=== PATIENT | female | born 1965 | race Caucasian/White ===

== ENCOUNTER → 2018-01-31 10:41 | Outpatient (CLI) | payer MEDICARE, BC, SELFPAY ==
[2018-01-31 11:55] LABS: Alanine Aminotransferase 34 U/L (12-78); Albumin Level 3.6 gm/dL (3.4-5.0); Alkaline Phosphatase 125 U/L (46-116); Anion Gap 13.2 mEq/L (5-15); Aspartate Amino Transferase 25 U/L (15-37); Bilirubin,Total 0.4 mg/dL (0.2-1.0); Blood Urea Nitrogen 27 mg/dL (7-18); Calcium 9.9 mg/dL (8.5-10.1); Carbon Dioxide 33 mmol/L (21.0-32.0); Chloride 101 mmol/L (98-107); Creatinine,Serum 1.38 mg/dL (0.55-1.02); Estimated Glomerular Filt Rate 40 ml/min (>60); GFR (African American) 49 ML/MIN (>60); Globulin 3.7 gm/dl (1.3-3.2); Glucose 111 mg/dL (74-106); Magnesium 2.1 mg/dL (1.4-2.2); Potassium 3.2 mmoL/L (3.5-5.1); Sodium 144 mmol/L (136-145); Total Protein,Serum 7.3 gm/dL (6.4-8.2)
== END ==
PROVIDERS: Visit Provider Internal Medicine Adolescent Medicine
DX: R00.2 Palpitations (principal)
CPT/HCPCS: 36415; 80053; 83735

== ENCOUNTER → 2018-03-12 16:46 | Outpatient (CLI) | payer MEDICARE, BC, SELFPAY ==
[2018-03-12 18:41] LABS: Free Thyroxine Index 2.3 ug/dL (5.93-13.13); Thyroid Stimulating Hormone 2.56 uIU/ml (0.358-3.740); Triiodothryronine (T3) Uptake 29 % (31-39)
== END ==
PROVIDERS: Visit Provider Internal Medicine Adolescent Medicine
DX: R53.83 Other fatigue (principal); R53.81 Other malaise
CPT/HCPCS: 36415; 84436; 84443; 84479

== ENCOUNTER → 2018-04-26 13:49 | Outpatient (POV) | payer MEDICARE, BC, SELFPAY | PROVIDERS: Family Provider Nurse Practitioner Family; PCP Nurse Practitioner Family; Visit Provider Dermatology | DX: Z00.00 Encounter for general adult medical examination without abnormal findings (principal) ==

== ENCOUNTER → 2018-05-15 09:22 | Outpatient (CLI) | payer MEDICARE, BC, SELFPAY ==
[2018-05-15 10:01] LABS: Hemoglobin A1C 6.4 % (0.0-7.0)
[2018-05-15 10:32] LABS: Basophils # 0.1 K/mm3 (0-0.2); Basophils % 0.5 % (0.1-2.0); Eosinophils # 0.3 K/mm3 (0.0-0.4); Eosinophils % 2.5 % (0.1-12.0); Hematocrit 43.9 % (37.0-47.0); Hemoglobin 14.2 g/dL (12.2-16.2); Lymphocytes # 2.3 K/mm3 (0.7-4.5); Lymphocytes % 23.1 K/mm3 (10-50); Mean Corpuscular HGB Conc 32.3 g/dL (31.8-35.4); Mean Corpuscular Hemoglobin 29.7 pg (27.0-31.2); Mean Corpuscular Volume 91.8 fl (81-99); Mean Platelet Volume 7.5 fl (7.4-10.4); Monocytes # 0.4 K/mm3 (0.1-1.0); Monocytes % 3.8 % (1.7-9.3); Neutrophils # 7.1 K/mm3 (1.8-7.8); Neutrophils % 70.1 % (37.0-80.0); Platelet Count 326 K/mm3 (142-424); Red Blood Count 4.78 M/mm3 (4.20-5.40); Red Cell Distribution Width 15.8 % (11.5-17.5); White Blood Count 10.1 K/mm3 (4.8-10.8)
[2018-05-15 10:33] LABS: Alanine Aminotransferase 39 U/L (12-78); Albumin Level 3.4 gm/dL (3.4-5.0); Albumin/Globulin Ratio 0.9 (1.1-1.8); Alkaline Phosphatase 123 U/L (46-116); Anion Gap 11.3 mEq/L (5-15); Aspartate Amino Transferase 22 U/L (15-37); Bilirubin,Direct 0.1 mg/dL (0.0-0.2); Bilirubin,Indirect 0.2 mg/dL (0.0-0.9); Bilirubin,Total 0.3 mg/dL (0.2-1.0); Blood Urea Nitrogen 23 mg/dL (7-18); Calcium 9.7 mg/dL (8.5-10.1); Carbon Dioxide 33 mmol/L (21.0-32.0); Chloride 100 mmol/L (98-107); Chol/HDL Ratio 2.7 (1-3.5); Cholesterol 246 mg/dL (140-200); Creatinine,Serum 1.45 mg/dL (0.55-1.02); Estimated Glomerular Filt Rate 38 ml/min (>60); Free T4 (Free Thyroxine) 0.76 ng/dl (0.76-1.46); GFR (African American) 46 ML/MIN (>60); Globulin 3.8 gm/dl (1.3-3.2); Glucose 147 mg/dL (74-106); HDL Cholesterol 92 mg/dL (29-89); LDL Cholesterol 99 mg/dL (0-130); Potassium 3.3 mmoL/L (3.5-5.1); Sodium 141 mmol/L (136-145); Thyroid Stimulating Hormone 3.39 uIU/ml (0.358-3.740); Total Protein,Serum 7.2 gm/dL (6.4-8.2); Triglycerides 274 mg/dL (30-200); VLDL Cholesterol 55 mg/dL (0-40)
[2018-05-16 11:00] LABS: Triiodothyronine (T3) Free 3.2 pg/mL (2.0-4.4); Vitamin B12 981 pg/mL (232-1245); Vitamin D 25 Hydroxy 62.7 ng/mL (30.0-100.0)
== END ==
PROVIDERS: Visit Provider Nurse Practitioner Psychiatric/Mental Health
DX: F33.1 Major depressive disorder, recurrent, moderate (principal); F41.9 Anxiety disorder, unspecified; Z79.899 Other long term (current) drug therapy
CPT/HCPCS: 36415; 80053; 80061; 80076; 82607; 82652; 83036; 84439; 84443; 84481; 85025

== ENCOUNTER → 2018-07-23 11:39 | Outpatient (POV) | payer OTHER, MEDICARE, BC, SELFPAY ==
[2018-07-23 11:51] VITALS: BP 142/86; PULSE 98; RESP 18; O2SAT 97; BMI 38.7
--- NOTE | 2018-07-23 12:59 | HMH.PAINSOAP ---
[facility] Pain Management SOAP Note Subjective:: Patient is a pleasant 53-year-old white female who presents today for follow-up. Patient has a Medtronic stimulator. Patient is coming to the end of her life of her generator. Patient has done well with her stimulator for pain control. Patient is having issues far as recharging. Patient would like to start moving forward with getting her generator changed. Patient rates her pain today a 3 out of 10. Mostly in her right upper extremity ROS General: no recent weight change, no fever, no sleep disturbances Respiratory: no cough, no shortness of air, no recurring pulmonary infections Cardiovascular/Peripheral Vascular: No chest pain, No palpitations, no edema, no shortness of breath. Gastrointestinal: no incontinence, normal bowel movements reported Genitourinary: no incontinence Musculoskeletal: Right upper extremity pain Psychiatric: normal mood/ affect Neurological: [denies weakness in extremities], [denies balance issues] Objective:: Physical Exam General: Alert and oriented x3, no acute distress, pleasant and cooperative, [on room air] Lungs: Resps E/U, Symmetrical chest expansion, Eyes: PERRL Musculoskeletal: Flexion and extension of cervical spine somewhat guarded secondary to pain, deep tendon reflexes normal, strength in upper and lower extremities [5/5], normal gait noted Neurological: speech clear, permanent mold supervisor equal, no gross sensory deficits Assessment:: CRPS type I right upper extremity Plan:: We will order x-rays to determine lead placement. We will switch out her Medtronic battery for a nuvectrA battery. Patient is interested in this. I answered all of the patient's questions we will move forward with a change out as soon as possible. We will have her scheduled with Dr. murry to be consulted. This note was dictated using voice recognition software and may contain errors or omissions
--- NOTE | 2018-07-23 13:02 | P.CONS_ITS ---
[facility] Pain Management SOAP Note Subjective:: Patient is a pleasant 53-year-old white female who presents today for follow-up. Patient has a Medtronic stimulator. Patient is coming to the end of her life of her generator. Patient has done well with her stimulator for pain control. Patient is having issues far as recharging. Patient would like to start moving forward with getting her generator changed. Patient rates her pain today a 3 out of 10. Mostly in her right upper extremity ROS General: no recent weight change, no fever, no sleep disturbances Respiratory: no cough, no shortness of air, no recurring pulmonary infections Cardiovascular/Peripheral Vascular: No chest pain, No palpitations, no edema, no shortness of breath. Gastrointestinal: no incontinence, normal bowel movements reported Genitourinary: no incontinence Musculoskeletal: Right upper extremity pain Psychiatric: normal mood/ affect Neurological: [denies weakness in extremities], [denies balance issues] Objective:: Physical Exam General: Alert and oriented x3, no acute distress, pleasant and cooperative, [on room air] Lungs: Resps E/U, Symmetrical chest expansion, Eyes: PERRL Musculoskeletal: Flexion and extension of cervical spine somewhat guarded secondary to pain, deep tendon reflexes normal, strength in upper and lower extremities [5/5], normal gait noted Neurological: speech clear, servicing manager equal, no gross sensory deficits Assessment:: CRPS type I right upper extremity Plan:: We will order x-rays to determine lead placement. We will switch out her Medtronic battery for a nuvectrA battery. Patient is interested in this. I answered all of the patient's questions we will move forward with a change out as soon as possible. We will have her scheduled with Dr. murry to be consulted. This note was dictated using voice recognition software and may contain errors or omissions
== END ==
PROVIDERS: PCP Internal Medicine Adolescent Medicine; Visit Provider Clinical Nurse Specialist Family Health
DX: G90.511 Complex regional pain syndrome I of right upper limb (principal)
CPT/HCPCS: 99213

== ENCOUNTER → 2018-08-03 14:41 | Outpatient (CLI) | payer MEDICARE, BC, SELFPAY ==
--- NOTE | 2018-08-03 14:49 | XR_ITS ---
EXAM: XR thoracic spine 3V HISTORY: ITS.REASON: BACK/NECK PAIN Comparison: None FINDINGS: There is normal alignment. No fracture or dislocation is evident. There are 2 epidural stimulator device is present which enter at the L2-L3 level. There are mild degenerative changes in the mid and upper thoracic spine with some decrease in the disc space with minimal osteophytes noted. No lytic or blastic change. IMPRESSION: Mild degenerative changes, no acute finding. Epidural stimulator device present
--- NOTE | 2018-08-03 14:49 | XR_ITS ---
EXAM: XR cervical spine 5V HISTORY: ITS.REASON: BACK/NECK PAIN ORDERING PHYSICIAN: Amalia Batista PATIENT AGE: 53 years COMPARISON: None FINDINGS: There is slight reversal of the cervical lordosis. This can be due to patient positioning or muscle spasm. Epidural stimulator device is noted with 2 leads along the posterior aspect of the spinal canal with the cephalad component of one of the catheters at the 4 region. There are 2 metallic markers along the posterior aspect of the T2 level. The remaining metallic markers are at the inferior aspect of the C3 level. This raises the suspicion of separation of this catheter. If this is considered clinically significant, then CT with reformats can confirm this finding. No fracture or dislocation. The disc spaces are well-preserved. No lytic or blastic change. IMPRESSION: 1. Reversal of cervical lordosis which may be due to patient positioning or muscle spasm. 2. Suspect a fracture of the distal aspect of one of the epidural catheters which is on the left which may be confirmed with CT
== END ==
PROVIDERS: PCP Clinical Nurse Specialist Family Health; Visit Provider Clinical Nurse Specialist Family Health
DX: M54.2 Cervicalgia (principal); M54.6 Pain in thoracic spine
CPT/HCPCS: 72050; 72072

== ENCOUNTER 2018-09-11 10:49 | Inpatient (IN) ==
[2018-09-11 11:12] LABS: Basophils # 0.1 K/mm3 (0-0.2); Basophils % 0.6 % (0.1-2.0); Eosinophils # 0.4 K/mm3 (0.0-0.4); Hematocrit 40.7 % (37.0-47.0); Hemoglobin 13.2 g/dL (12.2-16.2); Lymphocytes # 1.8 K/mm3 (0.7-4.5); Lymphocytes % 23.4 % (10-50); Mean Corpuscular HGB Conc 32.5 g/dL (31.8-35.4); Mean Corpuscular Hemoglobin 28.5 pg (27.0-31.2); Mean Corpuscular Volume 87.6 fl (81-99); Monocytes # 0.4 K/mm3 (0.1-1.0); Monocytes % 5.1 % (1.7-9.3); Neutrophils # 5.2 K/mm3 (1.8-7.8); Neutrophils % 65.9 % (37.0-80.0); Platelet Count 268 K/mm3 (142-424); Red Blood Count 4.64 M/mm3 (4.20-5.40); White Blood Count 7.8 K/mm3 (4.8-10.8)
[2018-09-11 12:20] LABS: Alanine Aminotransferase 34 U/L (12-78); Albumin Level 3.7 gm/dL (3.4-5.0); Alkaline Phosphatase 116 U/L (46-116); Amylase 122 U/L (25-115); Anion Gap 15.3 mEq/L (5-15); Aspartate Amino Transferase 25 U/L (15-37); Bilirubin,Total 0.3 mg/dL (0.2-1.0); Blood Urea Nitrogen 43 mg/dL (7-18); Calcium 9.3 mg/dL (8.5-10.1); Carbon Dioxide 31 mmol/L (21.0-32.0); Chloride 98 mmol/L (98-107); Free Thyroxine Index 2.1 ug/dL (5.93-13.13); Globulin 3.8 gm/dl (1.3-3.2); Glucose 109 mg/dL (74-106); Lipase 220 u/L (73-393); Potassium 3.3 mmoL/L (3.5-5.1); Sodium 141 mmol/L (136-145); T4 (Thyroxine) 7.1 ug/dl (4.7-13.3); Thyroid Stimulating Hormone 1.55 uIU/ml (0.358-3.740); Total Protein,Serum 7.5 gm/dL (6.4-8.2); Triiodothryronine (T3) Uptake 29 % (31-39)
[2018-09-11 16:49] LABS: Microscopic, Urine URINE MICROSCOPIC (MICROSCOPIC)
[2018-09-11 16:52] LABS: Appearance,Urine CLEAR (Clear); Bilirubin,Urine Negative (Negative); Blood, Urine 1+ (Negative); Color,Urine YELLOW (Yellow); Glucose,Urine (UA) Negative (Negative); Ketones,Urine Negative (Negative); Leukocyte Esterase,Urine TRACE (Negative); Protein,Urine 1+ (Negative); Specific Gravity, Urine 1.015 (1.005-1.030); Urobilinogen,Urine 0.2 EU/dl (0.2)
[2018-09-11 17:10] LABS: Bacteria,Urine Trace /lpf; Hyaline Casts,Urine Occasional #/lpf (0); RBC,Urine Occasional #/hpf (0-3)
[2018-09-12 06:31] LABS: Anion Gap 12.7 mEq/L (5-15)
[2018-09-12 06:46] LABS: Basophils % 0.3 % (0.1-2.0); Eosinophils # 0.3 K/mm3 (0.0-0.4); Eosinophils % 3.7 % (0.1-12.0); Lymphocytes # 1.6 K/mm3 (0.7-4.5); Lymphocytes % 20.5 % (10-50); Mean Corpuscular HGB Conc 32.3 g/dL (31.8-35.4); Mean Corpuscular Volume 86.8 fl (81-99); Mean Platelet Volume 7.2 fl (7.4-10.4); Monocytes # 0.5 K/mm3 (0.1-1.0); Monocytes % 6.7 % (1.7-9.3); Neutrophils # 5.3 K/mm3 (1.8-7.8); Neutrophils % 68.8 % (37.0-80.0); Platelet Count 197 K/mm3 (142-424); Red Blood Count 4.06 M/mm3 (4.20-5.40); Red Cell Distribution Width 14.9 % (11.5-17.5); White Blood Count 7.7 K/mm3 (4.8-10.8)
[2018-09-12 06:57] LABS: Potassium 2.7 mmoL/L (3.5-5.1)
[2018-09-12 07:41] LABS: Hematocrit 35.1 % (37.0-47.0); Hemoglobin 11.5 g/dL (12.2-16.2)
--- NOTE | 2018-09-12 07:45 | Pharmacy Consult Notes ---
[facility] Pharmacy VTE Monitoring - Patient Demographics Admission date: 09/11/18 Report Date: 09/12/18 Time: 07:45 Allergies/Adverse Reactions: Patient Allergies meperidine [From DEMEROL] Allergy (Mild, Verified 08/21/18 14:55) oxytetracycline [From TERRAMYCIN] Allergy (Mild, Verified 08/21/18 14:55) penicillin G [PENICILLIN G] Allergy (Mild, Verified 08/21/18 14:55) lorazepam [From ATIVAN] Allergy (Unknown, Verified 08/21/18 14:55) HALLUCINATIONS Height: 1.52 m Weight: 88.054 kg - VTE Risk Labs: VTE Related Lab Results Hgb 11.5 g/dL (12.2-16.2) L D 09/12/18 05:42 Hct 35.1 % (37.0-47.0) L 09/12/18 05:42 Plt Count 197 K/mm3 (142-424) D 09/12/18 05:42 BUN 36 mg/dL (7-18) H 09/12/18 05:42 Creatinine 3.18 mg/dL (0.55-1.02) H 09/12/18 05:42 Estimated Creat Clear 28 mL/min (50-200) 09/12/18 05:42 Was VTE Risk Assessment Performed: Yes VTE Score: 4 VTE Risk Level: Low Risk Clinical Trial Participant: No - Prophylaxis VTE Prophylaxis Ordered?: Yes Types of VTE Prophylaxis: TEDS Knee High
--- NOTE | 2018-09-12 07:48 | History & Physical Report ---
*Admission Date: 09/11/18 *Chief complaint: Weakness and nausea *History of present illness: 53-year-old white female with multiple medical problems who is fairly functional in spite of this, who came to my office the day before admission with a chief complaint of nausea and weakness. She relates this to the implantation of a spinal stimulator and change in battery that had occurred about a week and a half ago, with a new incision site. She reports that during the procedure she was told her might of been some tetracycline type powder implanted in the area and she was concerned about this because she is extremely sensitive to tetracycline antibiotics and becomes very nauseated. She has been nauseated over the past week and a half and has not been feeling well. I obtained blood work which she got the next morning, the day of admission, which showed significant elevation in creatinine at 3.65, markedly abnormal compared to her baseline around 1.2 and her preoperative creatinine obtained by pain clinic which was 1.6. She was admitted for IV fluids, holding nephrotoxic medications and further diagnostic testing. [facility] History I have reviewed the patient's past medical history: Yes Medical History: Reports:: Anxiety, Diabetes Mellitus Type 2, Heart Murmur (MVP), Hyperlipidemia, Hypertension, Lung Disease Denies:: Diabetes Mellitus Type 1, Internal Pacemaker, Seizures Other Medical History: Reports: Hypothyroidism, Other (Electrocution injury 10 years ago). Denies: Blood Transfusion Reaction Comment: Influenza requiring long-term stay at [facility] with ECMO and ventilator support for several weeks in 2013 Other Surgeries: Yes: Cholecystectomy, Colonoscopy, Hysterectomy-Total. No: Pacemaker Amputation: No Fractures: No - *Social History Smoking Status: Never smoker Alcohol Intake: never Alcohol Intake Frequency:: other Substance Use Type: denies use Occupational Status: disabled - Psychiatric History Expresses thoughts of harming self/others: None Suicide Plan Description: No Plan Pschychiatric History:: Reports:: Anxiety *Family Hx:: Unable to obtain Review of Systems - Review of Systems Review of systems:: pertinent systems reviewed and negative unless documented below - Constitutional Reports anorexia, Reports body ache(s), Reports chills, Denies fever(s), Denies headache(s) - Eyes Denies blind spots, Denies blurry vision, Denies change in vision - ENT Denies abnormal hearing, Denies bleeding gums - *Cardiovascular Denies chest pain, Denies chest pain at rest, Denies chest pain with activity, Denies shortness of breath - *Respiratory Denies change in phlegm color, Denies chest congestion, Denies cough - *Gastrointestinal Reports coffee ground vomit, Denies constipation, Denies difficulty swallowing - *Genitourinary Denies abnormal periods, Denies abnormal vaginal bleeding - Integumentary/Breasts Denies acne, Denies hair loss, Denies bleeding lesions - *Neurologic Denies abnormal walking - Psychiatric Denies abnormal sleep pattern, Denies lack of enjoyment - Endocrine Denies cold intolerance, Denies excessive sweating, Denies rapid, pounding, or irregular heartbeat - Hematologic/Lymphatic Denies easy bleeding - Allergic/Immunologic Reports GI upset with certain foods Meds Home Medications Medication Instructions Recorded Confirmed Type lansoprazole 30 mg capsule,delayed 30 mg PO DAILY 12/25/17 09/11/18 History release carvedilol 3.125 mg tablet 3.125 mg PO ONCE tab 02/23/18 09/11/18 History cholecalciferol (vitamin D3) 5,000 10,000 unit PO DAILY 02/23/18 09/11/18 History unit capsule coenzyme Q10 100 mg capsule 100 mg PO BID 02/23/18 09/11/18 History cyclobenzaprine 10 mg tablet 10 mg PO TIDP PRN 02/23/18 09/11/18 History hydrochlorothiazide 25 mg tablet 12.5 mg PO DAILY tab 02/23/18 09/11/18 History ibuprofen 800 mg-famotidine 26.6 1 tab PO NEEDED PRN 02/23/18 09/11/18 History mg tablet potassium chloride 20 mEq oral 20 meq PO DAILY each 02/23/18 09/11/18 History packet rosuvastatin 20 mg tablet 20 mg PO DAILY 02/23/18 09/11/18 History Brexpiprazole [Rexulti] 0.5 mg PO HS 08/21/18 09/11/18 History Bupropion HBr [Aplenzin] 348 mg PO DAILY 08/21/18 09/11/18 History Magnesium Oxide 400 mg PO DAILY 08/21/18 09/11/18 History Metformin HCl 500 mg PO BID 08/21/18 09/11/18 History Ondansetron HCl [Ondansetron 4mg 4 mg PO NEEDED PRN 08/21/18 09/11/18 History Tablet] Thyroid,Pork [[place] Thyroid] 30 mg PO DAILY 08/21/18 09/11/18 History Fluticasone Propionate [Flonase 1 spr NS BID 09/11/18 09/11/18 History 50mcg nasal spray 16gm] Linaclotide [Linzess] 290 mcg PO DAILY 09/11/18 09/11/18 History Loratadine [Claritin] 10 mg PO DAILY 09/11/18 09/11/18 History Allergies Allergy/AdvReac Type Severity Reaction Status Date / Time meperidine [From DEMEROL] Allergy Mild Verified 08/21/18 14:55 oxytetracycline Allergy Mild Verified 08/21/18 14:55 [From TERRAMYCIN] penicillin G [PENICILLIN G] Allergy Mild Verified 08/21/18 14:55 lorazepam [From ATIVAN] Allergy Unknown HALLUCINATI Verified 08/21/18 14:55 ONS Exam Vital signs and Labs for Last 24 Hours: Temp Pulse Resp BP Pulse Ox 98.6 F 85 18 120/85 97 09/12/18 07:15 09/12/18 07:15 09/12/18 07:15 09/12/18 07:15 09/12/18 07:15 Laboratory Results - last 24 hr 09/11/18 10:51: Sodium 141, Potassium 3.3 L, Chloride 98, Carbon Dioxide 31, Anion Gap 15.3 H, BUN 43 H, Creatinine 3.65 H, Estimated GFR 13 L*, Est GFR ( Amer) 16 L*, Glucose 109 H, Calcium 9.3, Total Bilirubin 0.3, AST 25, ALT 34, Alkaline Phosphatase 116, Total Protein 7.5, Albumin 3.7, Globulin 3.8 H , Albumin/Globulin Ratio 1.0 L, Amylase 122 H, Lipase 220, TSH 1.55 D, Free T4 Index 2.1 L, Thyroxine (T4) 7.1, T3 Uptake 29 L 09/11/18 10:51: WBC 7.8, RBC 4.64, Hgb 13.2, Hct 40.7, MCV 87.6, MCH 28.5, MCHC 32.5, RDW 15.0, Plt Count 268, MPV 7.0 L, Neut % (Auto) 65.9, Lymph % (Auto) 23.4, [place] % (Auto) 5.1, Eos % (Auto) 5.0, Baso % (Auto) 0.6, Neut # (Auto) 5.2, Lymph # (Auto) 1.8, [place] # (Auto) 0.4, Eos # (Auto) 0.4, Baso # (Auto) 0.1 09/11/18 10:51: Hemoglobin A1c 6.1 09/11/18 16:35: Urine Color Yellow, Urine Appearance Clear, Urine pH 6.0, Ur Specific [place] 1.015, Urine Protein 1+, Urine Glucose (UA) Negative, Urine Ketones Negative, Urine Blood 1+, Urine Nitrate Negative, Urine Bilirubin Negative, Urine Urobilinogen 0.2, Ur Leukocyte Esterase Trace, Urine RBC Occasional, Urine WBC 3-5, Ur Squamous Epith Cells 3-5, Urine Bacteria Trace, Hyaline Casts Occasional 09/11/18 16:35: Urine Eosinophils Absent 09/11/18 17:06: POC Glucose 102 09/11/18 20:37: POC Glucose 81 09/12/18 05:42: WBC 7.7, RBC 4.06 L, Hgb 11.5 L D, Hct 35.1 L, MCV 86.8, MCH 28.0, MCHC 32.3, RDW 14.9, Plt Count 197 D, MPV 7.2 L, Neut % (Auto) 68.8, Lymph % (Auto) 20.5, [place] % (Auto) 6.7, Eos % (Auto) 3.7, Baso % (Auto) 0.3, Neut # (Auto) 5.3, Lymph # (Auto) 1.6, [place] # (Auto) 0.5, Eos # (Auto) 0.3, Baso # (Auto) 0.0 09/12/18 05:42: Sodium 142, Potassium 2.7 L*, Chloride 105, Carbon Dioxide 27, Anion Gap 12.7, BUN 36 H, Creatinine 3.18 H, Estimated Creat Clear 28, Estimated GFR 15 L*, Est GFR ( Amer) 18 L*, Glucose 103, Calcium 9.0 09/12/18 06:19: POC Glucose 99 I & O for Last 24 hours: Intake & Output 12/16/18 12/17/18 12/18/18 12/19/18 11:59 11:59 11:59 11:59 Intake Total 300 / 300 Output Total 1900 / 1900 Balance -1600 / -1600 Weight 194 lb 2 oz Narrative: On the day of admission patient was pleasant, talkative, no jaundice, no scleral icterus. Lungs are clear and well-expanded. Heart rate regular without murmurs. Abdomen soft, her obesity limits the accuracy of her exam, however. Spinal cord stimulator incision site was fairly lengthy at about 10 cm, sutures in place, well apposition, good healing, no evidence of local reaction, erythema, drainage or fluctuance. This incision is located just to the left of her gluteal cleft. No edema or clubbing in the extremities. Assessment and Plan (1) Acute kidney injury Current visit: Yes Status: Acute Category: Medical Code(s): N17.9 - Acute kidney failure, unspecified Significant creatinine elevation. Admit to hospital for IV fluids, hold nephrotoxic medications, renal ultrasound. Urine for eosinophils.
--- NOTE | 2018-09-12 08:24 | Progress Note ---
Internal Medicine - PN: Subj *Date: 09/12/18 *Time: 08:23 Interval history: Patient feels better. Able to take some breakfast this morning after a Zofran tablet. Is alert. Pleasant. Exam Vital signs and Labs for Last 24 Hours: Temp Pulse Resp BP Pulse Ox 98.6 F 85 18 120/85 97 09/12/18 07:15 09/12/18 07:15 09/12/18 07:15 09/12/18 07:15 09/12/18 07:15 Laboratory Results - last 24 hr 09/11/18 10:51: Sodium 141, Potassium 3.3 L, Chloride 98, Carbon Dioxide 31, Anion Gap 15.3 H, BUN 43 H, Creatinine 3.65 H, Estimated GFR 13 L*, Est GFR ( Amer) 16 L*, Glucose 109 H, Calcium 9.3, Total Bilirubin 0.3, AST 25, ALT 34, Alkaline Phosphatase 116, Total Protein 7.5, Albumin 3.7, Globulin 3.8 H , Albumin/Globulin Ratio 1.0 L, Amylase 122 H, Lipase 220, TSH 1.55 D, Free T4 Index 2.1 L, Thyroxine (T4) 7.1, T3 Uptake 29 L 09/11/18 10:51: WBC 7.8, RBC 4.64, Hgb 13.2, Hct 40.7, MCV 87.6, MCH 28.5, MCHC 32.5, RDW 15.0, Plt Count 268, MPV 7.0 L, Neut % (Auto) 65.9, Lymph % (Auto) 23.4, [place] % (Auto) 5.1, Eos % (Auto) 5.0, Baso % (Auto) 0.6, Neut # (Auto) 5.2, Lymph # (Auto) 1.8, [place] # (Auto) 0.4, Eos # (Auto) 0.4, Baso # (Auto) 0.1 09/11/18 10:51: Hemoglobin A1c 6.1 09/11/18 16:35: Urine Color Yellow, Urine Appearance Clear, Urine pH 6.0, Ur Specific [place] 1.015, Urine Protein 1+, Urine Glucose (UA) Negative, Urine Ketones Negative, Urine Blood 1+, Urine Nitrate Negative, Urine Bilirubin Negative, Urine Urobilinogen 0.2, Ur Leukocyte Esterase Trace, Urine RBC Occasional, Urine WBC 3-5, Ur Squamous Epith Cells 3-5, Urine Bacteria Trace, Hyaline Casts Occasional 09/11/18 16:35: Urine Eosinophils Absent 09/11/18 17:06: POC Glucose 102 09/11/18 20:37: POC Glucose 81 09/12/18 05:42: WBC 7.7, RBC 4.06 L, Hgb 11.5 L D, Hct 35.1 L, MCV 86.8, MCH 28.0, MCHC 32.3, RDW 14.9, Plt Count 197 D, MPV 7.2 L, Neut % (Auto) 68.8, Lymph % (Auto) 20.5, [place] % (Auto) 6.7, Eos % (Auto) 3.7, Baso % (Auto) 0.3, Neut # (Auto) 5.3, Lymph # (Auto) 1.6, [place] # (Auto) 0.5, Eos # (Auto) 0.3, Baso # (Auto) 0.0 09/12/18 05:42: Sodium 142, Potassium 2.7 L*, Chloride 105, Carbon Dioxide 27, Anion Gap 12.7, BUN 36 H, Creatinine 3.18 H, Estimated Creat Clear 28, Estimated GFR 15 L*, Est GFR ( Amer) 18 L*, Glucose 103, Calcium 9.0 09/12/18 06:19: POC Glucose 99 I & O for Last 24 hours: Intake & Output 09/09/18 09/10/18 09/11/18 09/12/18 11:59 11:59 11:59 11:59 Intake Total 300 / 300 Output Total 1900 / 1900 Balance -1600 / -1600 Weight 194 lb 2 oz Narrative: Patient is alert. Heart rate regular. Lungs clear. Abdomen soft and nontender. No edema. Assessment and Plan (1) Acute kidney injury Current visit: Yes Status: Acute Category: Medical Code(s): N17.9 - Acute kidney failure, unspecified - Assessment and plan all Dx Assessment and Plan for all problems:: Overall improving. Creatinine improved. Replace potassium today. Hold nephrotoxic medications.
[2018-09-12 17:24] LABS: Anion Gap 14.2 mEq/L (5-15); Calcium 9.2 mg/dL (8.5-10.1); Potassium 3.2 mmoL/L (3.5-5.1)
[2018-09-13 06:03] LABS: Albumin Level 2.6 gm/dL (3.4-5.0); Albumin/Globulin Ratio 0.8 (1.1-1.8); Anion Gap 12.3 mEq/L (5-15); Bilirubin,Total 0.2 mg/dL (0.2-1.0); Globulin 3.3 gm/dl (1.3-3.2); Potassium 3.3 mmoL/L (3.5-5.1); Total Protein,Serum 5.9 gm/dL (6.4-8.2)
[2018-09-13 06:48] LABS: Calcium 8.2 mg/dL (8.5-10.1)
--- NOTE | 2018-09-13 09:24 | Discharge Summary ---
General - General Admission date:: 09/11/18 Discharge date: 09/13/18 HPI HPI: 53-year-old white female with multiple medical problems who is fairly functional in spite of this, who came to my office the day before admission with a chief complaint of nausea and weakness. She relates this to the implantation of a spinal stimulator and change in battery that had occurred about a week and a half ago, with a new incision site. She reports that during the procedure she was told her might of been some tetracycline type powder implanted in the area and she was concerned about this because she is extremely sensitive to tetracycline antibiotics and becomes very nauseated. She has been nauseated over the past week and a half and has not been feeling well. I obtained blood work which she got the next morning, the day of admission, which showed significant elevation in creatinine at 3.65, markedly abnormal compared to her baseline around 1.2 and her preoperative creatinine obtained by pain clinic which was 1.6. She was admitted for IV fluids, holding nephrotoxic medications and further diagnostic testing. Hospital Course Hospital Course: Patient was admitted to the hospital. Nephrotoxic medications were held and she was placed on IV fluid infusions. Renal ultrasound showed no evidence of obstructive uropathy or significant kidney abnormalities on imaging studies. Patient's creatinine improved in a very slow but stepwise fashion, and this morning had declined to down to 2.6. Patient feels much improved, has no nausea, keeping fluids down. Patient is a reliable person to come back for lab work and I will plan to discharge her home today with significant medication changes, advised to push p.o. fluids, and she will follow-up with me in 2 days with labs that morning to monitor her kidney function and potassium. Objective Vital signs: Temp Pulse Resp BP Pulse Ox 97.9 F 77 18 144/91 H 97 09/13/18 08:00 09/13/18 08:00 09/13/18 08:00 09/13/18 08:00 09/13/18 08:00 Narrative: Patient is alert, pleasant, has eaten a good breakfast. No JVD, ENT exam clear. Lungs clear. Heart rate regular without murmurs. Abdomen obese but nondistended. No clubbing, edema or cyanosis. No visible rash. Results Labs on day of discharge: Labs from last 24 hours 09/13/18 09/13/18 09/12/18 05:47 05:34 21:42 Sodium 146 H Potassium 3.3 L Chloride 112 H Carbon Dioxide 25 Anion Gap 12.3 BUN 28 H Creatinine 2.66 H Estimated Creat Clear 17 Estimated GFR 19 L* Est GFR ( Amer) 23 L Glucose 91 POC Glucose 68 L 92 Calcium 8.2 L D Total Bilirubin 0.2 AST 16 D ALT 24 D Alkaline Phosphatase 80 Total Protein 5.9 L Albumin 2.6 L Globulin 3.3 H Albumin/Globulin Ratio 0.8 L 09/12/18 09/12/18 09/12/18 16:55 16:40 11:46 Sodium 142 Potassium 3.2 L Chloride 103 Carbon Dioxide 28 Anion Gap 14.2 BUN 32 H Creatinine 2.99 H Estimated Creat Clear 30 Estimated GFR 16 L* Est GFR ( Amer) 20 L Glucose 111 H POC Glucose 66 L 125 H Calcium 9.2 Total Bilirubin AST ALT Alkaline Phosphatase Total Protein Albumin Globulin Albumin/Globulin Ratio DS: Diagnosis - Discharge Diagnosis (1) Acute kidney injury Status: Acute Discharge Plan - Patient Discharge Instructions ACTIVITY: Continue current activity Patient Instructions: Acute Renal Failure - Follow up Plan Follow up with: Jerry Hill MD [Primary Care Provider] - 09/15/18 9:30 am Disposition: Home, Self-Snf Medications: Home Medications Medication Instructions Recorded Confirmed Type lansoprazole 30 mg capsule,delayed 30 mg PO DAILY 12/25/17 09/11/18 History release carvedilol 3.125 mg tablet 3.125 mg PO BID tab 02/23/18 09/12/18 History cholecalciferol (vitamin D3) 5,000 10,000 unit PO DAILY 02/23/18 09/11/18 History unit capsule coenzyme Q10 100 mg capsule 100 mg PO BID 02/23/18 09/11/18 History cyclobenzaprine 10 mg tablet 10 mg PO BIDP PRN 02/23/18 09/12/18 History hydrochlorothiazide 25 mg tablet 25 mg PO DAILY tab 02/23/18 09/12/18 History ibuprofen 800 mg-famotidine 26.6 1 tab PO TIDP PRN 02/23/18 09/12/18 History mg tablet Brexpiprazole [Rexulti] 0.5 mg PO HS 08/21/18 09/11/18 History Bupropion HBr [Aplenzin] 348 mg PO DAILY 08/21/18 09/11/18 History Magnesium Oxide 400 mg PO DAILY 08/21/18 09/11/18 History Metformin HCl 500 mg PO BID 08/21/18 09/11/18 History Ondansetron HCl [Ondansetron 4mg 4 mg PO Q6HP PRN 08/21/18 09/12/18 History Tablet] Thyroid,Pork [[place] Thyroid] 30 mg PO DAILY 08/21/18 09/11/18 History Fluticasone Propionate [Flonase 1 spr NS BID 09/11/18 09/11/18 History 50mcg nasal spray 16gm] Linaclotide [Linzess] 290 mcg PO DAILY 09/11/18 09/11/18 History Potassium Chloride [Klor-con 20 20 meq PO DAILY 09/12/18 09/12/18 History mEq tablet] Rosuvastatin Calcium 20 mg PO HS 09/12/18 09/12/18 History Prescriptions/Medication Reconciliation: Continue lansoprazole 30 mg capsule,delayed release 30 mg PO DAILY coenzyme Q10 100 mg capsule 100 mg PO BID cholecalciferol (vitamin D3) 5,000 unit capsule 10,000 unit PO DAILY cyclobenzaprine 10 mg tablet 10 mg PO BIDP PRN PRN Reason: muscle spasms carvedilol 3.125 mg tablet 3.125 mg PO BID tab Bupropion HBr [Aplenzin] 348 mg PO DAILY Magnesium Oxide 400 mg PO DAILY Thyroid,Pork [[place] Thyroid] 30 mg PO DAILY Brexpiprazole [Rexulti] 0.5 mg PO HS Ondansetron HCl [Ondansetron 4mg Tablet] 4 mg PO Q6HP PRN PRN Reason: nausea/vomiting Potassium Chloride [Klor-con 20 mEq tablet] 20 meq PO DAILY Fluticasone Propionate [Flonase 50mcg nasal spray 16gm] 1 spr NS BID Discontinued hydrochlorothiazide 25 mg tablet 25 mg PO DAILY tab ibuprofen 800 mg-famotidine 26.6 mg tablet 1 tab PO TIDP PRN PRN Reason: pain Linaclotide [Linzess] 290 mcg PO DAILY Rosuvastatin Calcium 20 mg PO HS Metformin HCl 500 mg PO BID Other Amb Orders: Basic Metabolic Panel Time Frame: 09/15/18, Facility: [facility], Location: Laboratory
== END 2018-09-13 11:38 | disposition home or self-care (01) ==
LOC: LAB 10:49 → 2ND 13:01
PROVIDERS: ADMIT Internal Medicine Adolescent Medicine; ATTEND Internal Medicine Adolescent Medicine
CPT/HCPCS: 36415; 76770; 80048; 80053; 81001; 82150; 82962; 83036; 83690; 84436; 84443; 84479; 85025; 87205; 93005; J2405

== ENCOUNTER → 2018-09-11 11:01 | Outpatient (POV) | payer OTHER, MEDICARE, BC, SELFPAY ==
[2018-09-11 11:41] VITALS: BP 132/93; PULSE 89; RESP 18; O2SAT 99; BMI 35.6
--- NOTE | 2018-09-11 11:59 | HMH.PAINSOAP ---
[facility] [place] Pain Management SOAP Note Subjective:: Is a pleasant 53-year-old white female who presents today for follow-up after stimulator battery replacement. Patient is doing well. Patient will be seen by the Med[employer] product sales representative today for any kind of education needed. Patient rates her pain a 4 out of 10. Stitches were removed there is no sign symptoms of infection. ROS General: no recent weight change, no fever, no sleep disturbances Respiratory: no cough, no shortness of air, no recurring pulmonary infections Cardiovascular/Peripheral Vascular: No chest pain, No palpitations, no edema, no shortness of breath. Gastrointestinal: no incontinence, normal bowel movements reported Genitourinary: no incontinence Musculoskeletal: Right upper arm pain at times Psychiatric: normal mood/ affect Neurological: [denies weakness in extremities], [denies balance issues] Objective:: Physical Exam General: Alert and oriented x3, no acute distress, pleasant and cooperative, on room air Lungs: Resps E/U, Symmetrical chest expansion Eyes: PERRL Musculoskeletal: Flexion and extension of lumbar spine somewhat guarded secondary to pain, deep tendon reflexes normal, strength in upper and lower extremities [5/5], normal gait noted Neurological: speech clear, entry level staff accountant equal, no gross sensory deficits Assessment:: CRPS type I right upper extremity Plan:: We will follow-up with the patient in 1 month and reassess her to ensure that her healing process is complete. Patient's been instructed to call the office if she has any issues prior to her next appointment. This note was dictated using voice recognition software and may contain errors or omissions
== END ==
PROVIDERS: PCP Internal Medicine Adolescent Medicine; Visit Provider Clinical Nurse Specialist Family Health
DX: G90.511 Complex regional pain syndrome I of right upper limb (principal); Z96.89 Presence of other specified functional implants
CPT/HCPCS: 99213

== ENCOUNTER → 2018-09-15 08:29 | Outpatient (CLI) | payer MEDICARE, BC, SELFPAY ==
[2018-09-15 09:50] LABS: Anion Gap 14.4 mEq/L (5-15); Blood Urea Nitrogen 22 mg/dL (7-18); Calcium 8.8 mg/dL (8.5-10.1); Carbon Dioxide 27 mmol/L (21.0-32.0); Chloride 108 mmol/L (98-107); Creatinine,Serum 2.74 mg/dL (0.55-1.02); Estimated Glomerular Filt Rate 18 ml/min (>60); GFR (African American) 22 ML/MIN (>60); Glucose 104 mg/dL (74-106); Potassium 3.4 mmoL/L (3.5-5.1); Sodium 146 mmol/L (136-145)
== END ==
PROVIDERS: Visit Provider Internal Medicine Adolescent Medicine
DX: N17.9 Acute kidney failure, unspecified (principal)
CPT/HCPCS: 36415; 80048

== ENCOUNTER → 2018-09-19 14:49 | Outpatient (CLI) | payer MEDICARE, BC, SELFPAY ==
[2018-09-19 15:50] LABS: Anion Gap 13.2 mEq/L (5-15); Blood Urea Nitrogen 28 mg/dL (7-18); Calcium 9.7 mg/dL (8.5-10.1); Carbon Dioxide 29 mmol/L (21.0-32.0); Chloride 106 mmol/L (98-107); Creatinine,Serum 2.11 mg/dL (0.55-1.02); Estimated Glomerular Filt Rate 25 ml/min (>60); GFR (African American) 30 ML/MIN (>60); Glucose 85 mg/dL (74-106); Potassium 3.2 mmoL/L (3.5-5.1); Sodium 145 mmol/L (136-145)
== END ==
PROVIDERS: Visit Provider Internal Medicine Adolescent Medicine
DX: N17.9 Acute kidney failure, unspecified (principal)
CPT/HCPCS: 36415; 80048

== ENCOUNTER → 2018-09-23 14:14 | Outpatient (CLI) | payer MEDICARE, BC, SELFPAY ==
[2018-09-23 15:10] LABS: Anion Gap 10.6 mEq/L (5-15); Blood Urea Nitrogen 24 mg/dL (7-18); Calcium 9.4 mg/dL (8.5-10.1); Carbon Dioxide 29 mmol/L (21.0-32.0); Chloride 104 mmol/L (98-107); Estimated Glomerular Filt Rate 29 ml/min (>60); GFR (African American) 36 ML/MIN (>60); Glucose 106 mg/dL (74-106); Potassium 3.6 mmoL/L (3.5-5.1); Sodium 140 mmol/L (136-145)
== END ==
PROVIDERS: Visit Provider Internal Medicine Adolescent Medicine
DX: Z79.899 Other long term (current) drug therapy (principal)
CPT/HCPCS: 36415; 80048

== ENCOUNTER → 2018-10-08 10:18 | Outpatient (CLI) | payer MEDICARE, BC, SELFPAY ==
[2018-10-08 10:54] LABS: Basophils # 0.1 K/mm3 (0-0.2); Basophils % 0.6 % (0.1-2.0); Eosinophils # 0.3 K/mm3 (0.0-0.4); Eosinophils % 3.3 % (0.1-12.0); Hematocrit 39.7 % (37.0-47.0); Hemoglobin 12.5 g/dL (12.2-16.2); Lymphocytes # 2.2 K/mm3 (0.7-4.5); Lymphocytes % 26.1 % (10-50); Mean Corpuscular HGB Conc 31.4 g/dL (31.8-35.4); Mean Corpuscular Hemoglobin 28.5 pg (27.0-31.2); Mean Corpuscular Volume 90.7 fl (81-99); Mean Platelet Volume 7.1 fl (7.4-10.4); Monocytes # 0.4 K/mm3 (0.1-1.0); Monocytes % 5.2 % (1.7-9.3); Neutrophils # 5.5 K/mm3 (1.8-7.8); Neutrophils % 64.8 % (37.0-80.0); Platelet Count 263 K/mm3 (142-424); Red Blood Count 4.38 M/mm3 (4.20-5.40); Red Cell Distribution Width 16.6 % (11.5-17.5); White Blood Count 8.4 K/mm3 (4.8-10.8)
[2018-10-08 11:17] LABS: Alanine Aminotransferase 40 U/L (12-78); Albumin Level 3.4 gm/dL (3.4-5.0); Alkaline Phosphatase 99 U/L (46-116); Anion Gap 12.4 mEq/L (5-15); Aspartate Amino Transferase 22 U/L (15-37); Bilirubin,Total 0.4 mg/dL (0.2-1.0); Blood Urea Nitrogen 23 mg/dL (7-18); Calcium 9.7 mg/dL (8.5-10.1); Carbon Dioxide 29 mmol/L (21.0-32.0); Chloride 103 mmol/L (98-107); Estimated Glomerular Filt Rate 39 ml/min (>60); GFR (African American) 48 ML/MIN (>60); Globulin 3.3 gm/dl (1.3-3.2); Glucose 119 mg/dL (74-106); Potassium 4.4 mmoL/L (3.5-5.1); Sodium 140 mmol/L (136-145); Total Protein,Serum 6.7 gm/dL (6.4-8.2)
== END ==
PROVIDERS: Visit Provider Internal Medicine Adolescent Medicine
DX: N17.9 Acute kidney failure, unspecified (principal); E11.69 Type 2 diabetes mellitus with other specified complication
CPT/HCPCS: 36415; 80053; 83036; 85025

== ENCOUNTER → 2018-10-09 11:08 | Outpatient (POV) | payer OTHER, SELFPAY ==
[2018-10-09 12:11] VITALS: BP 139/89; PULSE 97; RESP 18; O2SAT 98; BMI 39.0
--- NOTE | 2018-10-09 12:42 | HMH.PAINSOAP ---
[facility] Pain Management SOAP Note Subjective:: Is a pleasant 53-year-old white female who presents today for follow-up. Patient had [employer] stimulator placed and is doing extremely well. Patient would like to follow-up on an as-needed basis. Patient is fully healed and recovered from the surgery. ROS General: no recent weight change, no fever, no sleep disturbances Respiratory: no cough, no shortness of air, no recurring pulmonary infections Cardiovascular/Peripheral Vascular: No chest pain, No palpitations, no edema, no shortness of breath. Gastrointestinal: no incontinence, normal bowel movements reported Genitourinary: no incontinence Musculoskeletal: Arm pain at times Psychiatric: normal mood/ affect Neurological: [denies weakness in extremities], [denies balance issues] Objective:: Physical Exam General: Alert and oriented x3, no acute distress, pleasant and cooperative, [on room air] Lungs: Resps E/U, Symmetrical chest expansion, Eyes: PERRL Musculoskeletal: Range of motion right arm somewhat guarded secondary to pain, deep tendon reflexes normal, strength in upper and lower extremities [5/5], normal gait noted Neurological: speech clear, storeroom attendant equal, no gross sensory deficits Assessment:: CRPS type I right upper extremity Plan:: We will follow-up with the patient on an as-needed basis. Patient's been instructed to call the office if she has any issues prior to her next appointment. Dr. Stratton has reviewed this note and agrees with this plan of care. This note was dictated using voice recognition software and may contain errors or omissions
== END ==
PROVIDERS: PCP Internal Medicine Adolescent Medicine; Visit Provider Clinical Nurse Specialist Family Health
DX: G90.511 Complex regional pain syndrome I of right upper limb (principal)
CPT/HCPCS: 99213

== ENCOUNTER → 2018-11-30 12:18 | Outpatient (CLI) | payer MEDICARE, BC, SELFPAY ==
[2018-11-30 12:53] LABS: Basophils # 0.1 K/mm3 (0-0.2); Basophils % 0.6 % (0.1-2.0); Eosinophils # 0.4 K/mm3 (0.0-0.4); Eosinophils % 5.1 % (0.1-12.0); Hematocrit 44.4 % (37.0-47.0); Lymphocytes # 1.8 K/mm3 (0.7-4.5); Lymphocytes % 25.6 % (10-50); Mean Corpuscular HGB Conc 31.6 g/dL (31.8-35.4); Mean Corpuscular Hemoglobin 29.1 pg (27.0-31.2); Mean Corpuscular Volume 92.3 fl (81-99); Mean Platelet Volume 7.4 fl (7.4-10.4); Monocytes # 0.3 K/mm3 (0.1-1.0); Monocytes % 3.6 % (1.7-9.3); Neutrophils # 4.6 K/mm3 (1.8-7.8); Platelet Count 319 K/mm3 (142-424); Red Blood Count 4.82 M/mm3 (4.20-5.40); Red Cell Distribution Width 15.2 % (11.5-17.5); White Blood Count 7.1 K/mm3 (4.8-10.8)
[2018-11-30 15:51] LABS: Alanine Aminotransferase 51 U/L (12-78); Albumin Level 3.6 gm/dL (3.4-5.0); Albumin/Globulin Ratio 0.9 (1.1-1.8); Alkaline Phosphatase 113 U/L (46-116); Anion Gap 13.7 mEq/L (5-15); Aspartate Amino Transferase 28 U/L (15-37); Bilirubin,Total 0.4 mg/dL (0.2-1.0); Blood Urea Nitrogen 18 mg/dL (7-18); Calcium 9.8 mg/dL (8.5-10.1); Carbon Dioxide 29 mmol/L (21.0-32.0); Chloride 101 mmol/L (98-107); Chol/HDL Ratio 4.5 (1-3.5); Cholesterol 361 mg/dL (140-200); Creatinine,Serum 1.25 mg/dL (0.55-1.02); Estimated Glomerular Filt Rate 45 ml/min (>60); GFR (African American) 54 ML/MIN (>60); Globulin 3.8 gm/dl (1.3-3.2); Glucose 107 mg/dL (74-106); HDL Cholesterol 81 mg/dL (29-89); LDL Cholesterol 221 mg/dL (0-130); Potassium 3.7 mmoL/L (3.5-5.1); Sodium 140 mmol/L (136-145); Total Protein,Serum 7.4 gm/dL (6.4-8.2); Triglycerides 293 mg/dL (30-200); VLDL Cholesterol 59 mg/dL (0-40)
== END ==
PROVIDERS: Visit Provider Internal Medicine Adolescent Medicine
DX: E78.5 Hyperlipidemia, unspecified (principal); N17.9 Acute kidney failure, unspecified
CPT/HCPCS: 36415; 80053; 80061; 85025

== ENCOUNTER → 2018-12-24 14:25 | Outpatient (POV) | payer OTHER, MEDICARE, BC, SELFPAY ==
[2018-12-24 15:18] VITALS: BP 150/98; PULSE 68; RESP 18; O2SAT 99; BMI 37.8
--- NOTE | 2018-12-25 08:43 | HMH.PAINSOAP ---
[facility] Pain Management SOAP Note Subjective:: Patient is a pleasant 53-year-old white female who presents today for follow-up. Patient is having more aches and pains in her joints lately secondary to arthritis. Patient was taken off her anti-inflammatories due to kidney issues. Patient would like to discuss restarting these. Rates her pain a 5 out of 10 today. ROS General: no recent weight change, no fever, no sleep disturbances Respiratory: no cough, no shortness of air, no recurring pulmonary infections Cardiovascular/Peripheral Vascular: No chest pain, No palpitations, no edema, no shortness of breath. Gastrointestinal: no incontinence, normal bowel movements reported Genitourinary: no incontinence Musculoskeletal: Joint pain Psychiatric: normal mood/ affect Neurological: [denies weakness in extremities], [denies balance issues] Objective:: Physical Exam General: Alert and oriented x3, no acute distress, pleasant and cooperative, [on room air] Lungs: Resps E/U, Symmetrical chest expansion, Eyes: PERRL Musculoskeletal: Range of motion upper and lower extremities somewhat guarded secondary to pain, deep tendon reflexes normal, strength in upper and lower extremities [5/5], normal gait noted Neurological: speech clear, rag cutting machine operator equal, no gross sensory deficits Assessment:: CRPS type I right arm, arthritis Plan:: After speaking with the patient's primary care physician we will start her on pen said. if it is beneficial for her we will get a BMP in a week. Dr. Stratton has reviewed this note and agrees with this plan of care. This note was dictated using voice recognition software and may contain errors or omissions
--- NOTE | 2018-12-25 08:46 | P.CONS_ITS ---
[facility] Pain Management SOAP Note Subjective:: Patient is a pleasant 53-year-old white female who presents today for follow-up. Patient is having more aches and pains in her joints lately secondary to arthritis. Patient was taken off her anti-inflammatories due to kidney issues. Patient would like to discuss restarting these. Rates her pain a 5 out of 10 today. ROS General: no recent weight change, no fever, no sleep disturbances Respiratory: no cough, no shortness of air, no recurring pulmonary infections Cardiovascular/Peripheral Vascular: No chest pain, No palpitations, no edema, no shortness of breath. Gastrointestinal: no incontinence, normal bowel movements reported Genitourinary: no incontinence Musculoskeletal: Joint pain Psychiatric: normal mood/ affect Neurological: [denies weakness in extremities], [denies balance issues] Objective:: Physical Exam General: Alert and oriented x3, no acute distress, pleasant and cooperative, [on room air] Lungs: Resps E/U, Symmetrical chest expansion, Eyes: PERRL Musculoskeletal: Range of motion upper and lower extremities somewhat guarded se condary to pain, deep tendon reflexes normal, strength in upper and lower extremities [5/5], normal gait noted Neurological: speech clear, hammer driver equal, no gross sensory deficits Assessment:: CRPS type I right arm, arthritis Plan:: After speaking with the patient's primary care physician we will start her on pen said. if it is beneficial for her we will get a BMP in a week. Dr. Stratton has reviewed this note and agrees with this plan of care. This note was dictated using voice recognition software and may contain errors or omissions
== END ==
PROVIDERS: PCP Internal Medicine Adolescent Medicine; Visit Provider Clinical Nurse Specialist Family Health
DX: G90.511 Complex regional pain syndrome I of right upper limb (principal); M19.90 Unspecified osteoarthritis, unspecified site
CPT/HCPCS: 99212

== ENCOUNTER → 2019-03-30 10:08 | Outpatient (CLI) | payer MEDICARE, BC, SELFPAY ==
[2019-03-30 11:31] LABS: Alanine Aminotransferase 41 U/L (12-78); Albumin Level 3.2 gm/dL (3.4-5.0); Albumin/Globulin Ratio 0.9 (1.1-1.8); Alkaline Phosphatase 110 U/L (46-116); Anion Gap 11.9 mEq/L (5-15); Aspartate Amino Transferase 28 U/L (15-37); Bilirubin,Total 0.3 mg/dL (0.2-1.0); Blood Urea Nitrogen 20 mg/dL (7-18); Calcium 9.3 mg/dL (8.5-10.1); Carbon Dioxide 30 mmol/L (21.0-32.0); Chloride 104 mmol/L (98-107); Estimated Glomerular Filt Rate 47 ml/min (>60); GFR (African American) 57 ML/MIN (>60); Globulin 3.4 gm/dl (1.3-3.2); Glucose 145 mg/dL (74-106); Potassium 3.9 mmoL/L (3.5-5.1); Sodium 142 mmol/L (136-145); Total Protein,Serum 6.6 gm/dL (6.4-8.2)
== END ==
PROVIDERS: Visit Provider Clinical Nurse Specialist Family Health
DX: N18.9 Chronic kidney disease, unspecified (principal)
CPT/HCPCS: 36415; 80053

== ENCOUNTER → 2019-06-06 11:47 | Outpatient (CLI) | payer MEDICARE, BC, SELFPAY ==
[2019-06-06 12:04] LABS: Basophils % 0.5 % (0.1-2.0); Eosinophils # 0.2 K/mm3 (0.0-0.4); Eosinophils % 2.5 % (0.1-12.0); Hematocrit 44.7 % (37.0-47.0); Hemoglobin 14.4 g/dL (12.2-16.2); Lymphocytes # 1.9 K/mm3 (0.7-4.5); Lymphocytes % 21.1 % (10-50); Mean Corpuscular HGB Conc 32.2 g/dL (31.8-35.4); Mean Corpuscular Hemoglobin 27.8 pg (27.0-31.2); Mean Corpuscular Volume 86.2 fl (81-99); Monocytes # 0.4 K/mm3 (0.1-1.0); Monocytes % 4.7 % (1.7-9.3); Neutrophils # 6.3 K/mm3 (1.8-7.8); Neutrophils % 71.2 % (37.0-80.0); Platelet Count 274 K/mm3 (142-424); Red Blood Count 5.19 M/mm3 (4.20-5.40); Red Cell Distribution Width 16.7 % (11.5-17.5); White Blood Count 8.9 K/mm3 (4.8-10.8)
[2019-06-06 13:50] LABS: Alanine Aminotransferase 33 U/L (12-78); Albumin Level 3.3 gm/dL (3.4-5.0); Albumin/Globulin Ratio 0.9 (1.1-1.8); Alkaline Phosphatase 111 U/L (46-116); Aspartate Amino Transferase 24 U/L (15-37); Bilirubin,Total 0.3 mg/dL (0.2-1.0); Blood Urea Nitrogen 21 mg/dL (7-18); Calcium 9.5 mg/dL (8.5-10.1); Carbon Dioxide 31 mmol/L (21.0-32.0); Chloride 102 mmol/L (98-107); Chol/HDL Ratio 2.5 (1-3.5); Cholesterol 171 mg/dL (140-200); Estimated Glomerular Filt Rate 52 ml/min (>60); GFR (African American) 63 ML/MIN (>60); Globulin 3.5 gm/dl (1.3-3.2); Glucose 119 mg/dL (74-106); HDL Cholesterol 68 mg/dL (29-89); LDL Cholesterol 55 mg/dL (0-130); Sodium 140 mmol/L (136-145); Thyroid Stimulating Hormone 1.31 uIU/ml (0.358-3.740); Total Protein,Serum 6.8 gm/dL (6.4-8.2); Triglycerides 238 mg/dL (30-200); VLDL Cholesterol 48 mg/dL (0-40)
== END ==
PROVIDERS: Visit Provider Internal Medicine Adolescent Medicine
DX: E78.5 Hyperlipidemia, unspecified (principal); E03.9 Hypothyroidism, unspecified; I82.91 Chronic embolism and thrombosis of unspecified vein
CPT/HCPCS: 36415; 80053; 80061; 84443; 85025

== ENCOUNTER → 2019-06-12 12:40 | Outpatient (CLI) | payer MEDICARE, BC, SELFPAY ==
[2019-06-12 13:29] LABS: Hemoglobin A1C 6.5 % (0.0-7.0)
== END ==
PROVIDERS: Visit Provider Internal Medicine Adolescent Medicine
DX: R73.9 Hyperglycemia, unspecified (principal)
CPT/HCPCS: 36415; 83036

== ENCOUNTER → 2019-11-04 16:04 | Outpatient (CLI) | payer MEDICARE, BC, SELFPAY | PROVIDERS: PCP Internal Medicine Adolescent Medicine; Visit Provider Internal Medicine Adolescent Medicine | DX: R00.2 Palpitations (principal) | CPT/HCPCS: 93225; 93226 ==

== ENCOUNTER → 2020-01-13 11:02 | Outpatient (POV) | payer MEDICARE, BC, SELFPAY ==
--- NOTE | 2020-01-14 12:54 | HMH.PMCON ---
HPI - Data of Consult Requesting Physician: Amalia Batista APRN Primary Care Provider: Referral Provider, MD - Consult Narrative History of present illness: Ms. Velasquez is a 54 year old female CC: Amalia Batista APRN [facility] History Medical History: Reports:: Anxiety, Diabetes Mellitus Type 2, Heart Murmur (MVP), Hyperlipidemia, Hypertension, Lung Disease Denies:: Cancer, Diabetes Mellitus Type 1, Internal Pacemaker, MRSA, Seizures *Have you ever received a pneumonia vaccine?: Yes *Have you received a flu vaccine this season?: Yes Other Medical History: Reports: Hypothyroidism, Other (Electrocution injury 10 years ago). Denies: Blood Transfusion Reaction Other Surgeries: Yes: Cholecystectomy, Colonoscopy, Hysterectomy-Total, Other (gallbladder). No: Pacemaker Amputation: No Fractures: No - *Social History Smoking Status: Never smoker Alcohol Intake: never Alcohol Intake Frequency:: other Substance Use Type: denies use *Occupational Status:: disabled Housing: house Household Members: spouse *Travel in the last 8 weeks: None - Psychiatric History Pschychiatric History:: Reports:: Anxiety Family Hx:: Unable to obtain Meds Home Medications Medication Instructions Recorded Confirmed Type lansoprazole 30 mg capsule,delayed 30 mg PO DAILY 12/25/17 09/11/18 History release carvedilol 3.125 mg tablet 3.125 mg PO BID tab 02/23/18 09/12/18 History cholecalciferol (vitamin D3) 125 10,000 unit PO DAILY 02/23/18 09/11/18 History mcg (5,000 unit) capsule coenzyme Q10 100 mg capsule 100 mg PO BID 02/23/18 09/11/18 History cyclobenzaprine 10 mg tablet 10 mg PO BIDP PRN 02/23/18 09/12/18 History Brexpiprazole [Rexulti] 0.5 mg PO HS 08/21/18 09/11/18 History Bupropion HBr [Aplenzin] 348 mg PO DAILY 08/21/18 09/11/18 History Magnesium Oxide 400 mg PO DAILY 08/21/18 09/11/18 History Thyroid,Pork [[place] Thyroid] 30 mg PO DAILY 08/21/18 09/11/18 History ondansetron HCL [Ondansetron 4mg 4 mg PO Q6HP PRN 08/21/18 09/12/18 History Tablet] Fluticasone Propionate [Flonase 1 spr NS BID 09/11/18 09/11/18 History 50mcg nasal spray 16gm] Potassium Chloride [Klor-con 20 20 meq PO DAILY 09/12/18 09/12/18 History mEq tablet] Allergies Allergy/AdvReac Type Severity Reaction Status Date / Time meperidine [From DEMEROL] Allergy Mild Verified 08/21/18 14:55 oxytetracycline Allergy Mild Verified 08/21/18 14:55 [From TERRAMYCIN] penicillin G [PENICILLIN G] Allergy Mild Verified 08/21/18 14:55 lorazepam [From ATIVAN] Allergy Unknown HALLUCINATI Verified 08/21/18 14:55 ONS
--- NOTE | 2020-01-20 08:19 | HMH.VVPMSO ---
[facility] PM Virtual Visit SOAP Consent for virtual visit:: With the recent concerns about the COVID-19, we are trying to minimize exposure to you by shifting to telehealth appointments whenever possible. It restricts me from seeing you in person, but the trade off is protecting you during this pandemic. Can you see and hear me okay, and do you consent to this option? If not, I would be happy to see if we can reschedule your appointment in the future, when feasible. Has patient consented to this virtual visit?: Yes Subjective:: Is a pleasant 54-year-old white female who is struggling with shoulder pain. Patient has had this for the last several weeks. Patient is having a decreased range of motion of her right shoulder. Patient and I discussed options. Due to the pandemic patient is unable to leave her home at this time. ROS General: no recent weight change, no fever, no sleep disturbances Respiratory: no cough, no shortness of air, no recurring pulmonary infections Cardiovascular/Peripheral Vascular: No chest pain, No palpitations, no edema, no shortness of breath. Gastrointestinal: no new onset incontinence, normal bowel movements reported Genitourinary: no new onset incontinence Musculoskeletal: Right shoulder pain Psychiatric: normal mood/ affect, Neurological: [denies new onset weakness in extremities], [denies new onset balance issues] Objective:: Physical exam: Constitutional: Healthy appearing, well-developed, alert, in no acute distress Psychiatric: Judgment and insight intact, Alert and oriented x4 Mood and affect: Mood normal, affect appropriate Head and face: Inspection: Normocephalic atraumatic, extraocular movement intact Respiratory: Breathing nonlabored, nondyspneic Cardiovascular: No cyanosis, clubbing, or edema observed Skin: Head and neck: Skin with no lesions or rash observed Gait: Able to walk without assistive device: Able to heel and toe walk Neurologic: Sensation grossly intact per patient Musculoskeletal: Decreased range of motion right shoulder Assessment:: Right shoulder pain Plan:: We will start the patient on prednisone 20 mg 1 p.o. twice daily give her 5 days worth. I will follow-up with her after this reassess her symptoms at that time she has been instructed to call the office if she has any issues prior to her next appointment. This encounter was performed as a telemedicine visit via secure 2 way video and audio to minimize risk and transmission of Covid-19. The patient and we understand the limitations of a telemedicine visit including inability to check reflexes, possibly missing subtle findings on physical exam. Alternative options were presented to the patient and the patient elected to proceed with the visit. We specifically discussed risk factors for Covid-19 including age, heart or lung disease, diabetes, immunosuppression and travel. We also discussed that NSAIDs may worsen Covid-19 infection symptoms and that they should not be used to treat Covid-19 symptoms. Patient was also informed that corticosteroids in any form oral or injectable will decrease immune response and may increase risk of Covid-[address] Stratton has reviewed this patient's chart and this note and agrees with plan of care. Patient has been instructed to call the office if they have any issues prior to the next appointment. Time In:: 12:00 Time Out:: 12:10 [facility] History I have reviewed the patient's past medical history: Yes Medical History: Reports:: Anxiety, Diabetes Mellitus Type 2, Heart Murmur (MVP), Hyperlipidemia, Hypertension, Lung Disease Denies:: Cancer, Diabetes Mellitus Type 1, Internal Pacemaker, MRSA, Seizures *Have you ever received a pneumonia vaccine?: Yes *Have you received a flu vaccine this season?: Yes Other Medical History: Reports: Hypothyroidism, Other (Electrocution injury 10 years ago). Denies: Blood Transfusion Reaction Other Surgeries: Yes: Cholecystectomy, Colonoscopy, H
== END ==
PROVIDERS: Visit Provider Clinical Nurse Specialist Family Health
DX: M25.511 Pain in right shoulder (principal)
CPT/HCPCS: 99212

== ENCOUNTER → 2020-02-03 10:41 | Outpatient (POV) | payer OTHER, SELFPAY ==
--- NOTE | 2020-02-03 11:04 | HMH.VVPMSO ---
[facility] Virtual Visit SOAP Consent for virtual visit:: With the recent concerns about the COVID-19, we are trying to minimize exposure to you by shifting to telehealth appointments whenever possible. It restricts me from seeing you in person, but the trade off is protecting you during this pandemic. Can you see and hear me okay, and do you consent to this option? If not, I would be happy to see if we can reschedule your appointment in the future, when feasible. Has patient consented to this virtual visit?: Yes Subjective:: Patient is a pleasant 54-year-old white female who presents today for follow-up. Patient has quite a lot of neck and right arm pain. Patient has a neurostimulator which has been beneficial for her however this is a new pain. She is had this for the last several weeks and has had 2 rounds of steroids with no improvement. She has decreased range of motion of her right shoulder. She rates her pain today 4 out of 10. ROS General: no recent weight change, no fever, no sleep disturbances Respiratory: no cough, no shortness of air, no recurring pulmonary infections Cardiovascular/Peripheral Vascular: No chest pain, No palpitations, no edema, no shortness of breath. Gastrointestinal: no new onset incontinence, normal bowel movements reported Genitourinary: no new onset incontinence Musculoskeletal: Right shoulder pain, right arm pain, neck pain Psychiatric: normal mood/ affect, Neurological: [denies new onset weakness in extremities], [denies new onset balance issues] Objective:: Physical exam: Constitutional: Healthy appearing, well-developed, alert, in no acute distress Psychiatric: Judgment and insight intact, Alert and oriented x4 Mood and affect: Mood normal, affect appropriate Head and face: Inspection: Normocephalic atraumatic, extraocular movement intact Respiratory: Breathing nonlabored, nondyspneic Cardiovascular: No cyanosis, clubbing, or edema observed Skin: Head and neck: Skin with no lesions or rash observed Gait: Able to walk without assistive device: Able to heel and toe walk Neurologic: Sensation grossly intact per patient Musculoskeletal: Decreased range of motion cervical spine Assessment:: Neck pain, right arm pain, right shoulder pain Plan:: Patient is unable to have an MRI due to her implanted neurostimulator. We will order a cervical CT to see pathology. This encounter was performed as a telemedicine visit via secure 2 way video and audio to minimize risk and transmission of Covid-19. The patient and we understand the limitations of a telemedicine visit including inability to check reflexes, possibly missing subtle findings on physical exam. Alternative options were presented to the patient and the patient elected to proceed with the visit. We specifically discussed risk factors for Covid-19 including age, heart or lung disease, diabetes, immunosuppression and travel. We also discussed that NSAIDs may worsen Covid-19 infection symptoms and that they should not be used to treat Covid-19 symptoms. Patient was also informed that corticosteroids in any form oral or injectable will decrease immune response and may increase risk of Covid-[address] Stratton has reviewed this patient's chart and this note and agrees with plan of care. Patient has been instructed to call the office if they have any issues prior to the next appointment. Time In:: 10:30 Time Out:: 10:40 [facility] History I have reviewed the patient's past medical history: Yes Medical History: Reports:: Anxiety, Diabetes Mellitus Type 2, Heart Murmur (MVP), Hyperlipidemia, Hypertension, Lung Disease Denies:: Cancer, Diabetes Mellitus Type 1, Internal Pacemaker, MRSA, Seizures *Have you ever received a pneumonia vaccine?: Yes *Have you received a flu vaccine this season?: Yes Other Medical History: Reports: Hypothyroidism, Other (Electrocution injury 10 years ago). Denies: Blood Transfusion Reaction Other Surgeries: Yes
== END ==
PROVIDERS: PCP Internal Medicine Adolescent Medicine; Visit Provider Clinical Nurse Specialist Family Health
DX: M54.2 Cervicalgia (principal); M79.601 Pain in right arm; M25.511 Pain in right shoulder
CPT/HCPCS: 99212

== ENCOUNTER → 2020-02-19 13:33 | Outpatient (CLI) | payer MEDICARE, BC, SELFPAY ==
--- NOTE | 2020-02-19 13:37 | CT_ITS ---
PROCEDURE: CT CERVICAL SPINE WO CON CLINICAL INDICATION: NECK PAIN Posterior neck, right arm pain COMPARISON: [id number] XR cervical spine 5V from 08/03/2018 TECHNIQUE: Axial images obtained with sagittal and coronal reformats. All CT scans at the facility use one or more dose reduction, viz: automated exposure control, ma/kV adjustment per patient size (including targeted exams where dose is matched to indication, i.e. head), or iterative reconstruction technique. Axial spiral CT scanning performed of the cervical spine beginning at the base of the skull and continuing to the upper T-spine. 3-D multiplanar reconstruction with 3-D manipulation of volumetric data set in image rendering was completed by the radiologist and/or technologist with the supervision of the radiologist on independent workstation. FINDINGS: There is an epidural stimulator device in place. The superior aspect of the device is at the C1-C2 level posteriorly. There is considerable artifact from the epidural stimulator leads. There is straightening of the cervical lordosis. There is 2-3 mm anterolisthesis of C2 on C3 with mild degenerative disc disease at that level. C3-C4: Unremarkable. C4-C5: Unremarkable. C5-C6: Mild degenerative disc disease. C6-C7: Mild degenerative disc disease. No bony canal stenosis, fracture, dislocation, or other acute anomaly is evident. There is degenerative disc disease also noted at T3-T4 IMPRESSION: 1. Artifact from epidural stimulator device 2. Mild degenerative changes of the cervical spine with reversal of lordosis which could be due to patient positioning or muscle spasm Dictated by: Norberto Zheng MD 02/20/2020 11:25 Electronically signed by Norberto Zheng MD in [place] 02/20/2020 11:25
[2020-02-19 14:12] LABS: Microscopic, Urine URINE MICROSCOPIC (MICROSCOPIC)
[2020-02-19 15:46] LABS: Appearance,Urine CLEAR (Clear); Bilirubin,Urine Negative (Negative); Blood, Urine 1+ (Negative); Glucose,Urine (UA) Negative (Negative); Ketones,Urine Negative (Negative); Leukocyte Esterase,Urine Negative (Negative); Nitrate,Urine Negative (Negative); PH,Urine 6.5 (5.0-8.5); Protein,Urine 3+ (Negative); Specific Gravity, Urine >= 1.030 (1.005-1.030); Urobilinogen,Urine 0.2 EU/dl (0.2)
[2020-02-19 15:56] LABS: Color,Urine Dark Yellow (Yellow)
[2020-02-19 16:56] LABS: Bacteria,Urine 1+ /lpf; Fine Granular Casts,Urine Occasional #/lpf (0)
== END ==
PROVIDERS: PCP Internal Medicine Adolescent Medicine; Visit Provider Clinical Nurse Specialist Family Health
DX: M54.2 Cervicalgia (principal); R35.0 Frequency of micturition
CPT/HCPCS: 72125; 81001; 87086

== ENCOUNTER → 2020-02-27 07:19 | Outpatient (CLI) | payer MEDICARE, BC, SELFPAY ==
[2020-02-27 08:51] LABS: Basophils # 0.1 K/mm3 (0-0.2); Basophils % 1.2 % (0.1-2.0); Eosinophils # 0.4 K/mm3 (0.0-0.4); Eosinophils % 2.9 % (0.1-12.0); Hematocrit 45.7 % (37.0-47.0); Hemoglobin 15.4 g/dL (12.2-16.2); Lymphocytes # 3.3 K/mm3 (0.7-4.5); Lymphocytes % 26.6 % (10-50); Mean Corpuscular HGB Conc 33.8 g/dL (31.8-35.4); Mean Corpuscular Hemoglobin 30.3 pg (27.0-31.2); Mean Corpuscular Volume 89.5 fl (81-99); Mean Platelet Volume 7.6 fl (7.4-10.4); Monocytes # 0.6 K/mm3 (0.1-1.0); Monocytes % 4.9 % (1.7-9.3); Neutrophils % 64.5 % (37.0-80.0); Platelet Count 267 K/mm3 (142-424); White Blood Count 12.5 K/mm3 (4.8-10.8)
[2020-02-27 10:26] LABS: Alanine Aminotransferase 41 U/L (12-78); Albumin Level 4.6 g/dl (3.5-5.0); Albumin/Globulin Ratio 1.5 (1.1-1.8); Alkaline Phosphatase 136 U/L (38-126); Amylase 68 U/L (30-110); Anion Gap 8.7 mEq/L (5-15); Aspartate Amino Transferase 39 U/L (14-36); Bilirubin,Total 0.7 mg/dl (0.2-1.3); Blood Urea Nitrogen 32 mg/dl (7-17); Calcium 10.3 mg/dl (8.4-10.2); Carbon Dioxide 32 mmol/L (22.0-30.0); Chloride 98 mmol/L (98-107); Chol/HDL Ratio 1.7 (1-3.5); Cholesterol 138 mg/dl (140-200); Estimated Glomerular Filt Rate 21 ml/min (>60); GFR (African American) 25 ML/MIN (>60); Glucose 185 mg/dl (74-100); HDL Cholesterol 80 mg/dl (40-60); Lipase 154 U/L (23-300); Sodium 136 mmol/L (136-145); Total Protein,Serum 7.6 g/dl (6.3-8.2); Triglycerides 202 mg/dl (30-150); VLDL Cholesterol 40 mg/dL (0-40)
[2020-02-27 10:37] LABS: Direct LDL Cholesterol 52.57 mg/dL (100-129)
[2020-02-27 10:43] LABS: Potassium 2.7 mmoL/L (3.5-5.1)
[2020-02-27 10:44] LABS: Free Thyroxine Index 3.1 ug/dL (5.93-13.13); T4 (Thyroxine) 10.3 ug/dl (5.53-11.0); Triiodothryronine (T3) Uptake 30 % (23.5-40.5)
[2020-02-27 10:57] LABS: Thyroid Stimulating Hormone 2.86 uIU/mL (0.465-4.68)
== END ==
PROVIDERS: Visit Provider Internal Medicine Adolescent Medicine
DX: R10.84 Generalized abdominal pain (principal); E78.5 Hyperlipidemia, unspecified; E03.9 Hypothyroidism, unspecified
CPT/HCPCS: 36415; 80053; 80061; 82150; 83690; 84436; 84443; 84479; 85025

== ENCOUNTER → 2020-03-03 08:14 | Outpatient (CLI) | payer MEDICARE, BC, SELFPAY ==
[2020-03-03 09:56] LABS: Chloride 110 mmol/L (98-107)
[2020-03-03 09:57] LABS: Potassium 3.5 mmoL/L (3.5-5.1); Sodium 138 mmol/L (136-145)
[2020-03-03 09:59] LABS: Blood Urea Nitrogen 27 mg/dl (7-17); Estimated Glomerular Filt Rate 26 ml/min (>60); GFR (African American) 31 ML/MIN (>60)
[2020-03-03 10:00] LABS: Anion Gap 6.5 mEq/L (5-15); Calcium 8.9 mg/dl (8.4-10.2); Carbon Dioxide 25 mmol/L (22.0-30.0); Glucose 168 mg/dl (74-100)
== END ==
PROVIDERS: Visit Provider Internal Medicine Adolescent Medicine
DX: Z79.899 Other long term (current) drug therapy (principal)
CPT/HCPCS: 36415; 80048

== ENCOUNTER → 2020-03-10 13:29 | Outpatient (CLI) | payer MEDICARE, BC, SELFPAY ==
[2020-03-10 15:34] LABS: Chloride 105 mmol/L (98-107); Potassium 3.6 mmoL/L (3.5-5.1); Sodium 138 mmol/L (136-145)
[2020-03-10 15:37] LABS: Blood Urea Nitrogen 19 mg/dl (7-17); Estimated Glomerular Filt Rate 29 ml/min (>60); GFR (African American) 35 ML/MIN (>60)
[2020-03-10 15:38] LABS: Anion Gap 7.6 mEq/L (5-15); Calcium 9.6 mg/dl (8.4-10.2); Carbon Dioxide 29 mmol/L (22.0-30.0); Glucose 123 mg/dl (74-100)
== END ==
PROVIDERS: Visit Provider Internal Medicine Adolescent Medicine
DX: Z79.899 Other long term (current) drug therapy (principal)
CPT/HCPCS: 36415; 80048

== ENCOUNTER 2020-03-20 12:36 | Day surgery (SDC) | payer MEDICARE, BC, SELFPAY ==
[2020-03-20 12:58] VITALS: BP 148/94; PULSE 100; RESP 20; O2SAT 98; BMI 41.3
--- NOTE | 2020-03-20 13:16 | HMH.PMPROC ---
- Procedure Date: 03/20/20 Time: 13:16 Anesthesiologist:: Wyatt Stratton MD Complications:: None Pre-procedure Diagnosis:: Degenerative disc disease of cervical spine with cervical radiculopathy symptoms Post-procedure Diagnosis:: Same Indications for Procedure:: This patient is a pleasant 54-year-old white female who we have been treating for pain with cervical radicular symptoms. She does have a [employer] spinal cord stimulator system in place. She has been having issues with her spinal cord stimulator system. We will get her leads today and we will do a cervical epidural steroid injection to help her with her pain symptoms. Most of her pain is in her neck radiating to the right shoulder. Procedure Details:: Cervical epidural steroid injection under fluoroscopy Informed consent was obtained and the risks and benefits of the procedure was explained to the patient. The patient was taken to the procedure room placed prone on the procedure table. The neck was prepped using ChloraPrep. The skin and subcutaneous tissues were anesthetized using lidocaine. I placed a 18-gauge epidural needle into the C5-C6 interspace and advanced using [id number] to air and fluoroscopic guidance. After confirmation of needle placement in the epidural space with dye, I injected 3 mL's lidocaine 1.5% and Depo-Medrol 80 mg. The patient tolerated the procedure well with no complications. Plan and Disposition:: Upon evaluation of her leads there is seems to be a lead fracture on the left lead and both leads have moved up significantly approximately 2-2-1/2 vertebral bodies. She does need spinal cord stimulator lead revision. We will contact the [employer] customer assistance representative. We will follow-up with her in 2 weeks after her injection to evaluate her symptoms and schedule the spinal cord stimulator lead revision.
[2020-03-20 13:22] VITALS: BP 152/89; PULSE 85; RESP 18; O2SAT 99
[2020-03-20 13:24] VITALS: BP 150/89; PULSE 89; RESP 18; O2SAT 99
[2020-03-20 13:30] VITALS: BP 149/52; PULSE 95; RESP 18; TEMP 36.4; O2SAT 98
== END 2020-03-20 13:30 | disposition home or self-care (01) ==
LOC: SC.PAINP 12:38
PROVIDERS: PCP Internal Medicine Adolescent Medicine; Visit Provider Anesthesiology
DX: M50.10 Cervical disc disorder with radiculopathy, unspecified cervical region (principal); I10 Essential (primary) hypertension; F41.9 Anxiety disorder, unspecified; F32.9 Major depressive disorder, single episode, unspecified; Z90.710 Acquired absence of both cervix and uterus; Z90.49 Acquired absence of other specified parts of digestive tract; Z88.0 Allergy status to penicillin; Z88.1 Allergy status to other antibiotic agents; Z88.8 Allergy status to other drugs, medicaments and biological substances; Z79.899 Other long term (current) drug therapy; Z96.82 Presence of neurostimulator
CPT/HCPCS: 62321; J1040; Q9966

== ENCOUNTER → 2020-04-06 10:33 | Outpatient (CLI) | payer MEDICARE, BC, SELFPAY ==
[2020-04-06 11:05] LABS: Basophils # 0.1 K/mm3 (0-0.2); Basophils % 0.9 % (0.1-2.0); Eosinophils # 0.2 K/mm3 (0.0-0.4); Eosinophils % 1.7 % (0.1-12.0); Hematocrit 48.4 % (37.0-47.0); Hemoglobin 16.3 g/dL (12.2-16.2); Lymphocytes # 3.2 K/mm3 (0.7-4.5); Lymphocytes % 26.9 % (10-50); Mean Corpuscular HGB Conc 33.7 g/dL (31.8-35.4); Mean Corpuscular Hemoglobin 31.4 pg (27.0-31.2); Mean Corpuscular Volume 93.2 fl (81-99); Mean Platelet Volume 7.4 fl (7.4-10.4); Monocytes # 0.7 K/mm3 (0.1-1.0); Monocytes % 5.4 % (1.7-9.3); Neutrophils # 7.8 K/mm3 (1.8-7.8); Neutrophils % 65.2 % (37.0-80.0); Platelet Count 281 K/mm3 (142-424); Red Blood Count 5.19 M/mm3 (4.20-5.40); Red Cell Distribution Width 16.2 % (11.5-17.5)
[2020-04-06 11:32] LABS: Chloride 97 mmol/L (98-107)
[2020-04-06 11:33] LABS: Sodium 139 mmol/L (136-145)
[2020-04-06 11:36] LABS: Blood Urea Nitrogen 30 mg/dl (7-17); Calcium 10.5 mg/dl (8.4-10.2); Carbon Dioxide 30 mmol/L (22.0-30.0); Estimated Glomerular Filt Rate 19 ml/min (>60); GFR (African American) 23 ML/MIN (>60); Glucose 160 mg/dl (74-100)
[2020-04-06 11:39] LABS: Anion Gap 14.8 mEq/L (5-15); Potassium 2.8 mmoL/L (3.5-5.1)
[2020-04-06 12:52] LABS: Coronavirus 19 IgG Antibody Negative (Negative); Coronavirus 19 IgM Antibody Negative (Negative)
== END ==
PROVIDERS: PCP Anesthesiology; Visit Provider Internal Medicine Adolescent Medicine
DX: Z01.818 Encounter for other preprocedural examination (principal); E11.69 Type 2 diabetes mellitus with other specified complication
CPT/HCPCS: 36415; 80048; 83036; 85025; 86328

== ENCOUNTER → 2020-04-10 08:50 | Outpatient (CLI) | payer MEDICARE, BC, SELFPAY ==
[2020-04-10 10:17] LABS: Anion Gap 10.2 mEq/L (5-15); Blood Urea Nitrogen 23 mg/dl (7-17); Calcium 9.6 mg/dl (8.4-10.2); Carbon Dioxide 29 mmol/L (22.0-30.0); Chloride 105 mmol/L (98-107); Estimated Glomerular Filt Rate 26 ml/min (>60); GFR (African American) 31 ML/MIN (>60); Glucose 168 mg/dl (74-100); Potassium 3.2 mmoL/L (3.5-5.1); Sodium 141 mmol/L (136-145)
== END ==
PROVIDERS: Visit Provider Internal Medicine Adolescent Medicine
DX: E87.6 Hypokalemia (principal)
CPT/HCPCS: 36415; 80048

== ENCOUNTER → 2020-04-20 13:56 | Outpatient (CLI) | payer MEDICARE, BC, SELFPAY ==
[2020-04-20 14:46] LABS: Chloride 97 mmol/L (98-107)
[2020-04-20 14:47] LABS: Potassium 3.3 mmoL/L (3.5-5.1); Sodium 138 mmol/L (136-145)
[2020-04-20 14:50] LABS: Anion Gap 10.3 mEq/L (5-15); Blood Urea Nitrogen 17 mg/dl (7-17); Calcium 9.9 mg/dl (8.4-10.2); Carbon Dioxide 34 mmol/L (22.0-30.0); Estimated Glomerular Filt Rate 34 ml/min (>60); GFR (African American) 41 ML/MIN (>60); Glucose 136 mg/dl (74-100)
== END ==
PROVIDERS: Visit Provider Internal Medicine Adolescent Medicine
DX: Z86.39 Personal history of other endocrine, nutritional and metabolic disease (principal)
CPT/HCPCS: 36415; 80048

== ENCOUNTER → 2020-05-01 08:30 | Outpatient (CLI) | payer MEDICARE, BC, SELFPAY ==
[2020-05-01 09:24] LABS: Basophils % 0.4 % (0.1-2.0); Eosinophils # 0.4 K/mm3 (0.0-0.4); Hematocrit 46.7 % (37.0-47.0); Hemoglobin 15.8 g/dL (12.2-16.2); Lymphocytes # 3.3 K/mm3 (0.7-4.5); Lymphocytes % 26.2 % (10-50); Mean Corpuscular HGB Conc 33.8 g/dL (31.8-35.4); Mean Corpuscular Hemoglobin 31.5 pg (27.0-31.2); Mean Corpuscular Volume 93.1 fl (81-99); Mean Platelet Volume 7.7 fl (7.4-10.4); Monocytes # 0.5 K/mm3 (0.1-1.0); Monocytes % 4.2 % (1.7-9.3); Neutrophils # 8.3 K/mm3 (1.8-7.8); Neutrophils % 66.2 % (37.0-80.0); Platelet Count 259 K/mm3 (142-424); Red Blood Count 5.02 M/mm3 (4.20-5.40); Red Cell Distribution Width 15.9 % (11.5-17.5); White Blood Count 12.5 K/mm3 (4.8-10.8)
[2020-05-01 10:27] LABS: Chloride 96 mmol/L (98-107)
[2020-05-01 10:28] LABS: Sodium 137 mmol/L (136-145)
[2020-05-01 10:31] LABS: Blood Urea Nitrogen 23 mg/dl (7-17); Calcium 9.8 mg/dl (8.4-10.2); Carbon Dioxide 33 mmol/L (22.0-30.0); Estimated Glomerular Filt Rate 29 ml/min (>60); GFR (African American) 35 ML/MIN (>60); Glucose 189 mg/dl (74-100)
== END ==
PROVIDERS: Visit Provider Internal Medicine Adolescent Medicine
DX: Z86.39 Personal history of other endocrine, nutritional and metabolic disease (principal)
CPT/HCPCS: 36415; 80048; 85025

== ENCOUNTER → 2020-05-07 08:07 | Outpatient (CLI) | payer MEDICARE, BC, SELFPAY ==
[2020-05-07 09:00] LABS: Basophils # 0.1 K/mm3 (0-0.2); Basophils % 0.7 % (0.1-2.0); Eosinophils # 0.3 K/mm3 (0.0-0.4); Eosinophils % 2.3 % (0.1-12.0); Hematocrit 43.9 % (37.0-47.0); Hemoglobin 15.3 g/dL (12.2-16.2); Lymphocytes # 2.7 K/mm3 (0.7-4.5); Lymphocytes % 23.1 % (10-50); Mean Corpuscular HGB Conc 34.9 g/dL (31.8-35.4); Mean Corpuscular Hemoglobin 31.2 pg (27.0-31.2); Mean Corpuscular Volume 89.5 fl (81-99); Mean Platelet Volume 7.7 fl (7.4-10.4); Monocytes # 0.5 K/mm3 (0.1-1.0); Monocytes % 4.4 % (1.7-9.3); Neutrophils # 8.2 K/mm3 (1.8-7.8); Neutrophils % 69.5 % (37.0-80.0); Platelet Count 282 K/mm3 (142-424); Red Blood Count 4.91 M/mm3 (4.20-5.40); Red Cell Distribution Width 16.3 % (11.5-17.5); White Blood Count 11.7 K/mm3 (4.8-10.8)
[2020-05-07 09:33] LABS: Chloride 99 mmol/L (98-107)
[2020-05-07 09:34] LABS: Sodium 136 mmol/L (136-145)
[2020-05-07 09:36] LABS: Alanine Aminotransferase 25 U/L (12-78); Aspartate Amino Transferase 28 U/L (14-36); Blood Urea Nitrogen 27 mg/dl (7-17); Estimated Glomerular Filt Rate 26 ml/min (>60); GFR (African American) 31 ML/MIN (>60)
[2020-05-07 09:37] LABS: Albumin Level 3.8 g/dl (3.5-5.0); Albumin/Globulin Ratio 1.4 (1.1-1.8); Alkaline Phosphatase 96 U/L (38-126); Anion Gap 8.9 mEq/L (5-15); Bilirubin,Total 0.6 mg/dl (0.2-1.3); Calcium 9.8 mg/dl (8.4-10.2); Carbon Dioxide 31 mmol/L (22.0-30.0); Globulin 2.7 g/dL (1.3-3.2); Glucose 156 mg/dl (74-100); Total Protein,Serum 6.5 g/dl (6.3-8.2)
[2020-05-07 09:48] LABS: Potassium 2.9 mmoL/L (3.5-5.1)
--- NOTE | 2020-05-07 13:02 | US_ITS ---
PROCEDURE: US KIDNEY CLINICAL INDICATION: DYSURIA COMPARISON: US RETROPCM US kidney retroperitoneal comp from 09/11/2018 FINDINGS: Kidneys are normal size shape and position. No hydronephrosis mass or perinephric fluid collection. Right kidney is 11 x 5 cm in the left kidney is 10 x 5 cm. IMPRESSION: Unremarkable bilateral renal ultrasound Dictated b Norberto Zheng MD 05/07/2020 16:52 Norberto Zheng MD in [place] 05/07/2020 16:52
[2020-05-08 12:11] LABS: Anti-Centromere B Antibodies <0.2 AI (0.0-0.9); Anti-Jo-1 <0.2 AI (0.0-0.9); Anti-Smith Antibody <0.2 AI (0.0-0.9); Antichromatin Antibodies <0.2 AI (0.0-0.9); Antiscleroderma-70 Antibodies <0.2 AI (0.0-0.9); RNP Antibodies <0.2 AI (0.0-0.9); Sjogren's Anti-SS-A <0.2 AI (0.0-0.9); Sjogren's Anti-SS-B <0.2 AI (0.0-0.9)
[2020-05-08 14:15] LABS: Anti-DNA (DS) Ab Qn <1 IU/mL (0-9)
[2020-05-10 12:20] LABS: Antinuclear Antibodies, IFA Negative (.)
== END ==
PROVIDERS: PCP Anesthesiology; Visit Provider Internal Medicine Adolescent Medicine
DX: R30.0 Dysuria (principal); E87.6 Hypokalemia
CPT/HCPCS: 36415; 76770; 80053; 82533; 85025; 86038; 86225; 86235

== ENCOUNTER 2020-05-18 13:08 | Outpatient (CLI) | payer MEDICARE, BC, SELFPAY ==
[2020-05-18] VITALS (8 sets, daily range): BP systolic 120–147; BP diastolic 74–93; PULSE 84–98; RESP 18; O2SAT 97; BMI 39.4
[2020-05-18 13:30] LABS: Basophils # 0.1 K/mm3 (0-0.2); Basophils % 0.6 % (0.1-2.0); Eosinophils # 0.2 K/mm3 (0.0-0.4); Eosinophils % 1.7 % (0.1-12.0); Hematocrit 48.3 % (37.0-47.0); Hemoglobin 17.2 g/dL (12.2-16.2); Lymphocytes # 2.8 K/mm3 (0.7-4.5); Mean Corpuscular HGB Conc 35.5 g/dL (31.8-35.4); Mean Corpuscular Hemoglobin 32.5 pg (27.0-31.2); Mean Corpuscular Volume 91.5 fl (81-99); Mean Platelet Volume 7.8 fl (7.4-10.4); Monocytes # 0.6 K/mm3 (0.1-1.0); Monocytes % 4.4 % (1.7-9.3); Neutrophils # 10.3 K/mm3 (1.8-7.8); Neutrophils % 73.3 % (37.0-80.0); Platelet Count 256 K/mm3 (142-424); Red Blood Count 5.28 M/mm3 (4.20-5.40); Red Cell Distribution Width 15.9 % (11.5-17.5)
[2020-05-18 13:52] LABS: Chloride 101 mmol/L (98-107); Sodium 138 mmol/L (136-145)
[2020-05-18 13:55] LABS: Alanine Aminotransferase 30 U/L (12-78); Albumin/Globulin Ratio 1.3 (1.1-1.8); Alkaline Phosphatase 113 U/L (38-126); Anion Gap 9.6 mEq/L (5-15); Aspartate Amino Transferase 37 U/L (14-36); Bilirubin,Total 0.9 mg/dl (0.2-1.3); Blood Urea Nitrogen 21 mg/dl (7-17); Carbon Dioxide 30 mmol/L (22.0-30.0); Creatinine Clearance Estimated 44 mL/min (50-200); Estimated Glomerular Filt Rate 25 ml/min (>60); GFR (African American) 30 ML/MIN (>60); Globulin 3.1 g/dL (1.3-3.2); Total Protein,Serum 7.1 g/dl (6.3-8.2)
[2020-05-18 13:56] LABS: Calcium 9.2 mg/dl (8.4-10.2); Glucose 147 mg/dl (74-100)
[2020-05-18 14:01] LABS: Potassium 2.6 mmoL/L (3.5-5.1)
== END 2020-05-18 15:27 | disposition home or self-care (01) ==
LOC: INF 13:09
PROVIDERS: PCP Internal Medicine Adolescent Medicine; Visit Provider Internal Medicine Adolescent Medicine
DX: R10.84 Generalized abdominal pain (principal); N17.9 Acute kidney failure, unspecified; R11.0 Nausea
CPT/HCPCS: 36415; 80053; 85025; 96360; 96361

== ENCOUNTER → 2020-05-20 09:33 | Outpatient (CLI) | payer MEDICARE, BC, SELFPAY ==
--- NOTE | 2020-05-20 09:38 | CT_ITS ---
PROCEDURE: CT ABDOMEN PELVIS WO CON CLINICAL INDICATION: NAUSEA,ABD PAIN NAUSE ABD PAIN X 3 WEEKS LUQ, left upper quadrant pain COMPARISON: CT ABDPELW/O CT ABD PELVIS W/O CONTRAST from 06/08/2017 TECHNIQUE: Axial images obtained with sagittal and coronal reformats. All CT scans at the facility use one or more dose reduction, viz: automated exposure control, ma/kV adjustment per patient size (including targeted exams where dose is matched to indication, i.e. head), or iterative reconstruction technique. FINDINGS: LOWER THORAX: No acute finding ABDOMEN & PELVIS: Prior cholecystectomy. The liver, spleen, adrenal glands, and pancreas have an unremarkable appearance. There are nonobstructing bilateral renal calculi the measuring up to 2 mm on the right and 3 mm on the left. No ureteral calculi. No intestinal obstruction or free air. No evidence of appendicitis or diverticulitis. There are post hysterectomy changes. There is a tiny umbilical hernia containing fat. There is an epidural stimulator device present with 2 leads and ascend along posterior aspect of the thecal sac with the tip not visible on the exam. No acute bony findings. IMPRESSION: No acute abdominal or pelvic findings. Nonobstructing bilateral renal calculi. Dictated by: Norberto Zheng MD 05/21/2020 07:57 Norberto Zheng MD in [place] 05/21/2020 07:57
== END ==
PROVIDERS: PCP Internal Medicine Adolescent Medicine; Visit Provider Nurse Practitioner Family
DX: R10.84 Generalized abdominal pain (principal); R11.0 Nausea
CPT/HCPCS: 74176

== ENCOUNTER → 2020-05-21 11:20 | Outpatient (CLI) | payer MEDICARE, BC, SELFPAY ==
[2020-05-21 11:53] LABS: Anion Gap 7.6 mEq/L (5-15); Blood Urea Nitrogen 17 mg/dl (7-17); Calcium 9.3 mg/dl (8.4-10.2); Carbon Dioxide 30 mmol/L (22.0-30.0); Chloride 105 mmol/L (98-107); Estimated Glomerular Filt Rate 36 ml/min (>60); GFR (African American) 44 ML/MIN (>60); Glucose 153 mg/dl (74-100); Potassium 3.6 mmoL/L (3.5-5.1); Sodium 139 mmol/L (136-145)
== END ==
PROVIDERS: Visit Provider Internal Medicine Adolescent Medicine
DX: E87.6 Hypokalemia (principal)
CPT/HCPCS: 36415; 80048

== ENCOUNTER → 2020-05-22 14:27 | Outpatient (CLI) | payer MEDICARE, BC, SELFPAY ==
[2020-05-22 16:06] LABS: Anion Gap 9.4 mEq/L (5-15); Blood Urea Nitrogen 18 mg/dl (7-17); Calcium 9.3 mg/dl (8.4-10.2); Carbon Dioxide 30 mmol/L (22.0-30.0); Chloride 101 mmol/L (98-107); Estimated Glomerular Filt Rate 36 ml/min (>60); GFR (African American) 44 ML/MIN (>60); Glucose 122 mg/dl (74-100); Potassium 3.4 mmoL/L (3.5-5.1); Sodium 137 mmol/L (136-145)
== END ==
PROVIDERS: Visit Provider Internal Medicine Adolescent Medicine
DX: N18.2 Chronic kidney disease, stage 2 (mild) (principal)
CPT/HCPCS: 36415; 80048

== ENCOUNTER → 2020-06-15 15:01 | Outpatient (CLI) | payer MEDICARE, BC, SELFPAY ==
[2020-06-15 17:00] LABS: Anion Gap 9.7 mEq/L (5-15); Blood Urea Nitrogen 19 mg/dl (7-17); Calcium 10.1 mg/dl (8.4-10.2); Carbon Dioxide 30 mmol/L (22.0-30.0); Chloride 104 mmol/L (98-107); Estimated Glomerular Filt Rate 27 ml/min (>60); GFR (African American) 33 ML/MIN (>60); Glucose 122 mg/dl (74-100); Potassium 3.7 mmoL/L (3.5-5.1); Sodium 140 mmol/L (136-145)
== END ==
PROVIDERS: Visit Provider Internal Medicine Adolescent Medicine
DX: N18.2 Chronic kidney disease, stage 2 (mild) (principal)
CPT/HCPCS: 36415; 80048

== ENCOUNTER → 2020-06-26 07:57 | Outpatient (CLI) | payer MEDICARE, BC, SELFPAY ==
[2020-06-26 08:02] LABS: Microscopic, Urine URINE MICROSCOPIC (MICROSCOPIC)
[2020-06-26 08:30] LABS: Basophils # 0.1 K/mm3 (0-0.2); Basophils % 0.7 % (0.1-2.0); Eosinophils # 0.3 K/mm3 (0.0-0.4); Eosinophils % 2.7 % (0.1-12.0); Hematocrit 46.1 % (37.0-47.0); Hemoglobin 15.7 g/dL (12.2-16.2); Lymphocytes # 2.9 K/mm3 (0.7-4.5); Lymphocytes % 29.8 % (10-50); Mean Corpuscular Hemoglobin 31.8 pg (27.0-31.2); Mean Corpuscular Volume 93.5 fl (81-99); Mean Platelet Volume 7.7 fl (7.4-10.4); Monocytes # 0.6 K/mm3 (0.1-1.0); Monocytes % 6.2 % (1.7-9.3); Neutrophils # 5.9 K/mm3 (1.8-7.8); Neutrophils % 60.6 % (37.0-80.0); Platelet Count 239 K/mm3 (142-424); Red Blood Count 4.93 M/mm3 (4.20-5.40); Red Cell Distribution Width 14.7 % (11.5-17.5); White Blood Count 9.8 K/mm3 (4.8-10.8)
[2020-06-26 12:44] LABS: Chloride 102 mmol/L (98-107); Potassium 3.6 mmoL/L (3.5-5.1); Sodium 141 mmol/L (136-145)
[2020-06-26 12:45] LABS: Albumin Level 4.1 g/dl (3.5-5.0)
[2020-06-26 12:47] LABS: Anion Gap 13.6 mEq/L (5-15); Blood Urea Nitrogen 19 mg/dl (7-17); Carbon Dioxide 29 mmol/L (22.0-30.0); Estimated Glomerular Filt Rate 24 ml/min (>60); GFR (African American) 30 ML/MIN (>60)
[2020-06-26 12:48] LABS: Calcium 10.4 mg/dl (8.4-10.2); Glucose 149 mg/dl (74-100); Phosphorous 4.4 mg/dl (2.5-4.5)
[2020-06-26 12:58] LABS: Intact Parathyroid Hormone 12.4 pg/mL (7.5-53.5)
[2020-06-26 13:03] LABS: 25-OH Vitamin D, Total 89.2 ng/mL (30-100)
[2020-06-26 17:56] LABS: Appearance,Urine CLEAR (Clear); Bilirubin,Urine Negative (Negative); Blood, Urine 2+ (Negative); Color,Urine YELLOW (Yellow); Glucose,Urine (UA) 2+ (Negative); Ketones,Urine Negative (Negative); Leukocyte Esterase,Urine Negative (Negative); Nitrate,Urine Negative (Negative); Protein,Urine 2+ (Negative); Specific Gravity, Urine >= 1.030 (1.005-1.030); Urobilinogen,Urine 0.2 EU/dl (0.2)
[2020-06-26 18:09] LABS: Creatinine,Urine Random 94 mg/dL (Not Estab.)
== END ==
PROVIDERS: Visit Provider Internal Medicine Nephrology
DX: N18.30 Chronic kidney disease, stage 3 unspecified (principal)
CPT/HCPCS: 36415; 80069; 81001; 82306; 82570; 83970; 84155; 85025

== ENCOUNTER → 2020-07-06 13:40 | Outpatient (POV) | payer MEDICARE, BC, SELFPAY | PROVIDERS: Visit Provider Internal Medicine Nephrology | DX: Z00.00 Encounter for general adult medical examination without abnormal findings (principal) ==

== ENCOUNTER 2020-07-24 13:39 | Day surgery (SDC) | payer MEDICARE, BC, SELFPAY ==
[2020-07-24 13:53] VITALS: BP 128/83; PULSE 90; RESP 18; TEMP 36.4; O2SAT 96; BMI 40.0
[2020-07-24 14:14] VITALS: BP 125/77; PULSE 84
[2020-07-24 14:15] VITALS: BP 132/79; PULSE 85; RESP 18; O2SAT 98
--- NOTE | 2020-07-24 14:20 | HMH.PMPROC ---
- Procedure Date: 07/24/20 Time: 14:20 Anesthesiologist:: Wyatt Stratton MD Complications:: None Pre-procedure Diagnosis:: Degenerative disc disease of cervical spine with cervical radiculopathy symptoms Post-procedure Diagnosis:: Same Indications for Procedure:: The patient is a pleasant 55-year-old white female who been treating for neck pain with cervical radicular symptoms. She does have a [employer] spinal cord stimulator system in place her leads are in the cervical region however of one lead is fractured. The stimulator is not functioning currently. She has been doing so well with her cervical epidural steroid injections we will hold on any revision of her spinal cord stimulator system. Her last injection helped her tremendously. She is 80% better. She presents for repeat cervical epidural steroid injection under fluoroscopy today. Procedure Details:: Cervical epidural steroid injection under fluoroscopy Informed consent was obtained and the risks and benefits of the procedure was explained to the patient. The patient was taken to the procedure room placed prone on the procedure table. The neck was prepped using ChloraPrep. The skin and subcutaneous tissues were anesthetized using lidocaine. I placed a 18-gauge epidural needle into the C5-C6 interspace and advanced using [id number] to air and fluoroscopic guidance. After confirmation of needle placement in the epidural space with dye, I injected 3 mL's lidocaine 1.5% and Depo-Medrol 80 mg. The patient tolerated the procedure well with no complications. Plan and Disposition:: We will follow-up with her in 2 weeks. Will reevaluate symptoms at that time.
[2020-07-24 14:29] VITALS: BP 129/86; PULSE 80; RESP 18; O2SAT 96
== END 2020-07-24 14:30 | disposition home or self-care (01) ==
LOC: SC.PAINP 13:41
PROVIDERS: PCP Internal Medicine Adolescent Medicine; Visit Provider Anesthesiology
DX: M50.10 Cervical disc disorder with radiculopathy, unspecified cervical region (principal); I10 Essential (primary) hypertension; E11.9 Type 2 diabetes mellitus without complications; E78.5 Hyperlipidemia, unspecified; I49.9 Cardiac arrhythmia, unspecified; K21.9 Gastro-esophageal reflux disease without esophagitis; N18.30 Chronic kidney disease, stage 3 unspecified
CPT/HCPCS: 62321; J1040; Q9966

== ENCOUNTER → 2020-07-27 09:24 | Outpatient (CLI) | payer MEDICARE, BC, SELFPAY ==
[2020-07-27 09:31] LABS: Microscopic, Urine URINE MICROSCOPIC (MICROSCOPIC)
[2020-07-27 10:03] LABS: Appearance,Urine CLEAR (Clear); Bilirubin,Urine Negative (Negative); Blood, Urine 2+ (Negative); Color,Urine YELLOW (Yellow); Glucose,Urine (UA) 3+ (Negative); Ketones,Urine Negative (Negative); Leukocyte Esterase,Urine Negative (Negative); Nitrate,Urine Negative (Negative); Protein,Urine 2+ (Negative); Specific Gravity, Urine >= 1.030 (1.005-1.030); Urobilinogen,Urine 0.2 EU/dl (0.2)
[2020-07-27 10:13] LABS: Basophils # 0.1 K/mm3 (0-0.2); Basophils % 0.7 % (0.1-2.0); Eosinophils # 0.1 K/mm3 (0.0-0.4); Eosinophils % 0.8 % (0.1-12.0); Hematocrit 49.5 % (37.0-47.0); Hemoglobin 16.6 g/dL (12.2-16.2); Lymphocytes # 3.2 K/mm3 (0.7-4.5); Lymphocytes % 26.7 % (10-50); Mean Corpuscular HGB Conc 33.6 g/dL (31.8-35.4); Mean Corpuscular Hemoglobin 30.6 pg (27.0-31.2); Mean Corpuscular Volume 91.1 fl (81-99); Monocytes # 0.7 K/mm3 (0.1-1.0); Monocytes % 6.2 % (1.7-9.3); Neutrophils # 7.8 K/mm3 (1.8-7.8); Neutrophils % 65.6 % (37.0-80.0); Platelet Count 324 K/mm3 (142-424); Red Blood Count 5.44 M/mm3 (4.20-5.40); Red Cell Distribution Width 15.4 % (11.5-17.5); White Blood Count 11.9 K/mm3 (4.8-10.8)
[2020-07-27 10:20] LABS: Albumin Level 4.7 g/dl (3.5-5.0); Blood Urea Nitrogen 19 mg/dl (7-17); Carbon Dioxide 28 mmol/L (22.0-30.0); Chloride 100 mmol/L (98-107); Estimated Glomerular Filt Rate 23 ml/min (>60); GFR (African American) 28 ML/MIN (>60); Glucose 136 mg/dl (74-100); Phosphorous 3.2 mg/dl (2.5-4.5); Sodium 140 mmol/L (136-145)
[2020-07-27 10:22] LABS: Creatinine,Urine Random 97 mg/dL (Not Estab.)
[2020-07-28 10:44] LABS: Sodium, Urine 114 mmol/L (Not Estab.)
[2020-07-29 03:16] LABS: Chloride, Urine 128 mmol/L (Not Estab.)
[2020-07-29 15:54] LABS: Osmolality, Urine 740 mOsmol/kg (.)
[2020-08-01 19:37] LABS: Renin Activity, Plasma 11.434 ng/mL/hr (0.167-5.380)
== END ==
PROVIDERS: Visit Provider Internal Medicine Nephrology
DX: N18.9 Chronic kidney disease, unspecified (principal); E87.6 Hypokalemia
CPT/HCPCS: 36415; 80069; 81001; 82436; 82570; 83735; 83930; 83935; 84155; 84244; 84300; 85025

== ENCOUNTER → 2020-07-28 10:00 | Outpatient (CLI) | payer MEDICARE, BC, SELFPAY ==
[2020-07-31 09:13] LABS: Magnesium, Urine 4.6 mg/dL (Not Estab.)
[2020-07-31 10:22] LABS: Magnesium, Urine 24 Hr 66.7 mg/24 hr (12.0-293.0)
== END ==
PROVIDERS: Visit Provider Internal Medicine Nephrology
DX: N18.9 Chronic kidney disease, unspecified (principal); E87.6 Hypokalemia
CPT/HCPCS: 83735

== ENCOUNTER → 2020-07-29 14:14 | Outpatient (CLI) | payer MEDICARE, BC, SELFPAY ==
[2020-08-09 17:02] LABS: Potassium, Urine 67.1; Potassium, Urine 24 Hr 81
== END ==
PROVIDERS: Visit Provider Internal Medicine Nephrology
DX: N18.9 Chronic kidney disease, unspecified (principal); E87.6 Hypokalemia
CPT/HCPCS: 84133

== ENCOUNTER → 2020-08-03 12:36 | Outpatient (POV) | payer MEDICARE, BC, SELFPAY | PROVIDERS: Visit Provider Internal Medicine Nephrology | DX: Z00.00 Encounter for general adult medical examination without abnormal findings (principal) ==

== ENCOUNTER 2020-08-13 16:04 | Observation (INO) | payer MEDICARE, BC, SELFPAY ==
[2020-08-13 15:12] LABS: Basophils # 0.1 K/mm3 (0-0.2); Basophils % 0.8 % (0.1-2.0); Eosinophils # 0.2 K/mm3 (0.0-0.4); Eosinophils % 1.3 % (0.1-12.0); Hematocrit 52.6 % (37.0-47.0); Hemoglobin 17.4 g/dL (12.2-16.2); Lymphocytes # 2.2 K/mm3 (0.7-4.5); Lymphocytes % 18.6 % (10-50); Mean Corpuscular HGB Conc 33.1 g/dL (31.8-35.4); Mean Corpuscular Hemoglobin 30.3 pg (27.0-31.2); Mean Corpuscular Volume 91.7 fl (81-99); Mean Platelet Volume 8.4 fl (7.4-10.4); Monocytes # 0.5 K/mm3 (0.1-1.0); Monocytes % 4.5 % (1.7-9.3); Neutrophils % 74.7 % (37.0-80.0); Platelet Count 200 K/mm3 (142-424); Red Blood Count 5.74 M/mm3 (4.20-5.40); Red Cell Distribution Width 15.8 % (11.5-17.5); White Blood Count 12.1 K/mm3 (4.8-10.8)
[2020-08-13 15:39] LABS: Chloride 101 mmol/L (98-107); Potassium 3.4 mmoL/L (3.5-5.1); Sodium 138 mmol/L (136-145)
[2020-08-13 15:41] LABS: Blood Urea Nitrogen 26 mg/dl (7-17); Estimated Glomerular Filt Rate 18 ml/min (>60); GFR (African American) 22 ML/MIN (>60)
[2020-08-13 15:42] LABS: Alanine Aminotransferase 32 U/L (12-78); Albumin Level 4.4 g/dl (3.5-5.0); Albumin/Globulin Ratio 1.5 (1.1-1.8); Alkaline Phosphatase 105 U/L (38-126); Anion Gap 13.4 mEq/L (5-15); Aspartate Amino Transferase 37 U/L (14-36); Bilirubin,Total 0.8 mg/dl (0.2-1.3); Carbon Dioxide 27 mmol/L (22.0-30.0); Glucose 165 mg/dl (74-100); Magnesium 2.2 mg/dl (1.6-2.3); Total Protein,Serum 7.4 g/dl (6.3-8.2)
[2020-08-13 16:29] VITALS: BP 109/71; PULSE 83; RESP 16; TEMP 36.6; O2SAT 98; BMI 39.3
[2020-08-13 16:55] LABS: Coronavirus 19 IgG Antibody Negative (Negative); Coronavirus 19 IgM Antibody Negative (Negative)
[2020-08-13 17:45] LABS: Lactic Acid 1.8 mmol/L (0.7-2.1)
--- NOTE | 2020-08-13 19:17 | PC.NURSE ---
1730: 20G INSERTED TO LFA X 1 STICK PER S. BARRIE RN
[2020-08-13 20:00] VITALS: BP 115/80; PULSE 77; RESP 17; TEMP 36.6; O2SAT 94
--- NOTE | 2020-08-13 20:15 | PC.NURSE ---
PATIENT A&O X4, LUNGS CLEAR, PULSES EQUAL. PATIENT IS UNSTEADY WHEN AMBULATING. THIS RN INSTRUCTED PATIENT TO USE CALL LIGHT BEFORE GETTING UP. PATIENT VERBALIZED AN UNDERSTANDING. NO OTHER CONCERNS AT THIS TIME.
--- NOTE | 2020-08-13 20:19 | HMH.HP ---
*Admission Date: 08/13/20 *Chief complaint: Nausea, weakness *History of present illness: Long-time patient of my practice presented to my office today with one week of nausea with ongoing significant vomiting somewhat controlled with Zofran at home. No diarrhea, no other GI issues. Afebrile. Has recently been started on lisinopril by nephrology because of chronic kidney disease for hopeful renal protection. She notes that since this was started she's been weak and somewhat dizzy. Was sent for labs because of clinical dehydration and found to have significant elevation of creatinine above baseline without electrolyte disturbance. Acute kidney injury was diagnosed and admitted to hospital for IV fluid therapy. [facility] History I have reviewed the patient's past medical history: Yes Medical History: Reports:: Anxiety, Arrhythmia, Cancer, Heart Murmur (MVP), Hyperlipidemia, Hypertension, Lung Disease Denies:: Diabetes Mellitus Type 1, Diabetes Mellitus Type 2, Internal Pacemaker, MRSA, Seizures *Have you ever received a pneumonia vaccine?: Yes *Have you received a flu vaccine this season?: Yes Other Medical History: Reports: Hypothyroidism, Thyroid Disease, Other (Electrocution injury 10 years ago). Denies: Blood Transfusion Reaction Other Surgeries: Yes: Cholecystectomy, Colonoscopy, Hysterectomy-Total, Other (gallbladder). No: Pacemaker Amputation: No Fractures: No - *Social History Last grade of school completed: High school graduate Smoking Status: Never smoker Alcohol Intake: never Alcohol Intake Frequency:: other Substance Use Type: denies use *Occupational Status:: disabled Housing: house Household Members: spouse *Travel in the last 8 weeks: None - Psychiatric History Pschychiatric History:: Reports:: Anxiety Family Hx:: Cancer, Hypertension, Other Review of Systems - Review of Systems Review of systems:: pertinent systems reviewed and negative unless documented below Meds Home Medications Medication Instructions Recorded Confirmed Type lansoprazole 30 mg capsule,delayed 30 mg PO DAILY 12/25/17 08/13/20 History release carvedilol 3.125 mg tablet 6.25 mg PO BID tab 02/23/18 08/13/20 History cholecalciferol (vitamin D3) 125 10,000 unit PO DAILY 02/23/18 08/13/20 History mcg (5,000 unit) capsule coenzyme Q10 100 mg capsule 100 mg PO DAILY 02/23/18 08/13/20 History cyclobenzaprine 10 mg tablet 10 mg PO NEEDED PRN 02/23/18 08/13/20 History Thyroid,Pork [[place] Thyroid] 30 mg PO DAILY 08/21/18 08/13/20 History ondansetron HCL [Ondansetron 4mg 8 mg PO Q6HP PRN 08/21/18 08/13/20 History Tablet] Fluticasone Propionate [Flonase 1 spr NS BID 09/11/18 08/13/20 History 50mcg nasal spray 16gm] Potassium Chloride [Klor-con 20 40 meq PO DAILY 09/12/18 08/13/20 History mEq tablet] Canagliflozin [Invokana] 100 mg PO DAILY 08/13/20 08/13/20 History Cetirizine HCl [Allergy Relief] 10 mg PO HS 08/13/20 08/13/20 History Linaclotide [Linzess] 290 mcg PO DAILY 08/13/20 08/13/20 History Rosuvastatin Calcium [Crestor 20 20 mg PO DAILY 08/13/20 08/13/20 History mg Tablets] raNITIdine HCl [Zantac 150mg] 150 mg PO DAILY 08/13/20 08/13/20 History Allergies Allergy/AdvReac Type Severity Reaction Status Date / Time meperidine [From DEMEROL] Allergy Mild Verified 07/24/20 14:03 oxytetracycline Allergy Mild Verified 07/24/20 14:03 [From TERRAMYCIN] penicillin G [PENICILLIN G] Allergy Mild Verified 07/24/20 14:03 lorazepam [From ATIVAN] Allergy Unknown HALLUCINATI Verified 07/24/20 14:03 ONS tetracycline Allergy Verified 07/24/20 14:03 Exam Vital signs and Labs for Last 24 Hours: Temp Pulse Resp BP Pulse Ox 97.9 F 83 16 109/71 L 98 08/13/20 16:29 08/13/20 16:29 08/13/20 16:29 08/13/20 16:29 08/13/20 16:29 Laboratory Results - last 24 hr 08/13/20 14:49: Sodium 138, Potassium 3.4 L, Chloride 101, Carbon Dioxide 27, Anion Gap 13.4, BUN 26 H, Creatinine 2.70 H, Estimated GF
[2020-08-13 22:36] LABS: POC Glucose,Bedside 92 (70-110)
--- NOTE | 2020-08-14 03:35 | PC.NURSE ---
No acute changes noted. Pt has c/o nausea after ambulating to BR this shift. She also becomes lightheaded with ambulation. Assist x1 needed for ambulation for safety. She had difficulty early evening falling asleep. Pt states she takes flexeril before bed. FS was 92 last night. VSS. Call light within reach. No other concerns at this time. Will continue to monitor.
[2020-08-14 04:00] VITALS: BP 103/69; PULSE 68; RESP 16; TEMP 36.4; O2SAT 95
[2020-08-14 05:16] VITALS: BMI 40.4
[2020-08-14 05:23] LABS: POC Glucose,Bedside 88 (70-110)
[2020-08-14 06:40] LABS: Chloride 109 mmol/L (98-107); Sodium 138 mmol/L (136-145)
[2020-08-14 06:42] LABS: Blood Urea Nitrogen 20 mg/dl (7-17); Creatinine Clearance Estimated 20 mL/min (50-200); Estimated Glomerular Filt Rate 23 ml/min (>60); GFR (African American) 28 ML/MIN (>60)
[2020-08-14 06:43] LABS: Alanine Aminotransferase 24 U/L (12-78); Albumin Level 3.7 g/dl (3.5-5.0); Albumin/Globulin Ratio 1.3 (1.1-1.8); Alkaline Phosphatase 99 U/L (38-126); Aspartate Amino Transferase 32 U/L (14-36); Bilirubin,Total 0.7 mg/dl (0.2-1.3); Carbon Dioxide 24 mmol/L (22.0-30.0); Globulin 2.8 g/dL (1.3-3.2); Glucose 97 mg/dl (74-100); Total Protein,Serum 6.5 g/dl (6.3-8.2)
[2020-08-14 06:49] LABS: Basophils # 0.1 K/mm3 (0-0.2); Basophils % 0.6 % (0.1-2.0); Eosinophils # 0.1 K/mm3 (0.0-0.4); Eosinophils % 1.4 % (0.1-12.0); Hematocrit 48.5 % (37.0-47.0); Lymphocytes # 2.4 K/mm3 (0.7-4.5); Lymphocytes % 24.8 % (10-50); Mean Corpuscular Hemoglobin 29.9 pg (27.0-31.2); Mean Corpuscular Volume 93.6 fl (81-99); Mean Platelet Volume 8.4 fl (7.4-10.4); Monocytes # 0.6 K/mm3 (0.1-1.0); Monocytes % 6.2 % (1.7-9.3); Neutrophils # 6.6 K/mm3 (1.8-7.8); Platelet Count 160 K/mm3 (142-424); Red Blood Count 5.18 M/mm3 (4.20-5.40); Red Cell Distribution Width 15.4 % (11.5-17.5); White Blood Count 9.8 K/mm3 (4.8-10.8)
--- NOTE | 2020-08-14 07:16 | P.CONPHA_ITS ---
[facility] Pharmacy VTE Monitoring - Patient Demographics Admission date: 08/13/20 Report Date: 08/14/20 Time: 07:16 Allergies/Adverse Reactions: Patient Allergies meperidine [From DEMEROL] Allergy (Mild, Verified 07/24/20 14:03) oxytetracycline [From TERRAMYCIN] Allergy (Mild, Verified 07/24/20 14:03) penicillin G [PENICILLIN G] Allergy (Mild, Verified 07/24/20 14:03) lorazepam [From ATIVAN] Allergy (Unknown, Verified 07/24/20 14:03) HALLUCINATIONS tetracycline Allergy (Verified 07/24/20 14:03) Height: 1.52 m Weight: 93.497 kg Patient Problems: Current Active Problems Acute kidney injury (Acute) - VTE Risk Labs: VTE Related Lab Results Hgb 17.4 g/dL (12.2-16.2) H 08/13/20 14:49 Hct 48.5 % (37.0-47.0) H 08/14/20 06:08 Plt Count 160 K/mm3 (142-424) 08/14/20 06:08 BUN 20 mg/dl (7-17) H 08/14/20 06:08 Creatinine 2.20 mg/dl (0.52-1.04) H 08/14/20 06:08 Estimated Creat Clear 20 mL/min (50-200) 08/14/20 06:08 VTE Risk Level: Low Risk - Prophylaxis VTE Prophylaxis Ordered?: Yes Types of VTE Prophylaxis: TEDS Knee High Location of Applied Device: Bilateral Lower Extremeties
[2020-08-14 07:46] LABS: Calcium 8.9 mg/dl (8.4-10.2)
[2020-08-14 08:00] VITALS: BP 104/74; PULSE 73; RESP 16; TEMP 36.8; O2SAT 97
[2020-08-14 08:28] LABS: Hemoglobin 15.5 g/dL (12.2-16.2)
--- NOTE | 2020-08-14 08:54 | HMH.PHAINT ---
home medication reconciliation completed using list from Dr Hill's office, [facility] pharmacy, [facility] and pt interview.
--- NOTE | 2020-08-14 08:56 | HMH.ACPN2 ---
Internal Medicine - PN: Subj *Date: 08/14/20 *Time: 13:31 Interval history: Patient did well overnight. Still has a little bit of dizziness when she moves, this accounts for some of her nausea. Overall feeling better however. Labs reviewed this morning. Kidney function improving but not back to baseline. No ritu emesis, fever, chest pain, shortness of breath overnight. Exam Vital signs and Labs for Last 24 Hours: Temp Pulse Resp BP Pulse Ox 98.3 F 73 16 104/74 L 97 08/14/20 08:00 08/14/20 08:00 08/14/20 08:00 08/14/20 08:00 08/14/20 08:00 Laboratory Results - last 24 hr 08/13/20 14:49: Sodium 138, Potassium 3.4 L, Chloride 101, Carbon Dioxide 27, Anion Gap 13.4, BUN 26 H, Creatinine 2.70 H, Estimated GFR 18 L*, Est GFR ( Amer) 22 L, Glucose 165 H, Calcium 10.0, Magnesium 2.2, Total Bilirubin 0.8, AST 37 H, ALT 32, Alkaline Phosphatase 105, Total Protein 7.4, Albumin 4.4, Globulin 3.0, Albumin/Globulin Ratio 1.5 08/13/20 14:49: WBC 12.1 H, RBC 5.74 H, Hgb 17.4 H, Hct 52.6 H, MCV 91.7, MCH 30.3, MCHC 33.1, RDW 15.8, Plt Count 200, MPV 8.4, Neut % (Auto) 74.7, Lymph % (Auto) 18.6, Ramsey % (Auto) 4.5, Eos % (Auto) 1.3, Baso % (Auto) 0.8, Neut # (Auto) 9.0 H, Lymph # (Auto) 2.2, Ramsey # (Auto) 0.5, Eos # (Auto) 0.2, Baso # (Auto) 0.1 08/13/20 14:50: SARS-CoV-2 IgG Ab (Rapid) Negative, SARS-CoV-2 IgM Ab (Rapid) Negative 08/13/20 17:32: Lactate 1.8 08/13/20 21:55: POC Glucose 92 08/14/20 05:12: POC Glucose 88 08/14/20 06:08: WBC 9.8, RBC 5.18, Hgb 15.5 D, Hct 48.5 H, MCV 93.6, MCH 29.9, MCHC 32.0, RDW 15.4, Plt Count 160, MPV 8.4, Neut % (Auto) 67.0, Lymph % (Auto) 24.8, Ramsey % (Auto) 6.2, Eos % (Auto) 1.4, Baso % (Auto) 0.6, Neut # (Auto) 6.6, Lymph # (Auto) 2.4, Ramsey # (Auto) 0.6, Eos # (Auto) 0.1, Baso # (Auto) 0.1 08/14/20 06:08: Sodium 138, Potassium 3.0 L, Chloride 109 H, Carbon Dioxide 24, Anion Gap 8.0, BUN 20 H, Creatinine 2.20 H, Estimated Creat Clear 20, Estimated GFR 23 L, Est GFR ( Amer) 28 L D, Glucose 97 D, Calcium 8.9 D, Total Bilirubin 0.7, AST 32, ALT 24, Alkaline Phosphatase 99, Total Protein 6.5, Albumin 3.7 D, Globulin 2.8, Albumin/Globulin Ratio 1.3 I & O for Last 24 hours: Intake & Output 08/11/20 08/12/20 08/13/20 08/14/20 23:59 23:59 23:59 23:59 Intake Total 1360 / 1360 2633 / 2633 Output Total 500 / 500 Balance 1360 / 1360 2133 / 2133 Weight 91.371 kg 93.497 kg - Constitutional no acute distress, obese - *Routine HEENT Exam Head: Present: normocephalic Eye: Present: EOMI, PERRL ENT: Present: mucous membranes moist - *Routine Neck Exam Present: supple. Absent: lymphadenopathy - *Routine Respiratory Exam Present: CTA bilaterally - *Routine Cardiovascular Exam Present: RRR - *Routine Abdominal Exam Present: soft, normoactive bowel sounds. Absent: tenderness - *Routine Extremities Exam Absent: cyanosis, clubbing, edema - *Routine Skin Exam Present: warm. Absent: rash - *Routine Neurological Exam Present: alert, oriented X3 Assessment and Plan (1) Acute kidney injury Status: Acute Category: Medical Code(s): N17.9 - Acute kidney failure, unspecified (2) Dehydration Status: Acute Category: Medical Code(s): E86.0 - Dehydration (3) Chronic kidney disease Status: Chronic Qualifiers: Chronic kidney disease stage: stage 3 (moderate) Category: Medical Code(s): N18.9 - Chronic kidney disease, unspecified (4) Dizziness Status: Acute Category: Medical Code(s): R42 - Dizziness and giddiness Suspect related to kidney injury and dehydration. Monitor for improvement with fluid rehydration. Meclizine ordered as needed (5) Diabetes Status: Chronic Qualifiers: Diabetes mellitus type: type 2 Category: Medical Code(s): E11.9 - Type 2 diabetes mellitus without complications Hold outpatient oral medications, fingerstick glucose before meals and at bedtime with sliding scale insulin - Assessment a
[2020-08-14 09:36] VITALS: BMI 40.2
[2020-08-14 11:30] LABS: POC Glucose,Bedside 85 (70-110)
[2020-08-14 16:00] VITALS: BP 102/63; PULSE 65; RESP 16; TEMP 36.7; O2SAT 96
[2020-08-14 16:05] LABS: POC Glucose,Bedside 103 (70-110)
--- NOTE | 2020-08-14 19:38 | PC.NURSE ---
PATIENT A&O X4, LUNGS CLEAR, PULSES EQUAL. PATIENT TOLERATED FULL LIQUID DIET WELL, AMBULATED TO RESTROOM WITH NO DIZZY SPELLS. NO NEW CONCERNS AT THIS TIME.
[2020-08-14 20:00] VITALS: BP 126/77; PULSE 83; RESP 14; TEMP 36.7; O2SAT 98
[2020-08-14 22:03] LABS: POC Glucose,Bedside 104 (70-110)
[2020-08-15 04:00] VITALS: BP 111/70; PULSE 78; RESP 16; TEMP 36.6; O2SAT 98
[2020-08-15 05:23] VITALS: BMI 40.9
--- NOTE | 2020-08-15 06:01 | PC.NURSE ---
Pt. denies dysuria, or hesitation to void. Has not c/o n/v/d, soa or dizziness. Pt. c/o r sided neck pain; relief provided with heat. Pt. reports feeling hungry and has tolerated FLD this shift.
[2020-08-15 08:00] VITALS: BP 118/78; PULSE 70; RESP 19; TEMP 36.5; O2SAT 96
[2020-08-15 08:41] LABS: Chloride 109 mmol/L (98-107); Potassium 3.2 mmoL/L (3.5-5.1); Sodium 141 mmol/L (136-145)
[2020-08-15 08:44] LABS: Anion Gap 10.2 mEq/L (5-15); Basophils # 0.1 K/mm3 (0-0.2); Basophils % 0.8 % (0.1-2.0); Blood Urea Nitrogen 16 mg/dl (7-17); Calcium 9.1 mg/dl (8.4-10.2); Carbon Dioxide 25 mmol/L (22.0-30.0); Creatinine Clearance Estimated 23 mL/min (50-200); Eosinophils # 0.2 K/mm3 (0.0-0.4); Eosinophils % 1.8 % (0.1-12.0); Estimated Glomerular Filt Rate 27 ml/min (>60); GFR (African American) 33 ML/MIN (>60); Glucose 101 mg/dl (74-100); Hematocrit 45.7 % (37.0-47.0); Hemoglobin 15.3 g/dL (12.2-16.2); Mean Corpuscular HGB Conc 33.6 g/dL (31.8-35.4); Mean Corpuscular Hemoglobin 30.6 pg (27.0-31.2); Mean Corpuscular Volume 91.1 fl (81-99); Mean Platelet Volume 8.2 fl (7.4-10.4); Monocytes # 0.4 K/mm3 (0.1-1.0); Monocytes % 5.1 % (1.7-9.3); Neutrophils # 5.9 K/mm3 (1.8-7.8); Neutrophils % 69.3 % (37.0-80.0); Platelet Count 165 K/mm3 (142-424); Red Blood Count 5.01 M/mm3 (4.20-5.40); Red Cell Distribution Width 15.6 % (11.5-17.5); White Blood Count 8.6 K/mm3 (4.8-10.8)
--- NOTE | 2020-08-15 10:13 | HMH.DCSUM ---
General - General Admission date:: 08/13/20 Discharge date: 08/15/20 HPI HPI: Long-time patient of my practice presented to my office today with one week of nausea with ongoing significant vomiting somewhat controlled with Zofran at home. No diarrhea, no other GI issues. Afebrile. Has recently been started on lisinopril by nephrology because of chronic kidney disease for hopeful renal protection. She notes that since this was started she's been weak and somewhat dizzy. Was sent for labs because of clinical dehydration and found to have significant elevation of creatinine above baseline without electrolyte disturbance. Acute kidney injury was diagnosed and admitted to hospital for IV fluid therapy. Hospital Course Hospital Course: Patient was admitted, placed on IV fluids, lisinopril, Invokana and NSAIDs were held, she improved slowly over the next couple of days, did have some vertigo, meclizine was prescribed and help with this. This morning she feels much better, no vertigo, eating and drinking well. Laboratory studies were also much improved. Plan will be to discharge home, I will see her in 4 days with labs. I have asked her to hold lisinopril, Invokana and Celebrex and we will reevaluate restarting lisinopril at very low dose, if this causes further kidney dysfunction we may consider renal artery evaluation. Objective Vital signs: Temp Pulse Resp BP Pulse Ox 97.7 F 70 19 118/78 96 08/15/20 08:00 08/15/20 08:00 08/15/20 08:00 08/15/20 08:00 08/15/20 08:00 no acute distress - *Routine HEENT Exam Head: Present: normocephalic Eye: Present: EOMI, PERRL ENT: Present: mucous membranes moist - *Routine Neck Exam Present: supple - *Routine Respiratory Exam Present: CTA bilaterally - *Routine Cardiovascular Exam Present: RRR - *Routine Abdominal Exam Present: soft, normoactive bowel sounds. Absent: tenderness - *Routine Extremities Exam Absent: cyanosis, clubbing, edema - *Routine Skin Exam Present: warm. Absent: rash - Detailed Eye Exam Eyelids: Bilateral normal inspection Results Labs on day of discharge: Labs from last 24 hours 08/15/20 08/15/20 08/14/20 08:27 08:27 21:55 WBC 8.6 RBC 5.01 Hgb 15.3 Hct 45.7 MCV 91.1 MCH 30.6 MCHC 33.6 RDW 15.6 Plt Count 165 MPV 8.2 Neut % (Auto) 69.3 Lymph % (Auto) 23.0 Divide % (Auto) 5.1 Eos % (Auto) 1.8 Baso % (Auto) 0.8 Neut # (Auto) 5.9 Lymph # (Auto) 2.0 Divide # (Auto) 0.4 Eos # (Auto) 0.2 Baso # (Auto) 0.1 Sodium 141 Potassium 3.2 L Chloride 109 H Carbon Dioxide 25 Anion Gap 10.2 BUN 16 Creatinine 1.90 H Estimated Creat Clear 23 Estimated GFR 27 L Est GFR ( Amer) 33 L Glucose 101 H POC Glucose 104 Calcium 9.1 08/14/20 08/14/20 15:53 11:23 WBC RBC Hgb Hct MCV MCH MCHC RDW Plt Count MPV Neut % (Auto) Lymph % (Auto) Divide % (Auto) Eos % (Auto) Baso % (Auto) Neut # (Auto) Lymph # (Auto) Divide # (Auto) Eos # (Auto) Baso # (Auto) Sodium Potassium Chloride Carbon Dioxide Anion Gap BUN Creatinine Estimated Creat Clear Estimated GFR Est GFR ( Amer) Glucose POC Glucose 103 85 Calcium DS: Diagnosis - Discharge Diagnosis (1) Acute kidney injury Status: Resolved (2) Dehydration Status: Resolved (3) Chronic kidney disease Status: Chronic (4) Dizziness Status: Resolved (5) Diabetes Status: Chronic Discharge Plan - Patient Discharge Instructions ACTIVITY: Continue current activity DIET: continue same diet Patient Instructions: Acute Renal Failure - Follow up Plan Follow up with: Jerry Hill MD [Primary Care Provider] - 08/19/20 Disposition: Home, Self-Prison Medications: Home Medications Medication Instructions Recorded Confirmed Type lansoprazole 30 mg
--- NOTE | 2020-08-15 11:13 | HMH.PHAINT ---
DISCHARGE COUNSELING COMPLETED ON PATIENT. NO NEW PRESCRIPTIONS AT THIS TIME, BUT PATIENT IS TO STOP CELEBREX, LISINOPRIL, AND INVOKANA. PATIENT VERBALIZED UNDERSTANDING AND HAD NO QUESTIONS AT THIS TIME. -SAYDA COLON, NANETTED
[2020-08-15 11:20] LABS: POC Glucose,Bedside 80 (70-110)
== END 2020-08-15 11:20 | disposition home or self-care (01) ==
LOC: 2ND 16:06
PROVIDERS: Internal Medicine Adolescent Medicine; Admitting Provider Internal Medicine Adolescent Medicine; PCP Internal Medicine Adolescent Medicine; Visit Provider Internal Medicine Adolescent Medicine
DX: I12.9 Hypertensive chronic kidney disease with stage 1 through stage 4 chronic kidney disease, or unspecified chronic kidney disease (principal); N18.9 Chronic kidney disease, unspecified; N17.9 Acute kidney failure, unspecified; E03.9 Hypothyroidism, unspecified; E86.0 Dehydration; Z79.890 Hormone replacement therapy; Z79.899 Other long term (current) drug therapy; Z88.0 Allergy status to penicillin; Z88.1 Allergy status to other antibiotic agents; E11.22 Type 2 diabetes mellitus with diabetic chronic kidney disease
CPT/HCPCS: G0379; 36415; 80048; 80053; 82962; 83605; 83735; 85025; 86328; 87040; G0378; J2405

== ENCOUNTER → 2020-08-19 08:40 | Outpatient (CLI) | payer MEDICARE, BC, SELFPAY ==
[2020-08-19 10:16] LABS: Chloride 107 mmol/L (98-107); Potassium 4.4 mmoL/L (3.5-5.1); Sodium 140 mmol/L (136-145)
[2020-08-19 10:19] LABS: Anion Gap 14.4 mEq/L (5-15); Blood Urea Nitrogen 20 mg/dl (7-17); Carbon Dioxide 23 mmol/L (22.0-30.0); Estimated Glomerular Filt Rate 36 ml/min (>60); GFR (African American) 44 ML/MIN (>60)
[2020-08-19 10:20] LABS: Calcium 9.9 mg/dl (8.4-10.2); Glucose 153 mg/dl (74-100)
== END ==
PROVIDERS: Visit Provider Internal Medicine Adolescent Medicine
DX: N18.2 Chronic kidney disease, stage 2 (mild) (principal)
CPT/HCPCS: 36415; 80048

== ENCOUNTER → 2020-08-27 08:42 | Outpatient (CLI) | payer MEDICARE, BC, SELFPAY ==
--- NOTE | 2020-08-27 | CA_ITS ---
APPROVED REPORT Inside Wireman: Kimberly Borges RVT Study Quality: AdequateGood Indications: HTN,RENAL FAILURE Risk Factors Hypertension Renal Artery Doppler Origin (R) 123.5/ cm/sec Proximal (R) 99.1/ cm/sec Mid (R) 99.0/ cm/sec Distal (R) 72.2/ cm/sec Renal Aorta Ratio (R) 1.90 Segmental A. (R) 34.5/12.2 cm/sec RI: 0.64 Segmental A. Sup (R) 34.5/12.2 cm/sec Segmental A. Mid (R) 30.8/13.3 cm/sec Segmental A. Inf (R) 30.8/11.1 cm/sec Origin (L) 92.2/ cm/sec Proximal (L) 66.6/ cm/sec Mid (L) 84.3/ cm/sec Distal (L) 88.8/ cm/sec Renal Aorta Ratio (L) 1.42 Segmental A. (L) 37.7/12.0 cm/sec RI: 0.68 Segmental A. Sup (L) 37.7/12.0 cm/sec Segmental A. Mid (L) 28.7/11.1 cm/sec Segmental A. Inf (L) 30.6/11.7 cm/sec Renal Measurements Kidney Size (R) 9.9x5.2 cm Cortical Thickness (R) 0.9 cm Kidney Size (L) 10.2x6.9 cm Cortical Thickness (L) 1.4 cm Findings Study suggests no evidence of stenosis of the bilateral renal arteries. Cortical thinning of the right renal cortex. Conclusion Study suggests no evidence of stenosis of the bilateral renal arteries. Cortical thinning of the right renal cortex. Electronically signed by : Norberto Zheng MD 08/27/2020 18:05:10
== END ==
PROVIDERS: PCP Internal Medicine Adolescent Medicine; Visit Provider Internal Medicine Adolescent Medicine
DX: N18.2 Chronic kidney disease, stage 2 (mild) (principal); I12.9 Hypertensive chronic kidney disease with stage 1 through stage 4 chronic kidney disease, or unspecified chronic kidney disease
CPT/HCPCS: 93976

== ENCOUNTER → 2020-09-14 07:30 | Outpatient (CLI) | payer MEDICARE, BC, SELFPAY ==
[2020-09-14 07:49] LABS: Basophils # 0.1 K/mm3 (0-0.2); Basophils % 0.8 % (0.1-2.0); Eosinophils # 0.5 K/mm3 (0.0-0.4); Eosinophils % 5.5 % (0.1-12.0); Hematocrit 48.8 % (37.0-47.0); Hemoglobin 16.4 g/dL (12.2-16.2); Lymphocytes # 2.3 K/mm3 (0.7-4.5); Lymphocytes % 26.8 % (10-50); Mean Corpuscular HGB Conc 33.6 g/dL (31.8-35.4); Mean Corpuscular Hemoglobin 30.6 pg (27.0-31.2); Mean Platelet Volume 7.8 fl (7.4-10.4); Monocytes # 0.4 K/mm3 (0.1-1.0); Monocytes % 4.5 % (1.7-9.3); Neutrophils # 5.4 K/mm3 (1.8-7.8); Neutrophils % 62.4 % (37.0-80.0); Platelet Count 268 K/mm3 (142-424); Red Blood Count 5.36 M/mm3 (4.20-5.40); Red Cell Distribution Width 16.2 % (11.5-17.5); White Blood Count 8.7 K/mm3 (4.8-10.8)
[2020-09-14 08:40] LABS: Chloride 103 mmol/L (98-107); Potassium 3.2 mmoL/L (3.5-5.1); Sodium 138 mmol/L (136-145)
[2020-09-14 08:42] LABS: Blood Urea Nitrogen 23 mg/dl (7-17); Estimated Glomerular Filt Rate 26 ml/min (>60); GFR (African American) 31 ML/MIN (>60)
[2020-09-14 08:43] LABS: Alanine Aminotransferase 32 U/L (12-78); Albumin Level 4.1 g/dl (3.5-5.0); Albumin/Globulin Ratio 1.5 (1.1-1.8); Alkaline Phosphatase 109 U/L (38-126); Anion Gap 11.2 mEq/L (5-15); Aspartate Amino Transferase 34 U/L (14-36); Bilirubin,Total 1.2 mg/dl (0.2-1.3); Calcium 9.8 mg/dl (8.4-10.2); Carbon Dioxide 27 mmol/L (22.0-30.0); Globulin 2.7 g/dL (1.3-3.2); Glucose 144 mg/dl (74-100); Total Protein,Serum 6.8 g/dl (6.3-8.2)
[2020-09-20 08:11] LABS: Renin Activity, Plasma 16.219 ng/mL/hr (0.167-5.380)
== END ==
PROVIDERS: Visit Provider Internal Medicine Adolescent Medicine
DX: N18.2 Chronic kidney disease, stage 2 (mild); I12.9 Hypertensive chronic kidney disease with stage 1 through stage 4 chronic kidney disease, or unspecified chronic kidney disease
CPT/HCPCS: 36415; 80053; 82088; 84244; 85025

== ENCOUNTER 2020-09-16 11:11 | Outpatient (CLI) | payer MEDICARE, BC, SELFPAY ==
[2020-09-16 11:35] VITALS: BP 134/96; PULSE 88; RESP 18; TEMP 36.4; O2SAT 97
[2020-09-16 12:05] VITALS: BP 131/91; PULSE 81; RESP 18; O2SAT 97
[2020-09-16 12:35] VITALS: BP 129/92; PULSE 79; RESP 18; O2SAT 97
[2020-09-16 13:05] VITALS: BP 135/91; PULSE 80; RESP 18; O2SAT 98
[2020-09-16 13:35] VITALS: BP 144/98; PULSE 78; RESP 18; O2SAT 98
[2020-09-16 14:00] VITALS: BP 137/95; PULSE 81; RESP 18; O2SAT 97
== END 2020-09-16 14:30 | disposition home or self-care (01) ==
LOC: INF 11:14
PROVIDERS: PCP Internal Medicine Adolescent Medicine; Visit Provider Internal Medicine Adolescent Medicine
DX: N17.9 Acute kidney failure, unspecified (principal)
CPT/HCPCS: 96360; 96361; 96375

== ENCOUNTER → 2020-09-19 07:52 | Outpatient (CLI) | payer MEDICARE, BC, SELFPAY ==
[2020-09-19 08:05] LABS: Basophils % 0.5 % (0.1-2.0); Eosinophils # 0.4 K/mm3 (0.0-0.4); Eosinophils % 4.6 % (0.1-12.0); Hematocrit 46.4 % (37.0-47.0); Hemoglobin 14.7 g/dL (12.2-16.2); Lymphocytes # 2.3 K/mm3 (0.7-4.5); Lymphocytes % 27.2 % (10-50); Mean Corpuscular HGB Conc 31.6 g/dL (31.8-35.4); Mean Corpuscular Hemoglobin 30.3 pg (27.0-31.2); Mean Corpuscular Volume 95.9 fl (81-99); Mean Platelet Volume 7.9 fl (7.4-10.4); Monocytes # 0.4 K/mm3 (0.1-1.0); Monocytes % 4.4 % (1.7-9.3); Neutrophils # 5.4 K/mm3 (1.8-7.8); Neutrophils % 63.3 % (37.0-80.0); Platelet Count 289 K/mm3 (142-424); Red Blood Count 4.84 M/mm3 (4.20-5.40); Red Cell Distribution Width 16.6 % (11.5-17.5); White Blood Count 8.4 K/mm3 (4.8-10.8)
[2020-09-19 08:37] LABS: Chloride 104 mmol/L (98-107); Sodium 140 mmol/L (136-145)
[2020-09-19 08:40] LABS: Blood Urea Nitrogen 19 mg/dl (7-17); Calcium 9.3 mg/dl (8.4-10.2); Carbon Dioxide 28 mmol/L (22.0-30.0); Estimated Glomerular Filt Rate 29 ml/min (>60); GFR (African American) 35 ML/MIN (>60); Glucose 130 mg/dl (74-100)
[2020-09-19 08:49] LABS: Hemoglobin A1C 6.1 % (4.0-6.0)
== END ==
PROVIDERS: Visit Provider Internal Medicine Adolescent Medicine
DX: N17.9 Acute kidney failure, unspecified (principal); Z79.899 Other long term (current) drug therapy
CPT/HCPCS: 36415; 80048; 83036; 85025

== ENCOUNTER → 2020-09-24 10:29 | Outpatient (CLI) | payer MEDICARE, BC, SELFPAY ==
[2020-09-24 10:37] LABS: Microscopic, Urine URINE MICROSCOPIC (MICROSCOPIC)
[2020-09-24 10:57] LABS: Basophils # 0.1 K/mm3 (0-0.2); Basophils % 0.8 % (0.1-2.0); Eosinophils # 0.3 K/mm3 (0.0-0.4); Eosinophils % 3.2 % (0.1-12.0); Hematocrit 49.6 % (37.0-47.0); Hemoglobin 15.6 g/dL (12.2-16.2); Lymphocytes # 1.9 K/mm3 (0.7-4.5); Lymphocytes % 22.1 % (10-50); Mean Corpuscular HGB Conc 31.5 g/dL (31.8-35.4); Mean Corpuscular Hemoglobin 30.7 pg (27.0-31.2); Mean Corpuscular Volume 97.3 fl (81-99); Mean Platelet Volume 7.9 fl (7.4-10.4); Monocytes # 0.4 K/mm3 (0.1-1.0); Monocytes % 4.4 % (1.7-9.3); Neutrophils # 6.1 K/mm3 (1.8-7.8); Neutrophils % 69.6 % (37.0-80.0); Platelet Count 312 K/mm3 (142-424); Red Cell Distribution Width 16.6 % (11.5-17.5); White Blood Count 8.8 K/mm3 (4.8-10.8)
[2020-09-24 12:05] LABS: Albumin Level 4.1 g/dl (3.5-5.0); Anion Gap 11.1 mEq/L (5-15); Blood Urea Nitrogen 20 mg/dl (7-17); Calcium 9.9 mg/dl (8.4-10.2); Carbon Dioxide 29 mmol/L (22.0-30.0); Chloride 104 mmol/L (98-107); Estimated Glomerular Filt Rate 33 ml/min (>60); GFR (African American) 40 ML/MIN (>60); Glucose 134 mg/dl (74-100); Potassium 4.1 mmoL/L (3.5-5.1); Sodium 140 mmol/L (136-145)
[2020-09-24 12:59] LABS: Appearance,Urine CLEAR (Clear); Bilirubin,Urine Negative (Negative); Blood, Urine Negative (Negative); Color,Urine YELLOW (Yellow); Glucose,Urine (UA) 2+ (Negative); Ketones,Urine TRACE (Negative); Leukocyte Esterase,Urine Negative (Negative); Nitrate,Urine Negative (Negative); Protein,Urine 1+ (Negative); Specific Gravity, Urine 1.025 (1.005-1.030); Urobilinogen,Urine 0.2 EU/dl (0.2)
[2020-09-24 13:06] LABS: Creatinine,Urine Random 168 mg/dL (Not Estab.)
== END ==
PROVIDERS: Visit Provider Internal Medicine Nephrology
DX: N18.9 Chronic kidney disease, unspecified (principal); E87.6 Hypokalemia
CPT/HCPCS: 36415; 80069; 81001; 82088; 82570; 84155; 85025

== ENCOUNTER → 2020-10-05 10:01 | Outpatient (CLI) | payer MEDICARE, BC, SELFPAY ==
[2020-10-10 19:36] LABS: H. pylori Stool Ag, EIA Negative (Negative)
== END ==
PROVIDERS: Visit Provider Internal Medicine Adolescent Medicine
DX: R10.13 Epigastric pain (principal); E87.6 Hypokalemia
CPT/HCPCS: 87338

== ENCOUNTER → 2020-10-08 09:56 | Outpatient (CLI) | payer MEDICARE, BC, SELFPAY ==
[2020-10-08 12:06] LABS: Chloride 97 mmol/L (98-107); Potassium 3.2 mmoL/L (3.5-5.1); Sodium 139 mmol/L (136-145)
[2020-10-08 12:09] LABS: Anion Gap 10.2 mEq/L (5-15); Blood Urea Nitrogen 21 mg/dl (7-17); Carbon Dioxide 35 mmol/L (22.0-30.0); Estimated Glomerular Filt Rate 29 ml/min (>60); GFR (African American) 35 ML/MIN (>60); Glucose 125 mg/dl (74-100)
== END ==
PROVIDERS: Visit Provider Internal Medicine Adolescent Medicine
DX: R10.13 Epigastric pain (principal); E87.6 Hypokalemia
CPT/HCPCS: 36415; 80048

== ENCOUNTER 2020-10-09 09:31 | Day surgery (SDC) | payer MEDICARE, BC, SELFPAY ==
[2020-10-09 10:16] VITALS: BP 138/99; PULSE 93; RESP 18; TEMP 36.1; O2SAT 97; BMI 38.8
[2020-10-09 10:53] VITALS: BP 135/85; PULSE 85
[2020-10-09 10:54] VITALS: BP 132/85; PULSE 85; RESP 18; O2SAT 98
--- NOTE | 2020-10-09 10:59 | HMH.PMPROC ---
- Procedure Date: 10/09/20 Time: 10:59 Anesthesiologist:: Wyatt Stratton MD Complications:: None Pre-procedure Diagnosis:: Degenerative disc disease of the cervical spine with cervical radiculopathy symptoms Post-procedure Diagnosis:: Same Indications for Procedure:: This patient is a pleasant 55-year-old white female who we are treating for neck pain with cervical radicular symptoms. She does have a [employer] spinal cord stimulator system in place with a fractured lead the stimulator is not functioning currently. She got 80% relief with her last cervical epidural steroid injection. We will do repeat cervical epidural steroid injection today to help her with her pain symptoms. Procedure Details:: Cervical epidural steroid injection under fluoroscopy Informed consent was obtained and the risks and benefits of the procedure was explained to the patient. The patient was taken to the procedure room placed prone on the procedure table. The neck was prepped using ChloraPrep. The skin and subcutaneous tissues were anesthetized using lidocaine. I placed a 18-gauge epidural needle into the C5-C6 interspace and advanced using [id number] to air and fluoroscopic guidance. After confirmation of needle placement in the epidural space with dye, I injected 3 mL's lidocaine 1.5% and Depo-Medrol 80 mg. The patient tolerated the procedure well with no complications. Plan and Disposition:: We will follow-up with her in 2 weeks. Will reevaluate symptoms at that time.
[2020-10-09 11:10] VITALS: BP 127/88; PULSE 77; RESP 20; O2SAT 98
== END 2020-10-09 11:10 | disposition home or self-care (01) ==
LOC: SC.PAINP 09:33
PROVIDERS: PCP Internal Medicine Adolescent Medicine; Visit Provider Anesthesiology
DX: M50.10 Cervical disc disorder with radiculopathy, unspecified cervical region (principal); I10 Essential (primary) hypertension; E11.9 Type 2 diabetes mellitus without complications; E78.5 Hyperlipidemia, unspecified; N28.9 Disorder of kidney and ureter, unspecified; K21.9 Gastro-esophageal reflux disease without esophagitis; F41.9 Anxiety disorder, unspecified; F32.9 Major depressive disorder, single episode, unspecified; Z90.49 Acquired absence of other specified parts of digestive tract; Z88.0 Allergy status to penicillin; Z88.1 Allergy status to other antibiotic agents; Z79.899 Other long term (current) drug therapy
CPT/HCPCS: 62321; J1040; Q9966

== ENCOUNTER 2020-10-19 11:05 | Observation (INO) | payer MEDICARE, BC, SELFPAY ==
[2020-10-19 12:24] LABS: Basophils # 0.1 K/mm3 (0-0.2); Basophils % 0.5 % (0.1-2.0); Eosinophils # 0.2 K/mm3 (0.0-0.4); Eosinophils % 1.3 % (0.1-12.0); Hematocrit 52.3 % (37.0-47.0); Lymphocytes # 2.3 K/mm3 (0.7-4.5); Mean Corpuscular HGB Conc 32.5 g/dL (31.8-35.4); Mean Corpuscular Hemoglobin 29.8 pg (27.0-31.2); Mean Corpuscular Volume 91.9 fl (81-99); Mean Platelet Volume 8.1 fl (7.4-10.4); Monocytes # 0.6 K/mm3 (0.1-1.0); Monocytes % 4.7 % (1.7-9.3); Neutrophils # 10.2 K/mm3 (1.8-7.8); Neutrophils % 76.5 % (37.0-80.0); Platelet Count 314 K/mm3 (142-424); Red Blood Count 5.69 M/mm3 (4.20-5.40); Red Cell Distribution Width 15.5 % (11.5-17.5); White Blood Count 13.3 K/mm3 (4.8-10.8)
[2020-10-19 12:31] LABS: Chloride 97 mmol/L (98-107); Sodium 139 mmol/L (136-145)
[2020-10-19 12:32] LABS: Potassium 2.8 mmoL/L (3.5-5.1)
[2020-10-19 12:34] LABS: Anion Gap 11.8 mEq/L (5-15); Blood Urea Nitrogen 26 mg/dl (7-17); Calcium 10.7 mg/dl (8.4-10.2); Carbon Dioxide 33 mmol/L (22.0-30.0); Estimated Glomerular Filt Rate 29 ml/min (>60); GFR (African American) 35 ML/MIN (>60); Glucose 131 mg/dl (74-100); Lactic Acid 1.6 mmol/L (0.7-2.1)
[2020-10-19 13:43] LABS: Coronavirus 19 IgG Antibody Negative (Negative); Coronavirus 19 IgM Antibody Negative (Negative)
[2020-10-19 13:46] VITALS: BMI 30.9
--- NOTE | 2020-10-19 13:47 | PC.NURSE ---
Ruthy from Dr. Delgado office at bedside seeing pt
--- NOTE | 2020-10-19 13:56 | HMH.PHAVTE ---
[facility] Pharmacy VTE Monitoring - Patient Demographics Admission date: 10/19/20 Report Date: 10/19/20 Time: 13:56 Allergies/Adverse Reactions: Patient Allergies meperidine [From DEMEROL] Allergy (Mild, Verified 10/09/20 10:32) oxytetracycline [From TERRAMYCIN] Allergy (Mild, Verified 10/09/20 10:32) penicillin G [PENICILLIN G] Allergy (Mild, Verified 10/09/20 10:32) lorazepam [From ATIVAN] Allergy (Unknown, Verified 10/09/20 10:32) HALLUCINATIONS tetracycline Allergy (Verified 10/09/20 10:32) Height: 1.63 m Weight: 81.647 kg - VTE Risk Labs: VTE Related Lab Results Hgb 17.0 g/dL (12.2-16.2) H 10/19/20 12:04 Hct 52.3 % (37.0-47.0) H 10/19/20 12:04 Plt Count 314 K/mm3 (142-424) 10/19/20 12:04 BUN 26 mg/dl (7-17) H 10/19/20 12:04 Creatinine 1.80 mg/dl (0.52-1.04) H 10/19/20 12:04 Clinical Trial Participant: No - Prophylaxis VTE Prophylaxis Ordered?: Yes Types of VTE Prophylaxis: TEDS Knee High
--- NOTE | 2020-10-19 14:08 | PC.NURSE ---
Lenin from the floor here to get patient.
--- NOTE | 2020-10-19 14:14 | PC.NURSE ---
patient in the room from ed by wheelchair
--- NOTE | 2020-10-19 15:05 | SUR.PREOP ---
PT POTASSIUM LEVEL LOW, DR VALDOVINOS NOTIFIED AND PROCEDURE CANCELLED. MD IN TO SEE PT AT BEDSIDE. PT BACK UP TO MED/SURG VIA W/C PER DTR VANCE. NO C/O.
--- NOTE | 2020-10-19 15:22 | HMH.CONS ---
*Admission Date: 10/19/20 *Reason for consult:: Nausea and abdominal pain *History of present illness: This is a 55-year-old female with a history of diabetes and chronic constipation. She was diagnosed with IBS with constipation back in 1995. She has been on Linzess 270 mcg but taking it every other day. Taking it daily gives her bowel urgency and diarrhea and accidents. The patient reports her last EGD was with Dr. Henry couple of years ago when she was diagnosed with Small's. She is a long history of chronic kidney disease stage III and her want ad clerk is trying to wean her down off proton pump inhibitor due to possible renal side effects. The patient currently takes her PPI about every third day and denies much breakthrough heartburn. Patient reports that she has started having nausea every day since about May of last year that has gradually gotten worse. She has lost about 16 pounds because she has been unable to eat as much. She is also been unable to drink as much and it is starting to affect her kidney function. She reports trips to the hospital or ER for dehydration a few times since May. She does report that Zofran helps a little bit. Also stretching her abdominal area out gives her some relief as well. She did have a negative H. pylori stool panel. She did a CT scan 04/2020 that showed no acute abnormalities. She does have diabetes but has been off of medications with her last hemoglobin A1c at 6%. She had previously been tried on Motegrity for her symptoms and reported that gave her severe cramping, nausea vomiting diarrhea. She only stayed on it for a few days. She denies any melena or hematochezia. She does report lots of bloating belching and gassiness. She was a direct admit from Dr. Hill's office today with a creatinine of 1.8, WBCs of 13.3 and intractable nausea. She is quite distended with gas bloat on exam today and is generally tender to palpation throughout. [facility] History Medical History: Reports:: Anxiety, Arrhythmia, Cancer (colon), Coronary Artery Disease, Diabetes Mellitus Type 2, Heart Murmur (mvp), Hyperlipidemia, Hypertension, Lung Disease Denies:: Diabetes Mellitus Type 1, Internal Pacemaker, MRSA, Seizures *Have you ever received a pneumonia vaccine?: No *Have you received a flu vaccine this season?: No Other Medical History: Reports: Hypothyroidism, Thyroid Disease, Other (Electrocution injury 10 years ago). Denies: Blood Transfusion Reaction Other Surgeries: Yes: Cholecystectomy, Colonoscopy, Hysterectomy-Total, Other (gallbladder). No: Pacemaker Amputation: No Fractures: No - *Social History Smoking Status: Never smoker Alcohol Intake: never Alcohol Intake Frequency:: other Substance Use Type: denies use *Occupational Status:: unemployed Housing: house Household Members: spouse *Travel in the last 8 weeks: None - Psychiatric History Pschychiatric History:: Reports:: Anxiety Family Hx:: Cancer, Hypertension, Other Review of Systems - Constitutional Reports anorexia, Reports weight loss, Denies body ache(s), Denies chills, Denies fever(s), Denies night sweats - Eyes Denies blurry vision, Denies change in vision - ENT Denies abnormal hearing, Denies dizziness, Denies hoarseness, Denies sore throat - *Cardiovascular Denies chest pain, Denies shortness of breath, Denies irregular heart rhythm, Denies leg swelling - *Respiratory Denies chest congestion, Denies cough, Denies shortness of breath, Denies wheezing - *Gastrointestinal Reports abdominal pain, Reports belching, Reports bloating, Reports constipation, Reports feeling full early, Reports nausea, Denies change in bowel habits, Denies heartburn, Denies difficulty swallowing, Denies vomiting blood - *Musculoskeletal Denies joint pain, Denies back pain, Denies muscle weakness - Integumentary/Breasts Denies changing lesions, Denies redness, Denies yellowing of the skin - *Neurologic Denies abnormal walking, Denies abnorm
[2020-10-19 16:59] VITALS: PULSE 90
--- NOTE | 2020-10-19 17:51 | HMH.HP ---
*Admission Date: 10/19/20 *Chief complaint: Abdominal pain/nausea/dehydration *History of present illness: 55-year-old white female with type 2 diabetes, multiple drug allergies, history of ARDS status post ECMO therapy, chronic kidney disease stage III and chronic nausea with gastroparesis who presented to my office today with nausea, tachycardia and significant dizziness. Was orthostatic, dehydrated, tachycardic and unable to stand. Admitted to hospital for IV fluids, electrolyte evaluation and GI evaluation for possible EGD. History has been 1 over the past 3 years of intractable/recurrent nausea with multiple episodes of dehydration with acute kidney injury, poorly responsive to promotility agents and antinausea agents. She has GI appointment pending at [facility], and we had a long discussion last week about possible anxiety related to her grandmother's history of gastric cancer. We prescribe sertraline but she has not started that yet as she became very ill 2 days ago which culminated in her appointment in my office today. [facility] History I have reviewed the patient's past medical history: Yes Medical History: Reports:: Anxiety, Arrhythmia, Cancer (colon), Coronary Artery Disease, Diabetes Mellitus Type 2, Heart Murmur (mvp), Hyperlipidemia, Hypertension, Lung Disease Denies:: Diabetes Mellitus Type 1, Internal Pacemaker, MRSA, Seizures *Have you ever received a pneumonia vaccine?: Yes *Have you received a flu vaccine this season?: Yes Other Medical History: Reports: Hypothyroidism, Thyroid Disease, Other (Electrocution injury 10 years ago). Denies: Blood Transfusion Reaction Other Surgeries: Yes: Cholecystectomy, Colonoscopy, Hysterectomy-Total, Other (gallbladder). No: Pacemaker Amputation: No Fractures: No - *Social History Last grade of school completed: 11th or 12th Smoking Status: Never smoker Alcohol Intake: current Alcohol Intake Frequency:: holidays/special occasions only Substance Use Type: denies use *Occupational Status:: retired Housing: house Household Members: spouse *Travel in the last 8 weeks: None - Psychiatric History Pschychiatric History:: Reports:: Anxiety Family Hx:: Diabetes, Heart Attack, Hyperlipidemia, Hypertension Review of Systems - Review of Systems Review of systems:: pertinent systems reviewed and negative unless documented below Please see H&P. In addition to the items discussed in the H&P patient denies hematemesis, coffee-ground emesis or black tarry stools. Cardiac, pulmonary, skin and urinary review of systems are negative. - *Neurologic Denies abnormal walking, Denies abnormal hearing, Denies abnormal speech, Denies behavioral changes, Denies dizziness, Denies seizure-like activity Meds Home Medications Medication Instructions Recorded Confirmed Type lansoprazole 30 mg capsule,delayed 30 mg PO DAILY 12/25/17 10/19/20 History release cholecalciferol (vitamin D3) 125 10,000 unit PO DAILY 02/23/18 10/19/20 History mcg (5,000 unit) capsule cyclobenzaprine 10 mg tablet 10 mg PO BIDP PRN 02/23/18 10/19/20 History Thyroid,Pork [[place] Thyroid] 30 mg PO DAILY 08/21/18 10/19/20 History Fluticasone Propionate [Flonase 1 spr NS BID 09/11/18 10/19/20 History 50mcg nasal spray 16gm] Potassium Chloride [Klor-con 20 40 meq PO BID 09/12/18 10/19/20 History mEq tablet] Cetirizine HCl [Allergy Relief] 10 mg PO DAILY 08/13/20 10/19/20 History Linaclotide [Linzess] 290 mcg PO DAILY 08/13/20 10/19/20 History raNITIdine HCl [Zantac 150mg] 150 mg PO BID 08/13/20 10/19/20 History buPROPion HCL [Bupropion Xl] 300 mg PO DAILY 08/14/20 10/19/20 History carvediloL [Carvedilol 6.25mg Tab] 6.25 mg PO BID 08/14/20 10/19/20 History Sertraline HCl [Zoloft] 25 mg PO DAILY 10/19/20 10/19/20 History Sucralfate [Carafate 1gm Tab] 1 gm PO ACHS 10/19/20 10/19/20 History ondansetron HCL [Ondansetron 4mg 4 mg PO Q6 10/19/20 10/19/20 History tab*] Allergies Allergy/AdvReac
--- NOTE | 2020-10-19 19:40 | PC.NURSE ---
SHE IS AOX4 ABLE TO MAKE NEEDS KNOWN TO STAFF, HAS NOT C/O PAIN SINCE ARRIVING TO FLOOR, HAD TO CONTACT PHARMACY BECAUSE PT COULD NOT TOLERATE POTASSIUM INFUSION, OBTAINED ORDER TO INFUSE POTASSIUM WITH LIDOCAINE, SHE HAS NO C/O N/V/D, SHE HAS RESTED IN BEST AND WAS NOTED TO BE ASLEEP AT INTERVAL.
[2020-10-19 20:00] VITALS: BP 126/92; PULSE 100; PULSE 88; RESP 16; TEMP 36.6; O2SAT 96
[2020-10-19 22:03] LABS: POC Glucose,Bedside 102 (70-110)
[2020-10-20] VITALS (7 sets, daily range): BP systolic 108–142; BP diastolic 76–83; PULSE 80–90; RESP 16–18; TEMP 36.4–37.5; O2SAT 97–100; BMI 30.4
--- NOTE | 2020-10-20 02:21 | PC.NURSE ---
A&OX4. PT HAS TOLERATED RA WELL THROUGHOUT SHIFT. RESPIRATIONS REGULAR AND UNLABORED. LUNG SOUNDS BILATERALLY CLEAR. NO COUGH NOTED. ACTIVE BOWEL SOUNDS HEARD IN ALL 4 QUADRANTS. SOFT AND NONTENDER ABDOMEN. NO BM THUS FAR. PT VOIDS PER BATHROOM INDEPENDENTLY. STEADY GAIT NOTED. NO EDEMA NOTED. HAND SIEBEL SOLUTION ARCHITECT EQUAL. +2 PULSES NOTED. PT REPORTED A HEADACHE ONCE AND RECEIVED TYLENOL. NS INFUSING AT 100ML/HR. PT RECEIVED A FEW RUNS OF POTASSIUM W LIDOCAINE AND TOLERATED WELL. TELE WAS IN PLACE WHILE PT RECEIVED POTASSIUM IV. PT RECEIVED BATH IN PREP FOR POSSIBLE SCOPE. CONSENT SIGNED AND ON THE CHART. PT HAS REMAINED NPO. BED IN LOWEST POSITION. CALL LIGHT WITHIN REACH. VSS. WILL CONTINUE TO MONITOR.
--- NOTE | 2020-10-20 06:48 | HMH.ACPN2 ---
Internal Medicine - PN: Subj *Date: 10/20/20 *Time: 09:12 Interval history: Ms. Velasquez had repeat emesis overnight. Occurred when she got up to go take a shower. Dry heaving this morning. Remains afebrile,hemodynamically stable. Labs with persistent Hypokalemia. no diarrhea, SOA, CP. Planning for EGD with Surgery today Exam Vital signs and Labs for Last 24 Hours: Temp Pulse Resp BP Pulse Ox 97.5 F L 88 17 142/81 H 98 10/20/20 04:00 10/20/20 04:00 10/20/20 04:00 10/20/20 04:00 10/20/20 04:00 Laboratory Results - last 24 hr 10/19/20 12:04: WBC 13.3 H, RBC 5.69 H, Hgb 17.0 H, Hct 52.3 H, MCV 91.9, MCH 29.8, MCHC 32.5, RDW 15.5, Plt Count 314, MPV 8.1, Neut % (Auto) 76.5, Lymph % (Auto) 17.0, [place] % (Auto) 4.7, Eos % (Auto) 1.3, Baso % (Auto) 0.5, Neut # (Auto) 10.2 H, Lymph # (Auto) 2.3, [place] # (Auto) 0.6, Eos # (Auto) 0.2, Baso # (Auto) 0.1 10/19/20 12:04: Sodium 139, Potassium 2.8 L*, Chloride 97 L, Carbon Dioxide 33 H, Anion Gap 11.8, BUN 26 H, Creatinine 1.80 H, Estimated GFR 29 L, Est GFR ( Amer) 35 L, Glucose 131 H, Calcium 10.7 H, Magnesium 2.0 10/19/20 12:04: Lactate 1.6 10/19/20 12:04: SARS-CoV-2 IgG Ab (Rapid) Negative, SARS-CoV-2 IgM Ab (Rapid) Negative 10/19/20 20:14: POC Glucose 102 I & O for Last 24 hours: Intake & Output 10/17/20 10/18/20 10/19/20 10/20/20 23:59 23:59 23:59 23:59 Intake Total 0 / 0 500 / 500 Balance 0 / 0 500 / 500 Weight 81.647 kg 80.9 kg - Constitutional no acute distress - *Routine HEENT Exam Head: Present: normocephalic Eye: Present: EOMI, PERRL ENT: Present: mucous membranes moist - *Routine Neck Exam Present: supple. Absent: lymphadenopathy - *Routine Respiratory Exam Present: CTA bilaterally - *Routine Cardiovascular Exam Present: RRR - *Routine Abdominal Exam Present: soft, normoactive bowel sounds, tenderness, obese - *Routine Extremities Exam Absent: cyanosis, clubbing, edema - *Routine Skin Exam Present: warm. Absent: rash - *Routine Neurological Exam Present: alert, oriented X3 Assessment and Plan (1) Nausea Status: Acute Category: Medical Code(s): R11.0 - Nausea (2) Epigastric pain Status: Acute Category: Medical Code(s): R10.13 - Epigastric pain (3) Chronic kidney disease Status: Chronic Qualifiers: Chronic kidney disease stage: stage 3 (moderate) Category: Medical Code(s): N18.9 - Chronic kidney disease, unspecified (4) Diabetes Status: Chronic Qualifiers: Diabetes mellitus type: type 2 Category: Medical Code(s): E11.9 - Type 2 diabetes mellitus without complications (5) Dehydration Status: Resolved Category: Medical Code(s): E86.0 - Dehydration (6) Dizziness Status: Resolved Category: Medical Code(s): R42 - Dizziness and giddiness (7) Hypokalemia Status: Acute Category: Medical Code(s): E87.6 - Hypokalemia - Assessment and plan all Dx Assessment and Plan for all problems:: 55-year-old woman with intractable nausea and vomiting over the past several months has gotten worse causing weight loss. GI saw her yesterday, recommend switching her bowel regimen and pursuing EGD along with gastric emptying study. Surgery consulted, to perform EGD today. Replacing electrolytes, potassium still low. Patient otherwise hemodynamically stable. Further management pending results of EGD. continues to require inpt management.
--- NOTE | 2020-10-20 07:16 | HMH.GSCON ---
*Admission Date: 10/19/20 *Reason for consult:: upper endoscopy *History of present illness: This is a 55-year-old female with a history of diabetes and chronic constipation. She was diagnosed with IBS with constipation back in 1995. She has been on Linzess 270 mcg but taking it every other day. Taking it daily gives her bowel urgency and diarrhea and accidents. The patient reports her last EGD was with Dr. Henry couple of years ago when she was diagnosed with Small's. She is a long history of chronic kidney disease stage III and her resort keeper is trying to wean her down off proton pump inhibitor due to possible renal side effects. The patient currently takes her PPI about every third day and denies much breakthrough heartburn. Patient reports that she has started having nausea every day since about May of last year that has gradually gotten worse. She has lost about 16 pounds because she has been unable to eat as much. She is also been unable to drink as much and it is starting to affect her kidney function. She reports trips to the hospital or ER for dehydration a few times since May. She does report that Zofran helps a little bit. Also stretching her abdominal area out gives her some relief as well. She did have a negative H. pylori stool panel. She did a CT scan 04/2020 that showed no acute abnormalities. She does have diabetes but has been off of medications with her last hemoglobin A1c at 6%. She had previously been tried on Motegrity for her symptoms and reported that gave her severe cramping, nausea vomiting diarrhea. She only stayed on it for a few days. She denies any melena or hematochezia. She does report lots of bloating belching and gassiness. She was a direct admit from Dr. Hill's office today with a creatinine of 1.8, WBCs of 13.3 and intractable nausea. She is quite distended with gas bloat on exam today and is generally tender to palpation throughout. She was unable to undergo upper endoscopy by gastroenterology yesterday due to hypokalemia. Consult was obtained with surgery for possible upper endoscopy. Review of Systems - *Neurologic Denies abnormal walking, Denies abnormal hearing, Denies abnormal speech, Denies behavioral changes, Denies dizziness, Denies seizure-like activity [facility] History I have reviewed the patient's past medical history: Yes Medical History: Reports:: Anxiety, Arrhythmia, Cancer (colon), Coronary Artery Disease, Diabetes Mellitus Type 2, Heart Murmur (mvp), Hyperlipidemia, Hypertension, Lung Disease Denies:: Diabetes Mellitus Type 1, Internal Pacemaker, MRSA, Seizures *Have you ever received a pneumonia vaccine?: Yes *Have you received a flu vaccine this season?: Yes Other Medical History: Reports: Hypothyroidism, Thyroid Disease, Other (Electrocution injury 10 years ago). Denies: Blood Transfusion Reaction Other Surgeries: Yes: Cholecystectomy, Colonoscopy, Hysterectomy-Total, Other (gallbladder). No: Pacemaker Amputation: No Fractures: No - *Social History Last grade of school completed: 11th or 12th Smoking Status: Never smoker Alcohol Intake: current Alcohol Intake Frequency:: holidays/special occasions only Substance Use Type: denies use *Occupational Status:: retired Housing: house Household Members: spouse *Travel in the last 8 weeks: None - Psychiatric History Pschychiatric History:: Reports:: Anxiety Family Hx:: Diabetes, Heart Attack, Hyperlipidemia, Hypertension Meds Home Medications Medication Instructions Recorded Confirmed Type lansoprazole 30 mg capsule,delayed 30 mg PO DAILY 12/25/17 10/19/20 History release cholecalciferol (vitamin D3) 125 10,000 unit PO DAILY 02/23/18 10/19/20 History mcg (5,000 unit) capsule cyclobenzaprine 10 mg tablet 10 mg PO BIDP PRN 02/23/18 10/19/20 History Thyroid,Pork [[place] Thyroid] 30 mg PO DAILY 08/21/18 10/19/20 History Fluticasone Propionate [Flonase 1 spr NS BID 09/11/18 10/19/20 History 50mcg nasal spr
[2020-10-20 07:58] LABS: Anion Gap 15.5 mEq/L (5-15); Blood Urea Nitrogen 24 mg/dl (7-17); Carbon Dioxide 26 mmol/L (22.0-30.0); Chloride 100 mmol/L (98-107); Creatinine Clearance Estimated 51 mL/min (50-200); Estimated Glomerular Filt Rate 33 ml/min (>60); GFR (African American) 40 ML/MIN (>60); Glucose 137 mg/dl (74-100); Sodium 139 mmol/L (136-145)
[2020-10-20 08:04] LABS: Calcium 9.5 mg/dl (8.4-10.2); Potassium 2.5 mmoL/L (3.5-5.1)
--- NOTE | 2020-10-20 11:17 | NM_ITS ---
PROCEDURE: NM GASTRIC EMPTYING STUDY CLINICAL INDICATION: nausea/vomitting COMPARISON: No exams were available for comparison TECHNIQUE: Dose 0.46 mCi technetium sulfur colloid in radial labeled meal. FINDINGS: Time activity curve is generated following ingestion of radial labeled meal. The emptying half time is prolonged at 183 minutes. Normal is 60+/-30 minutes. At 240 minutes there was 35 percent of gastric contents still present. Images submitted show no evidence of gastroesophageal reflux IMPRESSION: Gastroparesis Dictated by: Norberto Zheng MD 10/20/2020 16:22 Norberto Zheng MD in [place] 10/20/2020 16:22
--- NOTE | 2020-10-20 11:21 | PC.NURSE ---
PT down by felix for gastric emptying study @ this time
[2020-10-20 11:31] LABS: POC Glucose,Bedside 96 (70-110)
[2020-10-20 12:35] LABS: POC Glucose,Bedside 102 (70-110)
--- NOTE | 2020-10-20 15:09 | PC.NURSE ---
RESPIRATORY CARE NOTE: 1510- RESPIRATORY ARRIVED TO PT ROOM TO PERFORM ORDERED EKG, HOWEVER, THE PT WAS UNAVAILABLE AT THIS TIME DUE TO A PROCEDURE.
--- NOTE | 2020-10-20 16:20 | ECG_ITS ---
APPROVED REPORT Exam: Resting ECG HR:77 bpm ECG Measurements Heart Rate 77 AXES WV 160 P 47 QRSd 104 QRS -37 QT 426 T 44 QTc 482 Conclusion Normal sinus rhythm Left axis deviation Prolonged QT Abnormal ECG Electronically signed by : Jerry Hill, 10/21/2020 05:56:10
[2020-10-20 16:34] LABS: POC Glucose,Bedside 84 (70-110)
--- NOTE | 2020-10-20 17:03 | PC.NURSE ---
Pt back from gastric emptying @ 1545. Pt medicated w/ IV phenergan per NOV for nausea, relief voiced by pt. Pt has since then been resting comfortably. No needs voiced. Lungs CTA. Abdomen soft, non-tender w/ active BS. No BM this shift. Pt has not vomitted this shift, only c/o nausea. No edema noted. Skin intact. Pt has been assisted, standby, to bathroom d/t weakness and feeling dizzy. Denies pain. Daughter currently @ bedside. No needs voiced. VSS.
[2020-10-20 22:09] LABS: POC Glucose,Bedside 81 (70-110)
[2020-10-21] VITALS: BP 116/78; PULSE 76; RESP 18; TEMP 36.8; O2SAT 96
[2020-10-21 04:00] VITALS: BP 136/78; PULSE 78; RESP 18; TEMP 36.6; O2SAT 98
--- NOTE | 2020-10-21 04:01 | PC.NURSE ---
Addendum entered by Sidra Hector RN 10/21/20 07:31: Pre op checklist complete. Bag of LR hanging in room from prior shift Original Note: Pt is A&Ox4. Lungs CTA. ABdomen is soft and tender w/ active bowel sounds in all 4 quads. Pt hasnt complained of any N/V this shift. No BM noted this shift. Pt is urinating clear, dark yellow urine. Pt is ambulating independently but requests standby assist due to fears of falling. Pt has turned herself independently in bed. No other acute changes or complaints at this time.
[2020-10-21 05:00] VITALS: BMI 30.4
[2020-10-21 06:38] LABS: POC Glucose,Bedside 88 (70-110)
--- NOTE | 2020-10-21 07:30 | P.PN_ITS ---
Subjective Narrative: Sleeping Progress Note: A&P (1) Nausea Status: Acute (2) Epigastric pain Status: Acute (3) Chronic kidney disease Status: Chronic (4) Diabetes Status: Chronic (5) Dehydration Status: Resolved (6) Dizziness Status: Resolved (7) Hypokalemia Status: Acute Assessment and Plan for All Diagnoses:: Gastric emptying scan revealed findings of gastroparesis. EGD not performed yesterday due to progressive hypokalemia. Tentatively plan EGD today pending repeat potassium level. Exam Vital signs and Labs for Last 24 Hours: Temp Pulse Resp BP Pulse Ox 97.9 F 78 18 136/78 98 10/21/20 04:00 10/21/20 04:00 10/21/20 04:00 10/21/20 04:00 10/21/20 04:00 Laboratory Results - last 24 hr 10/20/20 05:18: POC Glucose 102 10/20/20 06:58: Sodium 139, Potassium 2.5 L*, Chloride 100, Carbon Dioxide 26 D , Anion Gap 15.5 H, BUN 24 H, Creatinine 1.60 H, Estimated Creat Clear 51, Estimated GFR 33 L, Est GFR ( Amer) 40 L, Glucose 137 H, Calcium 9.5 D 10/20/20 06:58: Magnesium 2.0 10/20/20 11:15: POC Glucose 96 10/20/20 15:56: POC Glucose 84 10/20/20 20:31: POC Glucose 81 10/21/20 06:04: POC Glucose 88 I & O for Last 24 hours: Intake & Output 10/18/20 10/19/20 10/20/20 10/21/20 11:59 11:59 11:59 11:59 Intake Total 500 / 500 540 / 540 Balance 500 / 500 540 / 540 Weight 178 lb 5.663 oz
[2020-10-21 07:46] VITALS: BMI 30.4
[2020-10-21 07:48] LABS: Basophils % 0.6 % (0.1-2.0); Eosinophils # 0.1 K/mm3 (0.0-0.4); Eosinophils % 1.4 % (0.1-12.0); Hematocrit 42.2 % (37.0-47.0); Hemoglobin 13.1 g/dL (12.2-16.2); Lymphocytes # 2.1 K/mm3 (0.7-4.5); Lymphocytes % 27.7 % (10-50); Mean Corpuscular Volume 93.5 fl (81-99); Mean Platelet Volume 7.7 fl (7.4-10.4); Monocytes # 0.4 K/mm3 (0.1-1.0); Monocytes % 5.1 % (1.7-9.3); Neutrophils # 4.9 K/mm3 (1.8-7.8); Neutrophils % 65.2 % (37.0-80.0); Platelet Count 237 K/mm3 (142-424); Red Blood Count 4.51 M/mm3 (4.20-5.40); Red Cell Distribution Width 15.2 % (11.5-17.5); White Blood Count 7.5 K/mm3 (4.8-10.8)
[2020-10-21 08:00] VITALS: BP 146/95; PULSE 88; RESP 18; TEMP 36.7; O2SAT 97
[2020-10-21 08:00] LABS: Anion Gap 8.7 mEq/L (5-15); Blood Urea Nitrogen 21 mg/dl (7-17); Calcium 8.7 mg/dl (8.4-10.2); Carbon Dioxide 25 mmol/L (22.0-30.0); Chloride 111 mmol/L (98-107); Creatinine Clearance Estimated 68 mL/min (50-200); Estimated Glomerular Filt Rate 47 ml/min (>60); GFR (African American) 56 ML/MIN (>60); Glucose 80 mg/dl (74-100); Magnesium 2.1 mg/dl (1.6-2.3); Potassium 3.7 mmoL/L (3.5-5.1); Sodium 141 mmol/L (136-145)
--- NOTE | 2020-10-21 08:51 | HMH.ACPN2 ---
Internal Medicine - PN: Subj *Date: 10/21/20 *Time: 08:51 Interval history: Patient is to have some water this morning, is nauseated but otherwise has no abdominal pain. Feels more energy. Exam Vital signs and Labs for Last 24 Hours: Temp Pulse Resp BP Pulse Ox 98.1 F 88 18 146/95 H 97 10/21/20 08:00 10/21/20 08:00 10/21/20 08:00 10/21/20 08:00 10/21/20 08:00 Laboratory Results - last 24 hr 10/20/20 05:18: POC Glucose 102 10/20/20 06:58: Magnesium 2.0 10/20/20 11:15: POC Glucose 96 10/20/20 15:56: POC Glucose 84 10/20/20 20:31: POC Glucose 81 10/21/20 06:04: POC Glucose 88 10/21/20 07:25: WBC 7.5 D, RBC 4.51, Hgb 13.1, Hct 42.2, MCV 93.5, MCH 29.0, MCHC 31.0 L, RDW 15.2, Plt Count 237, MPV 7.7, Neut % (Auto) 65.2, Lymph % (Auto) 27.7, [place] % (Auto) 5.1, Eos % (Auto) 1.4, Baso % (Auto) 0.6, Neut # (Auto) 4.9, Lymph # (Auto) 2.1, [place] # (Auto) 0.4, Eos # (Auto) 0.1, Baso # (Auto) 0.0 10/21/20 07:25: Sodium 141, Potassium 3.7 D, Chloride 111 H, Carbon Dioxide 25, Anion Gap 8.7, BUN 21 H, Creatinine 1.20 H D, Estimated Creat Clear 68, Estimated GFR 47 L, Est GFR ( Amer) 56 L D, Glucose 80, Calcium 8.7, Magnesium 2.1 I & O for Last 24 hours: Intake & Output 10/18/20 10/19/20 10/20/20 10/21/20 11:59 11:59 11:59 11:59 Intake Total 500 / 500 540 / 540 Balance 500 / 500 540 / 540 Weight 178 lb 5.663 oz 178 lb 2.489 oz Narrative: No change on exam, slight bloating and tenderness to abdomen, cardiopulmonary, neurologic, ENT and skin assessments otherwise normal. Assessment and Plan (1) Nausea Status: Acute Category: Medical Code(s): R11.0 - Nausea (2) Epigastric pain Status: Acute Category: Medical Code(s): R10.13 - Epigastric pain (3) Chronic kidney disease Status: Chronic Qualifiers: Chronic kidney disease stage: stage 3 (moderate) Category: Medical Code(s): N18.9 - Chronic kidney disease, unspecified (4) Diabetes Status: Chronic Qualifiers: Diabetes mellitus type: type 2 Category: Medical Code(s): E11.9 - Type 2 diabetes mellitus without complications (5) Dehydration Status: Resolved Category: Medical Code(s): E86.0 - Dehydration (6) Dizziness Status: Resolved Category: Medical Code(s): R42 - Dizziness and giddiness (7) Hypokalemia Status: Acute Category: Medical Code(s): E87.6 - Hypokalemia - Assessment and plan all Dx Assessment and Plan for all problems:: Significant gastroparesis on nuclear medicine scan, hold on EGD, trial of IV Reglan, clear liquids, potentially home today on very cautious trial of Reglan.
[2020-10-21 11:28] LABS: POC Glucose,Bedside 117 (70-110)
[2020-10-21 12:52] VITALS: BP 125/88; PULSE 74; RESP 17; TEMP 36.7; O2SAT 98
--- NOTE | 2020-10-21 13:59 | HMH.DCSUM ---
General - General Admission date:: 10/19/20 Discharge date: 10/21/20 HPI HPI: 55-year-old white female with type 2 diabetes, multiple drug allergies, history of ARDS status post ECMO therapy, chronic kidney disease stage III and chronic nausea with gastroparesis who presented to my office today with nausea, tachycardia and significant dizziness. Was orthostatic, dehydrated, tachycardic and unable to stand. Admitted to hospital for IV fluids, electrolyte evaluation and GI evaluation for possible EGD. History has been 1 over the past 3 years of intractable/recurrent nausea with multiple episodes of dehydration with acute kidney injury, poorly responsive to promotility agents and antinausea agents. She has GI appointment pending at [facility], and we had a long discussion last week about possible anxiety related to her grandmother's history of gastric cancer. We prescribe sertraline but she has not started that yet as she became very ill 2 days ago which culminated in her appointment in my office today. Hospital Course Hospital Course: The patient was admitted hospital, rehydrated, found to be severely hypokalemic, this was replaced over the next 48 hours with IV potassium and once this resolved she was feeling much better but still have bloating and nausea. Nuclear medicine emptying study to confirm the suspicion of severe gastroparesis. This morning we gave her one dose of IV Reglan with fairly dramatic improvement in her symptoms, bloating and she was able to do clear liquids. She'll be discharged home with a clear liquid diet and advancing as tolerated to a soft diet. Cautiously prescribe Reglan. Followup with me in 3 days. Hold on Zofran and Phenergan because of her antimotility effects. Objective Vital signs: Temp Pulse Resp BP Pulse Ox 98.0 F 74 17 125/88 98 10/21/20 12:52 10/21/20 12:52 10/21/20 12:52 10/21/20 12:52 10/21/20 12:52 no acute distress - *Routine HEENT Exam Head: Present: normocephalic Eye: Present: EOMI, PERRL ENT: Present: mucous membranes moist - *Routine Neck Exam Present: supple - *Routine Respiratory Exam Present: CTA bilaterally - *Routine Cardiovascular Exam Present: RRR - *Routine Abdominal Exam Present: soft, normoactive bowel sounds. Absent: tenderness - *Routine Extremities Exam Absent: cyanosis, clubbing, edema - *Routine Skin Exam Present: warm. Absent: rash - Detailed Eye Exam Eyelids: Bilateral normal inspection Results Labs on day of discharge: Labs from last 24 hours 10/21/20 10/21/20 10/21/20 11:22 07:25 07:25 WBC 7.5 D RBC 4.51 Hgb 13.1 Hct 42.2 MCV 93.5 MCH 29.0 MCHC 31.0 L RDW 15.2 Plt Count 237 MPV 7.7 Neut % (Auto) 65.2 Lymph % (Auto) 27.7 [place] % (Auto) 5.1 Eos % (Auto) 1.4 Baso % (Auto) 0.6 Neut # (Auto) 4.9 Lymph # (Auto) 2.1 [place] # (Auto) 0.4 Eos # (Auto) 0.1 Baso # (Auto) 0.0 Sodium 141 Potassium 3.7 D Chloride 111 H Carbon Dioxide 25 Anion Gap 8.7 BUN 21 H Creatinine 1.20 H D Estimated Creat Clear 68 Estimated GFR 47 L Est GFR ( Amer) 56 L D Glucose 80 POC Glucose 117 H Calcium 8.7 Magnesium 2.1 10/21/20 10/20/20 10/20/20 06:04 20:31 15:56 WBC RBC Hgb Hct MCV MCH MCHC RDW Plt Count MPV Neut % (Auto) Lymph % (Auto) [place] % (Auto) Eos % (Auto) Baso % (Auto) Neut # (Auto) Lymph # (Auto) [place] # (Auto) Eos # (Auto) Baso # (Auto) Sodium Potassium Chloride Carbon Dioxide Anion Gap BUN Creatinine Estimated Creat Clear Estimated GFR Est GFR ( Amer) Glucose POC Glucose 88 81 84 Calcium Magnesium DS: Diagnosis - Discharge Diagnosis (1) Nausea Status: Chronic (2) Epigastric pain Status: Resolved (3) Chronic kidney disease Statu
--- NOTE | 2020-10-21 14:57 | PC.NURSE ---
Pt wishes for nurse to wait for daughter to come to floor before going over DC paperwork.
== END 2020-10-21 15:15 | disposition home or self-care (01) ==
PROVIDERS: Internal Medicine Adolescent Medicine; Internal Medicine Gastroenterology; Surgery; Admitting Provider Internal Medicine Adolescent Medicine; PCP Internal Medicine Adolescent Medicine; Visit Provider Internal Medicine Adolescent Medicine
PROC: 0DJ08ZZ Inspection of Upper Intestinal Tract, Via Natural or Artificial Opening Endoscopic (ICD-10-PCS; CPT 43235; principal; 2020-10-19 15:00)
DX: E87.6 Hypokalemia (principal); E86.0 Dehydration; E03.9 Hypothyroidism, unspecified; E11.22 Type 2 diabetes mellitus with diabetic chronic kidney disease; N18.30 Chronic kidney disease, stage 3 unspecified; I12.9 Hypertensive chronic kidney disease with stage 1 through stage 4 chronic kidney disease, or unspecified chronic kidney disease; I25.10 Atherosclerotic heart disease of native coronary artery without angina pectoris; Z88.0 Allergy status to penicillin; Z88.1 Allergy status to other antibiotic agents; Z79.899 Other long term (current) drug therapy
CPT/HCPCS: G0379; 36415; 78264; 80048; 82962; 83605; 83735; 85025; 86328; 93005; A9541; G0378; J2405

== ENCOUNTER → 2020-11-02 12:12 | Outpatient (POV) | payer MEDICARE, BC, SELFPAY | PROVIDERS: Visit Provider Nurse Practitioner Family | DX: Z00.00 Encounter for general adult medical examination without abnormal findings (principal) ==

== ENCOUNTER → 2020-11-25 14:52 | Outpatient (CLI) | payer MEDICARE, BC, SELFPAY ==
[2020-11-25 17:55] LABS: Blood Urea Nitrogen 25 mg/dl (7-17); Calcium 10.8 mg/dl (8.4-10.2); Carbon Dioxide 32 mmol/L (22.0-30.0); Chloride 96 mmol/L (98-107); Estimated Glomerular Filt Rate 39 ml/min (>60); GFR (African American) 47 ML/MIN (>60); Glucose 109 mg/dl (74-100); Sodium 139 mmol/L (136-145)
[2020-11-25 20:56] LABS: Hemoglobin A1C 6.2 % (4.0-6.0)
== END ==
PROVIDERS: PCP Internal Medicine Adolescent Medicine; Visit Provider Nurse Practitioner Family
DX: Z71.3 Dietary counseling and surveillance (principal); E11.69 Type 2 diabetes mellitus with other specified complication; K59.04 Chronic idiopathic constipation; K31.84 Gastroparesis; R13.10 Dysphagia, unspecified
CPT/HCPCS: 36415; 80048; 83036; 97802

== ENCOUNTER → 2020-12-09 16:22 | Outpatient (CLI) | payer MEDICARE, BC, SELFPAY ==
[2020-12-09 17:49] LABS: Anion Gap 14.9 mEq/L (5-15); Blood Urea Nitrogen 19 mg/dl (7-17); Calcium 10.7 mg/dl (8.4-10.2); Carbon Dioxide 32 mmol/L (22.0-30.0); Chloride 95 mmol/L (98-107); Estimated Glomerular Filt Rate 43 ml/min (>60); GFR (African American) 51 ML/MIN (>60); Glucose 113 mg/dl (74-100); Sodium 139 mmol/L (136-145)
[2020-12-09 17:55] LABS: Potassium 2.9 mmoL/L (3.5-5.1)
== END ==
PROVIDERS: Visit Provider Internal Medicine Adolescent Medicine
DX: Z86.39 Personal history of other endocrine, nutritional and metabolic disease (principal)
CPT/HCPCS: 36415; 80048

== ENCOUNTER 2020-12-24 09:11 | Outpatient (CLI) | payer MEDICARE, BC, SELFPAY ==
[2020-12-24 09:44] LABS: Chloride 99 mmol/L (98-107); Sodium 138 mmol/L (136-145)
[2020-12-24 09:47] LABS: Blood Urea Nitrogen 15 mg/dl (7-17); Estimated Glomerular Filt Rate 39 ml/min (>60); GFR (African American) 47 ML/MIN (>60)
[2020-12-24 09:48] LABS: Anion Gap 11.5 mEq/L (5-15); Calcium 10.3 mg/dl (8.4-10.2); Carbon Dioxide 30 mmol/L (22.0-30.0); Glucose 169 mg/dl (74-100)
[2020-12-24 10:08] LABS: Potassium 2.5 mmoL/L (3.5-5.1)
[2020-12-24 10:51] VITALS: BP 131/101; PULSE 93; RESP 18; TEMP 36.3; O2SAT 97
[2020-12-24 11:21] VITALS: BP 130/89; PULSE 94; RESP 18; O2SAT 98
[2020-12-24 11:55] VITALS: BP 133/77; PULSE 72; RESP 18; O2SAT 99
== END 2020-12-24 12:04 | disposition home or self-care (01) ==
LOC: LAB 09:12 → INF 10:33
PROVIDERS: PCP Internal Medicine Adolescent Medicine; Visit Provider Internal Medicine Adolescent Medicine
DX: E87.6 Hypokalemia (principal)
CPT/HCPCS: 36415; 80048; 96360

== ENCOUNTER → 2020-12-28 11:24 | Outpatient (CLI) | payer MEDICARE, BC, SELFPAY ==
[2020-12-28 11:27] LABS: Microscopic, Urine URINE MICROSCOPIC (MICROSCOPIC)
[2020-12-28 11:47] LABS: Appearance,Urine CLEAR (Clear); Basophils # 0.1 K/mm3 (0-0.2); Basophils % 0.7 % (0.1-2.0); Bilirubin,Urine Negative (Negative); Blood, Urine TRACE-I (Negative); Color,Urine YELLOW (Yellow); Eosinophils # 0.3 K/mm3 (0.0-0.4); Eosinophils % 1.8 % (0.1-12.0); Glucose,Urine (UA) 3+ (Negative); Hematocrit 47.1 % (37.0-47.0); Hemoglobin 15.3 g/dL (12.2-16.2); Ketones,Urine Negative (Negative); Leukocyte Esterase,Urine Negative (Negative); Lymphocytes # 3.3 K/mm3 (0.7-4.5); Lymphocytes % 22.7 % (10-50); Mean Corpuscular HGB Conc 32.5 g/dL (31.8-35.4); Mean Corpuscular Hemoglobin 29.2 pg (27.0-31.2); Mean Corpuscular Volume 89.9 fl (81-99); Mean Platelet Volume 7.3 fl (7.4-10.4); Monocytes # 0.7 K/mm3 (0.1-1.0); Monocytes % 4.8 % (1.7-9.3); Neutrophils # 10.3 K/mm3 (1.8-7.8); Neutrophils % 70.1 % (37.0-80.0); Nitrate,Urine Negative (Negative); PH,Urine 6.5 (5.0-8.5); Platelet Count 330 K/mm3 (142-424); Protein,Urine 1+ (Negative); Red Blood Count 5.24 M/mm3 (4.20-5.40); Red Cell Distribution Width 14.8 % (11.5-17.5); Specific Gravity, Urine 1.015 (1.005-1.030); Urobilinogen,Urine 0.2 EU/dl (0.2); White Blood Count 14.7 K/mm3 (4.8-10.8)
[2020-12-28 12:00] LABS: Squamous Epithelial Cell,Urine Occasional #/hpf (0-5)
[2020-12-28 12:03] LABS: Chloride 99 mmol/L (98-107); Sodium 136 mmol/L (136-145)
[2020-12-28 12:04] LABS: Albumin Level 4.6 g/dl (3.5-5.0)
[2020-12-28 12:06] LABS: Anion Gap 9.8 mEq/L (5-15); Blood Urea Nitrogen 18 mg/dl (7-17); Carbon Dioxide 30 mmol/L (22.0-30.0); Estimated Glomerular Filt Rate 43 ml/min (>60); GFR (African American) 51 ML/MIN (>60)
[2020-12-28 12:07] LABS: Calcium 9.9 mg/dl (8.4-10.2); Glucose 153 mg/dl (74-100); Phosphorous 2.6 mg/dl (2.5-4.5)
[2020-12-28 12:13] LABS: Creatinine,Urine Random 77 mg/dL (Not Estab.)
[2020-12-28 16:31] LABS: Potassium 2.8 mmoL/L (3.5-5.1)
== END ==
PROVIDERS: Visit Provider Internal Medicine Nephrology
DX: N18.30 Chronic kidney disease, stage 3 unspecified (principal)
CPT/HCPCS: 36415; 80069; 81001; 82570; 84155; 85025

== ENCOUNTER 2020-12-29 14:31 | Outpatient (CLI) | payer MEDICARE, BC, SELFPAY ==
[2020-12-29 14:45] VITALS: BP 127/95; PULSE 73; RESP 18; TEMP 36.4; O2SAT 97
[2020-12-29 15:51] VITALS: BP 138/79; PULSE 75; RESP 18
== END 2020-12-29 15:51 | disposition home or self-care (01) ==
LOC: INF 14:34
PROVIDERS: PCP Internal Medicine Adolescent Medicine; Visit Provider Internal Medicine Adolescent Medicine
DX: E87.6 Hypokalemia (principal)
CPT/HCPCS: 96360

== ENCOUNTER → 2021-01-02 14:36 | Outpatient (CLI) | payer MEDICARE, BC, SELFPAY ==
[2021-01-02 15:04] LABS: Blood Urea Nitrogen 18 mg/dl (7-17); Calcium 10.3 mg/dl (8.4-10.2); Carbon Dioxide 29 mmol/L (22.0-30.0); Chloride 99 mmol/L (98-107); Estimated Glomerular Filt Rate 43 ml/min (>60); GFR (African American) 51 ML/MIN (>60); Glucose 105 mg/dl (74-100); Sodium 136 mmol/L (136-145)
== END ==
PROVIDERS: PCP Internal Medicine Adolescent Medicine; Visit Provider Nurse Practitioner Family
DX: E87.6 Hypokalemia (principal)
CPT/HCPCS: 36415; 80048

== ENCOUNTER → 2021-01-04 16:29 | Outpatient (CLI) | payer MEDICARE, BC, SELFPAY ==
[2021-01-04 17:56] LABS: Anion Gap 11.6 mEq/L (5-15); Blood Urea Nitrogen 16 mg/dl (7-17); Calcium 10.7 mg/dl (8.4-10.2); Carbon Dioxide 32 mmol/L (22.0-30.0); Chloride 100 mmol/L (98-107); Estimated Glomerular Filt Rate 39 ml/min (>60); GFR (African American) 47 ML/MIN (>60); Glucose 120 mg/dl (74-100); Potassium 3.6 mmoL/L (3.5-5.1); Sodium 140 mmol/L (136-145)
== END ==
PROVIDERS: Visit Provider Nurse Practitioner Family
DX: E87.6 Hypokalemia (principal)
CPT/HCPCS: 36415; 80048

== ENCOUNTER → 2021-01-07 09:44 | Outpatient (CLI) | payer MEDICARE, BC, SELFPAY ==
[2021-01-07 11:04] LABS: Chloride 97 mmol/L (98-107); Sodium 138 mmol/L (136-145)
[2021-01-07 11:07] LABS: Blood Urea Nitrogen 18 mg/dl (7-17); Estimated Glomerular Filt Rate 43 ml/min (>60); GFR (African American) 51 ML/MIN (>60)
[2021-01-07 11:08] LABS: Calcium 9.9 mg/dl (8.4-10.2); Carbon Dioxide 31 mmol/L (22.0-30.0); Glucose 141 mg/dl (74-100)
== END ==
PROVIDERS: Visit Provider Internal Medicine Adolescent Medicine
DX: E87.6 Hypokalemia (principal)
CPT/HCPCS: 36415; 80048

== ENCOUNTER → 2021-01-26 13:44 | Outpatient (CLI) | payer MEDICARE, BC, SELFPAY ==
[2021-01-26 15:08] LABS: Blood Urea Nitrogen 19 mg/dl (7-17); Carbon Dioxide 28 mmol/L (22.0-30.0); Estimated Glomerular Filt Rate 36 ml/min (>60); GFR (African American) 44 ML/MIN (>60)
[2021-01-26 15:09] LABS: Calcium 10.1 mg/dl (8.4-10.2); Glucose 129 mg/dl (74-100)
[2021-01-26 15:27] LABS: Anion Gap 15.9 mEq/L (5-15); Chloride 97 mmol/L (98-107); Sodium 138 mmol/L (136-145)
[2021-01-26 16:05] LABS: Potassium 2.9 mmoL/L (3.5-5.1)
== END ==
PROVIDERS: Visit Provider Internal Medicine Adolescent Medicine
DX: N18.2 Chronic kidney disease, stage 2 (mild) (principal); Z86.39 Personal history of other endocrine, nutritional and metabolic disease
CPT/HCPCS: 36415; 80048

== ENCOUNTER → 2021-02-01 10:56 | Outpatient (POV) | payer MEDICARE, BC, SELFPAY | PROVIDERS: Visit Provider Nurse Practitioner Family | DX: Z00.00 Encounter for general adult medical examination without abnormal findings (principal) ==

== ENCOUNTER → 2021-03-12 10:11 | Outpatient (CLI) | payer MEDICARE, BC, SELFPAY ==
[2021-03-12 10:59] LABS: Chloride 98 mmol/L (98-107)
[2021-03-12 11:00] LABS: Potassium 3.3 mmoL/L (3.5-5.1); Sodium 139 mmol/L (136-145)
[2021-03-12 11:02] LABS: Blood Urea Nitrogen 15 mg/dl (7-17); Estimated Glomerular Filt Rate 39 ml/min (>60); GFR (African American) 47 ML/MIN (>60)
[2021-03-12 11:03] LABS: Anion Gap 13.3 mEq/L (5-15); Calcium 9.6 mg/dl (8.4-10.2); Carbon Dioxide 31 mmol/L (22.0-30.0); Glucose 157 mg/dl (74-100)
== END ==
PROVIDERS: Visit Provider Internal Medicine Adolescent Medicine
DX: N18.2 Chronic kidney disease, stage 2 (mild) (principal)
CPT/HCPCS: 36415; 80048

== ENCOUNTER → 2021-04-06 15:38 | Outpatient (CLI) | payer MEDICARE, BC, SELFPAY ==
[2021-04-06 16:30] LABS: Chloride 102 mmol/L (98-107); Potassium 3.7 mmoL/L (3.5-5.1); Sodium 138 mmol/L (136-145)
[2021-04-06 16:33] LABS: Blood Urea Nitrogen 20 mg/dl (7-17); Estimated Glomerular Filt Rate 23 ml/min (>60); GFR (African American) 28 ML/MIN (>60)
[2021-04-06 16:34] LABS: Anion Gap 13.7 mEq/L (5-15); Calcium 9.4 mg/dl (8.4-10.2); Carbon Dioxide 26 mmol/L (22.0-30.0); Glucose 105 mg/dl (74-100)
== END ==
PROVIDERS: Visit Provider Internal Medicine Adolescent Medicine
DX: N18.2 Chronic kidney disease, stage 2 (mild) (principal)
CPT/HCPCS: 36415; 80048

== ENCOUNTER → 2021-04-12 12:37 | Outpatient (CLI) | payer MEDICARE, BC, SELFPAY ==
[2021-04-12 13:47] LABS: Chloride 97 mmol/L (98-107); Potassium 3.8 mmoL/L (3.5-5.1); Sodium 139 mmol/L (136-145)
[2021-04-12 13:49] LABS: Blood Urea Nitrogen 19 mg/dl (7-17); Estimated Glomerular Filt Rate 36 ml/min (>60); GFR (African American) 44 ML/MIN (>60)
[2021-04-12 13:50] LABS: Anion Gap 13.8 mEq/L (5-15); Carbon Dioxide 32 mmol/L (22.0-30.0); Glucose 134 mg/dl (74-100)
== END ==
PROVIDERS: Visit Provider Internal Medicine Adolescent Medicine
DX: N18.2 Chronic kidney disease, stage 2 (mild) (principal)
CPT/HCPCS: 36415; 80048

== ENCOUNTER → 2021-04-13 16:16 | Outpatient (CLI) | payer MEDICARE, BC, SELFPAY ==
[2021-04-13 16:21] LABS: Microscopic, Urine URINE MICROSCOPIC (MICROSCOPIC)
[2021-04-13 16:30] LABS: Appearance,Urine CLEAR (Clear); Bilirubin,Urine Negative (Negative); Blood, Urine Negative (Negative); Color,Urine YELLOW (Yellow); Glucose,Urine (UA) 3+ (Negative); Ketones,Urine Negative (Negative); Leukocyte Esterase,Urine Negative (Negative); Nitrate,Urine Negative (Negative); PH,Urine 6.5 (5.0-8.5); Protein,Urine Negative (Negative); Urobilinogen,Urine 0.2 EU/dl (0.2)
[2021-04-13 16:59] LABS: Squamous Epithelial Cell,Urine Occasional #/hpf (0-5)
== END ==
PROVIDERS: Visit Provider Internal Medicine Adolescent Medicine
DX: R30.0 Dysuria (principal)
CPT/HCPCS: 81001; 87086

== ENCOUNTER → 2021-04-26 15:22 | Outpatient (CLI) | payer MEDICARE, BC, SELFPAY ==
[2021-04-26 15:27] LABS: Microscopic, Urine URINE MICROSCOPIC (MICROSCOPIC)
[2021-04-26 15:43] LABS: Appearance,Urine CLEAR (Clear); Blood, Urine Negative (Negative); Color,Urine YELLOW (Yellow); Glucose,Urine (UA) 3+ (Negative); Ketones,Urine TRACE (Negative); Leukocyte Esterase,Urine Negative (Negative); Nitrate,Urine Negative (Negative); PH,Urine 5.5 (5.0-8.5); Protein,Urine Negative (Negative); Urobilinogen,Urine 0.2 EU/dl (0.2)
[2021-04-26 15:53] LABS: Basophils # 0.1 K/mm3 (0-0.2); Basophils % 0.8 % (0.1-2.0); Eosinophils # 0.2 K/mm3 (0.0-0.4); Eosinophils % 1.5 % (0.1-12.0); Hemoglobin 16.2 g/dL (12.2-16.2); Lymphocytes % 27.2 % (10-50); Mean Corpuscular HGB Conc 33.7 g/dL (31.8-35.4); Mean Corpuscular Hemoglobin 28.5 pg (27.0-31.2); Mean Corpuscular Volume 84.5 fl (81-99); Mean Platelet Volume 7.6 fl (7.4-10.4); Monocytes # 0.6 K/mm3 (0.1-1.0); Monocytes % 5.1 % (1.7-9.3); Neutrophils # 7.3 K/mm3 (1.8-7.8); Neutrophils % 65.3 % (37.0-80.0); Platelet Count 354 K/mm3 (142-424); Red Blood Count 5.68 M/mm3 (4.20-5.40); Red Cell Distribution Width 16.1 % (11.5-17.5); White Blood Count 11.2 K/mm3 (4.8-10.8)
[2021-04-26 15:56] LABS: Bilirubin,Urine Negative (Negative)
[2021-04-26 15:57] LABS: Creatinine,Urine Random 237 mg/dL (Not Estab.)
[2021-04-26 15:59] LABS: Bacteria,Urine Trace /lpf; Squamous Epithelial Cell,Urine Occasional #/hpf (0-5)
[2021-04-26 16:33] LABS: Chloride 97 mmol/L (98-107); Sodium 137 mmol/L (136-145)
[2021-04-26 16:34] LABS: Albumin Level 4.8 g/dl (3.5-5.0); Potassium 3.5 mmoL/L (3.5-5.1)
[2021-04-26 16:36] LABS: Anion Gap 15.5 mEq/L (5-15); Blood Urea Nitrogen 20 mg/dl (7-17); Carbon Dioxide 28 mmol/L (22.0-30.0); Estimated Glomerular Filt Rate 36 ml/min (>60); GFR (African American) 44 ML/MIN (>60)
[2021-04-26 16:37] LABS: Calcium 10.3 mg/dl (8.4-10.2); Glucose 120 mg/dl (74-100); Phosphorous 3.8 mg/dl (2.5-4.5)
== END ==
PROVIDERS: Visit Provider Internal Medicine Nephrology
DX: N18.30 Chronic kidney disease, stage 3 unspecified (principal)
CPT/HCPCS: 36415; 80069; 81001; 82570; 84155; 85025

== ENCOUNTER → 2021-06-15 11:29 | Outpatient (CLI) | payer MEDICARE, BC, SELFPAY ==
[2021-06-15 11:56] LABS: Basophils # 0.1 K/mm3 (0-0.2); Basophils % 0.8 % (0.1-2.0); Eosinophils # 0.1 K/mm3 (0.0-0.4); Eosinophils % 1.4 % (0.1-12.0); Hematocrit 46.7 % (37.0-47.0); Hemoglobin 15.3 g/dL (12.2-16.2); Lymphocytes % 21.6 % (10-50); Mean Corpuscular HGB Conc 32.7 g/dL (31.8-35.4); Mean Corpuscular Hemoglobin 29.2 pg (27.0-31.2); Mean Corpuscular Volume 89.3 fl (81-99); Mean Platelet Volume 8.1 fl (7.4-10.4); Monocytes # 0.5 K/mm3 (0.1-1.0); Monocytes % 5.8 % (1.7-9.3); Neutrophils # 6.5 K/mm3 (1.8-7.8); Neutrophils % 70.5 % (37.0-80.0); Platelet Count 332 K/mm3 (142-424); Red Blood Count 5.22 M/mm3 (4.20-5.40); Red Cell Distribution Width 15.8 % (11.5-17.5); White Blood Count 9.2 K/mm3 (4.8-10.8)
[2021-06-15 12:24] LABS: Chloride 101 mmol/L (98-107); Potassium 3.1 mmoL/L (3.5-5.1); Sodium 140 mmol/L (136-145)
[2021-06-15 12:27] LABS: Alanine Aminotransferase 26 U/L (12-78); Albumin Level 3.9 g/dl (3.5-5.0); Albumin/Globulin Ratio 1.4 (1.1-1.8); Alkaline Phosphatase 86 U/L (38-126); Anion Gap 13.1 mEq/L (5-15); Aspartate Amino Transferase 29 U/L (14-36); Bilirubin,Total 0.4 mg/dl (0.2-1.3); Blood Urea Nitrogen 16 mg/dl (7-17); Calcium 9.6 mg/dl (8.4-10.2); Carbon Dioxide 29 mmol/L (22.0-30.0); Estimated Glomerular Filt Rate 46 ml/min (>60); GFR (African American) 56 ML/MIN (>60); Globulin 2.7 g/dL (1.3-3.2); Glucose 120 mg/dl (74-100); Total Protein,Serum 6.6 g/dl (6.3-8.2)
[2021-06-15 12:57] LABS: Thyroid Stimulating Hormone < 0.02 uIU/mL (0.465-4.68)
[2021-06-15 13:01] LABS: Ferritin 12.2 ng/ml (11.1-264)
== END ==
PROVIDERS: Visit Provider Internal Medicine Adolescent Medicine
DX: I10 Essential (primary) hypertension (principal); G25.81 Restless legs syndrome; E11.9 Type 2 diabetes mellitus without complications; Z90.710 Acquired absence of both cervix and uterus
CPT/HCPCS: 36415; 80053; 82728; 84443; 85025

== ENCOUNTER 2021-06-20 15:46 | Emergency (ER) | payer MEDICARE, BC, SELFPAY ==
[2021-06-20 15:47] VITALS: BP 141/91; PULSE 76; RESP 18; TEMP 36.8; O2SAT 95; BMI 38.5
--- NOTE | 2021-06-20 16:14 | XR_ITS ---
PROCEDURE INFORMATION: Exam: XR Right Ankle Exam date and time: 06/20/2021 4:14 PM Age: 56 years old Clinical indication: Ankle; Right; Patient HX: Pain with fall off last step TECHNIQUE: Imaging protocol: XR Right ankle. Views: 3 or more views. COMPARISON: No relevant prior studies available. FINDINGS: Bones/joints: Some focal cortical thickening in lateral aspect of the distal tibial shaft is probably benign. It has a narrow zone of transition. No fracture. No malalignment. Soft tissues: Soft tissues are unremarkable. IMPRESSION: No evidence of acute osseous injury
--- NOTE | 2021-06-20 16:51 | HMH.EDLOEX ---
ED Disposition Clinical Impression: Ankle sprain and strain Disposition: Home, Self-Care Condition on Discharge: Good Instructions: Sprain Prescriptions: Hydrocod/Acet 5/325 mg [[place] 5/325mg tablet] 1 tab PO Q6HP PRN #7 tab PRN Reason: Mild Pain Transmission Status: [facility] to [facility] Referrals: Jerry Hill MD [Primary Care Provider] - - Critical Care Critical Care Time: No Attestation: On 06/20/21, the high probability of a clinically significant, sudden or life threatening deterioration of the following system(s) required my full and direct attention, intervention and personal management. The time I documented below is in addition to time spent performing reported procedures but includes the following listed in this critical care notation. Medical Decision Making - Medical Records Medical records reviewed: Yes: I reviewed the patient's medical records. - Stanislaw Inquiry Pt receiving controlled substance: No Vital Signs: 06/20/21 15:47 Temperature 98.3 F Temperature Source Oral Pulse Rate [Left Radial] 76 Respiratory Rate 18 Blood Pressure [Right Arm] 141/91 H Blood Pressure Mean [Right Arm] 107 Blood Pressure Source [Right Arm] Automatic Cuff Blood Pressure Position [Right Arm] Sitting 02 Sat by Pulse Oximetry 95 Oxygen Delivery Method Room Air Orders (Tests/Meds): ED MEDICATIONS Discontinued Medications Generic Name Dose Route Start Last Admin Trade Name Freq PRN Reason Stop Dose Admin Hydrocodone Bitart/Acetaminophen 1 tab 06/20/21 16:14 06/20/21 16:46 Hydrocodone/Apap 5/325 Mg Tablet PO 06/20/21 16:15 1 tab ONCE ONE Administration - Radiology Data #1 Image(s): Ankle Image Reviewed: Yes I reviewed the patient's radiology results, Yes I reviewed the patient's radiology image, Yes I have reviewed radiologist's interpretation Preliminary Findings: Normal/NAD - Reevaluation(s) Time: 17:48 Reevaluation #1: On reevaluation, the patient is feeling much better. No evidence of fracture. Patient was given musculoskeletal precautions she is to ice it rested and elevated. Discharged with short course of analgesics. Patient is to follow-up with PCP in 48 hours. Given strict return precautions. Verbalized understanding. Medical Decision Narrative: 56-year-old female presenting with ankle pain. Patient meets imaging criteria for the ankle. Analgesics provided. Lower Extremity Injury HPI - General Chief Complaint: Extremity Injury, Lower Stated Complaint: AO rt ankle injury Time Seen by Provider: 06/20/21 15:50 Mode of Arrival: Wheelchair Limitations: No Limitations Description of Symptoms (Recalled from ER Triage Doc. by RN): c/o right ankle pain after tripped down her steps, denies any other injuries at this time - History of Present Illness HPI Narrative: 56-year-old female presented to the emergency department with some right ankle pain. The patient states that she was walking up her stairs when she slipped and fell forward. She rolled her right ankle. She is complaining of some pain in the lateral aspect of the right ankle. She is having difficulty putting weight on it. She denies any other injuries. No head trauma. No syncope. No headache or change in vision. No focal weakness. No chest pain shortness of breath and abdominal bloating. - Related Data Home Medications Medication Instructions Recorded Confirmed lansoprazole 30 mg capsule,delayed 30 mg PO DAILY 12/25/17 12/24/20 release cholecalciferol (vitamin D3) 125 10,000 unit PO DAILY 02/23/18 12/24/20 mcg (5,000 unit) capsule cyclobenzaprine 10 mg tablet 10 mg PO BIDP PRN 02/23/18 12/24/20 Thyroid,Pork [[place] Thyroid] 30 mg PO DAILY 08/21/18 12/24/20 Fluticasone Propionate [Flonase 1 spr NS BID 09/11/18 12/24/20 50mcg nasal spray 16gm] Potassium Chloride [Klor-con 20 40 meq PO BID 09/12/18 12/24/20 mEq tablet] Cetirizine HCl [Allergy Relief] 10 mg
[2021-06-20 18:05] VITALS: BP 125/88; PULSE 69; RESP 20; TEMP 36.8; O2SAT 99
== END 2021-06-20 18:07 | disposition home or self-care (01) ==
PROVIDERS: Emergency Provider Emergency Medicine; PCP Internal Medicine Adolescent Medicine
DX: S93.401A Sprain of unspecified ligament of right ankle, initial encounter (principal); W10.9XXA Fall (on) (from) unspecified stairs and steps, initial encounter; Y92.019 Unspecified place in single-family (private) house as the place of occurrence of the external cause
CPT/HCPCS: 73610; 99282

== ENCOUNTER → 2021-08-25 15:12 | Outpatient (CLI) | payer MEDICARE, BC, SELFPAY ==
[2021-08-25 15:57] LABS: Basophils # 0.1 K/mm3 (0-0.2); Eosinophils # 0.4 K/mm3 (0.0-0.4); Eosinophils % 3.6 % (0.1-12.0); Hematocrit 48.2 % (37.0-47.0); Hemoglobin 16.2 g/dL (12.2-16.2); Lymphocytes # 2.7 K/mm3 (0.7-4.5); Lymphocytes % 22.3 % (10-50); Mean Corpuscular HGB Conc 33.7 g/dL (31.8-35.4); Mean Corpuscular Hemoglobin 29.4 pg (27.0-31.2); Mean Corpuscular Volume 87.3 fl (81-99); Mean Platelet Volume 7.7 fl (7.4-10.4); Monocytes # 0.5 K/mm3 (0.1-1.0); Monocytes % 4.3 % (1.7-9.3); Neutrophils # 8.4 K/mm3 (1.8-7.8); Neutrophils % 68.8 % (37.0-80.0); Platelet Count 345 K/mm3 (142-424); Red Blood Count 5.52 M/mm3 (4.20-5.40); Red Cell Distribution Width 16.1 % (11.5-17.5); White Blood Count 12.2 K/mm3 (4.8-10.8)
[2021-08-25 16:28] LABS: Hemoglobin A1C 6.1 % (4.0-6.0)
[2021-08-25 16:37] LABS: Chloride 98 mmol/L (98-107); Sodium 139 mmol/L (136-145)
[2021-08-25 16:38] LABS: Potassium 3.1 mmoL/L (3.5-5.1)
[2021-08-25 16:40] LABS: Alanine Aminotransferase 29 U/L (12-78); Albumin Level 4.5 g/dl (3.5-5.0); Albumin/Globulin Ratio 1.7 (1.1-1.8); Alkaline Phosphatase 93 U/L (38-126); Anion Gap 13.1 mEq/L (5-15); Aspartate Amino Transferase 37 U/L (14-36); Bilirubin,Total 0.6 mg/dl (0.2-1.3); Blood Urea Nitrogen 18 mg/dl (7-17); Carbon Dioxide 31 mmol/L (22.0-30.0); Estimated Glomerular Filt Rate 51 ml/min (>60); GFR (African American) 62 ML/MIN (>60); Globulin 2.7 g/dL (1.3-3.2); Total Protein,Serum 7.2 g/dl (6.3-8.2); Triglycerides 375 mg/dl (30-150); VLDL Cholesterol 75 mg/dL (0-40)
[2021-08-25 16:41] LABS: Glucose 108 mg/dl (74-100); HDL Cholesterol 73 mg/dl (40-60)
[2021-08-25 16:52] LABS: Direct LDL Cholesterol 222.67 mg/dL (100-129)
[2021-08-25 17:05] LABS: Chol/HDL Ratio 4.9 (1-3.5); Cholesterol 355 mg/dl (140-200)
[2021-08-25 18:49] LABS: Free Thyroxine Index 3.3 ug/dL (5.93-13.13); T4 (Thyroxine) 11.4 ug/dl (5.53-11.0); Triiodothryronine (T3) Uptake 29 % (23.5-40.5)
[2021-08-25 19:03] LABS: Thyroid Stimulating Hormone < 0.02 uIU/mL (0.465-4.68)
== END ==
PROVIDERS: Visit Provider Internal Medicine Adolescent Medicine
DX: E03.9 Hypothyroidism, unspecified (principal); E11.69 Type 2 diabetes mellitus with other specified complication
CPT/HCPCS: 36415; 80053; 80061; 83036; 84436; 84443; 84479; 85025

== ENCOUNTER 2021-09-12 18:42 | Emergency (ER) | payer MEDICARE, BC, SELFPAY ==
[2021-09-12 18:43] VITALS: BP 133/97; PULSE 119; RESP 16; TEMP 37.2; O2SAT 97; BMI 39.0
--- NOTE | 2021-09-12 19:27 | ECG_ITS ---
APPROVED REPORT Exam: Resting ECG HR:93 bpm ECG Measurements Heart Rate 93 AXES OH 152 P 53 QRSd 92 QRS -52 QT 416 T 64 QTc 517 Conclusion Normal sinus rhythm Pulmonary disease pattern Incomplete right bundle branch block Left anterior fascicular block Prolonged QT Abnormal ECG Electronically signed by : Jerry Hill MD 09/13/2021 13:24:19
[2021-09-12 19:33] LABS: Microscopic, Urine URINE MICROSCOPIC (MICROSCOPIC)
[2021-09-12 19:40] LABS: Appearance,Urine SL CLOUDY (Clear); Bilirubin,Urine Negative (Negative); Blood, Urine 2+ (Negative); Color,Urine YELLOW (Yellow); Eosinophils # 0.2 K/mm3 (0.0-0.4); Glucose,Urine (UA) 3+ (Negative); Ketones,Urine Negative (Negative); Leukocyte Esterase,Urine Negative (Negative); Mean Corpuscular HGB Conc 33.5 g/dL (31.8-35.4); Monocytes # 0.7 K/mm3 (0.1-1.0); Nitrate,Urine Negative (Negative); Protein,Urine 2+ (Negative); Red Cell Distribution Width 16.3 % (11.5-17.5); Specific Gravity, Urine >= 1.030 (1.005-1.030); Urobilinogen,Urine 0.2 EU/dl (0.2)
--- NOTE | 2021-09-12 19:40 | XR_ITS ---
PROCEDURE INFORMATION: Exam: XR Chest Exam date and time: 09/12/2021 7:40 PM Age: 56 years old Clinical indication: Patient HX: Diabetic, stage 3 renal failure. She says she is dehydrated. She has to frequently get infusion therapy for dehydration. ; Additional info: PT feeling off TECHNIQUE: Imaging protocol: XR of the chest. Views: 2 views. COMPARISON: CR CXR1 CHEST-PORTABLE 06/08/2017 4:30 PM FINDINGS: Lungs: Coarse interstitial lung markings likely chronic. No consolidation. Pleural spaces: Unremarkable. No pleural effusion. No pneumothorax. Heart/Mediastinum: Unremarkable. No cardiomegaly. Bones/joints: Unremarkable. IMPRESSION: No acute findings.
[2021-09-12 19:44] LABS: Basophils # 0.1 K/mm3 (0-0.2); Eosinophils % 1.5 % (0.1-12.0); Hematocrit 55.1 % (37.0-47.0); Lymphocytes # 3.5 K/mm3 (0.7-4.5); Lymphocytes % 27.1 % (10-50); Mean Corpuscular Hemoglobin 29.4 pg (27.0-31.2); Mean Corpuscular Volume 87.7 fl (81-99); Mean Platelet Volume 8.3 fl (7.4-10.4); Monocytes % 5.2 % (1.7-9.3); Neutrophils # 8.4 K/mm3 (1.8-7.8); Neutrophils % 65.3 % (37.0-80.0); Platelet Count 365 K/mm3 (142-424); Red Blood Count 6.28 M/mm3 (4.20-5.40); White Blood Count 12.9 K/mm3 (4.8-10.8)
[2021-09-12 19:46] LABS: Alanine Aminotransferase 60 U/L (12-78); Albumin Level 5.1 g/dl (3.5-5.0); Albumin/Globulin Ratio 1.3 (1.1-1.8); Alkaline Phosphatase 134 U/L (38-126); Amorphous Sediment,Urine 1+ /lpf; Anion Gap 16.6 mEq/L (5-15); Aspartate Amino Transferase 68 U/L (14-36); Bilirubin,Total 0.8 mg/dl (0.2-1.3); Blood Urea Nitrogen 19 mg/dl (7-17); Carbon Dioxide 31 mmol/L (22.0-30.0); Chloride 92 mmol/L (98-107); Creatinine Clearance Estimated 50 mL/min (50-200); Estimated Glomerular Filt Rate 29 ml/min (>60); GFR (African American) 35 ML/MIN (>60); Glucose 152 mg/dl (74-100); Mucus,Urine 2+ /lpf; Sodium 137 mmol/L (136-145); Total Protein,Serum 9.1 g/dl (6.3-8.2)
[2021-09-12 19:47] LABS: Hemoglobin 18.5 g/dL (12.2-16.2)
[2021-09-12 19:48] LABS: Potassium 2.6 mmoL/L (3.5-5.1)
--- NOTE | 2021-09-12 19:48 | PC.NURSE ---
potassium critical and calcium critical, reported to .
[2021-09-12 19:58] LABS: NT Pro Brain Natriuretic Pep. 40.8 pg/mL (0-125)
[2021-09-12 20:04] LABS: Troponin I < 0.01 ng/ml (0.00-0.034)
--- NOTE | 2021-09-12 20:08 | PC.NURSE ---
pt placed on monitor car operator for infusion of potassium
[2021-09-12 20:30] VITALS: BP 144/94; PULSE 97; RESP 14; O2SAT 96
--- NOTE | 2021-09-12 20:53 | HMH.EDUROGF ---
ED Disposition Clinical Impression: Hypokalemia Chronic kidney disease Qualifiers: Chronic kidney disease stage: stage 3 (moderate) Chronic kidney disease stage 3 subtype: unspecified whether 3a or 3b Qualified Code(s): N18.30 - Chronic kidney disease, stage 3 unspecified Disposition: Home, Self-Care Condition on Discharge: Good Instructions: DI for Hypokalemia Additional Instructions: fluids and call pcp in am Referrals: Jerry Hill MD [Primary Care Provider] - - Critical Care Critical Care Time: No Attestation: On 09/12/21, the high probability of a clinically significant, sudden or life threatening deterioration of the following system(s) required my full and direct attention, intervention and personal management. The time I documented below is in addition to time spent performing reported procedures but includes the following listed in this critical care notation. Medical Decision Making - Medical Records Medical records reviewed: Yes: I reviewed the patient's medical records. - Stanislaw Inquiry Pt receiving controlled substance: No Vital Signs: 09/12/21 18:43 09/12/21 20:30 09/12/21 21:00 Temperature 99 F Temperature Source Oral Pulse Rate 97 H 92 H Pulse Rate [Left] 119 H Respiratory Rate 16 14 12 Blood Pressure 144/94 H 138/97 H Blood Pressure [Right Arm] 133/97 H Blood Pressure Mean [Right Arm] 109 02 Sat by Pulse Oximetry 97 96 98 Oxygen Delivery Method Room Air Room Air Room Air 09/12/21 21:05 09/12/21 21:30 Temperature 99 F Temperature Source Oral Pulse Rate 94 H 95 H Pulse Rate [Left] Respiratory Rate 16 14 Blood Pressure 138/97 H 111/71 Blood Pressure [Right Arm] Blood Pressure Mean [Right Arm] 02 Sat by Pulse Oximetry 98 Oxygen Delivery Method Room Air Room Air - Lab Data Lab results reviewed: Yes: I reviewed the patient's lab results. Lab Results 09/12/21 19:18: Urine Color Yellow, Urine Appearance Sl cloudy, Urine pH 6.0, Ur Specific [place] >= 1.030, Urine Protein 2+, Urine Glucose (UA) 3+, Urine Ketones Negative, Urine Blood 2+, Urine Nitrate Negative, Urine Bilirubin Negative, Urine Urobilinogen 0.2, Ur Leukocyte Esterase Negative, Urine RBC 5-10, Ur Squamous Epith Cells 3-5, Amorphous Sediment 1+, Urine Mucus 2+ 09/12/21 19:18: WBC 12.9 H, RBC 6.28 H, Hgb 18.5 H, Hct 55.1 H, MCV 87.7, MCH 29.4, MCHC 33.5, RDW 16.3, Plt Count 365, MPV 8.3, Neut % (Auto) 65.3, Lymph % (Auto) 27.1, [place] % (Auto) 5.2, Eos % (Auto) 1.5, Baso % (Auto) 1.0, Neut # (Auto) 8.4 H, Lymph # (Auto) 3.5, [place] # (Auto) 0.7, Eos # (Auto) 0.2, Baso # (Auto) 0.1 09/12/21 19:18: Sodium 137, Potassium 2.6 L*, Chloride 92 L, Carbon Dioxide 31 H, Anion Gap 16.6 H, BUN 19 H, Creatinine 1.80 H, Estimated Creat Clear 50, Estimated GFR 29 L, Est GFR ( Amer) 35 L, Glucose 152 H, Calcium 12.0 H, Total Bilirubin 0.8, AST 68 H, ALT 60, Alkaline Phosphatase 134 H, Troponin I < 0.01, NT-Pro-B Natriuret Pep 40.8, Total Protein 9.1 H D, Albumin 5.1 H, Globulin 4.0 H, Albumin/Globulin Ratio 1.3 09/12/21 21:15: Magnesium 1.9, Thyroxine (T4) 11.9 H Result diagrams: 09/12/21 19:18 09/12/21 19:18 Orders (Tests/Meds): ED MEDICATIONS Generic Name Dose Route Start Last Admin Trade Name Freq PRN Reason Stop Dose Admin Sodium Chloride 1,000 mls @ 999 mls/hr 09/12/21 19:30 09/12/21 19:31 Sod Chlor 0.9% 1000ml Bag IV 09/12/21 20:30 999 mls/hr .Q1H1M TINY Administration Sodium Chloride 1,000 mls @ 999 mls/hr 09/12/21 21:30 09/12/21 21:24 Sod Chlor 0.9% 1000ml Bag IV 09/12/21 22:30 999 mls/hr .Q1H1M TINY Administration Discontinued Medications Generic Name Dose Route Start Last Admin Trade Name Freq PRN Reason Stop Dose Admin Potassium Chloride/Water 100 mls @ 50 mls/hr 09/12/21 19:51 09/12/21 20:08 Potassium Chloride 20meq/100ml Ivpb IV 09/12/21 21:50 50 mls/hr ONCE ONE Administration Potassium Chloride 40 meq 09/12/21 19:51 09/12/21 20:07 Potassium C
[2021-09-12 21:00] VITALS: BP 138/97; PULSE 92; RESP 12; O2SAT 98
[2021-09-12 21:05] VITALS: BP 138/97; PULSE 94; RESP 16; TEMP 37.2; O2SAT 97
[2021-09-12 21:30] VITALS: BP 111/71; PULSE 95; RESP 14; O2SAT 98
[2021-09-12 21:42] LABS: Magnesium 1.9 mg/dl (1.6-2.3)
[2021-09-12 22:00] LABS: T4 (Thyroxine) 11.9 ug/dl (5.53-11.0)
== END 2021-09-12 22:22 | disposition home or self-care (01) ==
PROVIDERS: Emergency Provider Emergency Medicine; PCP Internal Medicine Adolescent Medicine
DX: E87.6 Hypokalemia (principal); N18.30 Chronic kidney disease, stage 3 unspecified; R06.02 Shortness of breath; I25.10 Atherosclerotic heart disease of native coronary artery without angina pectoris; E11.9 Type 2 diabetes mellitus without complications; E78.5 Hyperlipidemia, unspecified; I10 Essential (primary) hypertension; E03.9 Hypothyroidism, unspecified; Z88.0 Allergy status to penicillin; Z79.899 Other long term (current) drug therapy
CPT/HCPCS: 71046; 80053; 81001; 83735; 83880; 84436; 84443; 84484; 85025; 93005; 96365; 96366; 96367; 99283

== ENCOUNTER → 2021-10-04 13:20 | Outpatient (CLI) | payer MEDICARE, BC, SELFPAY ==
[2021-10-04 14:23] LABS: Chloride 96 mmol/L (98-107)
[2021-10-04 14:24] LABS: Basophils # 0.2 K/mm3 (0-0.2); Basophils % 1.5 % (0.1-2.0); Eosinophils # 0.5 K/mm3 (0.0-0.4); Eosinophils % 3.7 % (0.1-12.0); Hematocrit 51.6 % (37.0-47.0); Hemoglobin 16.8 g/dL (12.2-16.2); Lymphocytes # 2.9 K/mm3 (0.7-4.5); Lymphocytes % 23.7 % (10-50); Mean Corpuscular HGB Conc 32.5 g/dL (31.8-35.4); Mean Corpuscular Hemoglobin 29.5 pg (27.0-31.2); Mean Corpuscular Volume 90.6 fl (81-99); Monocytes # 0.6 K/mm3 (0.1-1.0); Neutrophils # 8.1 K/mm3 (1.8-7.8); Neutrophils % 66.2 % (37.0-80.0); Platelet Count 347 K/mm3 (142-424); Red Cell Distribution Width 16.4 % (11.5-17.5); Sodium 138 mmol/L (136-145); White Blood Count 12.2 K/mm3 (4.8-10.8)
[2021-10-04 14:26] LABS: Alanine Aminotransferase 43 U/L (12-78); Alkaline Phosphatase 97 U/L (38-126); Aspartate Amino Transferase 48 U/L (14-36); Bilirubin,Total 0.6 mg/dl (0.2-1.3); Blood Urea Nitrogen 19 mg/dl (7-17); Estimated Glomerular Filt Rate 33 ml/min (>60); GFR (African American) 40 ML/MIN (>60)
[2021-10-04 14:27] LABS: Albumin Level 4.7 g/dl (3.5-5.0); Albumin/Globulin Ratio 1.7 (1.1-1.8); Anion Gap 13.7 mEq/L (5-15); Calcium 10.3 mg/dl (8.4-10.2); Carbon Dioxide 31 mmol/L (22.0-30.0); Globulin 2.8 g/dL (1.3-3.2); Glucose 137 mg/dl (74-100); Magnesium 1.8 mg/dl (1.6-2.3); Total Protein,Serum 7.5 g/dl (6.3-8.2)
[2021-10-04 14:35] LABS: Potassium 2.7 mmoL/L (3.5-5.1)
== END ==
PROVIDERS: Visit Provider Internal Medicine Adolescent Medicine
DX: K21.9 Gastro-esophageal reflux disease without esophagitis (principal); D50.9 Iron deficiency anemia, unspecified
CPT/HCPCS: 36415; 80053; 83735; 85025

== ENCOUNTER → 2021-10-12 15:48 | Outpatient (CLI) | payer MEDICARE, BC, SELFPAY ==
[2021-10-12 17:45] LABS: Anion Gap 11.9 mEq/L (5-15); Blood Urea Nitrogen 15 mg/dl (7-17); Calcium 10.3 mg/dl (8.4-10.2); Carbon Dioxide 34 mmol/L (22.0-30.0); Chloride 94 mmol/L (98-107); Estimated Glomerular Filt Rate 36 ml/min (>60); GFR (African American) 43 ML/MIN (>60); Glucose 112 mg/dl (74-100); Magnesium 1.8 mg/dl (1.6-2.3); Sodium 137 mmol/L (136-145)
[2021-10-12 21:38] LABS: Potassium 2.9 mmoL/L (3.5-5.1)
== END ==
PROVIDERS: PCP Internal Medicine Adolescent Medicine; Visit Provider Internal Medicine Adolescent Medicine
DX: I10 Essential (primary) hypertension (principal); E87.6 Hypokalemia
CPT/HCPCS: 36415; 80048; 83735

== ENCOUNTER 2021-10-18 16:13 | Outpatient (CLI) | payer MEDICARE, BC, SELFPAY ==
[2021-10-18 16:25] VITALS: BP 146/96; PULSE 77; RESP 16; TEMP 36.7; O2SAT 98
[2021-10-18 16:46] VITALS: BMI 27.9
[2021-10-18 17:10] LABS: Chloride 99 mmol/L (98-107); Sodium 141 mmol/L (136-145)
[2021-10-18 17:13] LABS: Blood Urea Nitrogen 23 mg/dl (7-17); Calcium 9.6 mg/dl (8.4-10.2); Carbon Dioxide 31 mmol/L (22.0-30.0); Creatinine Clearance Estimated 42 mL/min (50-200); Estimated Glomerular Filt Rate 33 ml/min (>60); GFR (African American) 40 ML/MIN (>60); Glucose 116 mg/dl (74-100); Magnesium 1.8 mg/dl (1.6-2.3)
[2021-10-18 18:05] VITALS: BP 129/88; PULSE 77; RESP 16; O2SAT 98
== END 2021-10-18 18:05 | disposition home or self-care (01) ==
PROVIDERS: PCP Internal Medicine Adolescent Medicine; Visit Provider Internal Medicine Adolescent Medicine
DX: E86.0 Dehydration (principal); R11.2 Nausea with vomiting, unspecified
CPT/HCPCS: 80048; 83735; 96365; 96366; 96374

== ENCOUNTER 2022-05-03 11:15 | Day surgery (SDC) | payer MEDICARE, BC, SELFPAY ==
[2022-05-03 11:24] VITALS: BP 170/101; PULSE 79; RESP 18; TEMP 36.5; O2SAT 94; BMI 38.7
[2022-05-03 11:45] VITALS: BP 156/99; PULSE 75; RESP 20; O2SAT 100
--- NOTE | 2022-05-03 12:58 | HMH.PMPROC ---
- Procedure Date: 05/03/22 Time: 12:58 Anesthesiologist:: Jacky Alba CRNA Complications:: None Pre-procedure Diagnosis:: Degenerative disc disease cervical spine multilevels. Cervical radiculopathy. Post-procedure Diagnosis:: Same Indications for Procedure:: This patient is a pleasant 55-year-old female that comes our clinic today for cervical epidural steroid injection. Patient also has [employer] spinal cord stimulator in the cervical spine. Patient complains of cervical neck pain as well as bilateral arm radiculopathy symptoms. He rates her pain 7/10. Procedure Details:: Procedure:Cervical epidural steroid injection Informed consent was obtained and the risks and benefits of the procedure were explained to the patient. The patient was taken to the procedure room and noninvasive monitors placed, including noninvasive blood pressure cuff and pulse oximeter. The neck was prepped using Betadine as a cleansing solution. The C6-C7 interspace was palpated. The skin and subcutaneous tissues were anesthetized using lidocaine 1.5% and a 25-gauge needle. After this an 18-gauge Touhy epidural needle was placed into the C6-C7 interspace and advanced using loss of resistance to air until the epidural space was encountered. After confirmation of needle placement in the epidural space, a solution containing lidocaine 1.5%, 4 mL and Depo-Medrol 80 mg was incrementally injected into the cervical epidural space.~ The patient tolerated the procedure well with no complications. The patient was observed in the Pain Clinic and then discharged home neurologically intact. Plan and Disposition:: Patient was discharged without incident.
== END 2022-05-03 11:45 | disposition home or self-care (01) ==
LOC: SC.PAINP 11:15
PROVIDERS: PCP Internal Medicine Adolescent Medicine; Visit Provider Nurse Anesthetist, Certified Registered
DX: M50.123 Cervical disc disorder at C6-C7 level with radiculopathy (principal)
CPT/HCPCS: 62320; 62321; J1040; Q9966

== ENCOUNTER → 2022-05-14 11:14 | Outpatient (CLI) | payer MEDICARE, BC, SELFPAY | PROVIDERS: PCP Internal Medicine Adolescent Medicine; Visit Provider Internal Medicine Adolescent Medicine | DX: R35.0 Frequency of micturition (principal) | CPT/HCPCS: 87086 ==

== ENCOUNTER 2022-07-22 13:44 | Day surgery (SDC) | payer MEDICARE, BC, SELFPAY ==
[2022-07-22 13:54] VITALS: BP 126/92; PULSE 79; RESP 20; TEMP 36.2; O2SAT 96; BMI 371.2; BMI 373.2
[2022-07-22 14:37] VITALS: BP 124/82; PULSE 72; RESP 18; O2SAT 97
--- NOTE | 2022-07-22 14:38 | EXP.PAIN.PRO ---
Procedure Date: 07/22/22 Time: 14:39 Anesthesiologist:: Wyatt Stratton MD Complications:: None Pre-procedure Diagnosis:: Degenerative disc disease of lumbar spine with lumbar radiculopathy symptoms Post-procedure Diagnosis:: Same Indications for Procedure:: Patient is a pleasant 57-year-old white female who we are treating for low back pain with lumbar radiculopathy symptoms. She has increasing pain in her low back radiating down both legs. She also has CRPS of the upper extremities. She does have a Medtr[employer] spinal cord stimulator in place for this. She is having pain primarily in her low back today. We will do a lumbar pleural steroid injection. We will also order imaging in the future to discern pathology. Procedure Details:: Informed consent was obtained and the risk and benefits of the procedure was explained to the patient. The patient was taken to the procedure room. The patient was placed prone on the procedure table. The patient was prepped and draped in sterile fashion. C-arm fluoroscopy was used to view the lumbar spine. Skin and subcutaneous tissues were anesthetized using lidocaine. I placed an 18-gauge epidural needle and advanced into the L4-L5 interspace using fluoroscopic guidance and [id number] to air. After confirmation of needle placement in the epidural space with dye I injected 2 mL of lidocaine 1.5% with Depo-Medrol 80 mg. Patient tolerated the procedure well with no complications. Plan and Disposition:: We will follow-up with her in 2 weeks. Will reevaluate symptoms at that time. We will have [employer] reprogram her stimulator to get better coverage and order MRI of lumbar spine at her next follow-up visit.
== END 2022-07-22 14:38 | disposition home or self-care (01) ==
LOC: SC.PAIN 07-25 14:39
PROVIDERS: PCP Internal Medicine Adolescent Medicine; Visit Provider Anesthesiology
DX: M51.16 Intervertebral disc disorders with radiculopathy, lumbar region (principal)
CPT/HCPCS: 62323; 99212; G0463; J1040; Q9966

== ENCOUNTER → 2022-10-14 11:24 | Outpatient (CLI) | payer MEDICARE, BC, SELFPAY ==
[2022-10-14 12:48] LABS: Anion Gap 9.2 mEq/L (5-15); Blood Urea Nitrogen 11 mg/dl (7-17); Calcium 9.3 mg/dl (8.4-10.2); Carbon Dioxide 29 mmol/L (22.0-30.0); Chloride 104 mmol/L (98-107); Estimated Glomerular Filt Rate 39 ml/min (>60); GFR (African American) 47 ML/MIN (>60); Glucose 100 mg/dl (74-100); Magnesium 2.3 mg/dl (1.6-2.3); Potassium 4.2 mmoL/L (3.5-5.1); Sodium 138 mmol/L (136-145)
== END ==
PROVIDERS: PCP Internal Medicine Adolescent Medicine; Visit Provider Internal Medicine Adolescent Medicine
DX: R07.89 Other chest pain (principal); R25.2 Cramp and spasm
CPT/HCPCS: 36415; 80048; 83735

== ENCOUNTER 2022-11-29 11:21 | Day surgery (SDC) | payer MEDICARE, BC, SELFPAY ==
[2022-11-29 11:37] VITALS: BP 133/81; PULSE 80; RESP 18; TEMP 36.7; O2SAT 95; BMI 38.0
[2022-11-29 11:46] VITALS: BP 127/76; PULSE 74; RESP 18; O2SAT 97
[2022-11-29 11:48] VITALS: BP 127/76; PULSE 74; RESP 18; O2SAT 97
--- NOTE | 2022-11-29 11:49 | EXP.PAIN.PRO ---
Procedure Date: 11/29/22 Time: 11:40 Anesthesiologist:: Jacky Alba CRNA Complications:: None Pre-procedure Diagnosis:: Thoracic back pain left of midline T11 area. Degenerative changes thoracic spine multiple levels via x-ray. Post-procedure Diagnosis:: Same. Indications for Procedure:: Patient is a very pleasant 57-year-old female that we have been seen in our clinic for quite some time for chronic cervical and lumbar pain with radicular symptoms in both areas. Today she presents with a little different type pain she has not experienced in the past. Patient currently has spinal cord stimulator that is working very well. Her pain is very pinpoint off the midline at the T11 level. She rates pain 7/10. She reports she has recently lifted several heavy boxes. This was when the pain began. She describes it as sharp and stabbing if in fact she tries to lift even light objects at this time. Pain while sitting. Procedure Details:: Details of the procedure explained to the patient. The patient taken to procedure room placed in the prone position on the fluoroscopy table. Using fluoroscopy guidance a marker was placed over the left T11 rib facet joint. Using fluoroscopy guidance a 22-gauge inch 3 inch spinal needle the left T11 rib facet joint was accessed. Needle position confirmed using contrast dye. 1 cc of 1% lidocaine and 10 mg of Depo-Medrol was injected. The same procedure was carried out over the left T10-T11 vertebral facet joint. Patient tolerated procedure without difficulty. There are no complications. Plan and Disposition:: Patient was discharged from the clinic essentially without pain.
[2022-11-29 11:52] VITALS: BP 120/90; PULSE 85; RESP 18; O2SAT 95
== END 2022-11-29 11:52 | disposition home or self-care (01) ==
PROVIDERS: PCP Internal Medicine Adolescent Medicine; Visit Provider Nurse Anesthetist, Certified Registered
DX: M47.814 Spondylosis without myelopathy or radiculopathy, thoracic region (principal); M54.6 Pain in thoracic spine; M54.2 Cervicalgia; M54.50 Low back pain, unspecified; G89.29 Other chronic pain
CPT/HCPCS: 64490; 64491; J1040; Q9966

== ENCOUNTER 2022-12-20 11:01 | Day surgery (SDC) | payer MEDICARE, BC, SELFPAY ==
[2022-12-20 11:19] VITALS: BP 109/75; PULSE 77; RESP 18; TEMP 36.6; O2SAT 98; BMI 37.0
[2022-12-20 11:32] VITALS: BP 146/91; PULSE 84; RESP 18; O2SAT 97
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
[2022-12-20 11:39] VITALS: BP 109/82; PULSE 81; RESP 18; O2SAT 98
== END 2022-12-20 11:39 | disposition home or self-care (01) ==
PROVIDERS: PCP Internal Medicine Adolescent Medicine; Visit Provider Nurse Anesthetist, Certified Registered
DX: M47.814 Spondylosis without myelopathy or radiculopathy, thoracic region (principal); Z96.82 Presence of neurostimulator
CPT/HCPCS: 64490; J1040

== ENCOUNTER → 2023-01-03 13:14 | Outpatient (POV) | payer MEDICARE, BC, SELFPAY ==
[2023-01-03 13:28] VITALS: BP 139/81; PULSE 66; RESP 20; TEMP 36.6; O2SAT 97; BMI 36.9
--- NOTE | 2023-01-03 13:44 | P.PCN_ITS ---
Procedure Anesthesiologist:: Jacky Alba CRNA Complications:: None
--- NOTE | 2023-01-03 13:44 | EXP.PAIN.PRO ---
Procedure Anesthesiologist:: Jacky Alba CRNA Complications:: None
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
== END | disposition home or self-care (01) ==
PROVIDERS: PCP Internal Medicine Adolescent Medicine; Visit Provider Nurse Anesthetist, Certified Registered
DX: M54.6 Pain in thoracic spine (principal); M79.601 Pain in right arm; G89.29 Other chronic pain
CPT/HCPCS: 99212; G0463

== ENCOUNTER → 2023-01-09 14:53 | Outpatient (CLI) | payer MEDICARE, BC, SELFPAY ==
--- NOTE | 2023-01-09 15:01 | CT_ITS ---
FINAL REPORT CLINICAL HISTORY: mid to upper BACK PAIN, x 2 months FINDINGS: Axial CT images of the thoracic spine were obtained without contrast. Sagittal and coronal reformatted images were also obtained. This study was performed with techniques to keep radiation doses as low as reasonably achievable (ALARA). Individualized dose reduction techniques using automated exposure control or adjustment of mA and/or kV according to the patient''s size were employed. There is no evidence of fracture. The vertebral alignment is normal. There are mild degenerative changes with osteophytes. There is no evidence of significant canal stenosis. There is a presumed spinal stimulator in place. There are bilateral, nonobstructing renal stones. IMPRESSION: No fracture or acute bony abnormality. No significant central canal stenosis. Bilateral, nonobstructing renal stones. Reviewed, Interpreted and Dictated by Markell Crouch III, MD Transcribed by Destiney Torrez Authenticated and [facility]
== END ==
PROVIDERS: PCP Internal Medicine Adolescent Medicine; Visit Provider Nurse Anesthetist, Certified Registered
DX: M54.6 Pain in thoracic spine (principal)
CPT/HCPCS: 72128

== ENCOUNTER → 2023-01-10 13:17 | Outpatient (POV) | payer MEDICARE, BC, SELFPAY ==
[2023-01-10 13:31] VITALS: BP 112/81; PULSE 75; RESP 18; TEMP 36.4; O2SAT 96; BMI 36.3
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
== END ==
PROVIDERS: PCP Internal Medicine Adolescent Medicine; Visit Provider Nurse Anesthetist, Certified Registered
DX: M51.16 Intervertebral disc disorders with radiculopathy, lumbar region (principal); Z96.82 Presence of neurostimulator
CPT/HCPCS: 99212; G0463

== ENCOUNTER 2023-01-27 14:00 | Outpatient (RCR) | payer MEDICARE, BC, SELFPAY ==
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
== END 2023-01-27 14:05 | disposition home or self-care (01) ==
LOC: PT 14:00
PROVIDERS: PCP Internal Medicine Adolescent Medicine; Visit Provider Nurse Anesthetist, Certified Registered
DX: M54.6 Pain in thoracic spine (principal)
CPT/HCPCS: 97010; 97110; 97140; 97163

== ENCOUNTER 2024-01-02 11:52 | Outpatient (POV) | payer MEDICARE, BC, SELFPAY | END 2024-01-02 23:59 | disposition home or self-care (01) | LOC: SC 11:54 | PROVIDERS: PCP Internal Medicine Adolescent Medicine; Visit Provider Dermatology | DX: Z00.00 Encounter for general adult medical examination without abnormal findings (principal) ==

== ENCOUNTER 2024-02-01 16:03 | Outpatient (CLI) | payer MEDICARE, BC, SELFPAY ==
[2024-02-01 16:24] LABS: Basophils # 0.1 K/mm3 (0-0.2); Basophils % 1.1 % (0.1-2.0); Eosinophils # 0.2 K/mm3 (0.0-0.4); Eosinophils % 2.3 % (0.1-12.0); Hematocrit 55.2 % (37.0-47.0); Hemoglobin 17.5 g/dL (12.2-16.2); Lymphocytes # 2.3 K/mm3 (0.7-4.5); Lymphocytes % 21.6 % (10-50); Mean Corpuscular HGB Conc 31.7 g/dL (31.8-35.4); Mean Corpuscular Hemoglobin 31.5 pg (27.0-31.2); Mean Corpuscular Volume 99.5 fl (81-99); Mean Platelet Volume 7.9 fl (7.4-10.4); Monocytes # 0.5 K/mm3 (0.1-1.0); Neutrophils # 7.3 K/mm3 (1.8-7.8); Neutrophils % 69.9 % (37.0-80.0); Platelet Count 245 K/mm3 (142-424); Red Blood Count 5.55 M/mm3 (4.20-5.40); Red Cell Distribution Width 14.2 % (11.5-17.5); White Blood Count 10.5 K/mm3 (4.8-10.8)
[2024-02-01 16:57] LABS: Anion Gap 10.1 mEq/L (5-15); Blood Urea Nitrogen 10 mg/dl (7-17); Calcium 9.6 mg/dl (8.4-10.2); Carbon Dioxide 31 mmol/L (22.0-30.0); Chloride 102 mmol/L (98-107); Estimated Glomerular Filt Rate 42 ml/min (>60); GFR (African American) 51 ML/MIN (>60); Glucose 93 mg/dl (74-100); Potassium 4.1 mmoL/L (3.5-5.1); Sodium 139 mmol/L (136-145)
== END 2024-02-01 23:59 | disposition home or self-care (01) ==
LOC: LAB 16:05
PROVIDERS: PCP Internal Medicine Adolescent Medicine; Visit Provider Nurse Practitioner Family
DX: R30.0 Dysuria (principal); N32.89 Other specified disorders of bladder
CPT/HCPCS: 36415; 80048; 85025

== ENCOUNTER 2024-05-01 16:26 | Outpatient (CLI) | payer MEDICARE, BC, SELFPAY ==
--- NOTE | 2024-05-01 16:29 | MM_ITS ---
PROCEDURE INFORMATION: Exam: MG Bilateral Screening 3D Mammography Exam date and time: 05/01/2024 4:13 PM Age: 58 years old Clinical indication: Screening examination. Her mother (age 47) and maternal grandmother had breast cancer. TECHNIQUE: Imaging protocol: Bilateral Screening tomosynthesis and 2D mammography including computer-aided detection (CAD) when performed. COMPARISON: 1. MG JOANN DIAG VIJAY MAMMOGRAM 12/01/2022 10:47 AM 2. MG SCREENING VIJAY MAMMOGRAM 09/07/2021 11:54 AM 3. US BREAST RT LIMITED 12/01/2022 11:11 AM FINDINGS: MAMMOGRAPHY: Breast composition: The breasts are heterogeneously dense, which may obscure small masses. Mass: None. Architectural distortion: None. Calcifications: No suspicious calcifications. Asymmetric density: None. Skin thickening: None. Axillary adenopathy: None. IMPRESSION: No mammographic evidence of malignancy. Annual screening is recommended unless otherwise clinically indicated. Given the reported risk factors coupled with the patient's breast density, a breast cancer risk assessment may prove useful for further evaluation. ASSESSMENT: BI-RADS Category 1: Negative
== END 2024-05-01 23:59 | disposition home or self-care (01) ==
LOC: RAD 16:26
PROVIDERS: PCP Internal Medicine Adolescent Medicine; Visit Provider Internal Medicine Adolescent Medicine
DX: Z12.31 Encounter for screening mammogram for malignant neoplasm of breast (principal)
CPT/HCPCS: 77063; 77067

== ENCOUNTER 2024-06-04 11:37 | Outpatient (POV) | payer MEDICARE, BC, SELFPAY | END 2024-06-04 23:59 | disposition home or self-care (01) | LOC: SC 11:38 | PROVIDERS: PCP Internal Medicine Adolescent Medicine; Visit Provider Dermatology | DX: Z00.00 Encounter for general adult medical examination without abnormal findings (principal) ==

== ENCOUNTER 2024-12-11 16:34 | Outpatient (CLI) | payer MEDICARE, BC, SELFPAY | END 2024-12-11 23:59 | disposition home or self-care (01) | LOC: RT 16:35 | PROVIDERS: PCP Internal Medicine Adolescent Medicine; Visit Provider Internal Medicine Adolescent Medicine | DX: R00.2 Palpitations (principal) | CPT/HCPCS: 93225; 93226 ==

== ENCOUNTER 2024-12-24 13:38 | Outpatient (CLI) | payer MEDICARE, BC, SELFPAY | END 2024-12-24 23:59 | disposition home or self-care (01) | LOC: RT 13:40 | PROVIDERS: PCP Internal Medicine Adolescent Medicine; Visit Provider Internal Medicine Adolescent Medicine | DX: R55 Syncope and collapse (principal); R00.0 Tachycardia, unspecified | CPT/HCPCS: 93270 ==

== ENCOUNTER 2025-06-04 15:25 | Outpatient (CLI) | payer MEDICARE, BC, SELFPAY ==
--- OUTSIDE RECORDS SUMMARY | 2024-12-28 17:30 | XMS_ITS ---
Author Organization [facility] Address [address] [place] [address] Care Team Providers Care [employer] Personnel Specialist Name Role Phone Jerry Hill Primary Care Provider Migration, Provider Unavailable Unavailable Allergies Allergen (clinical drug ingredient) Drug/Non Drug Allergy documented on EMR Reaction Allergy Type Onset Date Status DEMEROL HCL (uncoded) Unknown Allergy Active TERRAMYCIN WITH POLYMYXIN B SULFATE (uncoded) Unknown Allergy Active lisinopril Lisinopril nausea, kidney pain Drug Allergy Active lorazepam Ativan Unknown Drug Allergy Active Penicillin Unknown Drug Allergy Active tetracycline Tetracycline Unknown Drug Allergy A ctive REASON FOR VISIT [facility] Conversion Encounter Medications Medication SIG (Take, Route, Frequency, Duration) Notes Start Date End Date Status hydrOXYzine Pamoate 25 MG 1 cap(s) orally 3 times a day for anxiety as needed; Duration: 14 day(s) 02/07/2022 Active ACCU CHECK SOFT CLICK LANCETS DIRECTED ONCE DAILY TO CHECK BLOOD SUGAR; Duration: 90 DAYS E11.69 *Please review for potential replacement for e-prescription and drug interaction check* 05/29/2018 Active ACCU-CHEK DANELLE PLUS MONITORING KIT USE ONCE DAILY TO CHECK BLOOD SUGAR E11.69 *Please review for potential replacement for e-prescription and drug interaction check* 05/29/2018 Active Vitamin D 1000MG 1 TAB ORALLY ONCE A DAY *Please review and pick correct strength-formulatio n from Medispan options. If intended option is not shown, discontinue and re-order from Quick Search* Active Prevagen 50 MCG 1 CAP(S) ORALLY ONCE A DAY *Please review and pick correct strength-formulatio n from Medispan options. If intended option is not shown, discontinue and re-order from Quick Search* Active Methocarbamol 500 MG 1-2 tab(s) orally 3 times a day prn; Duration: 15 days Active Belsomra 20 MG TAKE ONE TABLET BY MOUTH ONCE DAILY AT BEDTIME; Duration: 30 12/24/2024 Active Farxiga 10 MG TAKE ONE TABLET BY MOUTH EVERY DAY; Duration: 90 days Active Macrobid 100 MG 100 mg orally 2 times a day; Duration: 7 days 12/02/2024 Active Rybelsus 14 MG TAKE ONE TABLET BY MOUTH EVERY DAY; Duration: 90 Active Escitalopram Oxalate 20 MG 1 tab(s) orally once a day; Duration: 90 days Active Levothyroxine Sodium 50 MCG 1 tab(s) orally once a day; Duration: 90 days Active Losartan Potassium 25 MG 1 tab(s) orally once a day; Duration: 90 days Active Gemtesa 75 MG 1 tab(s) orally once a day; Duration: 90 days 07/23/2024 Active Fluticasone Propionate 50 MCG/ACT 1 spray(s) in each nostril 2 times a day; Duration: 30 Active Rosuvastatin Calcium 20 MG 1 tab(s) orally once a day; Duration: 90 days Active Vraylar 3 MG TAKE ONE CAPSULE BY MOUTH EVERY DAY; Duration: 90 Active ALBUTEROL (EQV-PROAIR HFA) 90 MCG/INH INHALE 2 PUFFS BY MOUTH FOUR TIMES DAILY NEEDED FOR WHEEZING; Duration: 25 *Please review for potential replacement for e-prescription and drug interaction check* Active ZOFRAN 4 MG 1 TAB(S) ORALLY 3 TIMES A DAY NEEDED FOR NAUSEA; Duration: 10 DAY(S) *Please review for potential replacement for e-prescription and drug interaction check* Active ACCUCHECK GUIDE METER AND TEST STRIPS FOR DIABETIC TESTING THREE TIMES DAILY *Please review for potential replacement for e-prescription and drug interaction check* 08/29/2022 Active ACCU-CHECK AVIA TEST STRIPS AND LANCETS FOR TESTING BLOOD SUGAR DIRECTED FOR ONCE A DAY TESTING; Duration: 90 DAYS *Please review for potential replacement for e-prescription and drug interaction check* 08/09/2022 Active Encounters Encounter Location Date Provider Diagnosis [facility] [address] [place] [address] 12/28/2024 Provider Migration Plan Of Treatment Medication Medication Name Sig Start Date Stop Date Notes Belsomra 20 MG TAKE ONE TABLET BY M OUTH ONCE DAILY AT BEDTIME; Duration: 30 12/24/2024 Next Appt Details Provider Name:Brenda Caraballo ce, 06/05/2025 09:30:00 AM, [address], [address], [place], [address], Progress Notes * Ceci TINAJERO LDOB:1965 (60 yo F)Acc No.[id number]:12/28/2024 Patient: Ceci WALDROP Provider: Naeem leblanc Migration :1965 A ge:59 Y S ex:Female Date:12/28/2024 Address:[address] [place] [address] [facility], [id number] Pcp:Jerry Hill Subjective: * Chief Complaints: * 1 . [facility] To [facility]pan Conversion Encounter. * Medical History: * Medications: T aking Prevagen 50 MCG CAPSULE 1 CAP(S) ORALLY ONCE A DAY , Notes to Pharmacist: *Please review and pick correct strength-formulation from Medispan options. If intended option is not shown, discontinue and re-order from Quick Search*, Taking Vitamin D 1000MG 1 TAB ORALLY ONCE A DAY , Notes to Pharmacist: *Please review and pick correct strength-formulation from Medispan options. If intended option is not shown, discontinue and re-order from Quick Search*, Taking ACCU-CHEK DANELLE PLUS MONITORING KIT USE ONCE DAILY TO CHECK BLOOD SUGAR , Notes to Pharmacist: E11.69 *Please review for potential replacement for e-prescription and drug interaction check*, Taking ACCU CHECK SOFT CLICK LANCETS DIRECTED ONCE DAILY TO CHECK BLOOD SUGAR , Notes to Pharmacist: E11.69 *Please review for potential replacement for e-prescription and drug interaction check*, Taking hydrOXYzine Pamoate 25 MG Capsule 1 cap(s) orally 3 times a day for anxiety as needed , Taking ACCU-CHECK AVIA TEST STRIPS AND LANCETS FOR TESTING BLOOD SUGAR DIRECTED FOR ONCE A DAY TESTING , Notes to Pharmacist: *Please review for potential replacement for e-prescription and drug interaction check*, Taking ACCUCHECK GUIDE METER AND TEST STRIPS FOR DIABETIC TESTING THREE TIMES DAILY , Notes to Pharmacist: *Please review for potential replacement for e-prescription and drug interaction check*, Taking ZOFRAN 4 MG TABLET 1 TAB(S) ORALLY 3 TIMES A DAY NEEDED FOR NAUSEA , Notes to Pharmacist: *Please review for potential replacement for e-prescription and drug interaction check*, Taking ALBUTEROL (EQV-PROAIR HFA) 90 MCG/INH AEROSOL INHALE 2 PUFFS BY MOUTH FOUR TIMES DAILY NEEDED FOR WHEEZING , Notes to Pharmacist: *Please review for potential replacement for e-prescription and drug interaction check*, Taking Vraylar 3 MG Capsule TAKE ONE CAPSULE BY MOUTH EVERY DAY , Taking Rosuvastatin Calcium 20 MG Tablet 1 tab(s) orally once a day , Taking Fluticasone Propionate 50 MCG/ACT Suspension 1 spray(s) in each nostril 2 times a day , Taking Gemtesa 75 MG Tablet 1 tab(s) orally once a day , Taking Losartan Potassium 25 MG Tablet 1 tab(s) orally once a day , Taking Levothyroxine Sodium 50 MCG Tablet 1 tab(s) orally once a day , Taking Escitalopram Oxalate 20 MG Tablet 1 tab(s) orally once a day , Taking Methocarbamol 500 MG Tablet 1-2 tab(s) orally 3 times a day prn , Taking Rybelsus 14 MG Tablet TAKE ONE TABLET BY MOUTH EVERY DAY , Taking Macrobid 100 MG Capsule 100 mg orally 2 times a day , Taking Farxiga 10 MG Tablet TAKE ONE TABLET BY MOUTH EVERY DAY * Allergies: P enicillin, TERRAMYCIN WITH POLYMYXIN B SULFATE, DEMEROL HCL, Ativan, Tetracycline, Lisinopril: nausea, kidney pain. Objective: * Vitals: Assessment: Plan: * Treatment: * * Electronic signature of Colni barrett Migration on 06/04/2025 at 03:28 PM EDT Sign off status: Pending * Provider: Naeem leblanc Migration Date: 12/28/2024 Generated for Migue duenas/Yesica/Liliana on: 06/04/2025 03:28 PM EDT
--- OUTSIDE RECORDS SUMMARY | 2025-04-10 04:45 | XMS_ITS ---
Author Organization [facility] CL[facility] Address [address] [facility] [address] [place] [address] Care Team Providers Care Elderly Caregiver Name Role Phone Jerry Hill Primary Care Provider [phone] Brenda Dang [phone] Allergies Allergen (clinical drug ingredient) Drug/Non Drug Allergy documented on EMR Reaction Allergy Type Onset Date Status DEMEROL HCL (uncoded) Unknown Allergy Active TERRAMYCIN WITH POLYMYXIN B SULFATE (uncoded) Unknown Allergy Active lisinopril Lisinopril nausea, kidney pain Drug Allergy Active lorazepam Ativan Unknown Drug Allergy Active Penicillin Unknown Drug Allergy Active tetracycline Tetracycline Unknown Drug Allergy A ctive Results Component Value Reference Range Notes Urinalysis Reviewed date:04/10/2025 11:38:23 AM Interpretation: Performing Lab: Notes/Report: Color/Clarity yellow Leuk neg Nitrite neg Urobili 0.2 Protein 30mg pH 6.5 Blood trave-intact Sp. Gr. 1.020 Ketone neg Bili neg Glucose 500 mg/dl CULTURE, URINE, ROUTINE (395 ) Reviewed date:04/17/2025 01:50:59 PM Interpretation: Performing Lab:CB, [facility] [id number], [id number] Pop Santamaria Notes/Report: NON-FASTING CULTURE, URINE, ROUTINE SEE NOTE CULTURE, URINE, ROUTINE Micro Number: [id number] Test Status: Final Specimen Source: Urine, clean catch Specimen Quality: Adequate Result: Mixed genital blanca isolated. These superficial bacteria are not indicative of a urinary tract infection. No further organism identification is warranted on this specimen. If clinically indicated, recollect clean-catch, mid-stream urine and transfer immediately to Urine Culture Transport Tube. REASON FOR VISIT Fatigue, nausea, kidney pain Medications Medication SIG (Take, Route, Frequency, Duration) Notes Start Date End Date Status Vitamin D 1000MG 1 TAB ORALLY ONCE A DAY *Please review and pick correct strength-formulati on from Mosec, Mobile Secretary options. If intended option is not shown, discontinue and re-order from Quick Search* Active Prevagen 50 MCG 1 CAP(S) ORALLY ONCE A DAY *Please review and pick correct strength-formulati on from Mosec, Mobile Secretary options. If intended option is not shown, discontinue and re-order from Quick Search* Active ACCU-CHEK DANELLE PLUS MONITORING KIT USE ONCE DAILY TO CHECK BLOOD SUGAR E11.69 *Please review for potential replacement for e-prescription and drug interaction check* 05/29/2018 Active Ondansetron HCl 4 MG 1 tablet Orally every 8 hours as needed for nausea/vomiting; Duration: 4 days 04/10/2025 Active Acetylcysteine 600 MG 1 capsule Orally Once a day Active Methocarbamol 500 mg TAKE 1 OR 2 TABLET(S) BY MOUTH THREE TIMES DAILY NEEDED MAY CAUSE DROWSINESS; Duration: 15 Active Ondansetron HCl 8 mg TAKE ONE TABLET BY MOUTH THREE TIMES DAILY; Duration: 14 Active Cefdinir 300 MG 300 mg Orally 2 times a day; Duration: 5 days 04/10/2025 Active Rosuvastatin Calcium 20 mg TAKE ONE TABLET BY MOUTH EVERY DAY; Duration: 90 Active Vraylar 3 MG TAKE ONE CAPSULE BY MOUTH EVERY DAY; Duration: 90 days Active Farxiga 10 MG TAKE ONE TABLET BY MOUTH EVERY DAY; Duration: 90 days Active Rybelsus 14 MG TAKE ONE TABLET BY MOUTH EVERY DAY; Duration: 90 Active Escitalopram Oxalate 20 MG 1 tab(s) orally once a day; Duration: 90 days Active Gemtesa 75 mg TAKE ONE TABLET BY MOUTH EVERY DAY; Duration: 90 Active Belsomra 20 MG TAKE ONE TABLET BY MOUTH ONCE DAILY AT BEDTIME; Duration: 30 12/24/2024 Active Fluticasone Propionate 50 MCG/ACT 1 spray(s) in each nostril 2 times a day; Duration: 30 Active ALBUTEROL (EQV-PROAIR HFA) 90 MCG/INH INHALE 2 PUFFS BY MOUTH FOUR TIMES DAILY NEEDED FOR WHEEZING; Duration: 25 *Please review for potential replacement for e-prescription and drug interaction check* Active Levothyroxine Sodium 50 MCG 1 tab(s) orally once a day; Duration: 90 days Active Losartan Potassium 25 MG 1 tab(s) orally once a day; Duration: 90 days Active ACCUCHECK GUIDE METER AND TEST STRIPS FOR DIABETIC TESTING THREE TIMES DAILY *Please review for potential replacement for e-prescription and drug interaction check* 08/29/2022 Active hydrOXYzine Pamoate 25 MG 1 cap(s) orally 3 times a day for anxiety as needed; Duration: 14 day(s) 02/07/2022 Active ACCU CHECK SOFT CLICK LANCETS DIRECTED ONCE DAILY TO CHECK BLOOD SUGAR; Duration: 90 DAYS E11.69 *Please review for potential replacement for e-prescription and drug interaction check* 05/29/2018 Active ACCU-CHECK AVIA TEST STRIPS AND LANCETS FOR TESTING BLOOD SUGAR DIRECTED FOR ONCE A DAY TESTING; Duration: 90 DAYS *Please review for potential replacement for e-prescription and drug interaction check* 08/09/2022 Active Vital Signs Temperature 97.7 degrees Fahrenheit 04/10/20 25 Heart Rate 84 /min 04/10/2025 Blood pressure systolic 120 mm Hg 04/10/20 25 Blood pressure diastolic 100 mm Hg 025 Height 5 ft in 04/10/2025 Weight 167.6 lbs 04/10/2025 BMI 32.73 kg/m2 04/10/2025 Encounters Encounter Location Date Provider Diagnosis [facility] [address] [facility] [address] [place] [address] 04/10/2025 Brenda Dang Dysuria R30.0 and Nausea R11.0 Assessments Encounter Date Diagnosis (ICD Code) Assessment Notes Treatment Notes Treatment Clinical Notes Section Notes 04/10/2025 Dysuria (ICD-10 - R30.0) Most recent urine culture with strep species. Recommend short course of cefdinir while waiting on culture to return. Encourage good hydration, return precautions reviewed 04/10/2025 Nausea (ICD-10 - R11.0) Plan Of Treatment Medication Medication Name Sig Start Date Stop Date Notes Ondansetron HCl 4 MG 1 tablet Orally live ry 8 hours as needed for nausea/vomiting; Duration: 4 days 04/10/2025 Cefdinir 300 MG 300 mg Orally 2 time s a day; Duration: 5 days 04/10/2025 Next Appt Details Follow Up: prn, Reason: Provider Name:Brenda L Rashmi ce, 06/05/2025 09:30:00 AM, [address], [address], [place], [address], Progress Notes * Ceci TINAJERO LDOB:1965 (59 yo F)Acc No.[id number]:04/10/2025 Progress Notes Patient: Ceci WALDROP Provider: SABA Elizalde :1965 A ge:59 Y S ex:Female Date:04/10/2025 Address:[address] [place] [address], [id number] Pcp:Jerry Hill Subjective: * Chief Complaints: * 1 . Fatigue, nausea, kidney pain. * HPI: g en: 59-year-old female with history of recurrent urinary tract infections and chronic kidney disease presents with about a 5-day history of pain in her kidney region , right side worse than the left but bilateral, dysuria that started during the night last night, fatigue, nausea but no vomiting. She denies fevers. No diarrhea or constipation. Has been several months since she's had these symptoms and really has been feeling quite well until just recently. * ROS: C ONSTITUTIONAL: Loss of appetite y es. n o F ever. n o W eakness. F atigue yes. D ERMATOLOGY: no R raj. G ASTROENTEROLOGY: Nausea y es. n o V omiting. n o D iarrhea.? * Medical History: H ypertension, High cholesterol, Electric shock injury-neuro stimulator implant, Pneumonia/h1n1, Ecmo-9 days, Ventilation-14 days, Hypothyroidism, DVT right side of neck, VRE in Urine, PTSD, Kidney stones, Squamous cell carcinoma, stage III chronic kidney disease. Normal Doppler ultrasound of renal arteries August 2020, Gastroparesis, Major depressive disorder with current active episode, unspecified depression episode severity, unspecified whether recurrent, Hematuria, Psoriasis, Normal mammogram 05/18. * Surgical History: n euro stimulator 2009, total hysterectomy 1999, partial hysterectomy 1998, gallbladder 2008, malignant polyp 1995, colonoscopy 04/2015, hormone replacement therapy , kidney stone extraction 12/2016, EGD/Colonoscopy 12/2017, battery changed in stimulator 08/22/18. * Hospitalization/Major Diagno stic Procedure: p artial hysterectomy 1998, total hysterectomy 1999, [facility] 12/07-12/12/2015, 12/11-01/04/2016, [facility] 01/03-01/07/2016, [facility] acute kidney failure 09/11, [facility] acute kidney failure 08/13-08/15/2020. * Family History: F ather: alive, low blood sugar, diagnosed with Hypertension, Heart Disease. M other: , lung and breast cancer, diagnosed with Cancer. P aternal Grand Father: unknown. P aternal Grand Mother: unknown. M aternal Grand Father: , pneumonia. M aternal Grand Mother: , stomach, diagnosed with Cancer. P aternal uncle: alive, family history unknown . Paternal aunt: alive, family history unknown . M aternal uncle: alive, aoritc aneurysm/cancer2 brothers have passed, diagnosed with Cancer. M aternal aunt: alive, aortic aneurysm, diagnosed with Stroke. S iblings: alive, 1 sister-blood cancer 2 sister-sarcodosis1 sister djd, hypertension, high cholesterol, diabetes. C hildren: alive, hypertension, hypothyroidism, kidney stones. 3 brother(s) , 4 sister(s) - healthy. 3 daughter(s) - healthy. . Maternal cousin- breast cancer. * Social History: S moking A re you a:: nonsmoker. R ecreational drug use: no. Exercise: no. Home smoke detector use: yes. Caffeine: yes, frequency:1 cup coffee daily. Living Will: No. Alcohol: no. Sexually active: no. Travel outside [place]: no. Occupation: disabled from . * Medications: T aking Acetylcysteine 600 MG Capsule 1 capsule Orally Once a day , Taking Prevagen 50 MCG CAPSULE 1 CAP(S) ORALLY [...] for e-prescription and drug interaction check*, Taking Fluticasone Propionate 50 MCG/ACT Suspension 1 spray(s) in each nostril 2 times a day , Taking Losartan Potassium 25 MG Tablet 1 tab(s) orally once a day , Taking Levothyroxine Sodium 50 MCG Tablet 1 tab(s) orally once a day , Taking Escitalopram Oxalate 20 MG Tablet 1 tab(s) orally once a day , Taking Rybelsus 14 MG Tablet TAKE ONE TABLET BY MOUTH EVERY DAY , Taking Farxiga 10 MG Tablet TAKE ONE TABLET BY MOUTH EVERY DAY , Taking Belsomra 20 MG Tablet TAKE ONE TABLET BY MOUTH ONCE DAILY AT BEDTIME , Taking Gemtesa 75 mg Tablet TAKE ONE TABLET BY MOUTH EVERY DAY , Taking Vraylar 3 MG Capsule TAKE ONE CAPSULE BY MOUTH EVERY DAY , Taking Rosuvastatin Calcium 20 mg Tablet TAKE ONE TABLET BY MOUTH EVERY DAY , Taking Ondansetron HCl 8 mg Tablet TAKE ONE TABLET BY MOUTH THREE TIMES DAILY , Taking Methocarbamol 500 mg Tablet TAKE 1 OR 2 TABLET(S) BY MOUTH THREE TIMES DAILY NEEDED MAY CAUSE DROWSINESS , Medication List reviewed and reconciled with the patient * Allergies: P enicillin, TERRAMYCIN WITH POLYMYXIN B SULFATE, DEMEROL HCL, Ativan, Tetracycline, Lisinopril: nausea, kidney pain. Objective: * Vitals: N urse: KJ, Pain: 5 kidney, Temp: 97.7, RR: 18, HR: 84, BP: 120/100, Ht: 5 ft, Wt: 167.6, BMI:32.73. * Examination: E NT/Respiratory: General Appearance : w ell nourished and hydrated, alert.? Oral Cavity n o erythema or exudate seen on pharynx. Neck : n o cervical lymphadenopathy. Heart : R RR, normal S1 S2. Lungs : c lear to auscultation bilaterally, no crackles or wheezes. Abdomen : s oft, NT/ND, BS present, mild tenderness bilat CVA region. Skin : c lear without rashes. Assessment: * Assessment: 1. D ysuria - R30.0 (Primary) 2 . N ausea - R11.0 Plan: * Treatment: Value Reference Range C ULTURE SEE NOTE - * This lab was reviewed by Jeffy Dang on 04/17/2025 at 13:50 PM EDT ?LAB: Urinalysis (Collection Date & Time - 04/10/2025)* Value Reference Range C olor/Clarity yellow * L euk neg * N itrite neg * U robili 0.2 * P rotein 30mg * p H 6.5 * B lood trave-intact * S p. Gr. 1.020 * K etone neg * B tiffanie neg * G lucose 500 mg/dl * This lab was reviewed by Jeffy Dang on 04/10/2025 at 11:38 AM EDT Clinical Notes: Most recent urine culture with strep species. Recommend short course of cefdinir while waiting on culture to return. Encourage good hydration, return precautions reviewed??2.?Nausea? Start Ondansetron HCl Tablet, 4 MG, 1 tablet, Orally, every 8 hours as needed for nausea/vomiting, 4 days, 12, Refills 0.?? * Procedure Codes: 8 1002 URINALYSIS, Modifiers: QW * Follow Up: p rn * * Sign off status: Completed true * Provider: SABA Elizalde Date: 04/10/2025 Generated for Migue duenas/Yesica/Liliana on: 06/04/2025 03:27 PM EDT History and Physical Notes * Examination Category Sub-Category Detail Notes Category Not es ENT/Respiratory Oral Cavity no erythema or exudate se en on pharynx Neck : no cervical lymphade nopathy Heart : RRR, normal S1 S2 Lungs : clear to auscultatio n bilaterally, no crackles or wheezes Abdomen : soft, NT/ND, BS pres ent, mild tenderness bilat CVA region General Appearance : well nourished and hydrated, alert Skin : clear without rashes
--- OUTSIDE RECORDS SUMMARY | 2025-05-27 08:50 | XMS_ITS ---
Author Organization [facility] Address [address] [facility] [address] [facility] [address] [place] [address] Care Team Providers Care Value Stream Coach Name Role Phone Jerry Hill Primary Care Provider Encounters Encounter Location Date Provider Diagnosis [facility] [address] [facility] [address] [facility] [address] [place] [address] 05/27/2025 Jerry Hlil Breast cancer screening by mammogram Z12.31 Assessments Encounter Date Diagnosis (ICD Code) Assessment Notes Treatment Notes Treatment Clinical Notes Section Notes 05/27/2025 Breast cancer screening by mammogram (ICD-10 - Z12.31) Plan Of Treatment Pending Test Test Name Order Date Mammogram : Bilateral 05/27/2025 Next Appt Details Provider Name:Brenda Caraballo ce, 06/05/2025 09:30:00 AM, [address] [facility] [address] [facility], [address], [place], [address], Progress Notes * Ceci TINAJERO LDOB:1965 (60 yo F)Acc No.[id number]:05/27/2025 Patient: Jasson Ceci ARREDONDO :1965 A ge:60 Y S ex:Female Address:[address] [facility] [place], [address] Subjective: * Chief Complaints: * * Medical History: * Surgical History: * Hospitalization/Major Diagno stic Procedure: * Medications: Objective: * Vitals: * Physical Examination: Assessment: * Assessment: 1. B reast cancer screening by mammogram - Z12.31 Plan: * Treatment: * Procedure Codes: * true * Date: Generated for Migue duenas/Yesica/Liliana on: 0 06/04/2025 03:27 PM EDT
--- OUTSIDE RECORDS SUMMARY | 2025-06-02 05:15 | XMS_ITS ---
Author Organization [facility] Address [address] [facility] [address] [place], [place] [address] Care Team Providers Care Manager Meeting Name Role Phone Jerry Hill Primary Care Provider Brenda Dang [phone] REASON FOR VISIT Headache, sinuses, flu shot Encounters Encounter Location Date Provider Diagnosis [facility] [address] [place], [place] [address] 06/02/2025 Brenda Dang Plan Of Treatment Next Appt Details Provider Name:Brenda Caraballo ce, 06/05/2025 09:30:00 AM, [address], [address], [place], [place], [address], Progress Notes * Ceci TINAJERO LDOB:1965 (60 yo F)Acc No.[id number]:06/02/2025 Progress Notes Patient: Jasson ARREDONDO Ressally Lazaro Provider: SABA Elizalde :1965 A ge:60 Y S ex:Female Date:06/02/2025 Address:[address] [id number] Pcp:Jerry Hill Subjective: * Chief Complaints: * 1 . Headache, sinuses, flu shot. * Medical History: Objective: * Vitals: Assessment: Plan: * Treatment: * * Electronic signature of Mala Dnag APRN on 06/04/2025 at 03:27 PM EDT Sign off status: Pending * Provider: SABA Elizalde Date: 0 06/02/2025 Generated for Migue duenas/Yesica/Liliana on: 0 06/04/2025 03:27 PM EDT
--- OUTSIDE RECORDS SUMMARY | 2025-06-04 15:27 | XMS_ITS | Patient Health Record ---
Author Organization [facility] Address [address] [facility] [address] [place] [address] Care Team Providers Care Audio/Video Engineer Name Role Phone Jerry Hill Primary Care Provider [phone] Brenda Dang Unavailable [phone] Migration, Provider Unavailable Unavailable Allergies Allergen (clinical [...] mg/dl CULTURE, URINE, ROUTINE (395 ) Reviewed date:12/06/2024 06:54:22 AM Interpretation: Performing Lab:CB, [facility], [facility]qjnEM[address] Pop Santamaria Notes/Report: NON-FASTING; NON-FASTING; NON-FASTING; NON-FASTING CULTURE, URINE, ROUTINE SEE NOTE CULTURE, URINE, ROUTINE Micro Number: [id number] Test Status: Final Specimen Source: Urine Specimen Quality: Adequate Result: 10,000-49,000 CFU/mL of Group B Streptococcus isolated Beta-hemolytic streptococci are predictably susceptible to Penicillin and other beta-lactams. Susceptibility testing not routinely performed. Please contact the laboratory within 3 days if susceptibility testing is desired. Comment: Erythromycin and clindamycin are not recommended for treatment of urinary tract infections, but clindamycin may be useful for treatment of rectovaginal colonization or infection. COMMENT: Additional non-predominating organism(s) isolated. These organisms, commonly found on external and internal genitalia, are considered colonizers. No further testing performed. CULTURE, URINE, ROUTINE (395 ) Reviewed date:04/17/2025 01:50:59 PM Interpretation: Performing Lab:[email or web address], GlobitelChvcBZ[address] Pop Santamaria Notes/Report: NON-FASTING CULTURE, URINE, ROUTINE SEE NOTE CULTURE, URINE, ROUTINE Micro Number: [id number] Test Status: Final Specimen Source: Urine, clean catch Specimen Quality: Adequate Result: Mixed genital blanca isolated. These superficial bacteria are not indicative of a urinary tract infection. No further organism identification is warranted on this specimen. If clinically indicated, recollect clean-catch, mid-stream urine and transfer immediately to Urine Culture Transport Tube. Urinalysis Reviewed date:12/03/2024 11:12:08 AM Interpretation: Performing Lab: Notes/Report: Color/Clarity yellow clear Leuk neg Nitrite neg Urobili 0.2 Protein 30mg pH 6.5 Blood mod Sp. Gr. 1.020 Ketone neg Bili small Glucose 1,000 MEASLES, MUMPS, AND RUBELLA (MMR) AB (IGG) PANEL, IMMUNE STATUS (5259) Reviewed date:12/06/2024 06:54:22 AM Interpretation: Performing Lab:[facility] Bl[address]OMET[address], GlobitelJgljQX[address] Pop Santamaria Notes/Report: NON-FASTING; NON-FASTING; NON-FASTING; NON-FASTING MEASLES AB (IGG), IMMUNE STATUS <13.50 AU/mL Interpretation ----- <13.50 Not consistent with immunity 13.50-16.49 Equivocal >16.49 Consistent with immunity The presence of measles IgG suggests immunization or past or current infection with measles virus. For additional information, please refer to http://education.Custom Coup.Binary Thumb/faq/THB690 (This link is being provided for informational/ educational purposes only.) MUMPS VIRUS AB (IGG), IMMUNE STATUS 297.00 AU/mL Interpretation ------- <9.00 Not consistent with immunity 9.00-10.99 Equivocal >10.99 Consistent with immunity The presence of mumps IgG antibody suggests immunization or past or current infection with mumps virus. RUBELLA AB (IGG), IMMUNE STATUS 1.29 Index Interpretation ----- <0.90 Not consistent with immunity 0.90-0.99 Equivocal > or = 1.00 Consistent with immunity The presence of rubella IgG antibody suggests immunization or past or current infection with rubella virus. COMPREHENSIVE METABOLIC ALLI Lazaro (68491) Reviewed date:12/03/2024 11:11:46 AM Interpretation: Performing Lab:DARIANA, [facility] [facility] Pop Santamaria Notes/Report: NON-FASTING; NON-FASTING; NON-FASTING; NON-FASTING GLUCOSE 101 65-99 mg/dL follow-up test. Fasting reference interval For someone without known diabetes, a glucose value between 100 and 125 mg/dL is consistent with prediabetes and should be confirmed with a UREA NITROGEN (BUN) 11 7-25 mg/dL CREATININE 1.45 0.50-1.03 mg/dL EGFR 42 > OR = 60 mL/min/1.73m2 BUN/CREATININE RATIO 8 6-22 (calc) SODIUM 140 135-146 mmol/L POTASSIUM 3.9 3.5-5.3 mmol/L CHLORIDE 107 98-110 mmol/L CARBON DIOXIDE 25 20-32 mmol/L CALCIUM 9.8 8.6-10.4 mg/dL PROTEIN, TOTAL 6.7 6.1-8.1 g/dL ALBUMIN 4.3 3.6-5.1 g/dL GLOBULIN 2.4 1.9-3.7 g/dL (calc) ALBUMIN/GLOBULIN RATIO 1.8 1.0-2.5 (calc) BILIRUBIN, TOTAL 0.4 0.2-1.2 mg/dL ALKALINE PHOSPHATASE 76 37-153 U/L AST 26 10-35 U/L ALT 23 6-29 U/L THYROID PANEL WITH TSH (7444 ) Reviewed date:01/13/2025 01:50:42 PM Interpretation: Performing Lab:D[facility]IANA [facility] [email or web address], [facility] HospitalRbvuXT[address] Pop Santamaria Notes/Report: NON-FASTING; NON-FASTING; NON-FASTING T3 UPTAKE 28 22-35 % T4 (THYROXINE), TOTAL 7.5 5.1-11.9 mcg/dL FREE T4 INDEX (T7) 2.1 1.4-3.8 TSH 0.75 0.40-4.50 mIU/L COMPREHENSIVE METABOLIC PANE L (97744) Reviewed date:01/13/2025 01:50:42 PM Interpretation: Performing Lab:D[facility]IANA [facility], [facility] HospitalJitjST[address] Pop Santamaria Notes/Report: NON-FASTING; NON-FASTING; NON-FASTING GLUCOSE 74 65-99 mg/dL Fasting reference interval UREA NITROGEN (BUN) 14 7-25 mg/dL CREATININE 1.13 0.50-1.03 mg/dL EGFR 56 > OR = 60 mL/min/1.73m2 BUN/CREATININE RATIO 12 6-22 (calc) SODIUM 139 135-146 mmol/L POTASSIUM 3.9 3.5-5.3 mmol/L CHLORIDE 106 98-110 mmol/L CARBON DIOXIDE 26 20-32 mmol/L CALCIUM 9.4 8.6-10.4 mg/dL PROTEIN, TOTAL 6.6 6.1-8.1 g/dL ALBUMIN 4.2 3.6-5.1 g/dL GLOBULIN 2.4 1.9-3.7 g/dL (calc) ALBUMIN/GLOBULIN RATIO 1.8 1.0-2.5 (calc) BILIRUBIN, TOTAL 0.6 0.2-1.2 mg/dL ALKALINE PHOSPHATASE 76 37-153 U/L AST 28 10-35 U/L ALT 23 6-29 U/L CBC (INCLUDES DIFF/PLT) (639 9) Reviewed date:01/13/2025 01:50:43 PM Interpretation: Performing Lab:DARIANA, [facility] [facility] Pop Santamaria Notes/Report: NON-FASTING; NON-FASTING; NON-FASTING WHITE BLOOD CELL COUNT 9.1 3.8-10.8 Thousand/ uL RED BLOOD CELL COUNT 5.67 3.80-5.10 Million/uL HEMOGLOBIN 18.0 11.7-15.5 g/dL HEMATOCRIT 54.1 35.0-45.0 % MCV 95.4 80.0-100.0 fL MCH 31.7 27.0-33.0 pg MCHC 33.3 32.0-36.0 g/dL For adults, a slight decrease in the calculated MCHC value (in the range of 30 to 32 g/dL) is most likely not clinically significant; however, it should be interpreted with caution in correlation with other red cell parameters and the patient's clinical condition. RDW 14.5 11.0-15.0 % PLATELET COUNT 229 140-400 Thousand/uL MPV 10.9 7.5-12.5 fL ABSOLUTE NEUTROPHILS [phone] cells/uL ABSOLUTE LYMPHOCYTES 2330 850-3900 cells/uL ABSOLUTE MONOCYTES 610 200-950 cells/uL ABSOLUTE EOSINOPHILS 437 15-500 cells/uL ABSOLUTE BASOPHILS 36 0-200 cells/uL NEUTROPHILS 62.5 LYMPHOCYTES 25.6 MONOCYTES 6.7 EOSINOPHILS 4.8 BASOPHILS 0.4 CBC (INCLUDES DIFF/PLT) (639 9) Reviewed date:12/03/2024 11:11:46 AM Interpretation: Performing Lab:CB, [facility] [facility] Pop Santamaria Notes/Report: NON-FASTING; NON-FASTING; NON-FASTING; NON-FASTING WHITE BLOOD CELL COUNT 10.7 3.8-10.8 Thousand/ uL RED BLOOD CELL COUNT 5.85 3.80-5.10 Million/uL HEMOGLOBIN 18.8 11.7-15.5 g/dL HEMATOCRIT 54.2 35.0-45.0 % MCV 92.6 80.0-100.0 fL MCH 32.1 27.0-33.0 pg MCHC 34.7 32.0-36.0 g/dL condition. value (in the range of 30 to 32 g/dL) is most likely not clinically significant; however, it should be interpreted with caution in correlation with other red cell parameters and the patient's clinical For adults, a slight decrease in the calculated MCHC RDW 13.4 11.0-15.0 % PLATELET COUNT 239 140-400 Thousand/uL MPV 11.0 7.5-12.5 fL ABSOLUTE NEUTROPHILS 7533 2624-4774 cells/uL ABSOLUTE LYMPHOCYTES 2268 850-3900 cells/uL ABSOLUTE MONOCYTES 760 200-950 cells/uL ABSOLUTE EOSINOPHILS 75 15-500 cells/uL ABSOLUTE BASOPHILS 64 0-200 cells/uL NEUTROPHILS 70.4 LYMPHOCYTES 21.2 MONOCYTES 7.1 EOSINOPHILS 0.7 BASOPHILS 0.6 Reason For Referral No Information Medications Medication SIG (Take, Route, Frequency, Duration) Notes Start Date End Date Status Fluticasone Propionate 50 MCG/ACT 1 spray(s) in each nostril 2 times a day; Duration: 30 Active Methocarbamol 500 mg TAKE 1 OR 2 TABLET(S) BY MOUTH THREE TIMES DAILY NEEDED MAY CAUSE DROWSINESS; Duration: 15 Active Farxiga 10 mg TAKE ONE TABLET BY MOUTH EVERY DAY; Duration: 90 Active Levothyroxine Sodium 50 MCG 1 tab(s) orally once a day; Duration: 90 days Active Escitalopram Oxalate 20 mg TAKE ONE TABLET BY MOUTH EVERY DAY; Duration: 30 Active Ondansetron HCl 4 MG 1 tablet Orally every 8 hours as needed for nausea/vomiting; Duration: 4 days 04/10/2025 Active ALBUTEROL (EQV-PROAIR HFA) 90 MCG/INH INHALE 2 PUFFS BY MOUTH FOUR TIMES DAILY NEEDED FOR WHEEZING; Duration: 25 *Please review for potential replacement for e-prescription and drug interaction check* Active Acetylcysteine 600 MG 1 capsule Orally Once a day Active hydrOXYzine Pamoate 25 MG 1 cap(s) orally 3 times a day for anxiety as needed; Duration: 14 day(s) 02/07/2022 Active Gemtesa 75 mg TAKE ONE TABLET BY MOUTH EVERY DAY; Duration: 90 Active Losartan Potassium 25 mg TAKE ONE TABLET BY MOUTH EVERY DAY; Duration: 30 Active ACCU CHECK SOFT CLICK LANCETS DIRECTED ONCE DAILY TO CHECK BLOOD SUGAR; Duration: 90 DAYS E11.69 *Please review for potential replacement for e-prescription and drug interaction check* 05/29/2018 Active ACCUCHECK GUIDE METER AND TEST STRIPS FOR DIABETIC TESTING THREE TIMES DAILY *Please review for potential replacement for e-prescription and drug interaction check* 08/29/2022 Active Rosuvastatin Calcium 20 mg TAKE ONE TABLET BY MOUTH EVERY DAY; Duration: 90 Active ACCU-CHECK AVIA TEST STRIPS AND LANCETS FOR TESTING BLOOD SUGAR DIRECTED FOR ONCE A DAY TESTING; Duration: 90 DAYS *Please review for potential replacement for e-prescription and drug interaction check* 08/09/2022 Active Vraylar 3 MG TAKE ONE CAPSULE BY MOUTH EVERY DAY; Duration: 90 days Active Vitamin D 1000MG 1 TAB ORALLY ONCE A DAY *Please review and pick correct strength-formulati on from [employer] options. If intended option is not shown, discontinue and re-order from Quick Search* Active Rybelsus 14 MG TAKE ONE TABLET BY MOUTH EVERY DAY; Duration: 90 Active Belsomra 20 mg TAKE ONE TABLET BY MOUTH ONCE DAILY AT BEDTIME; Duration: 30 05/02/2025 Active Prevagen 50 MCG 1 CAP(S) ORALLY ONCE A DAY *Please review and pick correct strength-formulati on from Clan Fight options. If intended option is not shown, discontinue and re-order from Quick Search* Active Ondansetron HCl 8 mg TAKE ONE TABLET BY MOUTH THREE TIMES DAILY; Duration: 14 Active ACCU-CHEK DANELLE PLUS MONITORING KIT USE ONCE DAILY TO CHECK BLOOD SUGAR E11.69 *Please review for potential replacement for e-prescription and drug interaction check* 05/29/2018 Active Cipro 250 MG 1 tablet Orally every 12 hrs; Duration: 5 days 04/17/2025 Active Immunizations Vaccine Route Administration Date Status Comme nts SHINGRIX Unknown 09/27/2023 Administered SHINGRIX Unknown 01/16/2024 Administered Prevnar PCV-20 (Pneumococcal conjugate 20) IM Intramuscular 07/23/2024 Administered Pneumovax 23 IM Intramuscular 08/17/2016 Administered Influenza-Fluzone 3+years (NON-MEDICARE) IM Intramuscular 05/24/2017 Administered Influenza-Fluzone 3+years (NON-MEDICARE) Unknown 11/24/2017 Administered Influenza (Fluzone)--Medicare only IM Intramuscular 05/25/2018 Administered FLUZONE 6MO - OLDER IM Intramuscular 06/12/2019 Administer ed FLUZONE 6MO - OLDER IM Intramuscular 06/28/2023 Administer ed Fluvirin--Influenza vaccine 3+ year IM Intramuscular 06/03/2016 Administered Flublok IM Intramuscular 06/15/2020 Administered Flublok IM Intramuscular 06/14/2021 Administered Flublok IM Intramuscular 06/13/2022 Administered Flublok IM Intramuscular 06/03/2024 Administered Problems Problem Type SNOMED Code ICD Code Onset Dates Problem Status W/U Status Risk Notes Problem Type 2 diabetes mellitus with other specified complication (E11.69) Active confirmed Problem Obesity (474093399) Obesity, unspecified (E66.9) Active confirmed Problem Hypercalcemia (46568643) Hypercalcemia (E83.52) Active confirmed Problem Primary insomnia (6187714) Primary insomnia (F51.01) Active confirmed Problem Hemiplegia (82357152) Hemiplegia, unspecified affecting unspecified side (G81.90) Active confirmed Problem Allergic rhinitis (47765717) Other allergic rhinitis (J30.89) Active confirmed Problem Gastroparesis (734242458) Gastroparesis (K31.84) Active confirmed Problem Slow transit constipation (96689979) Slow transit constipation (K59.01) Active confirmed Problem Spasm of back muscles (775112830) Muscle spasm of back (M62.830) Active confirmed Problem Urge incontinence of urine (28102801) Urge incontinence (N39.41) Active confirmed Problem Vaccination given (883447480) Encounter for immunization (Z23) Active confirmed Problem Vitamin B12 deficiency (733098098) Vitamin B12 deficiency (E53.8) Active confirmed Problem Hypothyroidism (76605222) Hypothyroidism (acquired) (E03.9) Active confirmed Problem Anxiety (81166513) Anxiety (F41.9) Active confi rmed Problem Vitamin D deficiency (23051506) Vitamin D deficiency (E55.9) Active confirmed Problem Type II diabetes mellitus without complication (910216136) Diabetes mellitus type 2, noninsulin dependent (E11.9) Active confirmed Problem Hyperlipidemia (24080537) Hyperlipemia, idiopathic familial (E78.5) Active confirmed Problem Mild cognitive impairment (753084846) Mild cognitive impairment (G31.84) Active confirmed Problem Essential hypertension (18376001) Hypertension, essential (I10) Active confirmed Problem Urinary frequency (211599867) Urinary frequency (R35.0) Active confirmed Problem Restless legs syndrome (84597943) Restless leg syndrome (G25.81) Active confirmed Problem Major depression single episode, in partial remission (09701520) Major depression single episode, in partial remission (F32.4) Active confirmed Problem Gastroesophageal reflux disease (603662279) Gastroesophageal reflux disease, esophagitis presence not specified (K21.9) Active confirmed Problem Exercise-induced asthma (79366153) Exercise-induced asthma (J45.990) Active confirmed Problem Posttraumatic stress disorder (37500618) PTSD (post-traumatic stress disorder) (F43.10) Active confirmed Problem Chronic fatigue syndrome (09658332) Chronic fatigue (R53.82) Active confirmed Problem Chronic kidney disease stage 2 (666183198) Chronic kidney disease (CKD) stage G2/A1, mildly decreased glomerular filtration rate (GFR) between 60-89 mL/min/1.73 square meter and albuminuria creatinine ratio less than 30 mg/g (N18.2) Active confirmed Problem History of nephrolithiasis (532652341) History of nephrolithiasis (Z87.442) Active confirmed Problem Memory impairment (850185944) Memory impairment (R41.3) Active confirmed Problem Iron deficiency anemia (45771308) Iron deficiency anemia, unspecified iron deficiency anemia type (D50.9) Active confirmed Problem Localized, primary osteoarthritis of the hand (999075190) Primary osteoarthritis of left hand (M19.042) Active confirmed Problem Recurrent major depression in remission (02609650) Recurrent major depressive disorder, in partial remission (F33.41) Active confirmed Problem Spasm of bladder (685370676) Bladder spasms (N32.89) Active confirmed Problem Chronic deep vei n thrombosis (DVT) of non-extremity vein (I82.91) Active confirmed Problem Adult health examination (654474386) Healthcare maintenance (Z00.00) Active confirmed Problem Primary hypertension (46109515) Primary hypertension (I10) Active confirmed Problem Irritable bowel syndrome characterized by constipation (695511429) Irritable bowel syndrome with constipation (K58.1) Active confirmed Problem Microscopic hematuria (110116157) Microscopic hematuria (R31.29) Active confirmed Problem Lung field abnormal (026815157) Infiltrate of lung present on imaging of chest (R91.8) Active confirmed Problem Chronic kidney disease stage 3 (disorder) (309746430) Stage 3 chronic kidney disease (N18.3) Active confirmed Problem Myofascial pain (617981144) Myofascial pain (M79.1) Active confirmed Problem Hypokalemia (57595454) History of hypokalemia (Z86.39) Active confirmed Problem Hyperlipidemia (63010375) Other hyperlipidemia (E78.49) Active confirmed Problem Chronic sinusitis (46141459) Recurrent sinus infections (J32.9) Active confirmed Problem Major depression, single episode (43933495) Major depressive disorder, remission status unspecified, unspecified whether recurrent (F32.9) Active confirmed Problem Chronic kidney disease stage 3A (disorder) (791314436) Chronic kidney disease, stage 3a (N18.31) Active confirmed Problem Chronic kidney disease stage 3 (disorder) (270735240) Stage 3 chronic kidney disease, unspecified whether stage 3a or 3b CKD (N18.30) Active confirmed Problem Acute cough (516255329236202925 ) Acute cough (R05.1) Active confirmed Vital Signs Heart Rate 84 /min 04/10/2025 Temperature 97.7 degrees Fahrenheit 04/10/2025 Blood pressure diastolic 100 mm Hg 04/10/2025 Height 5 ft in 04/10/2025 Blood pressure systolic 120 mm Hg 04/10/2025 Weight 167.6 lbs 04/10/2025 BMI 32.73 kg/m2 04/10/2025 Encounters Encounter Location Date Provider Diagnosis [facility] [address] [place] [address] 11/21/2024 Jerry Hill [facility] [address] [place] [address] 12/28/2024 Provider Migration [facility] [address] [place], [place] [address] 06/08/2024 Jerry Hill Memory impairment R41.3 and Major depressive disorder, remission status unspecified, unspecified whether recurrent F32.9 [facility] [address] [place], [place] [address] 07/23/2024 Jerry Hill Urge incontinence N39.41 ; Recurrent major depressive disorder, in partial remission F33.41 ; Type 2 diabetes mellitus with other specified complication E11.69 ; Hypertension, essential I10 ; Encounter for immunization Z23 and Routine medical exam Z00.00 [facility] [address] [facility] [address] [place] [address] 09/04/2024 Jerry Besson Memory impairment R41.3 [facility] [address] [place] [address] 12/02/2024 Jrery Besson Nausea R11.0 ; Microscopic hematuria R31.29 and Immunity status testing Z01.84 [facility] [address] [facility] [address] [place] [address] 12/11/2024 Jerry Besson Palpitations R00.2 [facility] [address] [place] [address] 01/08/2025 Jerry Besson Hypothyroidism (acquired) E03.9 ; Hemiplegia, unspecified affecting unspecified side G81.90 ; Recurrent major depressive disorder, in partial remission F33.41 ; Iron deficiency anemia, unspecified iron deficiency anemia type D50.9 and Cognitive impairment R41.89 [facility] [address] [facility] [address] [place] [address] 04/10/2025 Brenda Laurence Dysuria R30.0 and Nausea R11.0 [facility] [address] [facility] [address] [place] [address] 07/09/2024 Jerry Besson [facility] [address] [address] 07/11/2024 Jerry Besson [facility] [address] [place] [address] 12/18/2024 Jerry Besson Tachycardia R00.0 an d Syncope R55 [facility] [address] [facility] [address] [place] [address] 04/17/2025 Brenda Laurence Dysuria R30.0 [facility] [address] [facility] [address] [place] [address] 05/27/2025 Jerry Besson Breast cancer screening by mammogram Z12.31 Assessments Encounter Date Diagnosis (ICD Code) Assessment Notes Treatment Notes Treatment Clinical Notes Section Notes 06/08/2024 Memory impairment (ICD-10 - R41.3) MoCA test done by me personally. Results which is normal. Patient did a great job with executive functioning, points lost were in serial subtraction and 4/5 word recall. Patient's memory testing is pending. Will call patient and schedule memory care evaluation for delivery of care plan 06/08/2024 Major depressive disorder, remission status unspecified, unspecified whether recurrent (ICD-10 - F32.9) Discussed impact of depressive disorder on functioning. She notices that when she is more stressed she tends to lose some memory and organizational skills. I certainly think this is reasonable. However given her normal MoCA score and stabilization at this point we will await packet from [facility] and see if there is any supplements that might be more helpful 07/23/2024 Urge incontinence (ICD-10 - N39.41) Restart medication. Samples given for a week. Patient has failed other medications and has significant risk of side effects such as balance problems from other medicine such as Detrol or Myrbetriq 07/23/2024 Recurrent major depressive disorder, in partial remission (ICD-10 - F33.41) Stable on S-Citalopram and conduction with Vraylar. Good mood. Seems to be dealing well with her 's mental issues. 09/04/2024 Memory impairment (ICD-10 - R41.3) Patient had dementia panel done at her last visit that showed average lifetime risk Of Alzheimer's disease specifically. I do not believe she qualifies for medication for memory loss right now. Recommened the patient take thiamine 50mg daily for 7 days and start taking NAC. I also recommeded the patient start walking one mile at the local park 3-4 times a week. We discussed the benefit of exercise for the brain and how it is like a medication for the mind. She is agreeable to the plan and will follow up with her in 4 months to repeat MoCA. I emphasized to patient, and daughter that patient does not have any contraindications to signing legal or financial documents, she currently is of sound of mind Would redo MoCA as noted above. Long discussion about memory care plan and helps to improve memory as noted 12/02/2024 Nausea (ICD-10 - R11.0) Check renal function and CBC given her vague feelings of unwellness 12/02/2024 Microscopic hematuria (ICD-10 - R31.29) Given microscopic hematuria and her symptoms most likely diagnosis is cystitis, will start Macrobid while waiting for other labs and urine culture. 12/11/2024 Palpitations (ICD-10 - R00.2) EKG normal, but given her symptomatology and significant time length of quivering symptoms will get 48-hour Holter. Reviewed previous labs that showed normal electrolytes, will check 48-hour Holter and see if further labs would be indicated. Discussed with her ablative therapies such as ice pack on her face and some Valsalva and that if she has another 5 or 10-minute episode of quivering probably needs to go to the ER 12/18/2024 Tachycardia (ICD-10 - R00.0) 01/08/2025 Hemiplegia, unspecified affecting unspecified side (ICD-10 - G81.90) 01/08/2025 Hypothyroidism (acquired) (ICD-10 - E03.9) on chronic T4 replacement last TFT WNL recheck today iso reported short term memory issues 04/10/2025 Nausea (ICD-10 - R11.0) 04/10/2025 Dysuria (ICD-10 - R30.0) Most recent urine culture with strep species. Recommend short course of cefdinir while waiting on culture to return. Encourage good hydration, return precautions reviewed 04/17/2025 Dysuria (ICD-10 - R30.0) 05/27/2025 Breast cancer screening by mammogram (ICD-10 - Z12.31) 01/08/2025 Recurrent major depressive disorder, in partial remission (ICD-10 - F33.41) 12/18/2024 Syncope (ICD-10 - R55) 12/02/2024 Immunity status testing (ICD-10 - Z01.84) Check MMR titers. Will review personally 07/23/2024 Type 2 diabetes mellitus with other specified complication (ICD-10 - E11.69) A1c has been well-controlled. No need for labs 07/23/2024 Hypertension, essential (ICD-10 - I10) Good blood pressure control, no changes 01/08/2025 Iron deficiency anemia, unspecified iron deficiency anemia type (ICD-10 - D50.9) Repeat CBC today 07/23/2024 Encounter for immunization (ICD-10 - Z23) 01/08/2025 Cognitive impairment (ICD-10 - R41.89) MOCA performed in office today = She got 5/5 for executive function; 3/3 naming; 3/3 attention; 2/3 language; 2/2 abstraction; 4/5 delayed recal; and 6/6 for orientation B12 and folate WNL; BP well controlled. Will check thyroid function today advised patient to participate in new/challenging activities 07/23/2024 Routine medical exam (ICD-10 - Z00.00) Has had colonoscopy and mammograms. Has had DEXA. Non-smoker. Mental health in a good place. Depression screening positive but adequately treated. Functional status excellent. Daughters are healthcare surrogates. Prevnar 20 today. Otherwise vaccines are up-to-date until she is turned 60 and insurance will cover RSV Plan Of Treatment Pending Test Test Name Order Date Ultrasound : Carotids 02/08/2016 EKG : In House 01/25/2016 Holter Monitor : Event Recorder 12/19/19 Mammogram : Bilateral 05/27/2025 Holter Monitor, 48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
--- OUTSIDE RECORDS SUMMARY | 2025-06-04 15:27 | XMS_ITS | Clinical Summary ---
Author Organization [facility] Address [address] [place] [address] Care Team Providers Care Customer Service Technician Name Role Phone Provider, No Known Primary Care Provider Unavail able Social History Tobacco Use Types Packs/Day Years Used Date Smoking Tobacco: Never Assessed Abuse Screen Answer Date Recorded Unsafe at Home or Work/School Not on file Feels Threatened by Someone? Not on file 08/2023 Does Anyone Keep You from Co ntacting Others or Doint Things Outside the Home? Not on file 07/06/2023 Physical Sign of Abuse Present Not on file 1 Housing Stability Answer Date Recorded Current Living Arrangements Not on file 06/25 Potentially Unsafe Housing Conditions Not on hillary e 07/06/2023 Family and Community Support Answer Terrence e Recorded Help with Day-to-Day Activities Not on file 07/06/2023 Lonely or Isolated Not on file 07/06/2023 Employment Answer Date Recorded Do you want help finding or keeping work or a anju b? Not on file 07/06/2023 Disabilities Answer Date Recorded Concentrating, Remembering, or Making Decisions Difficulty Not on file 07/06/2023 Doing Errands Independently Difficulty Not on fi le 07/06/2023 Education Answer Date Recorded Help with school or training? Not on file Preferred Language Not on file 07/06/2023 Comments Unknown Sex and Gender Information Value Date Recorded Sex Assigned at Not on file Legal Sex Female 11:08 AM EDT Gender Identity Not on file Sexual Orientation Not on file Plan of Treatment Health Maintenance Due Date Last Done Comments ANNUAL PHYSICAL 1965 Annual Gynecologic Pelvic and Breast Exam 1965 HEPATITIS C SCREENING 1965 TDAP/TD VACCINES (1 - Tdap) 1984 MAMMOGRAM 2005 COLOGUARD 2010 COLON CANCER SCREENING 5 YEAR SIGMOIDOSCOPY 2010 COLONOSCOPY 2010 [address]AL CANCER SCREENING 2010 CT COLONOGRAPHY 2010 FECAL OCCULT BLOOD TEST 2010 FIT Testing (1 year) 2010 Pneumococcal Vaccine 50+ (1 of 1 - PCV) 2015 ZOSTER VACCINE (1 of 2) 2015 COVID-19 Vaccine (1 - season) 2025 INFLUENZA VACCINE 06/25/2025 Insurance MEDICARE A & B Member Subscriber Plan / Payer (Ef fective 2013-Present) Name:Ceci Velasquez Member ID:[id number] Relation to Subscriber:Self Name:Ceci Velasquez Subscriber ID:[id number] Payer ID:[id number] Group ID:Not on file Type:Not on file Address[address] Care Teams Customer Service Technician Relationship Specialty Start Date End Date Provider, No Known [facility] [place] [address] PCP - General 04/16/19
--- OUTSIDE RECORDS SUMMARY | 2025-06-04 15:27 | XMS_ITS | Clinical Summary ---
Author Organization [facility] Address [address] [place] [address] Care Team Providers Care Strike Out Machine Operator Name Role Phone Jerry Hill MD Primary Care Provider [phone] Allergies Active Allergy Reactions Criticality Noted Date Comments Lorazepam Other - please docum ent in the comment field,Unknown - Patient states they do not know rxn details Low 12/17/2015 Meperidine Nausea,Other - pleas e document in the comment field Low 12/12/2015 nausea and vomiting Penicillins Rash,Unknown - Patie nt states they do not know rxn details Low 12/12/2015 Tetracycline Headache,Nausea Low 07/06/2020 Medications buPROPion XL (Wellbutrin XL) 300 MG 24 hr tablet TAKE 1 TABLET DAILY. 0 Active carvedilol (Coreg) 6.25 MG tablet TAKE 1 TABLET TWICE DAILY WITH MEALS. 6 Active coenzyme Q-10 100 MG capsule TAKE 1 CAPSULE Daily 8 Active rosuvastatin (Crestor) 20 MG tablet TAKE 1 TABLET DAILY. 6 Active cyclobenzaprine (Flexeril) 10 MG tablet TAKE 1 TABLET TWICE DAILY NEEDED. 8 Active fluticasone (Flonase) 50 MCG/ACT nasal spray 0 Active canagliflozin (Invokana) 100 MG TAKE 1 TABLET BY MOUTH ONCE DAILY 30 MINS BEFORE BREAKFAST 0 Active potassium chloride CR (KLOR-CON) 20 MEQ ER tablet TAKE 2 TABLETS TWICE DAILY 8 Active lansoprazole (Prevacid) [address] capsule TAKE 1 CAPSULE EVERY MORNING DAILY. 6 Active linaCLOtide (Linzess) 290 MCG capsule TAKE 1 CAPSULE Daily 8 Active lisinopril 5 MG tablet TAKE 1 TABLET DAILY DIRECTED. 0 Active cholecalciferol (Vitamin D-3) 125 MCG (5000 UT) capsule Take 1 capsule twice daily 0 Active cetirizine (ZyrTEC ALLERGY) 10 MG tablet TAKE 1 TABLET DAILY. 0 Active CARIPRAZINE HCL PO Take by mouth. Activ e Levothyroxine Sodium (SYNTHROID PO) Take by mouth. Active BUSPIRONE HCL PO Take by mouth. Activ e sertraline (Zoloft) 50 MG tablet 1 Active metoclopramide (Reglan) 10 MG tablet 1 Active estradiol (Vivelle-DOT) 0.05 MG/24HR APPLY 1 PATCH TWICE WEEKLY 1 Active cetirizine (ZyrTEC) 10 MG tablet 1 (one) time each day. Active cholecalciferol (Vitamin D3) 125 MCG (5000 UT) capsule Vitamin D3 5000iu x 2 pills daily Active Active Problems Problem Noted Date Diagnosed Date Diabetes mellitus type 2 in obese 08/14/2020 Overview (12/25/2023): Diagnosis replaced per IMO Regulatory Update December 25, 2023 Calcium nephrolithiasis 07/07/2020 Proteinuria 07/07/2020 Hypokalemia 07/06/2020 CKD (chronic kidney disease) stage 3, GFR 30-59 ml/min 06/03/2020 Migraines 07/25/2018 Immunizations Immunization Administration Dates Next Due Influenza, injectable, quadrivalent, preservativ e free 01/04/2016 [employer] COVID-19 Vaccine (Purple Cap) 12 + 01/04/2021,12/14/2020 Family History Medical History Relation Name Comments Cardiac disorder Father Diabetes Father Hyperlipidemia Father Hypertension Father Hip fracture Mother Hyperlipidemia Mother Hypertension Mother Osteoporosis Mother Other cancer Mother Cardiac disorder Sister Relation Name Status Comments Father Mother Sister Social History Tobacco Use Types Packs/Day Years Used Date Smoking Tobacco: Never Smokeless Tobacco: Never Alcohol Use Standard Drinks/Week Comments No 0 (1 standard drink = 0.6 oz pur e alcohol) Comments Unknown Sex and Gender Information Value Date Recorded Sex Assigned at Not on file Legal Sex Female 7:52 PM EDT Gender Identity Not on file Sexual Orientation Not on file Last Filed Vital Signs Vital Sign Reading Time Taken Comments Blood Pressure 133/103 08/03/2020 1:01 PM EST Pulse 92 08/03/2020 1:01 PM EST Temperature 36.4 C (97.5 F) 08/20/2018 12:10 PM EST Respiratory Rate 18 08/20/2018 12:10 PM EST Oxygen Saturation - - Inhaled Oxygen Concentration - - Weight 92.1 kg (203 lb) 08/03/2020 1:01 PM EST Height 152.4 cm (5') 08/20/2018 12:10 PM EST Body Mass Index 39.65 08/20/2018 12:10 PM EST Plan of Treatment Health Maintenance Due Date Last Done Comments [facility]-Depression Screening 1965 [facility]-Infant/Child/Adol SDOH Screenings 1965 [facility]- SDOH Screenings 1983 [facility]-Adult SDOH Screenings 1983 [facility]-DTaP,Tdap,and Td Vaccines (1 - Tdap) 1984 CT Colonography 2010 Colonoscopy 2010 FIT-DNA 2010 FIT 2010 FOBT 2010 Sigmoidoscopy 2010 [facility]-Colorectal Cancer Screening 2010 [facility]-Pneumococcal Vaccine: 50+ Years (1 of 1 - PCV) 2015 [facility]-Zoster Vaccines (1 of 2) 2015 [id number] Vaccine ( - 2024- season) 2025 08/09/2021, 01/04/2021, 12/14/2020 [facility]-Influenza Vaccine (#1) 05/26/202506/14, 06/15/2020, 06/12/2019, Additional history exists [facility]-RSV Vaccine: 60+ Years or (1 - 1-dose 75+ series) 2040 HPV Vaccines Aged Out No longer eligi ble based on patient's age to complete this topic [facility]-HIB Vaccines Aged Out No longer e ligible based on patient's age to complete this topic [facility]-Hepatitis A Vaccines Aged Out No longer eligible based on patient's age to complete this topic [facility]-IPV Vaccines Aged Out No longer e ligible based on patient's age to complete this topic [facility]-Rotavirus Vaccines Aged Out No lo nger eligible based on patient's age to complete this topic Insurance [facility] [place] [address] Care Teams Strike Out Machine Operator Relationship Specialty Start Date End Date Jerry Hill MD [address] [place] [address] PCP - General 02/05/21
--- NOTE | 2025-06-04 15:30 | MM_ITS ---
PROCEDURE INFORMATION: Exam: MG Bilateral Screening 3D Mammography Exam date and time: 06/04/2025 3:36 PM Age: 60 years old Clinical indication: Screening examination TECHNIQUE: Imaging protocol: Bilateral Screening tomosynthesis and 2D mammography including computer-aided detection (CAD) when performed. COMPARISON: 1. MG MM DIG SCREENING MAMM BI W/CAD 05/01/2024 4:13 PM 2. MG JOANN DIAG VIJAY MAMMOGRAM 12/01/2022 10:47 AM FINDINGS: MAMMOGRAPHY: Breast composition: The breasts are heterogeneously dense, which may obscure small masses. Mass: No suspicious masses. Architectural distortion: None. Calcifications: No suspicious calcifications. Asymmetric density: None. Skin thickening: None. Axillary adenopathy: None. IMPRESSION: No mammographic evidence of malignancy. Annual screening is recommended unless otherwise clinically indicated. ASSESSMENT: BI-RADS Category 1: Negative.
== END 2025-06-04 23:59 | disposition home or self-care (01) ==
LOC: RAD 15:25
PROVIDERS: PCP Internal Medicine Adolescent Medicine; Visit Provider Internal Medicine Adolescent Medicine
DX: Z12.31 Encounter for screening mammogram for malignant neoplasm of breast (principal); R92.333 Mammographic heterogeneous density, bilateral breasts
CPT/HCPCS: 77063; 77067

== ENCOUNTER 2025-06-16 15:41 | Outpatient (CLI) | payer MEDICARE, BC, SELFPAY ==
--- OUTSIDE RECORDS SUMMARY | 2025-05-27 08:50 | XMS_ITS ---
Author Organization [facility] Address [address] [facility] [address] [place] [address] Care Team Providers Care Figure Model Name Role Phone Jerry Hill Primary Care Provider [phone] Results Component Value Reference Range Notes Mammogram : Bilateral Reviewed date:06/11/2025 03:39:40 PM Interpretation: Performing Lab: Notes/Report: Encounters Encounter Location Date Provider Diagnosis [facility] [address] [place] [address] 05/27/2025 Jerry Hill Breast cancer screening by mammogram Z12.31 Assessments Encounter Date Diagnosis (ICD Code) Assessment Notes Treatment Notes Treatment Clinical Notes Section Notes 05/27/2025 Breast cancer screening by mammogram (ICD-10 - Z12.31) Plan Of Treatment No Information Progress Notes * Ceci TINAJERO LDOB:1965 (60 yo F)Acc No.[id number]:05/27/2025 Patient: Jasson ARREDONDO Ressally Lazaro :1965 A ge:60 Y S ex:Female Address:[place], [address] Subjective: * Chief Complaints: * * Medical History: * Surgical History: * Hospitalization/Major Diagno stic Procedure: * Medications: Objective: * Vitals: * Physical Examination: Assessment: * Assessment: 1. B reast cancer screening by mammogram - Z12.31 Plan: * Treatment: * Procedure Codes: * true * Date: Generated for Migue duenas/Yesica/Liliana on: 0 06/16/2025 03:44 PM EDT
--- OUTSIDE RECORDS SUMMARY | 2025-06-02 05:15 | XMS_ITS ---
Author Organization [facility] Address [address] [place] [address] Care Team Providers Care Statistical Machine Mechanic Name Role Phone Jerry Hill Primary Care Provider [phone] Brenda Dang [phone] REASON FOR VISIT Headache, sinuses, flu shot Encounters Encounter Location Date Provider Diagnosis [facility] [address] [place] [address] 06/02/2025 Brenda Dang Plan Of Treatment No Information Progress Notes * Ceci TINAJERO LDOB:1965 (60 yo F)Acc No.[id number]:06/02/2025 Progress Notes Patient: Jasson ARREDONDOCeci Provider: SABA Elizalde :1965 A ge:60 Y S ex:Female Date:06/02/2025 Address:[address], [id number] Pcp:Jerry Hill Subjective: * Chief Complaints: * 1 . Headache, sinuses, flu shot. * Medical History: Objective: * Vitals: Assessment: Plan: * Treatment: * * Electronic signature of Mala Dang APRN on 06/16/2025 at 03:44 PM EDT Sign off status: Pending * Provider: SABA Elizalde Date: 0 06/02/2025 Generated for Migue duenas/Yesica/Jaylinitting on: 0 06/16/2025 03:44 PM EDT
--- OUTSIDE RECORDS SUMMARY | 2025-06-05 05:30 | XMS_ITS ---
Author Organization [facility] Address [address] [facility] [address] [place] [address] Care Team Providers Care Registered Nurse Practitioner Name Role Phone Jerry Hill Primary Care Provider Brenda Dang [phone] Allergies Allergen (clinical drug ingredient) Drug/Non Drug Allergy documented on EMR Reaction Allergy Type Onset Date Status DEMEROL HCL (uncoded) Unknown Allergy Active TERRAMYCIN WITH POLYMYXIN B SULFATE (uncoded) Unknown Allergy Active lisinopril Lisinopril nausea, kidney pain Drug Allergy Active lorazepam Ativan Unknown Drug Allergy Active Penicillin Unknown Drug Allergy Active tetracycline Tetracycline Unknown Drug Allergy A ctive REASON FOR VISIT Headache ring around her head been going on for about 2 weeks, not sure if it's sinuses, OTC medshaven't helped. flu shot Medications Medication SIG (Take, Route, Frequency, Duration) Notes Start Date End Date Status Fluticasone Propionate 50 MCG/ACT 1 spray(s) in each nostril 2 times a day; Duration: 30 Active Losartan Potassium 25 mg TAKE ONE TABLET BY MOUTH EVERY DAY; Duration: 30 Active Farxiga 10 mg TAKE ONE TABLET BY MOUTH EVERY DAY; Duration: 90 Active Methocarbamol 500 mg TAKE 1 OR 2 TABLET(S) BY MOUTH THREE TIMES DAILY NEEDED MAY CAUSE DROWSINESS; Duration: 15 Active Levothyroxine Sodium 50 MCG 1 tab(s) orally once a day; Duration: 90 days Active Escitalopram Oxalate 20 mg TAKE ONE TABLET BY MOUTH EVERY DAY; Duration: 30 Active Ondansetron HCl 4 MG 1 tablet Orally every 8 hours as needed for nausea/vomiting; Duration: 4 days 04/10/2025 Active Belsomra 20 mg TAKE ONE TABLET BY MOUTH ONCE DAILY AT BEDTIME; Duration: 30 05/02/2025 Active Ondansetron HCl 8 mg TAKE ONE TABLET BY MOUTH THREE TIMES DAILY; Duration: 14 Active Rosuvastatin Calcium 20 mg TAKE ONE TABLET BY MOUTH EVERY DAY; Duration: 90 Active Vraylar 3 MG TAKE ONE CAPSULE BY MOUTH EVERY DAY; Duration: 90 days Active Rybelsus 14 MG TAKE ONE TABLET BY MOUTH EVERY DAY; Duration: 90 Active Gemtesa 75 mg TAKE ONE TABLET BY MOUTH EVERY DAY; Duration: 90 Active ALBUTEROL (EQV-PROAIR HFA) 90 MCG/INH INHALE 2 PUFFS BY MOUTH FOUR TIMES DAILY NEEDED FOR WHEEZING; Duration: 25 *Please review for potential replacement for e-prescription and drug interaction check* Active ACCU-CHEK DANELLE PLUS MONITORING KIT USE ONCE DAILY TO CHECK BLOOD SUGAR E11.69 *Please review for potential replacement for e-prescription and drug interaction check* 05/29/2018 Active ACCU CHECK SOFT CLICK LANCETS DIRECTED [...] as needed; Duration: 14 day(s) 02/07/2022 Active ACCU-CHECK AVIA TEST STRIPS AND LANCETS FOR TESTING BLOOD SUGAR DIRECTED FOR ONCE A DAY TESTING; Duration: 90 DAYS *Please review for potential replacement for e-prescription and drug interaction check* 08/09/2022 Active Vitamin D 1000MG 1 TAB ORALLY ONCE A DAY *Please review and pick correct strength-formulati on from [employer] options. If intended option is not shown, discontinue and re-order from Quick Search* Active Acetylcysteine 600 MG 1 capsule Orally Once a day Active Prevagen 50 MCG 1 CAP(S) ORALLY ONCE A DAY *Please review and pick correct strength-formulati on from [employer] options. If intended option is not shown, discontinue and re-order from Quick Search* Active Nurtec 75 MG 1 tablet on the tongue and allow to dissolve Orally 06/05/2025 Active Immunizations Vaccine Route Administration Date Status Comme nts FLUCELVAX IM Intramuscular 06/05/2025 Administered Problems Problem Type SNOMED Code ICD Code Onset Dates Problem Status W/U Status Risk Notes Problem Episodic migraine (7987681374192 06) Episodic migraine (G43.909) Active confirmed Problem Tension headache (527355383) Tension headache (G44.209) Active confirmed Vital Signs Temperature 97.5 degrees Fahrenheit 06/05/20 25 Heart Rate 80 /min 06/05/2025 Blood pressure systolic 120 mm Hg 06/05/20 25 Blood pressure diastolic 80 mm Hg 025 Height 5 ft in 06/05/2025 Weight 169.2 lbs 06/05/2025 BMI 33.04 kg/m2 06/05/2025 Encounters Encounter Location Date Provider Diagnosis [facility] [address] [place] [address] 06/05/2025 Brenda Dang Encounter for immunization Z23 ; Episodic migraine G43.909 and Tension headache G44.209 Assessments Encounter Date Diagnosis (ICD Code) Assessment Notes Treatment Notes Treatment Clinical Notes Section Notes 06/05/2025 Encounter for immunization (ICD-10 - Z23) 06/05/2025 Episodic migraine (ICD-10 - G43.909) She has never had anything prescription for migraine management. She is a poor candidate for triptans. Sample of Nurtec provided, instructed on appropriate use. I would like for her to take 1 of those today. 06/05/2025 Tension headache (ICD-10 - G44.209) Suspect that her migraine 2 weeks ago has evolved into a tension type headache. Recommend methocarbamol routinely at night, ice, neck stretching. If pain is not improving over the next week she knows to let me know that, other return precautions reviewed. Plan Of Treatment Medication Medication Name Sig Start Date Stop Date Notes Nurtec 75 MG 1 tablet on the tong ue and allow to dissolve Orally 06/05/2025 Next Appt Details Follow Up: prn, Reason: Progress Notes * Ceci TINAJERO LDOB:1965 (60 yo F)Acc No.[id number]:06/05/2025 Progress Notes Patient: Ceci WALDROP Provider: SABA Elizalde :1965 A ge:60 Y S ex:Female Date:06/05/2025 Address:[address] [place], [place] [address], [id number] Pcp:Jerry Hill Subjective: * Chief Complaints: * 1 . Headache ring around her head been going on for about 2 weeks, not sure if it's sinuses, OTC meds haven't helped. flu shot. * HPI: N eurology: 60-year-old female presents today with complaints of headache. Started about 2 weeks ago with a migraine. Woke up with headache, vomiting. Typical symptoms for her migraine phenomenon, lasted for about 48 hours and since that time she has developed a bandlike pain around her head. Nothing seems to help this. Has had several sdup-cdl-[id number] migraine medications, sinus medications without relief. Has even had Toradol and IV fluids which dulled her headache but nothing has gotten completely rid of it. She denies any new paresthesias, dizziness, visual changes. Has had an eye exam recently. No head trauma recently. She gets migraines on average once a month but these seem to be increasing in frequency and severity. * ROS: C ONSTITUTIONAL: no F ever. D ERMATOLOGY: no R raj. G ASTROENTEROLOGY: See HPI Y es. U ROLOGY: no D ifficulty urinating. * Medical History: H ypertension, High cholesterol, [...] p artial hysterectomy 1998, total hysterectomy 1999, [facility] 12/07-12/12/2015, 12/11-01/04/2016, [facility] 01/03-01/07/2016, [facility] acute kidney failure 09/11, [facility] acute kidney failure 08/13-08/15/2020. * Family History: [...] for e-prescription and drug interaction check*, Taking Rybelsus 14 MG Tablet TAKE ONE TABLET BY MOUTH EVERY DAY , Taking Gemtesa 75 mg Tablet TAKE ONE TABLET BY MOUTH EVERY DAY , Taking Vraylar 3 MG Capsule TAKE ONE CAPSULE BY MOUTH EVERY DAY , Taking Rosuvastatin Calcium 20 mg Tablet TAKE ONE TABLET BY MOUTH EVERY DAY , Taking Ondansetron HCl 4 MG Tablet 1 tablet Orally every 8 hours as needed for nausea/vomiting , Taking Escitalopram Oxalate 20 mg Tablet TAKE ONE TABLET BY MOUTH EVERY DAY , Taking Belsomra 20 mg Tablet TAKE ONE TABLET BY MOUTH ONCE DAILY AT BEDTIME , Taking Ondansetron HCl 8 mg Tablet TAKE ONE TABLET BY MOUTH THREE TIMES DAILY , Taking Methocarbamol 500 mg Tablet TAKE 1 OR 2 TABLET(S) BY MOUTH THREE TIMES DAILY NEEDED MAY CAUSE DROWSINESS , Taking Levothyroxine Sodium 50 MCG Tablet 1 tab(s) orally once a day , Taking Losartan Potassium 25 mg Tablet TAKE ONE TABLET BY MOUTH EVERY DAY , Taking Farxiga 10 mg Tablet TAKE ONE TABLET BY MOUTH EVERY DAY , Taking Fluticasone Propionate 50 MCG/ACT Suspension 1 spray(s) in each nostril 2 times a day , Discontinued Cipro 250 MG Tablet 1 tablet Orally every 12 hrs , Medication List reviewed and reconciled with the patient * Allergies: P enicillin, TERRAMYCIN WITH POLYMYXIN B SULFATE, DEMEROL HCL, Ativan, Tetracycline, Lisinopril: nausea, kidney pain. Objective: * Vitals: N urse: KJ, Pain: 3, Temp: 97.5, RR: 18, HR: 80, BP: 120/80, Ht: 5 ft, Wt: 169.2, BMI:33.04. * Examination: E NT/Respiratory: General Appearance : w ell nourished and hydrated, alert.? Ears: a uditory canals normal bilaterally, tympanic membranes normal bilaterally. Nose : m ild congestion. Sinuses : n on tender bilaterally. Oral Cavity n o erythema or exudate seen on pharynx. Neck : n o cervical lymphadenopathy. Heart : R RR, normal S1 S2, no murmurs. Lungs : c lear to auscultation bilaterally, no crackles or wheezes. Abdomen : s oft, NT/ND, BS present. Skin : c lear without rashes. E MIGUEL. A and Oriented x 3. Normal gait and speech. 2+ patellar reflex. Assessment: * Assessment: 1. E pisodic migraine - G43.909 (Primary) 2 . E ncounter for immunization - Z23 3 . T ension headache - G44.209 Plan: * Treatment: 2. T ension headache Clinical Notes: Suspect that her migraine 2 weeks ago has evolved into a tension type headache. Recommend methocarbamol routinely at night, ice, neck stretching. If pain is not improving over the next week she knows to let me know that, other return precautions reviewed. * Immunizations: FLUCELVAX (Route: Intramuscular) given by MARILY Love on Right Deltoid * Procedure Codes: 9 [id number] FLUCELVAX, [address] immunization administration through 18 years of age via any route of administration. * Follow Up: p rn * * Sign off status: Completed true * Provider: SABA Elizalde Date: 0 06/05/2025 Generated for Fannyi yulissa/Yesica/Jaylinitting on: 0 06/16/2025 03:44 PM EDT History and Physical Notes * Examination Category Sub-Category Detail Notes Category Not es ENT/Respiratory Oral Cavity no erythema or exudate se en on pharynx EOMI. A and Oriented x 3. Normal gait and speech. 2+ patellar reflex Sinuses : non tender bilateral ly Ears: auditory canals norm al bilaterally, tympanic membranes normal bilaterally Neck : no cervical lymphade nopathy Heart : RRR, normal S1 S2, n o murmurs Lungs : clear to auscultatio n bilaterally, no crackles or wheezes Abdomen : soft, NT/ND, BS pres ent General Appearance : well nourished and hydrated, alert Nose : mild congestion Skin : clear without rashes
--- OUTSIDE RECORDS SUMMARY | 2025-06-16 15:44 | XMS_ITS | Clinical Summary ---
Author Organization [facility] Address [address] [place] [address] Care Team Providers Care Client Services Director Name Role Phone Provider, No Known Primary [...] 2015 ZOSTER VACCINE (1 of 2) 2015 INFLUENZA VACCINE 04/25/2025 Insurance MEDICARE A & B Member Subscriber Plan / Payer (Ef fective 2013-Present) Name:Ceci Velasquez Member ID:[id number] Relation to Subscriber:Self Name:Ceci Velasquez Subscriber ID:[id number] Payer ID:[id number] Group ID:Not on file Type:Not on file Address: [address] Care Teams Client Services Director Relationship Specialty Start Date End Date Provider, No Known [facility] [place] [address] PCP - General 04/16/19
--- OUTSIDE RECORDS SUMMARY | 2025-06-16 15:44 | XMS_ITS | Clinical Summary ---
Author Organization [facility] Address [address] [place] [address] Care Team Providers Care Grain Elevator Motor Starter Name Role Phone Jerry Hill MD Primary Care Provider [phone] Allergies Active Allergy Reactions Criticality Noted Date [...] Influenza, injectable, quadrivalent, preservativ e free 01/04/2016 Jascha COVID-19 Vaccine (Purple Cap) 12 + 01/04/2021,12/14/2020 [...] 2015 UKY-Zoster Vaccines (1 of 2) 2015 CBV-[id number]-80 Vaccine ( - 2024- season) 2025 08/09/2021, [...] patient's age to complete this topic Insurance [facility] [place] [address] Care Teams Grain Elevator Motor Starter Relationship Specialty Start Date End Date Jerry Hill MD [address] [facility] [address] [place] [address] PCP - General 02/05/21
--- NOTE | 2025-06-16 15:45 | CA_ITS ---
FINAL REPORT CLINICAL HISTORY: Patient states her right leg began aching 06/14/25 no trauma. FINDINGS: DUPLEX VENOUS SONOGRAPHY OF THE RIGHT LOWER EXTREMITY Multiple transverse and longitudinal scans were performed of the femoropopliteal deep venous system, with augmentation and compression maneuvers. Normal phasic flow was noted in the visualized deep venous system. No intraluminal increased echogenicity is noted to suggest thrombus. There is normal compression and augmentation of the venous structures. No abnormal venous collaterals are seen. IMPRESSION: No evidence of deep venous thrombosis of the right lower extremity. Reviewed, Interpreted and Dictated by Irena Jensen MD Transcribed by Brit Garcia Authenticated and [facility]
--- OUTSIDE RECORDS SUMMARY | 2025-06-16 15:45 | XMS_ITS | Patient Health Record ---
Author Organization [facility] Address [address] [facility] [address] [place] [address] Care Team Providers Care Gas Plant Specialist Name Role Phone Jerry Hill Primary Care Provider [phone] Brenda Dang Unavailable [phone] Migration, Provider Unavailable Unavailable Allergies Allergen (clinical [...] ctive Results Component Value Reference Range Notes CULTURE, URINE, ROUTINE (395 ) Reviewed date:04/17/2025 01:50:59 PM Interpretation: Performing Lab:CB, [facility] [facility], [facility]dbiDG[address] Pop Santamaria Notes/Report: NON-FASTING CULTURE, URINE, ROUTINE SEE NOTE CULTURE, URINE, ROUTINE Micro Number: [id number] Test Status: Final Specimen Source: Urine, clean catch Specimen Quality: Adequate Result: Mixed genital blanca isolated. These superficial bacteria are not indicative of a urinary tract infection. No further organism identification is warranted on this specimen. If clinically indicated, recollect clean-catch, mid-stream urine and transfer immediately to Urine Culture Transport Tube. Mammogram : Bilateral Reviewed date:06/11/2025 03:39:40 PM Interpretation: Performing Lab: Notes/Report: Urinalysis Reviewed date:04/10/2025 11:38:23 AM Interpretation: Performing Lab: Notes/Report: Color/Clarity yellow Leuk neg Nitrite neg Urobili 0.2 Protein 30mg pH 6.5 Blood trave-intact Sp. Gr. 1.020 Ketone neg Bili neg Glucose 500 mg/dl MEASLES, MUMPS, AND RUBELLA (MMR) AB (IGG) PANEL, IMMUNE STATUS (5259) Reviewed date:12/06/2024 06:54:22 AM Interpretation: Performing Lab:[facility] [address] [employer], [place] DAKlryVP[address] Pop Santamaria Notes/Report: NON-FASTING; NON-FASTING; NON-FASTING; NON-FASTING MEASLES AB (IGG), IMMUNE STATUS <13.50 AU/mL Interpretation ----- <13.50 Not consistent with immunity 13.50-16.49 Equivocal >16.49 Consistent with immunity The presence of measles IgG suggests immunization or past or current infection with measles virus. For additional information, please refer to http://education.[employer]/faq/MAD063 (This link is being provided for informational/ [...] current infection with rubella virus. COMPREHENSIVE METABOLIC PANE L (56880) Reviewed date:12/03/2024 11:11:46 AM Interpretation: Performing Lab:[facility] Tts[address] [employer] [employer], [place] OldvTJ[address] Pop Santamaria Notes/Report: NON-FASTING; NON-FASTING; NON-FASTING; NON-FASTING [...] 26 10-35 U/L ALT 23 6-29 U/L CBC (INCLUDES DIFF/PLT) (639 9) Reviewed date:12/03/2024 11:11:46 AM Interpretation: Performing Lab:DARIANA, [facility] [address] [facility], [facility] HealthCeisHV[address] Pop Santamaria Notes/Report: NON-FASTING; NON-FASTING; NON-FASTING; NON-FASTING [...] MPV 11.0 7.5-12.5 fL ABSOLUTE NEUTROPHILS 7533 1044-0752 cells/uL ABSOLUTE LYMPHOCYTES 2268 850-3900 cells/uL ABSOLUTE MONOCYTES 760 200-950 cells/uL ABSOLUTE EOSINOPHILS 75 15-500 cells/uL ABSOLUTE BASOPHILS 64 0-200 cells/uL NEUTROPHILS 70.4 LYMPHOCYTES 21.2 MONOCYTES 7.1 EOSINOPHILS 0.7 BASOPHILS 0.6 CULTURE, URINE, ROUTINE (395 ) Reviewed date:12/06/2024 06:54:22 AM Interpretation: Performing Lab:[facility]IANA [facility], [place] DAWandEE[address] Pop Santamaria Notes/Report: NON-FASTING; NON-FASTING; NON-FASTING; NON-FASTING CULTURE, URINE, ROUTINE SEE NOTE CULTURE, URINE, ROUTINE Micro Number: [id number] Test Status: Final Specimen Source: Urine Specimen [...] are considered colonizers. No further testing performed. THYROID PANEL WITH TSH (7444 ) Reviewed date:01/13/2025 01:50:42 PM Interpretation: Performing Lab:[facility] [employer], [place] DAHnvsGB[address] Pop Santamaria Notes/Report: NON-FASTING; NON-FASTING; NON-FASTING T3 UPTAKE 28 22-35 % T4 (THYROXINE), TOTAL 7.5 5.1-11.9 mcg/dL FREE T4 INDEX (T7) 2.1 1.4-3.8 TSH 0.75 0.40-4.50 mIU/L COMPREHENSIVE METABOLIC PANE L (95143) Reviewed date:01/13/2025 01:50:42 PM Interpretation: Performing Lab:DARIANA [address] [facility] Pop Santamaria Notes/Report: NON-FASTING; NON-FASTING; NON-FASTING GLUCOSE [...] 9) Reviewed date:01/13/2025 01:50:43 PM Interpretation: Performing Lab:[facility], [facility] [id number] [facility] Pop Santamaria Notes/Report: NON-FASTING; NON-FASTING; NON-FASTING WHITE [...] MPV 10.9 7.5-12.5 fL ABSOLUTE NEUTROPHILS 5688 4321-9148 cells/uL ABSOLUTE LYMPHOCYTES 2330 850-3900 cells/uL ABSOLUTE MONOCYTES 610 200-950 cells/uL ABSOLUTE EOSINOPHILS 437 15-500 cells/uL ABSOLUTE BASOPHILS 36 0-200 cells/uL NEUTROPHILS 62.5 LYMPHOCYTES 25.6 MONOCYTES 6.7 EOSINOPHILS 4.8 BASOPHILS 0.4 Urinalysis Reviewed date:12/03/2024 11:12:08 AM Interpretation: Performing Lab: Notes/Report: Color/Clarity yellow clear Leuk neg Nitrite neg Urobili 0.2 Protein 30mg pH 6.5 Blood mod Sp. Gr. 1.020 Ketone neg Bili small Glucose 1,000 Reason For Referral No Information Medications Medication SIG (Take, Route, Frequency, Duration) Notes Start Date End Date Status Methocarbamol 500 mg TAKE 1 OR 2 TABLET( S) BY MOUTH THREE TIMES DAILY NEEDED MAY CAUSE DROWSINESS; Duration: 15 Active Ondansetron HCl 4 MG 1 tablet Orally live ry 8 hours as needed for nausea/vomiting; Duration: 4 days 04/10/2025 Active Cephalexin 500 MG 1 capsule Orally 3 t imes a day; Duration: 7 days 06/16/2025 Active Vraylar 3 MG TAKE ONE CAPSULE BY MOUTH EVERY DAY; Duration: 90 days Active Nurtec 75 MG 1 tablet on the tong ue and allow to dissolve Orally once a day as needed for migraine; Duration: 30 days 06/05/2025 Active Acetylcysteine 600 MG 1 capsule Orally O nce a day Active Rosuvastatin Calcium 20 mg TAKE ONE TABL ET BY MOUTH EVERY DAY; Duration: 90 Active Prevagen 50 MCG 1 CAP(S) ORALLY ONCE A DAY Active ACCU-CHECK AVIA TEST STRIPS AND LANCETS FOR TESTING BLOOD SUGAR DIRECTED FOR ONCE A DAY TESTING; Duration: 90 DAYS 08/09/2022 Active Losartan Potassium 25 mg TAKE ONE TABLET BY MOUTH EVERY DAY; Duration: 30 Active ACCUCHECK GUIDE METER AND TEST STRIPS FOR DIABETIC TESTING THREE TIMES DAILY 08/29/2022 Active Farxiga 10 mg TAKE ONE TABLET BY M OUTH EVERY DAY; Duration: 90 Active ALBUTEROL (EQV-PROAIR HFA) 90 MCG/INH INHALE 2 PUFFS BY MOUTH FOUR TIMES DAILY NEEDED FOR WHEEZING; Duration: 25 Active Fluticasone Propionate 50 MCG/ACT 1 spray(s) in each nostril 2 times a day; Duration: 30 Active Gemtesa 75 mg TAKE ONE TABLET BY M OUTH EVERY DAY; Duration: 90 Active Rybelsus 14 mg TAKE ONE TABLET BY M OUTH EVERY DAY; Duration: 90 Active Vitamin D 1000MG 1 TAB ORALLY ONCE A DAY Active Escitalopram Oxalate 20 mg TAKE ONE TABL ET BY MOUTH EVERY DAY; Duration: 30 Active ACCU-CHEK DANELLE PLUS MONITORING KIT USE ONCE DAILY TO CHECK BLOOD SUGAR 05/29/2018 Active Belsomra 20 mg TAKE ONE TABLET BY M OUTH ONCE DAILY AT BEDTIME; Duration: 30 05/02/2025 Active ACCU CHECK SOFT CLICK LANCETS DIRECTED ONCE DAILY TO CHECK BLOOD SUGAR; Duration: 90 DAYS 05/29/2018 Active Ondansetron HCl 8 mg TAKE ONE TABLET BY MOUTH THREE TIMES DAILY; Duration: 14 Active hydrOXYzine Pamoate 25 MG 1 cap(s) orall y 3 times a day for anxiety as needed; Duration: 14 day(s) 02/07/2022 Active Levothyroxine Sodium 50 MCG 1 tab(s) ora lly once a day; Duration: 90 days Active Immunizations Vaccine Route Administration Date Status Comme nts Flublok IM Intramuscular 06/15/2020 Administered Flublok IM Intramuscular 06/14/2021 Administered Flublok IM Intramuscular 06/13/2022 Administered Flublok IM Intramuscular 06/03/2024 Administered FLUCELVAX IM Intramuscular 06/05/2025 Administered Fluvirin--Influenza vaccine 3+ year IM Intramuscular 06/03/2016 Administered FLUZONE 6MO - OLDER IM Intramuscular 06/12/2019 Administer ed FLUZONE 6MO - OLDER IM Intramuscular 06/28/2023 Administer ed Influenza (Fluzone)--Medicare only IM Intramuscular 05/25/2018 Administered Influenza-Fluzone 3+years (NON-MEDICARE) IM Intramuscular 05/24/2017 Administered Influenza-Fluzone 3+years (NON-MEDICARE) Unknown 11/24/2017 Administered Pneumovax 23 IM Intramuscular 08/17/2016 Administered Prevnar PCV-20 (Pneumococcal conjugate 20) IM Intramuscular 07/23/2024 Administered SHINGRIX Unknown 09/27/2023 Administered SHINGRIX Unknown 01/16/2024 Administered Problems Problem Type SNOMED Code ICD Code Onset Dates Problem Status W/U Status Risk Notes Problem Type 2 diabetes mellitus with other specified complication (E11.69) Active confirmed Problem Obesity (112545930) Obesity, unspecified (E66.9) Active confirmed Problem Hypercalcemia (87868516) Hypercalcemia (E83.52) Active confirmed Problem Primary insomnia (5775231) Primary insomnia (F51.01) Active confirmed Problem Hemiplegia (75083415) Hemiplegia, unspecified affecting unspecified side (G81.90) Active confirmed Problem Allergic rhinitis (18753780) Other allergic rhinitis (J30.89) Active confirmed Problem Gastroparesis (882800056) Gastroparesis (K31.84) Active confirmed Problem Slow transit constipation (26766452) Slow transit constipation (K59.01) Active confirmed Problem Spasm of back muscles (086605873) Muscle spasm of back (M62.830) Active confirmed Problem Urge incontinence of urine (18210674) Urge incontinence (N39.41) Active confirmed Problem Vaccination given (824586153) Encounter for immunization (Z23) Active confirmed Problem Vitamin B12 deficiency (154293186) Vitamin B12 deficiency (E53.8) Active confirmed Problem Hypothyroidism (03971892) Hypothyroidism (acquired) (E03.9) Active confirmed Problem Anxiety (96854090) Anxiety (F41.9) Active confi rmed Problem Vitamin D deficiency (97308918) Vitamin D deficiency (E55.9) Active confirmed Problem Type II diabetes mellitus without complication (853405870) Diabetes mellitus type 2, noninsulin dependent (E11.9) Active confirmed Problem Hyperlipidemia (52447368) Hyperlipemia, idiopathic familial (E78.5) Active confirmed Problem Mild cognitive impairment (993648126) Mild cognitive impairment (G31.84) Active confirmed Problem Essential hypertension (87767284) Hypertension, essential (I10) Active confirmed Problem Urinary frequency (687343684) Urinary frequency (R35.0) Active confirmed Problem Restless legs syndrome (64617833) Restless leg syndrome (G25.81) Active confirmed Problem Major depression single episode, in partial remission (36291055) Major depression single episode, in partial remission (F32.4) Active confirmed Problem Gastroesophageal reflux disease (539843848) Gastroesophageal reflux disease, esophagitis presence not specified (K21.9) Active confirmed Problem Exercise-induced asthma (54462998) Exercise-induced asthma (J45.990) Active confirmed Problem Posttraumatic stress disorder (65825851) PTSD (post-traumatic stress disorder) (F43.10) Active confirmed Problem Chronic fatigue syndrome (79795262) Chronic fatigue (R53.82) Active confirmed Problem Chronic kidney disease stage 2 (535165598) Chronic kidney disease (CKD) stage G2/A1, mildly decreased glomerular filtration rate (GFR) between 60-89 mL/min/1.73 square meter and albuminuria creatinine ratio less than 30 mg/g (N18.2) Active confirmed Problem Tension headache (307220047) Tension headache (G44.209) Active confirmed Problem History of nephrolithiasis (098393879) History of nephrolithiasis (Z87.442) Active confirmed Problem Memory impairment (281960558) Memory impairment (R41.3) Active confirmed Problem Iron deficiency anemia (28791633) Iron deficiency anemia, unspecified iron deficiency anemia type (D50.9) Active confirmed Problem Localized, primary osteoarthritis of the hand (513844344) Primary osteoarthritis of left hand (M19.042) Active confirmed Problem Recurrent major depression in remission (94694591) Recurrent major depressive disorder, in partial remission (F33.41) Active confirmed Problem Spasm of bladder (254324991) Bladder spasms (N32.89) Active confirmed Problem Chronic deep vei n thrombosis (DVT) of non-extremity vein (I82.91) Active confirmed Problem Adult health examination (276158386) Healthcare maintenance (Z00.00) Active confirmed Problem Primary hypertension (89715769) Primary hypertension (I10) Active confirmed Problem Irritable bowel syndrome characterized by constipation (612345376) Irritable bowel syndrome with constipation (K58.1) Active confirmed Problem Microscopic hematuria (007436473) Microscopic hematuria (R31.29) Active confirmed Problem Lung field abnormal (352310321) Infiltrate of lung present on imaging of chest (R91.8) Active confirmed Problem Chronic kidney disease stage 3 (disorder) (651026723) Stage 3 chronic kidney disease (N18.3) Active confirmed Problem Myofascial pain (671148509) Myofascial pain (M79.1) Active confirmed Problem Hypokalemia (58036068) History of hypokalemia (Z86.39) Active confirmed Problem Hyperlipidemia (02365553) Other hyperlipidemia (E78.49) Active confirmed Problem Chronic sinusitis (36458526) Recurrent sinus infections (J32.9) Active confirmed Problem Major depression, single episode (27832116) Major depressive disorder, remission status unspecified, unspecified whether recurrent (F32.9) Active confirmed Problem Chronic kidney disease stage 3A (disorder) (225647259) Chronic kidney disease, stage 3a (N18.31) Active confirmed Problem Chronic kidney disease stage 3 (disorder) (295710502) Stage 3 chronic kidney disease, unspecified whether stage 3a or 3b CKD (N18.30) Active confirmed Problem Acute cough (373355764445093885 ) Acute cough (R05.1) Active confirmed Problem Episodic migraine (543029174656663) Episodic migraine (G43.909) Active confirmed Vital Signs Heart Rate 94 /min 06/16/2025 Temperature 97.6 degrees Fahrenheit 06/16/2025 Blood pressure diastolic 76 mm Hg 06/16/2025 Height 5 ft in 06/16/2025 Blood pressure systolic 136 mm Hg 06/16/2025 Weight 168.4 lbs 06/16/2025 BMI 32.88 kg/m2 06/16/2025 Encounters Encounter Location Date Provider Diagnosis [facility] [address] [facility] [address] [place], [place] [address] 11/21/2024 Jerry Hill [facility] [address] [place], [place] [address] 12/28/2024 Provider Migration [facility] [address] [facility] [address] [place], [place] [address] 06/16/2025 Brenda Laurence Lower extremity pain , right M79.604 ; Localized swelling of right lower leg R22.41 ; Right leg pain M79.604 and Right leg swelling M79.89 [facility] [address] [facility] [address] [place], [place] [address] 07/23/2024 Jerry Hill Urge incontinence N39.41 ; Recurrent major depressive disorder, in partial remission F33.41 ; Type 2 diabetes mellitus with other specified complication E11.69 ; Hypertension, essential I10 ; Encounter for immunization Z23 and Routine medical exam Z00.00 [facility] [address] [place] [address] 09/04/2024 Jerry Besson Memory impairment R41.3 [facility] [address] [place] [address] 12/02/2024 Jerry Besson Nausea R11.0 ; Microscopic hematuria R31.29 and Immunity status testing Z01.84 [facility] [address] [facility] [address] [place] [address] 12/11/2024 Jerry Besson Palpitations R00.2 [facility] [address] [facility] [address] [place] [address] 01/08/2025 Jerry Besson Hypothyroidism (acquired) E03.9 ; Hemiplegia, unspecified affecting unspecified side G81.90 ; Recurrent major depressive disorder, in partial remission F33.41 ; Iron deficiency anemia, unspecified iron deficiency anemia type D50.9 and Cognitive impairment R41.89 [facility] [address] [facility] [address] [place] [address] 04/10/2025 Brenda Laurence Dysuria R30.0 and Nausea R11.0 [facility] [address] [facility] [address] [place] [address] 06/05/2025 Brenda Ferrarience Encounter for immunization Z23 ; Episodic migraine G43.909 and Tension headache G44.209 [facility] [address] [facility] [address] [place] [address] 07/09/2024 Jerry Besson [facility] [address] [address] 07/11/2024 Jerry Besson [facility] [address] [place] [address] 12/18/2024 Jerry Besson Tachycardia R00.0 an d Syncope R55 [facility] [address] [facility] [address] [place] [address] 04/17/2025 Brenda Laurence Dysuria R30.0 [facility] [address] [facility] [address] [place] [address] 05/27/2025 Jerry Hill Breast cancer screening by mammogram Z12.31 [facility] [address] [address] 06/10/2025 Brenda Dang Episodic migraine G43.909 [facility] [address] [address] 06/11/2025 Brenda Dang Episodic migraine G43.909 Assessments Encounter Date Diagnosis (ICD Code) Assessment Notes Treatment Notes Treatment Clinical Notes Section Notes 07/23/2024 Urge incontinence (ICD-10 - N39.41) Restart [...] cancer screening by mammogram (ICD-10 - Z12.31) 06/05/2025 Encounter for immunization (ICD-10 - Z23) 06/05/2025 Episodic migraine (ICD-10 - G43.909) She has never had anything prescription for migraine management. She is a poor candidate for triptans. Sample of [facility] provided, instructed on appropriate use. I would like for her to take 1 of those today. 06/10/2025 Episodic migraine (ICD-10 - G43.909) 06/11/2025 Episodic migraine (ICD-10 - G43.909) 06/16/2025 Right leg pain (ICD-10 - M79.604) 06/16/2025 Lower extremity pain, right (ICD-10 - M79.604) Muscle strain versus cellulitis versus vascular origin, etc. Recommend rule out DVT left venous Doppler. Continue warm compresses, start cephalexin as noted. Follow-up based on results. 06/16/2025 Localized swelling of right lower leg (ICD-10 - R22.41) 01/08/2025 Recurrent major depressive disorder, in partial remission (ICD-10 - F33.41) 06/16/2025 Right leg swelling (ICD-10 - M79.89) 06/05/2025 Tension headache (ICD-10 - G44.209) Suspect that her migraine 2 weeks ago has evolved into a tension type headache. Recommend methocarbamol routinely at night, ice, neck stretching. If pain is not improving over the next week she knows to let me know that, other return precautions reviewed. 12/18/2024 Syncope (ICD-10 - R55) 12/02/2024 Immunity [...] 01/25/2016 Holter Monitor : Event Recorder 12/19/19 25 Doppler: Venous, R Lower Extremity 06/16 Holter Monitor, 48 hour 11/04/2019 Holter Monitor, 48 hour 12/11/2024 X ray : Shoulder, Right w/ and w/o weigh ts 03/10/2016 H-VITAMIN B12 07/26/2017 H-VITAMIN B12 03/17/2017 H-VITAMIN B12 01/20/2017 H-CMP 08/31/2017 H-VIT D, 25-HYDROXY 01/20/2017 C-URINE CULTURE 01/20/2017 C-URINE CULTURE 09/03/2020 C-URINE CULTURE 02/12/2019 Urine Culture, Routine 05/04/2020 Doppler: Duplex Renal Artery 08/19/2020 X ray : KUB 09/15/2022 M-Complete Blood Count Auto Diff 021 M-Complete Blood Count Auto Diff 020 M-Comprehensive Metabolic Panel 05/04/20 20 H-Tkwy-Bmabnjz Antibody Titer 05/04/2020 M-ARNIE Comprehensive Panel 05/04/2020 Culture Body Fluid 09/30/2022 Future Test Test Name Order Date H-CBC with AUTO DIFF 08/18/2017 H-FERRITIN 08/18/2017 H-CMP 08/18/2017 H-LIPID PANEL 08/18/2017 H-TSH 08/18/2017 M-Comprehensive Metabolic Panel 09/03/20 18 M-Hemoglobin A1C 09/03/2018 M-Basic Metabolic Panel 10/01/2020 M-Basic Metabolic Panel 01/04/2021 M-Basic Metabolic Panel 03/25/2021 M-Basic Metabolic Panel 10/19/2021 Insurance Providers Payer Name Payer Address Payer Phone Subscriber Number Group Number Insured Name Patient Relationship to Insured Coverage Start Date Coverage End Date MEDICARE PART B [address] [phone] [id number] Ceci Velasquez Self - patient is the insured [facility] [address] [place] [address] [id number] Ceci Velasquez Self - patient is the [...] F32.9 Hematuria R31.9 psoriasis Normal mammogram 05/18 and 05/19 Surgical History Surgery Date(Month/Year) neuro stimulator 2009 total hysterectomy 1999 partial hysterectomy 1998 gallbladder 2009 malignant polyp 1995 colonoscopy 04/2015 hormone replacement therapy kidney stone extraction 12/2016 EGD/Colonoscopy 12/2017 battery changed in stimulator 08/22/18 Hospitalization History Reason Date(Month/Year) [facility] acute kidney failure 08/13- 0 [facility] acute kidney failure 09/11 [facility] 01/03-01/07/2016 12/11-01/04/2016 [facility] 12/07-12/12/2015 total hysterectomy 1999 partial hysterectomy 1998
== END 2025-06-16 23:59 | disposition home or self-care (01) ==
LOC: RT 15:42
PROVIDERS: PCP Internal Medicine Adolescent Medicine; Visit Provider Nurse Practitioner Family
DX: R60.1 Generalized edema (principal); M79.601 Pain in right arm; M79.89 Other specified soft tissue disorders
CPT/HCPCS: 93971

== ENCOUNTER 2025-08-08 16:02 | Emergency (ER) | payer MEDICARE, BC, SELFPAY ==
[2025-08-08] VITALS (41 sets, daily range): BP systolic 116–171; BP diastolic 68–112; PULSE 102–126; RESP 17–18; TEMP 37.5–38.3; O2SAT 79–98; BMI 32.4
--- NOTE | 2025-08-08 16:09 | HMH.EDGENADL ---
Discharge Plan Disposition Patient Disposition: Xfer Other Condition: Fair Prescriptions Prescriptions: No Action methocarbamol 500 mg tablet 500 - 1,000 mg PO TID PRN (Reason: Muscle Spasm) ondansetron HCl 8 mg tablet 8 mg PO TID levothyroxine 50 mcg tablet 50 mcg PO DAILY levothyroxine 50 mcg tablet 50 mcg PO DAILY losartan 25 mg tablet 25 mg PO DAILY progesterone micronized 200 mg capsule 200 mg PO HS escitalopram oxalate 20 mg tablet 20 mg PO DAILY rosuvastatin 20 mg tablet 20 mg PO DAILY dapagliflozin propanediol [Farxiga] 10 mg tablet 10 mg PO DAILY Vraylar 3 mg capsule 3 mg PO DAILY Gemtesa 75 mg tablet 75 mg PO DAILY Rybelsus 14 mg tablet 14 mg PO DAILY Referrals Follow up/Referrals: Jerry Hill MD [Primary Care Provider, Internal Medicine] - See instructions Clinical Impressions Clinical Impression: Sepsis, UTI (urinary tract infection), Obstructive uropathy, Left nephrolithiasis Stand Alone Forms Stand Alone Forms: Transfer Record - ED Instructions Patient Instructions: DI for Urinary Tract Infection (UTI), DI for Urinary Tract Infection in Children Print Language Print Language: Kiswahili Discharge ED Provider: Yusuf Lord General Adult HPI <DEMETRIUS Perez - Last Filed: 08/08/25 21:32> General Chief complaint: Urogenital-Female Stated complaint: Pain in back & blood in Urine Time Seen by Provider: 08/08/25 16:07 Mode of Arrival: Ambulatory Source of Information: Patient and Relative Limitations: No Limitations History of Present Illness HPI narrative: 60-year-old female presents the emergency department accompanied by her family member for a 3-day history of decreased urinary frequency, hematuria, lower back pain and bilateral flank pain that started this morning, patient does have a history of stones, patient admits to subjective fever and chills, denies any chest pain shortness of breath nausea no vomiting, no constipation no diarrhea, no melena no hematochezia or hematemesis, no saddle anesthesia no urinary bladder or bowel dysfunction, no radicular type symptomatology, patient denies any overt dysuria, patient denies any alcohol tobacco or drug use, other past medical history consistent with T2DM, CKD, hypothyroidism, GERD, MDD/CINDA, history of degenerative disc disease of the spine with spinal cord stimulator in place. Initial triage vitals are notable for tachycardia Please note that above description of symptoms, in this electronic medical record under categorization of recalled from ER triage doctor by RN are reflective of an initial nursing assessment, however, is not reflective of my full history and physical exam that was personally taken and clarified. Consequentially, this preceding description of symptoms, which may include the patient's categorized chief complaint in the EMR, do not reflect my personal clinical impression, and the ultimate description of history of present illness and patient stated complaints should be deferred to this section of the note. Unless stated otherwise or congruent with this section of the note, additional signs, symptoms, or incongruence should be interpreted as inaccurate with my clinical impression. Onset (ago): day(s) Related Data Home Medications ?Medication ?Instructions ?Recorded ?Confirmed cariprazine 3 mg capsule (Vraylar) 3 mg PO DAILY 08/08/25 08/08/25 dapagliflozin propanediol 10 mg 10 mg PO DAILY 08/08/25 08/08/25 tablet (Farxiga) escitalopram oxalate 20 mg tablet 20 mg PO DAILY 08/08/25 08/08/25 levothyroxine 50 mcg tablet 50 mcg PO DAILY 08/08/25 08/08/25 levothyroxine 50 mcg tablet 50 mcg PO DAILY 08/08/25 08/08/25 losartan 25 mg tablet 25 mg PO DAILY 08/08/25 08/08/25 methocarbamol 500 mg tablet 500 - 1,000 mg PO TID PRN Muscle 08/08/25 08/08/25 Spasm ondansetron HCl 8 mg tablet 8 mg PO TID 08/08/25 08/08/25 progesterone micronized 200 mg 200 mg PO HS 08/08/25 08/08/25 capsule rosuvastatin 20 mg tablet 20 mg PO DAILY 08/08/25 08/08/25 semaglutide 14 mg tablet (Rybelsus) 14 mg PO DAILY 08/08/25 08/08/25 vibegron 75 mg tablet (Gemtesa) 75 mg PO DAILY 08/08/25 08/08/25 Allergies Allergy/AdvReac Type Severity Reaction Status Date / Time meperidine (From DEMEROL) Allergy Mild Verified 01/10/23 13:34 oxytetracycline (From Allergy Mild Verified 01/10/23 13:34 TERRAMYCIN) penicillin G (PENICILLIN G) Allergy Mild Verified 01/10/23 13:34 lorazepam (From ATIVAN) Allergy Unknown HALLUCINATI Verified 01/10/23 13:34 ONS tetracycline Allergy Verified 01/10/23 13:34 PFSH <DEMETRIUS Perez - Last Filed: 08/08/25 21:32> [facility] Disclaimer: The information contained in this section may have been updated after the patient was seen, as this information can be updated by other users. Medical History (Updated 08/08/25 @ 19:35 by DEMETRIUS Perez) Hypothyroid Allergies GERD (gastroesophageal reflux disease) Depression Family History Other No significant family history Social History Smoking Status: Never smoker alcohol intake: never counseling provided: provider counseling substance use type: denies use current occupational status: other Travel in the last 8 weeks?: None household members: spouse housing: house current occupational exposures/hazards: No caffeine: Yes Have you lived/traveled outside [place] in past 30 days?: No Contact w/someone who lives/traveled outside US past 30 days?: No Exposure to someone with infectious disease in past 14 days?: No Do you have a fever (greater than 100.4 F or 38 C)?: No Have you tested positive for COVID-19?: No Exposed to someone with COVID-19 in past 14 days?: No Do you have a sore throat?: No Do you have a cough?: No Do you have any weakness?: No Do you have any diarrhea?: No Are you experiencing any unusual bleeding?: No Do you have any muscle aches/pain?: No Do you have any abdominal pain?: No Are you experiencing loss of taste or smell?: No Other Medical History Have you received the Flu Vaccine for this season: Yes Have you received the Pneumonia Vaccine: Yes <DEMETRIUS Perez - Last Filed: 08/08/25 21:32> ROS Obtained: Yes All systems reviewed & no additional complaints except as documented Physical Exam <DEMETRIUS Perez - Last Filed: 08/08/25 21:32> General General appearance: alert and in no apparent distress Comment: Uncomfortable appearing female Head Head exam: atraumatic and normocephalic Eye Eye exam: Present PERRL and EOMI ENT ENT exam: Present mucous membranes moist Neck Neck exam: Present normal inspection Chest Chest inspection: Present normal inspection and symmetric chest wall rise Respiratory Respiratory exam: Present normal lung sounds bilaterally; Absent respiratory distress Cardiovascular Cardiovascular exam: Present regular rate and normal rhythm Abdominal Exam Abdominal exam: Present soft and tenderness; Absent guarding, rebound or rigidity Extremities Exam Extremities exam: Present normal inspection Back Exam Back exam: Present normal inspection, full ROM, CVA tenderness (R) and CVA tenderness (L); Absent tenderness, paraspinal tenderness or vertebral tenderness Comment: Minimal bilateral CVA tenderness to palpation, no paraspinal or spinal tenderness to palpation at lower lumbar spine. Neurological Exam Neurological exam: Present alert and oriented X3 Psychiatric Psychiatric exam: Present normal affect Skin Skin exam: Present warm and dry Medical Decision Making <DEMETRIUS Perez - Last Filed: 08/08/25 21:32> Medical Records Medical records reviewed: Yes I reviewed the patient's medical records. Screening: Per USPSTF and CDC recommendations, given the prevalence of disease in our region, it is our hospital?s policy to screen for HIV and viral Hepatitis for all patients aged 18 and over and those with ongoing risk factors. Stanislaw Inquiry Pt receiving controlled substance: No Stanislaw was queried for this patient: No Vital Signs: 08/08/25 16:14 08/08/25 16:16 08/08/25 16:21 Temperature 99.5 F Temperature Source Oral Pulse Rate 111 H 116 H Pulse Rate [Radial] 108 H Respiratory Rate 18 Blood Pressure 143/96 H 142/94 H Blood Pressure [Right Arm] 143/96 H Blood Pressure Mean Blood Pressure Mean [Right Arm] 111 Blood Pressure Source Blood Pressure Source [Right Arm] Automatic Cuff Blood Pressure Position Blood Pressure Position [Right Arm] Sitting 02 Sat by Pulse Oximetry 98 98 96 Oxygen Delivery Method Room Air 08/08/25 16:30 08/08/25 17:55 08/08/25 18:00 Temperature Temperature Source Pulse Rate 112 H 111 H 115 H Pulse Rate [Radial] Respiratory Rate Blood Pressure 134/96 H 157/99 H 143/109 H Blood Pressure [Right Arm] Blood Pressure Mean Blood Pressure Mean [Right Arm] Blood Pressure Source Blood Pressure Source [Right Arm] Blood Pressure Position Blood Pressure Position [Right Arm] 02 Sat by Pulse Oximetry 96 95 95 Oxygen Delivery Method 08/08/25 18:10 08/08/25 18:20 08/08/25 18:30 Temperature Temperature Source Pulse Rate 111 H 116 H 111 H Pulse Rate [Radial] Respiratory Rate Blood Pressure 161/108 H 148/100 H 156/106 H Blood Pressure [Right Arm] Blood Pressure Mean Blood Pressure Mean [Right Arm] Blood Pressure Source Blood Pressure Source [Right Arm] Blood Pressure Position Blood Pressure Position [Right Arm] 02 Sat by Pulse Oximetry 95 96 95 Oxygen Delivery Method 08/08/25 18:40 08/08/25 19:00 08/08/25 19:11 Temperature Temperature Source Pulse Rate 112 H 110 H 115 H Pulse Rate [Radial] Respiratory Rate Blood Pressure 152/101 H 143/98 H 146/100 H Blood Pressure [Right Arm] Blood Pressure Mean Blood Pressure Mean [Right Arm] Blood Pressure Source Blood Pressure Source [Right Arm] Blood Pressure Position Blood Pressure Position [Right Arm] 02 Sat by Pulse Oximetry 97 98 95 Oxygen Delivery Method 08/08/25 19:19 08/08/25 19:30 08/08/25 19:40 Temperature Temperature Source Pulse Rate 114 H 114 H 116 H Pulse Rate [Radial] Respiratory Rate Blood Pressure 151/102 H 159/112 H 154/101 H Blood Pressure [Right Arm] Blood Pressure Mean Blood Pressure Mean [Right Arm] Blood Pressure Source Blood Pressure Source [Right Arm] Blood Pressure Position Blood Pressure Position [Right Arm] 02 Sat by Pulse Oximetry 95 96 96 Oxygen Delivery Method 08/08/25 19:50 08/08/25 20:00 08/08/25 20:10 Temperature Temperature Source Pulse Rate 112 H 115 H Pulse Rate [Radial] Respiratory Rate Blood Pressure 156/107 H 154/104 H 171/97 H Blood Pressure [Right Arm] Blood Pressure Mean 120 Blood Pressure Mean [Right Arm] Blood Pressure Source Blood Pressure Source [Right Arm] Blood Pressure Position Blood Pressure Position [Right Arm] 02 Sat by Pulse Oximetry 97 97 Oxygen Delivery Method 08/08/25 20:20 08/08/25 20:29 08/08/25 20:30 Temperature 101 F H Temperature Source Oral Pulse Rate 118 H 102 H 124 H Pulse Rate [Radial] Respiratory Rate 17 Blood Pressure 152/102 H 151/102 H 156/105 H Blood Pressure [Right Arm] Blood Pressure Mean Blood Pressure Mean [Right Arm] Blood Pressure Source Automatic Cuff Blood Pressure Source [Right Arm] Blood Pressure Position Sitting Blood Pressure Position [Right Arm] 02 Sat by Pulse Oximetry 96 95 97 Oxygen Delivery Method Room Air 08/08/25 20:41 08/08/25 20:50 08/08/25 21:00 Temperature Temperature Source Pulse Rate 122 H 124 H 122 H Pulse Rate [Radial] Respiratory Rate Blood Pressure 150/101 H 144/101 H 126/97 H Blood Pressure [Right Arm] Blood Pressure Mean Blood Pressure Mean [Right Arm] Blood Pressure Source Blood Pressure Source [Right Arm] Blood Pressure Position Blood Pressure Position [Right Arm] 02 Sat by Pulse Oximetry 95 93 L 92 L Oxygen Delivery Method 08/08/25 21:10 08/08/25 21:20 08/08/25 21:30 Temperature Temperature Source Pulse Rate 121 H 122 H 120 H Pulse Rate [Radial] Respiratory Rate Blood Pressure 137/96 H 149/101 H 133/106 H Blood Pressure [Right Arm] Blood Pressure Mean Blood Pressure Mean [Right Arm] Blood Pressure Source Blood Pressure Source [Right Arm] Blood Pressure Position Blood Pressure Position [Right Arm] 02 Sat by Pulse Oximetry 94 L 93 L 95 Oxygen Delivery Method 08/08/25 21:40 08/08/25 21:50 08/08/25 22:00 Temperature Temperature Source Pulse Rate 122 H 118 H 120 H Pulse Rate [Radial] Respiratory Rate Blood Pressure 147/99 H 137/80 126/74 Blood Pressure [Right Arm] Blood Pressure Mean Blood Pressure Mean [Right Arm] Blood Pressure Source Blood Pressure Source [Right Arm] Blood Pressure Position Blood Pressure Position [Right Arm] 02 Sat by Pulse Oximetry 93 L 79 L 92 L Oxygen Delivery Method 08/08/25 22:10 08/08/25 22:20 08/08/25 22:30 Temperature Temperature Source Pulse Rate 118 H 117 H 120 H Pulse Rate [Radial] Respiratory Rate Blood Pressure 119/71 116/72 117/68 Blood Pressure [Right Arm] Blood Pressure Mean Blood Pressure Mean [Right Arm] Blood Pressure Source Blood Pressure Source [Right Arm] Blood Pressure Position Blood Pressure Position [Right Arm] 02 Sat by Pulse Oximetry 94 L 94 L 94 L Oxygen Delivery Method 08/08/25 22:40 08/08/25 22:50 08/08/25 23:00 Temperature Temperature Source Pulse Rate 121 H 120 H 117 H Pulse Rate [Radial] Respiratory Rate Blood Pressure 121/68 117/74 120/78 Blood Pressure [Right Arm] Blood Pressure Mean Blood Pressure Mean [Right Arm] Blood Pressure Source Blood Pressure Source [Right Arm] Blood Pressure Position Blood Pressure Position [Right Arm] 02 Sat by Pulse Oximetry 93 L 94 L 92 L Oxygen Delivery Method 08/08/25 23:12 08/08/25 23:20 08/08/25 23:30 Temperature Temperature Source Pulse Rate 121 H 124 H 124 H Pulse Rate [Radial] Respiratory Rate Blood Pressure 162/94 H 145/98 H 145/76 H Blood Pressure [Right Arm] Blood Pressure Mean Blood Pressure Mean [Right Arm] Blood Pressure Source Blood Pressure Source [Right Arm] Blood Pressure Position Blood Pressure Position [Right Arm] 02 Sat by Pulse Oximetry 96 94 L 92 L Oxygen Delivery Method Lab Data Lab results reviewed: Yes I reviewed the patient's lab results. Lab Results 08/08/25 16:10: Urine Color Yellow, Urine Appearance Clear, Urine pH 5.5, Ur Specific [place] 1.020, Urine Protein 2+ A, Urine Glucose (UA) 3+, Urine Ketones Trace, Urine Blood 3+ A, Urine Nitrate Positive A, Urine Bilirubin 1+ A, Urine Urobilinogen 2.0, Ur Leukocyte Esterase 1+ A, Urine RBC Tntc, Urine WBC 3-5, Ur Squamous Epith Cells None, Ur Renal Epithelial Cell 3-5, Urine Bacteria 1+ 08/08/25 16:22: WBC 17.0 H, RBC 5.75 H, Hgb 18.2 H, Hct 55.2 H, MCV 96.0, MCH 31.7 H, MCHC 33.0, RDW 14.2, Plt Count 230, MPV 9.8, Neut % (Auto) 91.0 H, Lymph % (Auto) 4.4 L, [place] % (Auto) 3.3, Eos % (Auto) 0.8, Baso % (Auto) 0.2, Neut # (Auto) 15.4 H, Lymph # (Auto) 0.8, [place] # (Auto) 0.6, Eos # (Auto) 0.1, Baso # (Auto) 0.0, Sodium 136, Potassium 3.5, Chloride 102, Carbon Dioxide 27, Anion Gap 10.5, BUN 13, Creatinine 1.20 H, Estimated Creat Clear 59, Estimated GFR 46 L, Est GFR ( Amer) 55 L, Glucose 110 H, Lactate 1.7, Calcium 9.4, Total Bilirubin 1.0, AST 53 H, ALT 34, Alkaline Phosphatase 90, Total Protein 7.6, Albumin 4.6, Globulin 3.0, Albumin/Globulin Ratio 1.5, Lipase 117, HCV Ab MAIRA w/Rflx PCR Qn Negative, HIV Ag/Ab Combo Qual Negative 08/08/25 16:22 08/08/25 16:22 Orders (Tests/Meds): ED MEDICATIONS Generic Name Dose Route Start Last Admin Trade Name Freq PRN Reason Stop Dose Admin Irbesartan 200 mg 08/08/25 19:41 Irbesartan 300mg Tablet PO 08/08/25 19:42 ONCE ONE Discontinued Medications Generic Name Dose Route Start Last Admin Trade Name Freq PRN Reason Stop Dose Admin Acetaminophen 1,000 mg 08/08/25 20:07 08/08/25 20:19 Acetaminophen 1,000mg/100ml Vial IV 08/08/25 20:08 1,000 mg ONCE ONE Administration Ceftriaxone Sodium 2 gm/ 100 mls @ 200 mls/hr 08/08/25 16:28 08/08/25 17:26 Sodium Chloride IV 08/08/25 16:57 Infused ONCE ONE Infusion Lactated Ringer's 1,000 mls @ 500 mls/hr 08/08/25 18:59 08/08/25 20:34 Lactated Ringer's 1000 Ml Bag IV 08/08/25 20:58 0 mls/hr .Q2H ONE Infusion Sodium Chloride 500 mls @ 999 mls/hr 08/08/25 23:45 08/09/25 00:18 Sod Chlor 0.9% 1000ml Bag IV 08/09/25 00:15 999 mls/hr .Q31M ONE Administration Iopamidol 75 ml 08/08/25 16:54 08/08/25 16:55 Iopamidol-370 (76%);100ml Bottle IV 08/08/25 16:55 75 ml ONCE ONE Administration Ketorolac Tromethamine 15 mg 08/08/25 16:14 08/08/25 16:30 Ketorolac 15mg/Ml Vial IV 08/08/25 16:15 15 mg ONCE ONE Administration Morphine Sulfate 2 mg 08/08/25 17:50 08/08/25 17:53 Morphine 2mg/Ml Syringe IV 08/08/25 17:51 2 mg ONCE ONE Administration Morphine Sulfate 2 mg 08/08/25 18:55 08/08/25 19:01 Morphine 2mg/Ml Syringe IV 08/08/25 18:56 2 mg ONCE ONE Administration Ondansetron HCl 4 mg 08/08/25 16:15 08/08/25 16:29 Ondansetron 4mg/2ml Vial IV 08/08/25 16:16 4 mg ONCE ONE Administration Ondansetron HCl 4 mg 08/08/25 20:02 08/08/25 20:19 Ondansetron 4mg/2ml Vial IV 08/08/25 20:03 4 mg ONCE ONE Administration Oxycodone HCl 5 mg 08/08/25 21:30 08/08/25 21:48 Oxycodone 5mg Immediate Release Tablet PO 08/08/25 21:31 5 mg ONCE ONE Administration Sodium Chloride 10 ml 08/08/25 16:54 08/08/25 16:55 Sodium Chloride 0.9% 10ml Syr (Rad Only) IV 08/08/25 16:55 10 ml ONCE ONE Administration ORDERS Category Date Time Status CT abdomen pelvis w con Stat Cat Scan 08/08/25 16:13 Completed Complete Blood Count Auto Diff Stat Lab 08/08/25 16:22 Completed Comprehensive Metabolic Panel Stat Lab 08/08/25 16:22 Completed HIV Combo Stat Lab 08/08/25 16:22 Completed Hepatitis C Ab Qual. W/ RFX Stat Lab 08/08/25 16:22 Completed Lactic Acid Stat Lab 08/08/25 16:22 Completed Lactic Acid Stat Lab 08/08/25 23:45 Ordered Lipase Stat Lab 08/08/25 16:22 Completed Urinalysis and Microscopic Stat Lab 08/08/25 16:10 Completed Blood Culture Stat Micro 08/08/25 16:45 Received Urine Culture Stat Micro 08/08/25 16:10 Received Medical Decision Narrative: 60-year-old female presents the emergency department with lower back pain and decreased urinary frequency for 3 days, noted some hematuria as well as bilateral flank pain wrapping around starting today, differential diagnose include but not limited to acute UTI, acute pyonephritis, nephrolithiasis, ureterolithiasis, diverticulitis, appendicitis, bowel obstruction, colitis, acute lumbar sacral strain, degenerative disease lumbar spine among others I discussed this patient's case with the attending physician Dr. Lord Will obtain basic laboratory studies, CT ab pelvis with contrast, lactic acid of lipase level urinalysis, will give 15 mg IV Toradol and 4 mg of her pain and nausea. UA is noted for 2+ proteinuria 3+ hematuria nitrite positive, 1+ bilirubin 1+ leukocyte esterase, too numerous to count red blood cells, 3-5 WBCs, 3-5 renal epithelial cells and 1+ urine bacteria. Will give 2 g IV ceftriaxone . CBC is notable for leukocytosis 17, with tachycardia upon presentation now meeting sepsis criteria, already obtaining lactic acid level and blood cultures. CMP is notable for mild creatinine elevation 1.2, no lactic acidosis AST elevation is minimal at 53, lipase level within normal limits. I reviewed the patient's CT abdomen pelvis with contrast on the corresponding radiologic report, I was also able to speak with the reading radiologist via the telephone at 5:42 PM, Dr. Dooley, there is a 10 x 9.6 mm calculus in the left collecting system causing moderate dilation of the left collecting system the mucosa shows mild enhancement this may indicate pyelonephritis, left kidney is edematous and there is left perirenal stranding. Patient still having some pain that she rates a 5 out of 10 via nursing staff, will give 2 mg IV morphine for pain. I was notified by nursing staff at approximately 6:55 PM the patient is still complaining of some pain, will give additional 2 mg of morphine dose. Will also give 500 mL liter IV LR, and will not give full sepsis bolus due to concern for obstructive stone in the setting of hydronephrosis. I discussed this patient's case with Dr. Chemo Gonzales the urologist on-call at [facility] at approximately 7:15 PM, he recommends transfer for ureteral stent in the morning, he states that the hospitalist team will be in contact with me with a bed assignment and transfer. Pending hospitalist callback. I discussed this patient's case with [facility] hospitalist at approximately 7:30 PM, he is in agreement with the current treatment plan/transfer plan for obstructive uropathy with sepsis, with plan for ureteral stenting in the morning. [facility] will call back with bed assignment. I discussed need for transfer with the patient and family the bedside patient and family are in agreement with the current treatment plan/transfer plan. I was notified by nursing staff that patient is requesting her at home blood pressure medication which is losartan 25 mg p.o. Will give patient at home dose of blood pressure medication. Patient also complaining of some nausea will give 4 mg IV Zofran for nausea as well as 1000 mg IV Tylenol. Of note I was notified once again by nursing staff at approximately 9:25 PM that the patient is complaining of some worsening pain will give additional dose of narcotic pain medication will attempt p.o. intake with 5 mg po oxycodone. <Yusuf Lord, DO - Last Filed: 08/09/25 00:32> Vital Signs: 08/08/25 16:14 08/08/25 16:16 08/08/25 16:21 Temperature 99.5 F Temperature Source Oral Pulse Rate 111 H 116 H Pulse Rate [Radial] 108 H Respiratory Rate 18 Blood Pressure 143/96 H 142/94 H Blood Pressure [Right Arm] 143/96 H Blood Pressure Mean Blood Pressure Mean [Right Arm] 111 Blood Pressure Source Blood Pressure Source [Right Arm] Automatic Cuff Blood Pressure Position Blood Pressure Position [Right Arm] Sitting 02 Sat by Pulse Oximetry 98 98 96 Oxygen Delivery Method Room Air 08/08/25 16:30 08/08/25 17:55 08/08/25 18:00 Temperature Temperature Source Pulse Rate 112 H 111 H 115 H Pulse Rate [Radial] Respiratory Rate Blood Pressure 134/96 H 157/99 H 143/109 H Blood Pressure [Right Arm] Blood Pressure Mean Blood Pressure Mean [Right Arm] Blood Pressure Source Blood Pressure Source [Right Arm] Blood Pressure Position Blood Pressure Position [Right Arm] 02 Sat by Pulse Oximetry 96 95 95 Oxygen Delivery Method 08/08/25 18:10 08/08/25 18:20 08/08/25 18:30 Temperature Temperature Source Pulse Rate 111 H 116 H 111 H Pulse Rate [Radial] Respiratory Rate Blood Pressure 161/108 H 148/100 H 156/106 H Blood Pressure [Right Arm] Blood Pressure Mean Blood Pressure Mean [Right Arm] Blood Pressure Source Blood Pressure Source [Right Arm] Blood Pressure Position Blood Pressure Position [Right Arm] 02 Sat by Pulse Oximetry 95 96 95 Oxygen Delivery Method 08/08/25 18:40 08/08/25 19:00 08/08/25 19:11 Temperature Temperature Source Pulse Rate 112 H 110 H 115 H Pulse Rate [Radial] Respiratory Rate Blood Pressure 152/101 H 143/98 H 146/100 H Blood Pressure [Right Arm] Blood Pressure Mean Blood Pressure Mean [Right Arm] Blood Pressure Source Blood Pressure Source [Right Arm] Blood Pressure Position Blood Pressure Position [Right Arm] 02 Sat by Pulse Oximetry 97 98 95 Oxygen Delivery Method 08/08/25 19:19 08/08/25 19:30 08/08/25 19:40 Temperature Temperature Source Pulse Rate 114 H 114 H 116 H Pulse Rate [Radial] Respiratory Rate Blood Pressure 151/102 H 159/112 H 154/101 H Blood Pressure [Right Arm] Blood Pressure Mean Blood Pressure Mean [Right Arm] Blood Pressure Source Blood Pressure Source [Right Arm] Blood Pressure Position Blood Pressure Position [Right Arm] 02 Sat by Pulse Oximetry 95 96 96 Oxygen Delivery Method 08/08/25 19:50 08/08/25 20:00 08/08/25 20:10 Temperature Temperature Source Pulse Rate 112 H 115 H Pulse Rate [Radial] Respiratory Rate Blood Pressure 156/107 H 154/104 H 171/97 H Blood Pressure [Right Arm] Blood Pressure Mean 120 Blood Pressure Mean [Right Arm] Blood Pressure Source Blood Pressure Source [Right Arm] Blood Pressure Position Blood Pressure Position [Right Arm] 02 Sat by Pulse Oximetry 97 97 Oxygen Delivery Method 08/08/25 20:20 08/08/25 20:29 08/08/25 20:30 Temperature 101 F H Temperature Source Oral Pulse Rate 118 H 102 H 124 H Pulse Rate [Radial] Respiratory Rate 17 Blood Pressure 152/102 H 151/102 H 156/105 H Blood Pressure [Right Arm] Blood Pressure Mean Blood Pressure Mean [Right Arm] Blood Pressure Source Automatic Cuff Blood Pressure Source [Right Arm] Blood Pressure Position Sitting Blood Pressure Position [Right Arm] 02 Sat by Pulse Oximetry 96 95 97 Oxygen Delivery Method Room Air 08/08/25 20:41 08/08/25 20:50 08/08/25 21:00 Temperature Temperature Source Pulse Rate 122 H 124 H 122 H Pulse Rate [Radial] Respiratory Rate Blood Pressure 150/101 H 144/101 H 126/97 H Blood Pressure [Right Arm] Blood Pressure Mean Blood Pressure Mean [Right Arm] Blood Pressure Source Blood Pressure Source [Right Arm] Blood Pressure Position Blood Pressure Position [Right Arm] 02 Sat by Pulse Oximetry 95 93 L 92 L Oxygen Delivery Method 08/08/25 21:10 08/08/25 21:20 08/08/25 21:30 Temperature Temperature Source Pulse Rate 121 H 122 H 120 H Pulse Rate [Radial] Respiratory Rate Blood Pressure 137/96 H 149/101 H 133/106 H Blood Pressure [Right Arm] Blood Pressure Mean Blood Pressure Mean [Right Arm] Blood Pressure Source Blood Pressure Source [Right Arm] Blood Pressure Position Blood Pressure Position [Right Arm] 02 Sat by Pulse Oximetry 94 L 93 L 95 Oxygen Delivery Method 08/08/25 21:40 08/08/25 21:50 08/08/25 22:00 Temperature Temperature Source Pulse Rate 122 H 118 H 120 H Pulse Rate [Radial] Respiratory Rate Blood Pressure 147/99 H 137/80 126/74 Blood Pressure [Right Arm] Blood Pressure Mean Blood Pressure Mean [Right Arm] Blood Pressure Source Blood Pressure Source [Right Arm] Blood Pressure Position Blood Pressure Position [Right Arm] 02 Sat by Pulse Oximetry 93 L 79 L 92 L Oxygen Delivery Method 08/08/25 22:10 08/08/25 22:20 08/08/25 22:30 Temperature Temperature Source Pulse Rate 118 H 117 H 120 H Pulse Rate [Radial] Respiratory Rate Blood Pressure 119/71 116/72 117/68 Blood Pressure [Right Arm] Blood Pressure Mean Blood Pressure Mean [Right Arm] Blood Pressure Source Blood Pressure Source [Right Arm] Blood Pressure Position Blood Pressure Position [Right Arm] 02 Sat by Pulse Oximetry 94 L 94 L 94 L Oxygen Delivery Method 08/08/25 22:40 08/08/25 22:50 08/08/25 23:00 Temperature Temperature Source Pulse Rate 121 H 120 H 117 H Pulse Rate [Radial] Respiratory Rate Blood Pressure 121/68 117/74 120/78 Blood Pressure [Right Arm] Blood Pressure Mean Blood Pressure Mean [Right Arm] Blood Pressure Source Blood Pressure Source [Right Arm] Blood Pressure Position Blood Pressure Position [Right Arm] 02 Sat by Pulse Oximetry 93 L 94 L 92 L Oxygen Delivery Method 08/08/25 23:12 08/08/25 23:20 08/08/25 23:30 Temperature Temperature Source Pulse Rate 121 H 124 H 124 H Pulse Rate [Radial] Respiratory Rate Blood Pressure 162/94 H 145/98 H 145/76 H Blood Pressure [Right Arm] Blood Pressure Mean Blood Pressure Mean [Right Arm] Blood Pressure Source Blood Pressure Source [Right Arm] Blood Pressure Position Blood Pressure Position [Right Arm] 02 Sat by Pulse Oximetry 96 94 L 92 L Oxygen Delivery Method Lab Data Lab Results 08/08/25 16:10: Urine Color Yellow, Urine Appearance Clear, Urine pH 5.5, Ur Specific [place] 1.020, Urine Protein 2+ A, Urine Glucose (UA) 3+, Urine Ketones Trace, Urine Blood 3+ A, Urine Nitrate Positive A, Urine Bilirubin 1+ A, Urine Urobilinogen 2.0, Ur Leukocyte Esterase 1+ A, Urine RBC Tntc, Urine WBC 3-5, Ur Squamous Epith Cells None, Ur Renal Epithelial Cell 3-5, Urine Bacteria 1+ 08/08/25 16:22: WBC 17.0 H, RBC 5.75 H, Hgb 18.2 H, Hct 55.2 H, MCV 96.0, MCH 31.7 H, MCHC 33.0, RDW 14.2, Plt Count 230, MPV 9.8, Neut % (Auto) 91.0 H, Lymph % (Auto) 4.4 L, [place] % (Auto) 3.3, Eos % (Auto) 0.8, Baso % (Auto) 0.2, Neut # (Auto) 15.4 H, Lymph # (Auto) 0.8, [place] # (Auto) 0.6, Eos # (Auto) 0.1, Baso # (Auto) 0.0, Sodium 136, Potassium 3.5, Chloride 102, Carbon Dioxide 27, Anion Gap 10.5, BUN 13, Creatinine 1.20 H, Estimated Creat Clear 59, Estimated GFR 46 L, Est GFR ( Amer) 55 L, Glucose 110 H, Lactate 1.7, Calcium 9.4, Total Bilirubin 1.0, AST 53 H, ALT 34, Alkaline Phosphatase 90, Total Protein 7.6, Albumin 4.6, Globulin 3.0, Albumin/Globulin Ratio 1.5, Lipase 117, HCV Ab MAIRA w/Rflx PCR Qn Negative, HIV Ag/Ab Combo Qual Negative Orders (Tests/Meds): ED MEDICATIONS Generic Name Dose Route Start Last Admin Trade Name Freq PRN Reason Stop Dose Admin Irbesartan 200 mg 08/08/25 19:41 Irbesartan 300mg Tablet PO 08/08/25 19:42 ONCE ONE Discontinued Medications Generic Name Dose Route Start Last Admin Trade Name Freq PRN Reason Stop Dose Admin Acetaminophen 1,000 mg 08/08/25 20:07 11/14/25 20:19 Acetaminophen 1,000mg/100ml Vial IV 08/08/25 20:08 1,000 mg ONCE ONE Administration Ceftriaxone Sodium 2 gm/ 100 mls @ 200 mls/hr 08/08/25 16:28 08/08/25 17:26 Sodium Chloride IV 08/08/25 16:57 Infused ONCE ONE Infusion Lactated Ringer's 1,000 mls @ 500 mls/hr 08/08/25 18:59 08/08/25 20:34 Lactated Ringer's 1000 Ml Bag IV 08/08/25 20:58 0 mls/hr .Q2H ONE Infusion Sodium Chloride 500 mls @ 999 mls/hr 08/08/25 23:45 08/09/25 00:18 Sod Chlor 0.9% 1000ml Bag IV 08/09/25 00:15 999 mls/hr .Q31M ONE Administration Iopamidol 75 ml 08/08/25 16:54 08/08/25 16:55 Iopamidol-370 (76%);100ml Bottle IV 08/08/25 16:55 75 ml ONCE ONE Administration Ketorolac Tromethamine 15 mg 08/08/25 16:14 08/08/25 16:30 Ketorolac 15mg/Ml Vial IV 08/08/25 16:15 15 mg ONCE ONE Administration Morphine Sulfate 2 mg 08/08/25 17:50 08/08/25 17:53 Morphine 2mg/Ml Syringe IV 08/08/25 17:51 2 mg ONCE ONE Administration Morphine Sulfate 2 mg 08/08/25 18:55 08/08/25 19:01 Morphine 2mg/Ml Syringe IV 08/08/25 18:56 2 mg ONCE ONE Administration Ondansetron HCl 4 mg 08/08/25 16:15 08/08/25 16:29 Ondansetron 4mg/2ml Vial IV 08/08/25 16:16 4 mg ONCE ONE Administration Ondansetron HCl 4 mg 08/08/25 20:02 08/08/25 20:19 Ondansetron 4mg/2ml Vial IV 08/08/25 20:03 4 mg ONCE ONE Administration Oxycodone HCl 5 mg 08/08/25 21:30 08/08/25 21:48 Oxycodone 5mg Immediate Release Tablet PO 08/08/25 21:31 5 mg ONCE ONE Administration Sodium Chloride 10 ml 08/08/25 16:54 08/08/25 16:55 Sodium Chloride 0.9% 10ml Syr (Rad Only) IV 08/08/25 16:55 10 ml ONCE ONE Administration ORDERS Category Date Time Status CT abdomen pelvis w con Stat Cat Scan 08/08/25 16:13 Completed Complete Blood Count Auto Diff Stat Lab 08/08/25 16:22 Completed Comprehensive Metabolic Panel Stat Lab 08/08/25 16:22 Completed HIV Combo Stat Lab 08/08/25 16:22 Completed Hepatitis C Ab Qual. W/ RFX Stat Lab 08/08/25 16:22 Completed Lactic Acid Stat Lab 08/08/25 16:22 Completed Lactic Acid Stat Lab 08/08/25 23:45 Ordered Lipase Stat Lab 08/08/25 16:22 Completed Urinalysis and Microscopic Stat Lab 08/08/25 16:10 Completed Blood Culture Stat Micro 08/08/25 16:45 Received Urine Culture Stat Micro 08/08/25 16:10 Received Medical Decision Narrative: 60-year-old female presents the emergency department with lower back pain and decreased urinary frequency for 3 days, noted some hematuria as well as bilateral flank pain wrapping around starting today, differential diagnose include but not limited to acute UTI, acute pyonephritis, nephrolithiasis, ureterolithiasis, diverticulitis, appendicitis, bowel obstruction, colitis, acute lumbar sacral strain, degenerative disease lumbar spine among others I discussed this patient's case with the attending physician Dr. Lord Will obtain basic laboratory studies, CT ab pelvis with contrast, lactic acid of lipase level urinalysis, will give 15 mg IV Toradol and 4 mg of her pain and nausea. UA is noted for 2+ proteinuria 3+ hematuria nitrite positive, 1+ bilirubin 1+ leukocyte esterase, too numerous to count red blood cells, 3-5 WBCs, 3-5 renal epithelial cells and 1+ urine bacteria. Will give 2 g IV ceftriaxone . CBC is notable for leukocytosis 17, with tachycardia upon presentation now meeting sepsis criteria, already obtaining lactic acid level and blood cultures. CMP is notable for mild creatinine elevation 1.2, no lactic acidosis AST elevation is minimal at 53, lipase level within normal limits. I reviewed the patient's CT abdomen pelvis with contrast on the corresponding radiologic report, I was also able to speak with the reading radiologist via the telephone at 5:42 PM, Dr. Dooley, there is a 10 x 9.6 mm calculus in the left collecting system causing moderate dilation of the left collecting system the mucosa shows mild enhancement this may indicate pyelonephritis, left kidney is edematous and there is left perirenal stranding. Patient still having some pain that she rates a 5 out of 10 via nursing staff, will give 2 mg IV morphine for pain. I was notified by nursing staff at approximately 6:55 PM the patient is still complaining of some pain, will give additional 2 mg of morphine dose. Will also give 500 mL liter IV LR, and will not give full sepsis bolus due to concern for obstructive stone in the setting of hydronephrosis. I discussed this patient's case with Dr. Chemo Gonzales the urologist on-call at [facility] at approximately 7:15 PM, he recommends transfer for ureteral stent in the morning, he states that the hospitalist team will be in contact with me with a bed assignment and transfer. Pending hospitalist callback. I discussed this patient's case with [facility] hospitalist at approximately 7:30 PM, he is in agreement with the current treatment plan/transfer plan for obstructive uropathy with sepsis, with plan for ureteral stenting in the morning. [facility] will call back with bed assignment. I discussed need for transfer with the patient and family the bedside patient and family are in agreement with the current treatment plan/transfer plan. I was notified by nursing staff that patient is requesting her at home blood pressure medication which is losartan 25 mg p.o. Will give patient at home dose of blood pressure medication. Patient also complaining of some nausea will give 4 mg IV Zofran for nausea as well as 1000 mg IV Tylenol. Of note I was notified once again by nursing staff at approximately 9:25 PM that the patient is complaining of some worsening pain will give additional dose of narcotic pain medication will attempt p.o. intake with 5 mg po oxycodone. I was consulted by the CHENG, and we discussed the complexity of problems being addressed. I approved the treatment and management plan for this patient's care in the emergency department, thus performing a substantive portion of the medical decision making. Yusuf Lord, DO This is Dr. oLrd. I did evaluate the patient as well. Agree with assessment and plan above. After Mr. Leal left shift I continue treating this patient. She did have persistent fevers as well as tachycardia. I treated her with an additional liter of IV crystalloid fluid for sepsis as well as obtain additional lactic acid level. We have also treated with an additional gram of Tylenol at the 4-hour sly. Given her worsening clinical status we elected to transfer the patient via helicopter ambulance to [facility]. Patient was transferred stable, but guarded condition. Critical Care <DEMETRIUS Perez - Last Filed: 08/08/25 21:32> Critical Care Time Critical Care Time: No <Yusuf Lord DO - Last Filed: 08/09/25 00:32> Critical Care Time Critical Care Time: Yes Attestation: On 08/08/25, the high probability of a clinically significant, sudden or life threatening deterioration of the following system(s) required my full and direct attention, intervention and personal management. The time I documented below is in addition to time spent performing reported procedures but includes the following listed in this critical care notation. Total Time Total Critical Care Time: 48
--- NOTE | 2025-08-08 16:13 | CT_ITS ---
PROCEDURE INFORMATION: Exam: CT Abdomen And Pelvis With Contrast Exam date and time: 08/08/2025 4:54 PM Age: 60 years old Clinical indication: Abdominal pain; Additional info: Bilateral flank pain hematuria HX of stones TECHNIQUE: Imaging protocol: Computed tomography of the abdomen and pelvis with contrast. Radiation optimization: All CT scans at this facility use at least one of these dose optimization techniques: automated exposure control; mA and/or kV adjustment per patient size (includes targeted exams where dose is matched to clinical indication); or iterative reconstruction. Contrast material: ISOVUE; Contrast volume: 75 ml; Contrast route: IV; COMPARISON: NM GASTRIC EMPTYING STUDY 10/20/2020 11:37 AM FINDINGS: Liver: Normal. No mass. Gallbladder and biliary ducts: Cholecystectomy Pancreas: Normal. No ductal dilation. Spleen: Normal. No splenomegaly. Adrenal glands: Normal. No mass. Kidneys and ureters: Ten by 9.6 millimeter calculus in the left collecting system causes moderate dilatation of LEFT collecting system . The mucosa shows mild enhancement. This may indicate pyelonephritis. The LEFT kidney is edematous and there is LEFT perirenal stranding. Stomach and bowel: Unremarkable. No obstruction. No mucosal thickening. Appendix: No evidence of appendicitis. Intraperitoneal space: Unremarkable. No free air. No significant fluid collection. Vasculature: Unremarkable. No abdominal aortic aneurysm. Lymph nodes: Unremarkable. No enlarged lymph nodes. Urinary bladder: Unremarkable as visualized. Reproductive: Unremarkable as visualized. Bones/joints: Unremarkable. No acute fracture. Soft tissues: Neurostimulator device in the soft tissues posteriorly IMPRESSION: Ten by 9.6 millimeter calculus in the left collecting system causes moderate dilatation of LEFT collecting system . The mucosa shows mild enhancement. This may indicate pyelonephritis. The LEFT kidney is edematous and there is LEFT perirenal stranding.
[2025-08-08 16:17] LABS: Microscopic, Urine URINE MICROSCOPIC (MICROSCOPIC)
[2025-08-08 16:18] LABS: Color,Urine YELLOW (Yellow); Glucose,Urine (UA) 3+ (Negative); Ketones,Urine TRACE (Negative); Leukocyte Esterase,Urine 1+ (Negative); PH,Urine 5.5 (5.0-8.5); Protein,Urine 2+ (Negative); Specific Gravity, Urine 1.020 (1.005-1.030); Urobilinogen,Urine 2.0 EU/dl (0.2)
[2025-08-08 16:21] LABS: Bilirubin,Urine 1+ (Negative)
[2025-08-08 16:27] LABS: Bacteria,Urine 1+ /lpf; RBC,Urine TNTC #/hpf (0-3)
[2025-08-08] MEDS: ONDANSETRON 4MG/2ML VIAL 4 MG IV ×2 (16:29→20:19)
[2025-08-08] MEDS: KETOROLAC 15MG/ML VIAL 15 MG IV (16:30)
[2025-08-08 16:37] LABS: Hematocrit 55.2 % (37.0-47.0); Immature Granulocytes % 0.3 %; Mean Corpuscular HGB Conc 33.0 g/dL (31.8-35.4); Mean Corpuscular Hemoglobin 31.7 pg (27.0-31.2); Mean Corpuscular Volume 96.0 fl (81-99); Nucleated Red Blood Cells % 0 %; Platelet Count 230 K/mm3 (142-424); Red Blood Count 5.75 M/mm3 (4.20-5.40); Red Cell Distribution Width-SD 50.4 fL; White Blood Count 17.0 K/mm3 (4.8-10.8)
[2025-08-08 16:45] LABS: Alanine Aminotransferase 34 U/L (12-78); Albumin Level 4.6 g/dl (3.5-5.0); Albumin/Globulin Ratio 1.5 (1.1-1.8); Alkaline Phosphatase 90 U/L (38-126); Anion Gap 10.5 mEq/L (5-15); Aspartate Amino Transferase 53 U/L (14-36); Bilirubin,Total 1.0 mg/dl (0.2-1.3); Blood Urea Nitrogen 13 mg/dl (7-17); Calcium 9.4 mg/dl (8.4-10.2); Carbon Dioxide 27 mmol/L (22.0-30.0); Chloride 102 mmol/L (98-107); Creatinine Clearance Estimated 59 mL/min (50-200); Creatinine,Serum 1.20 mg/dl (0.52-1.04); Estimated Glomerular Filt Rate 46 ml/min (>60); GFR (African American) 55 ML/MIN (>60); Globulin 3.0 g/dL (1.3-3.2); Glucose 110 mg/dl (74-100); Lipase 117 U/L (23-300); Potassium 3.5 mmoL/L (3.5-5.1); Sodium 136 mmol/L (136-145); Total Protein,Serum 7.6 g/dl (6.3-8.2)
[2025-08-08 16:53] LABS: Hemoglobin 18.2 g/dL (12.2-16.2)
[2025-08-08] MEDS: SODIUM CHLORIDE 0.9% 10ML SYR (RAD ONLY) 10 ML IV (16:55)
[2025-08-08] MEDS: IOPAMIDOL-370 (76%);100ML BOTTLE 75 ML IV (16:55)
[2025-08-08 17:33] LABS: Hepatitis C Ab Qual. W/ RFX NEGATIVE (Negative)
[2025-08-08] MEDS: MORPHINE 2MG/ML SYRINGE 2 MG IV ×2 (17:53→19:01)
--- NOTE | 2025-08-08 17:53 | PC.NURSE ---
Called [facility] for patient transfe per DEMETRIUS Ochoa for a 10mm Left septic kidney stone.
[2025-08-08] MEDS: LACTATED RINGERS 1000ML 1,000 ML 500 ML IV (19:02)
[2025-08-08] MEDS: ACETAMINOPHEN 1,000MG/100ML VIAL 1000 MG IV (20:19)
--- NOTE | 2025-08-08 20:28 | PC.NURSE ---
Pt given Zofran and IV tylenol, temp is 101 and pt is vomiting. Daughter at bedside. cold rags applied to forehead and neck.
--- NOTE | 2025-08-08 21:26 | PC.NURSE ---
Pt hit call button and expressed she was in severe pain. Provider was made known and said he would place an order for more medication.
[2025-08-08] MEDS: OXYCODONE 5MG IMMEDIATE RELEASE TABLET 5 MG PO (21:48)
[2025-08-09] VITALS: BP 131/87; PULSE 122; O2SAT 93
[2025-08-09 00:10] VITALS: BP 152/86; PULSE 125; O2SAT 94
[2025-08-09] MEDS: 0.9 % SODIUM CHLORIDE 1000ML 500 ML 999 ML IV (00:18)
[2025-08-09 00:20] VITALS: BP 154/81; PULSE 130; O2SAT 97
[2025-08-09 00:30] VITALS: BP 146/92; PULSE 128; O2SAT 95
[2025-08-09] MEDS: ACETAMINOPHEN 500MG TAB 1000 MG PO (00:33)
[2025-08-09 00:41] VITALS: BP 119/76; PULSE 131; O2SAT 97
[2025-08-09] MEDS: ONDANSETRON 4MG/2ML VIAL 4 MG IV (00:45)
[2025-08-09 01:08] VITALS: BP 119/76; PULSE 131; RESP 22; TEMP 36.8; O2SAT 98
--- NOTE | 2025-08-10 08:36 | PC.NURSE ---
Urine culture results faxed to [facility] at [phone]
== END 2025-08-09 01:09 | disposition other institution (70) ==
PROVIDERS: Physician Assistant; Emergency Provider Student in an Organized Health Care Education/Training Program; PCP Internal Medicine Adolescent Medicine
DX: A41.9 Sepsis, unspecified organism (principal); N20.0 Calculus of kidney; N13.9 Obstructive and reflux uropathy, unspecified; N39.0 Urinary tract infection, site not specified; E87.6 Hypokalemia
CPT/HCPCS: 74177; 80053; 81001; 83605; 83690; 85025; 86803; 87040; 87086; 87088; 87186; 87389; 96365; 96367; 96375; 96376; 99285; J0131; J0696; J1885; J2270; J2405; J7030; J7120; Q9967